=== PATIENT | male | born 1940 | race Caucasian/White ===

== ENCOUNTER 2016-12-08 05:30 | Emergency (ER) | payer MEDICARE, BC ==
--- NOTE | 2016-12-08 05:39 | EDM.PDOC ---
ED HPI GENERAL MEDICAL PROBLEM - General Chief Complaint: Laceration Stated Complaint: [facility] Time Seen by Provider: 12/08/16 05:30 Source of Information: Reports: Patient, EMS Notes Reviewed History Limitations: Reports: No Limitations - History of Present Illness INITIAL COMMENTS - FREE TEXT/NARRATIVE: 76-year-old male attends the ED per ambulance. Apparently his called the ambulance. 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 He obviously passed out and fell to the floor striking his head hard on child concrete. He believes he was knocked out for a short period of time. Paramedics were impressed by the large amount of blood and clotted blood around his head on the floor. Patient complains of headache and has a deep laceration to his occipital scalp. He is alert and oriented and answers all questions quite appropriately. He has lost a good deal of weight since I seen him last. He reports he has stated a few times in the past once his would was in relationship to new onset atrial fibrillation. He doesn't feel any palpitations at this time. Denies nausea vomiting. Paramedics indicate that the home he is living in is in a very foul state in terms of animal feces in the home is very well unkept. Patient does take insulin for his type 2 diabetes control. He has not taken insulin yet this morning. He does not believe that his blood sugar was low. He believes his tetanus toxoid is up-to-date in about 3 years. Patient usually gets around with a double walker and/or cane. He falls frequently in fact he fell yesterday. She states she's been quite dizzy and lightheaded recently. Paramedics report his blood glucose was 111 at home. Onset: Today Onset Date: 12/08/16 Onset Time: 04:50 Duration: Minutes: Location: Reports: Head Quality: Reports: Ache Severity: Moderate Improves with: Reports: None Worsens with: Reports: None Context: Reports: Other (Was in the bathroom voiding when he passed out and hit the floor. Unclear for how long he may have been lying on the floor as there was a significant clotted blood around his head according to paramedics.). Denies: Activity, Exercise, Lifting, Sick Contact, Trauma Associated Symptoms: Reports: Loss of Appetite, Weakness (Legs.). 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 (see below) (None.) - Related Data Allergies Allergy/AdvReac Type Severity Reaction Status Date / Time No Known Allergies Allergy Verified 12/08/16 05:36 Home Meds: Home Meds ALPRAZolam [Alprazolam Xr] 1 mg PO TID 01/07/14 [History] Finasteride [Proscar] 5 mg PO DAILY 01/07/14 [History] Hydrocodone/Acetaminophen [Hydrocodone-Acetaminophen 5-325] 1 each PO Q6HR PRN # 20 tablet 01/07/14 [Rx] Insulin Glargine,Hum.Rec.Anlog [Lantus Solostar] 15 unit SQ DAILY 01/07/14 [ History] Isosorbide Mononitrate [Imdur] 60 mg PO BID 01/07/14 [History] Nitroglycerin [Nitrostat] 0.4 mg SL ASDIRECTED PRN 01/07/14 [History] Tamsulosin [Tamsulosin 24 Hr] 0.4 mg PO BID 01/07/14 [History] atorvaSTATin [Lipitor] 80 mg PO BEDTIME 01/07/14 [History] buPROPion [Wellbutrin] 100 mg PO TID 01/07/14 [History] Aspirin [Ecotrin] 81 mg PO DAILY 04/04/16 [History] Omeprazole 20 mg PO DAILY 04/04/16 [History] Digoxin [Lanoxin] 125 mcg PO DAILY 12/08/16 [History] Metoprolol Tartrate [Lopressor] 50 mg PO BID 12/08/16 [History] Past Medical History Cardiovascular History: Reports: Afib (Intermittent atrial fibrillation/atrial flutter.), SOB on Exertion Gastrointestinal History: Reports: Gastritis, GERD Genitourinary History: Reports: BPH, Other (See Below) (Renal insufficiency.) Psychiatric History: Reports: Anxiety, Depression Endocrine/Metabolic History: Reports: Diabetes, Type II Dermatologic History: Reports: Psoriasis - Past Surgical History Cardiovascular Surgical History: Reports: Coronary Artery Bypass Social & Family History - Tobacco Use Smoking Status *Q: Former Smoker Years of Tobacco use: 25 Packs/Tins Daily: 2 Used Tobacco, but Quit: Yes Month Tobacco Last Used: unknown - Alcohol Use Days Per Week of Alcohol Use: 0 - Recreational Drug Use Recreational Drug Use: No ED ROS GENERAL - Review of Systems Review Of Systems: See Below Constitutional: Reports: Weakness, Fatigue, Decreased Appetite, Weight Loss. Denies: Fever, Chills, Malaise HEENT: Reports: No Symptoms Respiratory: Reports: Shortness of Breath, Wheezing (Sometimes), Cough. Denies : Sputum, Hemoptysis, Other Cardiovascular: Reports: Dyspnea on Exertion, Lightheadedness, Palpitations ( Chronically sometimes). Denies: Chest Pain, Blood Pressure Problem, Claudication, Edema, Orthopnea Endocrine: Reports: Fatigue GI/Abdominal: Reports: Decreased Appetite. Denies: Abdominal Pain, Anorexia : Reports: Frequency, Other (Nocturia usually x3.) Musculoskeletal: Reports: Back Pain, Joint Pain (Knees and hips at times) Skin: Reports: Other (Is chronic psoriasis.) Neurological: Reports: Dizziness, Syncope, Difficulty Walking, Weakness. Denies : Confusion, Headache, Numbness, Pre-Existing Deficit, Seizure (Past MORNING.), Tingling, Trouble Speaking, Change in Speech (Weakness in his legs) Psychiatric: Reports: No Symptoms Hematologic/Lymphatic: Reports: No Symptoms ED EXAM, SKIN/RASH Exam: See Below Exam Limited By: No Limitations General Appearance: Alert, Mild Distress, Other (He has lost a lot of weight since I have seen him last. He appears relatively unkept) Eye Exam: Bilateral Eye: Normal Inspection, PERRL Ears: Hearing Grossly Normal, Normal TMs, Other (Both ears contain a large amount of cerumen probably close to 85% occluded. The visualized portion of the tympanic membranes appear normal.) Nose: Normal Inspection Throat/Mouth: Normal Inspection, Normal Oropharynx, Other (Tongue is very dry and coated.) Head: Other (Laceration Lt occipital scalp laterally that measures a good 4.5 cm in length.). No: Facial Swelling, Facial Tenderness Neck: Non-Tender, Full Range of Motion. No: Carotid Bruit, Lymphadenopathy (L) , Lymphadenopathy (R) Respiratory/Chest: Decreased Breath Sounds (To the lower 25% of lung mcguire.), Rhonchi, Wheezing (Scattered rhonchi sparkler wheezes) Cardiovascular: Regular Rate, Rhythm, No Edema, No Gallop. No: Normal Peripheral Pulses Peripheral Pulses: 1+: Posterior Tibial (L), Posterior Tibial (R), Dorsalis Pedis (L), Dorsalis Pedis (R) GI/Abdominal: Normal Bowel Sounds, Soft, Non-Tender, No Organomegaly, No Distention, No Abnormal Bruit (Male) Exam: No Hernia Back Exam: Normal Inspection, Full Range of Motion. No: CVA Tenderness (L), CVA Tenderness (R), Vertebral Tenderness Extremities: Normal Inspection, Non-Tender, Normal Capillary Refill, Other Neurological: Alert (Decreased internal and external rotation of both hips. However no evidence of fracture of the pelvis or hip identified.), Oriented, CN II-XII Intact, Normal Cognition, No Motor/Sensory Deficits Psychiatric: Normal Affect, Normal Mood Skin: Warm, Dry, Intact, Other (Extensive generalized psoriasis.) ED SKIN PROCEDURES - Laceration/Wound Repair Left Lower Posterior Lateral Occipital Head Lac/wound length in cm: 5.0 Appearance: Subcutaneous, Stellate, Mildly Contaminated (With his hair.) Distal NVT: Neuro & Vascular Intact Anesthetic Type: Local Local Anesthesia - Lidocaine (Xylocaine): 1% Plain Local Anesthetic Volume: Other (10 mils) Skin Prep: Saline Exploration/Debridement/Repair: Wound Explored, Minimal Debridement Closed with: Sutures Suture Size: 4-0 # of Sutures: 8 Suture Type: Prolene, Interrupted, Simple EKG INTERPRETATION EKG Date: 12/08/16 Time: 06:25 Rhythm: NSR Rate (beats/min): 67 [place]: normal P-wave: present (First-degree AV block appreciated) QRS: normal ST-T: normal QT: normal Course - Vital Signs Last Recorded V/S: Last Vital Signs Temp 36.1 C 12/08/16 05:33 Pulse 65 12/08/16 05:33 Resp 16 12/08/16 05:33 BP 106/53 L 12/08/16 05:33 Pulse Ox 96 12/08/16 05:33 - Orders/Labs/Meds Orders: Active Orders 24 hr Category Date Time Status Blood Glucose Check, Bedside [RC] ONETIME Care 12/08/16 05:34 Active EKG Documentation Completion [RC] STAT Care 12/08/16 05:34 Active Chest 1V Frontal [CR] Stat Exams 12/08/16 05:33 Ordered Dextrose 5%-0.9% NaCl [Dextrose 5%-Normal Saline] 1,000 Med 12/08/16 05:45 Active ml IV ASDIRECTED Medication Orders Dextrose/Sodium Chloride (Dextrose 5%-Normal Saline) 1,000 mls @ 150 mls/hr IV ASDIRECTED JOHAN Last Admin: 12/08/16 05:59 Dose: 150 mls/hr Labs: Laboratory Tests 12/08/16 12/08/16 12/08/16 Range/Units 05:58 06:00 06:00 WBC 6.73 (4.23-9.07) K/mm3 RBC 4.00 L (4.63-6.08) M/mm3 Hgb 12.2 L (13.7-17.5) gm/L Hct 38.0 L (40.1-51.0) % MCV 95.0 H (79.0-92.2) fl MCH 30.5 (25.7-32.2) pg MCHC 32.1 L (32.2-35.5) g/dl RDW Std Deviation 47.4 H (35.1-43.9) fL Plt Count 193 (163-337) K/mm3 MPV 9.1 L (9.4-12.3) fl Neutrophils % (Manual) 61 H (40-60) % Band Neutrophils % 0 (0-10) % Lymphocytes % (Manual) 27 (20-40) % Atypical Lymphs % 0 % Monocytes % (Manual) 8 (2-10) % Eosinophils % (Manual) 3 (0.8-7.0) % Basophils % (Manual) 1 (0.2-1.2) Platelet Estimate Adequate RBC Morph Comment Normal PT 10.7 (8.0-13.0) SECONDS INR 0.98 Sodium (136-145) mEq/L Potassium (3.5-5.1) mEq/L Chloride (98-107) mEq/L Carbon Dioxide (21-32) mEq/L Anion Gap (5-15) BUN (7-18) mg/dL Creatinine (0.7-1.3) mg/dL Est Cr Clr Drug Dosing Estimated GFR (MDRD) (>60) mL/min BUN/Creatinine Ratio (14-18) Glucose (83-115) mg/dL POC Glucose 111 H (83-110) mg/dL Calcium (8.5-10.1) mg/dL Magnesium (1.8-2.4) mg/dl Total Bilirubin (0.2-1.0) mg/dL AST (15-37) U/L ALT (16-63) U/L Alkaline Phosphatase (46-116) U/L Total Protein (6.4-8.2) g/dl Albumin (3.4-5.0) g/dl Globulin gm/dL Albumin/Globulin Ratio (1-2) Ethyl Alcohol (0.00) gm% /08/25 Range/Units 06:00 WBC (4.23-9.07) K/mm3 RBC (4.63-6.08) M/mm3 Hgb (13.7-17.5) gm/L Hct (40.1-51.0) % MCV (79.0-92.2) fl MCH (25.7-32.2) pg MCHC (32.2-35.5) g/dl RDW Std Deviation (35.1-43.9) fL Plt Count (163-337) K/mm3 MPV (9.4-12.3) fl Neutrophils % (Manual) (40-60) % Band Neutrophils % (0-10) % Lymphocytes % (Manual) (20-40) % Atypical Lymphs % % Monocytes % (Manual) (2-10) % Eosinophils % (Manual) (0.8-7.0) % Basophils % (Manual) (0.2-1.2) Platelet Estimate RBC Morph Comment PT (8.0-13.0) SECONDS INR Sodium 141 (136-145) mEq/L Potassium 4.3 (3.5-5.1) mEq/L Chloride 104 (98-107) mEq/L Carbon Dioxide 28 (21-32) mEq/L Anion Gap 13.3 (5-15) BUN 21 H (7-18) mg/dL Creatinine 1.8 H (0.7-1.3) mg/dL Est Cr Clr Drug Dosing TNP Estimated GFR (MDRD) 37 (>60) mL/min BUN/Creatinine Ratio 11.7 L (14-18) Glucose 107 (83-115) mg/dL POC Glucose (83-110) mg/dL Calcium 8.5 (8.5-10.1) mg/dL Magnesium 1.7 L (1.8-2.4) mg/dl Total Bilirubin 0.5 (0.2-1.0) mg/dL AST 10 L (15-37) U/L ALT 9 L (16-63) U/L Alkaline Phosphatase 97 (46-116) U/L Total Protein 6.8 (6.4-8.2) g/dl Albumin 2.8 L (3.4-5.0) g/dl Globulin 4.0 gm/dL Albumin/Globulin Ratio 0.7 L (1-2) Ethyl Alcohol 0.00 (0.00) gm% Meds: Medications Generic Name Dose Route Start Last Admin Trade Name Freq PRN Reason Stop Dose Admin Dextrose/Sodium Chloride 1,000 mls @ 150 mls/hr 12/08/16 05:45 12/08/16 05:59 Dextrose 5%-Normal Saline IV 150 mls/hr ASDIRECTED JOHAN Administration Discontinued Medications Generic Name Dose Route Start Last Admin Trade Name Freq PRN Reason Stop Dose Admin Lidocaine HCl 50 ml 12/08/16 05:59 12/08/16 06:02 Xylocaine 1% INJECT 12/08/16 06:00 50 ml ONETIME ONE Administration - Radiology Interpretation Free Text/Narrative:: 76-year-old male presents the ED per ambulance after syncopal event occurred in the bathroom this morning. He remembers getting up to void and was standing to void and some word either during or after voiding he passed out falling hard to the floor striking his head hard on the concrete tile surface. He believes he was knocked out for a period of time. His attended him finally and identified that he have fallen. Paramedics identified a large amount of blood surrounding his head but had clotted suggested he been there for a period of time such as a half an hour or so. Patient has no injury to his oropharynx or tongue. Clinically no injuries to his extremities hips back chest wall. He has an obvious deep laceration to his scalp. He believes his tetanus toxoid is up to date within the last [address] head and neck to be done. Routine labs to include a bedside blood sugar. ECG is he has a history of intermittent atrial fibrillation or flutter. He is losing a lot of weight as of lately and appears to be suffering malnutrition. IV will be D5 normal saline at 150 mils per hour. - Re-Assessments/Exams Free Text/Narrative Re-Assessment/Exam: 12/08/16 06:25 laceration left lateral occipital scalp was cleansed and then sutured with 4-0 Prolene under local anesthetic using 1% non-buffered lidocaine. Patient tolerated the procedure well 8 sutures were replaced to provide wound closure. Bleeding was minimal. CT of the brain reveals advanced degenerative changes with small vessel ischemic changes throughout both basal ganglia. No obvious skull fractures identified. There is an old fracture of the nasal bones appreciated. CT of the cervical spine reveals advanced degenerative changes throughout with no fractures identified. I have some concern of a basal skull fracture on the left side that would correlate with his site of laceration injury. We'll await the radiologist's report in this regard. 12/08/16 06:49 chemistry is now back and reveals essentially no abnormalities. His magnesium is low at 1.7. Sodium 141 potassium 4.3. Part 104 bicarbonate 28. Anion gap is 13.3 glucose was 107. Coags are normal. We'll get him up and see how he manages. His ECG revealed sinus rhythm at 67 per minute with a first degree AV block with no specific abnormalities certainly nothing to suggest ischemia. 12/08/16 06:50 he is up and walking and doing fine. He'll therefore be discharged to home. Sutures will need to be removed in 10 days' time. 12/08/16 06:58 on further questioning of his she believes it's been a lengthy period of time since he had a tetanus shot. Therefore we will update his tetanus diphtheria and pertussis vaccine today. Departure - Departure Time of Disposition: 06:58 Disposition: Home, Self-Care 01 Condition: fair Clinical Impression: Closed head injury with brief loss of consciousness Occipital scalp laceration Qualifiers: Encounter type: initial encounter Qualified Code(s): S01.01XA - Laceration without foreign body of scalp, initial encounter - Discharge Information Forms: ED Department Discharge Additional Instructions: Evaluation in the emergency room today in regards to syncopal event that occurred in the bathroom early this morning. You're headed to the bathroom to empty her bladder when he collapsed for unclear reasons. Her fall to the floor resulted in a deep laceration to the left lateral scalp close to the ear. This required laceration repair approximately 2 inches in length. Treatment is daily cleanse this area with soap and water. Showering is okay. Then apply topical antibiotic such as bacitracin or Polysporin once daily to the area to keep it from getting infected. Sutures will need to be removed in 10 days' time. Her tetanus diphtheria and pertussis vaccine was also updated today and is good for the next 10 years. It is okay to take Tylenol or Motrin for your headache. - My Orders Last 24 Hours: My Active Orders 12/08/16 05:33 Chest 1V Frontal [CR] Stat 12/08/16 05:34 Blood Glucose Check, Bedside [RC] ONETIME EKG Documentation Completion [RC] STAT 12/08/16 05:45 Dextrose 5%-0.9% NaCl [Dextrose 5%-Normal Saline] 1,000 ml IV ASDIRECTED - Assessment/Plan Last 24 Hours: My Active Orders 12/08/16 05:33 Chest 1V Frontal [CR] Stat 12/08/16 05:34 Blood Glucose Check, Bedside [RC] ONETIME EKG Documentation Completion [RC] STAT 12/08/16 05:45 Dextrose 5%-0.9% NaCl [Dextrose 5%-Normal Saline] 1,000 ml IV ASDIRECTED
[2016-12-08] MEDS ORDERED: Dextrose 5%-0.9% NaCl 1,000 ML IV SCH (05:45)
[2016-12-08] MEDS ORDERED: Lidocaine 1% 10 ML MDV INJECT ONE (05:59)
--- NOTE | 2016-12-08 06:00 | CT ---
Head CT Technique: Multiple axial sections through the brain were obtained. Intravenous contrast was not utilized. Comparison: Previous head CT exam of 03/12/13. Findings: Ventricles along with basal cisterns and sulci over the convexities are moderately prominent. Minimal diminished density is noted within portions of the periventricular white matter compatible with small vessel ischemic demyelination change. Minimal basal ganglia calcification is seen. No other abnormal parenchymal densities are seen. No evidence of intracranial hemorrhage. No midline shift or mass effect is seen. Atherosclerotic calcification is noted within the vertebral vessels and carotid siphon. Bone window settings were reviewed which shows no acute calvarial abnormality. Visualized sinuses are clear. Nasal bone fracture is identified which may be acute. Impression: 1. Nasal bone fracture possibly acute. Please correlate if patient is symptomatic to the nose. 2. Senescent change as described above. 3. No acute intracranial abnormality is seen on noncontrast head CT exam. No acute skull abnormality is seen. Diagnostic code #2
--- NOTE | 2016-12-08 06:46 | CT ---
CT cervical spine Technique: Multiple axial sections were obtained from above C1 inferiorly to the bottom of T2. Reconstructed sagittal and coronal images were reviewed. Comparison: No previous cervical spine imaging. Findings: Visualized mastoid sinuses are clear. Middle ear cavities are clear. Posterior skull base is intact. Mild degenerative change is scattered within the apophyseal joints. Severe disc space narrowing is noted at C4-5 with posterior osteophytes. Anterior osteophytes noted at C2-3, C3-4, C4-5 and C5-6. Vertebral bodies and posterior arches are intact. Moderate bilateral neural foraminal stenosis noted at C4-5. Other neural foramina are patent. No central canal stenosis is seen. Mild degenerative spurring noted within the uncovertebral joints at C3-4 and C4-5. Impression: 1. Degenerative change as noted above. 2. No acute fracture or abnormal subluxation is seen on CT study of the cervical spine. Diagnostic code #2
[2016-12-08] MEDS ORDERED: Diphtheria,Pertussis(Acell),Tetanus Vaccine 0.5 ML SDV inactive IM ONE (06:57)
[2016-12-08 07:46] VITALS: BP 140/73
--- NOTE | 2016-12-08 08:42 | CR ---
Chest: Frontal view of the chest was obtained. Comparison: Previous chest x-ray of 03/12/13. Increased density within the left base most likely representing fibrosis. Mild scarring is noted within the right upper lung. No acute infiltrates are seen. Heart size is normal. Tortuous thoracic aorta is seen. Multiple surgical clips are seen within the lower neck. Previous sternotomy is noted. Impression: 1. Findings as noted above. Nothing acute is suspected on frontal chest x-ray. Diagnostic code #2
== END 2016-12-08 07:46 | disposition home or self-care (01) ==
LOC: JD.ED 05:30
DX: S06.9X9A Unspecified intracranial injury with loss of consciousness of unspecified duration, initial encounter (principal); S01.01XA Laceration without foreign body of scalp, initial encounter; K21.9 Gastro-esophageal reflux disease without esophagitis; F41.8 Other specified anxiety disorders; E11.9 Type 2 diabetes mellitus without complications; L40.9 Psoriasis, unspecified; Z95.1 Presence of aortocoronary bypass graft; Z87.891 Personal history of nicotine dependence; Z79.4 Long term (current) use of insulin; Z79.899 Other long term (current) drug therapy; Z79.82 Long term (current) use of aspirin; W01.198A Fall on same level from slipping, tripping and stumbling with subsequent striking against other object, initial encounter; Y92.89 Other specified places as the place of occurrence of the external cause; Z23 Encounter for immunization
CPT/HCPCS: 12002; 36415; 70450; 71010; 72125; 80053; 82962; 83735; 85025; 85610; 90471; 93005; 96360; 99285; G0480; J7042; 90715; 99284-25

== ENCOUNTER 2017-05-27 17:15 | Inpatient (IN) | payer MEDICARE, BC ==
[2017-05-27] MEDS: Sodium Chloride 0.9% 10 ML Syringe FLUSH PRN (17:37)
[2017-05-27] MEDS ORDERED: Metoprolol Tartrate 50 MG Tab PO ONE (18:29)
[2017-05-27] MEDS ORDERED: Labetalol 100 MG/20 ML MDV IVPUSH ONE (19:11)
--- NOTE | 2017-05-27 19:13 | EDM.PDOC ---
ED HPI GENERAL MEDICAL PROBLEM - General Chief Complaint: Neuro Symptoms/Deficits Stated Complaint: [facility] Time Seen by Provider: 05/27/17 17:21 Source of Information: Reports: Patient, EMS History Limitations: Reports: Altered Mental Status - History of Present Illness INITIAL COMMENTS - FREE TEXT/NARRATIVE: The patient is a 76-year-old male with a history of dementia, coronary artery disease, previously treated bladder cancer, who comes in after an episode of altered mental status at home. According to his , the patient was fine this morning and during the day. He was sitting in a chair when suddenly she looked over and noticed that he was unresponsive and had some slight shaking of his upper and lower extremities. She called EMS. By the time EMS arrived, the shaking had stopped. The patient was awake but had a left-sided facial droop, left arm and leg weakness, and also aphasia. EMS immediately transported the patient to the emergency department. By the time they arrived, they said that his symptoms were much improved. No recent trauma. No recent fever or illness. The patient is now able to answer my questions and states that he does not have a headache. He states he feels fine. He doesn't really remember what happened. He denies chest pain or shortness of breath or cough. No abdominal pain or vomiting. He states he doesn't think he's ever had an episode like this before. - Related Data Allergies Allergy/AdvReac Type Severity Reaction Status Date / Time No Known Allergies Allergy Verified 05/27/17 17:20 Home Meds: Home Meds ALPRAZolam [Alprazolam Xr] 1 mg PO TID 01/07/14 [History] Finasteride [Proscar] 5 mg PO DAILY 01/07/14 [History] Insulin Glargine,Hum.Rec.Anlog [Lantus Solostar] 15 unit SQ DAILY 01/07/14 [ History] Nitroglycerin [Nitrostat] 0.4 mg SL ASDIRECTED PRN 01/07/14 [History] Tamsulosin [Tamsulosin 24 Hr] 0.4 mg PO BID 01/07/14 [History] atorvaSTATin [Lipitor] 80 mg PO BEDTIME 01/07/14 [History] buPROPion [Wellbutrin] 100 mg PO TID 01/07/14 [History] Aspirin [Ecotrin] 81 mg PO DAILY 04/04/16 [History] Omeprazole 20 mg PO DAILY 04/04/16 [History] Digoxin [Lanoxin] 125 mcg PO DAILY 12/08/16 [History] Metoprolol Tartrate [Lopressor] 50 mg PO BID 12/08/16 [History] Donepezil [Aricept] 5 mg PO BEDTIME 05/27/17 [History] Past Medical History Cardiovascular History: Reports: Afib, SOB on Exertion Gastrointestinal History: Reports: Gastritis, GERD Genitourinary History: Reports: BPH, Other (See Below) Psychiatric History: Reports: Anxiety, Depression Endocrine/Metabolic History: Reports: Diabetes, Type II Dermatologic History: Reports: Psoriasis - Past Surgical History Cardiovascular Surgical History: Reports: Coronary Artery Bypass Social & Family History - Tobacco Use Smoking Status *Q: Former Smoker Years of Tobacco use: 55 Packs/Tins Daily: 1 Used Tobacco, but Quit: No Month Tobacco Last Used: november - Caffeine Use Caffeine Use: Reports: Coffee - Alcohol Use Days Per Week of Alcohol Use: 0 - Recreational Drug Use Recreational Drug Use: No ED ROS GENERAL - Review of Systems Review Of Systems: Unable To Obtain (due to altered mental status) ED EXAM, NEURO - Physical Exam Exam: See Below Exam Limited By: No Limitations General Appearance: Alert, WD/WN, No Apparent Distress Eye Exam: Bilateral Eye: EOMI, PERRL Ears: Normal External Exam Nose: Normal Inspection, Normal Mucosa Throat/Mouth: Normal Inspection, Normal Oropharynx, Normal Voice Head Exam: Atraumatic, Normocephalic Neck: Normal Inspection, Supple, Non-Tender, Full Range of Motion Respiratory/Chest: No Respiratory Distress, Lungs Clear, Normal Breath Sounds, Chest Non-Tender Cardiovascular: Normal Peripheral Pulses, Regular Rate, Rhythm, No Murmur GI/Abdominal: Soft, Non-Tender, No Distention Neurological: Alert, Normal Mood/Affect, Normal Dorsiflexion, CN II-XII Intact, Normal Plantar Flexion, Normal Gait, No Motor/Sensory Deficits, Oriented x 3 Extremities: Normal Inspection Psychiatric: Normal Affect, Normal Mood Skin Exam: Warm, Dry, Intact, Normal Color, No Rash Course - Vital Signs Last Recorded V/S: Last Vital Signs Temp 36.8 C 05/28/17 16:00 Pulse 61 05/28/17 19:00 Resp 17 05/28/17 19:00 BP 138/50 L 05/28/17 19:00 Pulse Ox 93 L 05/28/17 19:00 - Orders/Labs/Meds Orders: Medication Orders Alprazolam (Xanax) 1 mg PO TID [facility] Last Admin: 05/28/17 15:41 Dose: 1 mg Admin: 05/28/17 09:33 Dose: 1 mg Admin: 05/27/17 21:04 Dose: 1 mg Amlodipine Besylate (Norvasc) 5 mg PO DAILY [facility] Last Admin: 05/28/17 12:07 Dose: 5 mg Aspirin (Halfprin) 81 mg PO DAILY [facility] Last Admin: 05/28/17 12:08 Dose: 81 mg Bupropion HCl (Wellbutrin Xl) 150 mg PO DAILY [facility] Last Admin: 05/28/17 12:07 Dose: 150 mg Dextrose/Water (Dextrose 50% In Water) 50 ml IVPUSH ASDIRECTED PRN PRN Reason: Hypoglycemia Digoxin (Lanoxin) 125 mcg PO DAILY [facility] Last Admin: 05/28/17 09:32 Dose: 125 mcg Donepezil HCl (Aricept) 5 mg PO BEDTIME [facility] Last Admin: 05/27/17 21:04 Dose: 5 mg Finasteride (Proscar) 5 mg PO DAILY [facility] Last Admin: 05/28/17 09:33 Dose: 5 mg Hydralazine HCl (Apresoline) 20 mg IVPUSH Q6H PRN PRN Reason: Hypertension Sodium Chloride (Sodium Chloride 0.45%) 1,000 mls @ 75 mls/hr IV ASDIRECTED [facility] Last Admin: 05/28/17 12:26 Dose: 75 mls/hr Infusion: 05/28/17 12:26 Dose: 75 mls/hr Admin: 05/27/17 23:50 Dose: 75 mls/hr Insulin Aspart (Novolog) 0 unit SUBCUT QIDACANDBED [facility] PRN Reason: Protocol Last Admin: 05/28/17 17:28 Dose: 1 units Admin: 05/28/17 12:30 Dose: 2 units Admin: 05/28/17 09:26 Dose: 1 units Admin: 05/27/17 22:59 Dose: 2 units Metoprolol Tartrate (Lopressor) 25 mg PO BID [facility] Nitroglycerin (Nitrostat) 0.4 mg SL ASDIRECTED PRN PRN Reason: Chest Pain Rosuvastatin Calcium (Crestor) 20 mg PO BEDTIME [facility] Last Admin: 05/27/17 21:03 Dose: 20 mg Sodium Chloride (Saline Flush) 10 ml FLUSH ASDIRECTED PRN PRN Reason: Keep Vein Open Last Admin: 05/27/17 17:37 Dose: 10 ml Tamsulosin HCl (Flomax) 0.4 mg PO BID [facility] Last Admin: 05/28/17 09:33 Dose: 0.4 mg Admin: 05/27/17 21:05 Dose: 0.4 mg Labs: Laboratory Tests 05/27/17 05/27/17 05/27/17 Range/Units 17:25 17:25 17:25 WBC 9.01 (4.23-9.07) K/mm3 RBC 4.37 L (4.63-6.08) M/mm3 Hgb 13.1 L (13.7-17.5) gm/L Hct 39.1 L (40.1-51.0) % MCV 89.5 (79.0-92.2) fl MCH 30.0 (25.7-32.2) pg MCHC 33.5 (32.2-35.5) g/dl RDW Std Deviation 45.7 H (35.1-43.9) fL Plt Count 177 (163-337) K/mm3 MPV 9.5 (9.4-12.3) fl Neut % (Auto) 74.9 H (34.0-67.9) % Lymph % (Auto) 17.9 L (21.8-53.1) % Callaway % (Auto) 5.3 (5.3-12.2) % Eos % (Auto) 1.4 (0.8-7.0) Baso % (Auto) 0.3 (0.1-1.2) % Neut # (Auto) 6.74 H (1.78-5.38) K/mm3 Lymph # (Auto) 1.61 (1.32-3.57) K/mm3 [place] # (Auto) 0.48 (0.30-0.82) K/mm3 Eos # (Auto) 0.13 (0.04-0.54) K/mm3 Baso # (Auto) 0.03 (0.01-0.08) K/mm3 PT 10.5 (8.0-13.0) SECONDS INR 0.97 Sodium 141 (136-145) mEq/L Potassium 3.6 (3.5-5.1) mEq/L Chloride 100 (98-107) mEq/L Carbon Dioxide 27 (21-32) mEq/L Anion Gap 17.6 H (5-15) BUN 22 H (7-18) mg/dL Creatinine 2.1 H (0.7-1.3) mg/dL Est Cr Clr Drug Dosing 29.40 mL/min Estimated GFR (MDRD) 31 (>60) mL/min BUN/Creatinine Ratio 10.5 L (14-18) Glucose 184 H (83-115) mg/dL Calcium 8.7 (8.5-10.1) mg/dL Magnesium (1.8-2.4) mg/dl Total Bilirubin 0.5 (0.2-1.0) mg/dL AST 11 L (15-37) U/L ALT 13 L (16-63) U/L Alkaline Phosphatase 124 H (46-116) U/L Troponin I < 0.017 (0.00-0.056) ng/mL Total Protein 7.5 (6.4-8.2) g/dl Albumin 3.1 L (3.4-5.0) g/dl Globulin 4.4 gm/dL Albumin/Globulin Ratio 0.7 L (1-2) 05/27/ Range/Units 17:25 WBC (4.23-9.07) K/mm3 RBC (4.63-6.08) M/mm3 Hgb (13.7-17.5) gm/L Hct (40.1-51.0) % MCV (79.0-92.2) fl MCH (25.7-32.2) pg MCHC (32.2-35.5) g/dl RDW Std Deviation (35.1-43.9) fL Plt Count (163-337) K/mm3 MPV (9.4-12.3) fl Neut % (Auto) (34.0-67.9) % Lymph % (Auto) (21.8-53.1) % Callaway % (Auto) (5.3-12.2) % Eos % (Auto) (0.8-7.0) Baso % (Auto) (0.1-1.2) % Neut # (Auto) (1.78-5.38) K/mm3 Lymph # (Auto) (1.32-3.57) K/mm3 Callaway # (Auto) (0.30-0.82) K/mm3 Eos # (Auto) (0.04-0.54) K/mm3 Baso # (Auto) (0.01-0.08) K/mm3 PT (8.0-13.0) SECONDS INR Sodium (136-145) mEq/L Potassium (3.5-5.1) mEq/L Chloride (98-107) mEq/L Carbon Dioxide (21-32) mEq/L Anion Gap (5-15) BUN (7-18) mg/dL Creatinine (0.7-1.3) mg/dL Est Cr Clr Drug Dosing mL/min Estimated GFR (MDRD) (>60) mL/min BUN/Creatinine Ratio (14-18) Glucose (83-115) mg/dL Calcium (8.5-10.1) mg/dL Magnesium 1.5 L (1.8-2.4) mg/dl Total Bilirubin (0.2-1.0) mg/dL AST (15-37) U/L ALT (16-63) U/L Alkaline Phosphatase (46-116) U/L Troponin I (0.00-0.056) ng/mL Total Protein (6.4-8.2) g/dl Albumin (3.4-5.0) g/dl Globulin gm/dL Albumin/Globulin Ratio (1-2) Meds: Medications Generic Name Dose Route Start Last Admin Trade Name Santanaq PRN Reason Stop Dose Admin Alprazolam 1 mg 05/27/17 21:00 05/28/17 15:41 Xanax PO 1 mg TID JOHAN Administration Amlodipine Besylate 5 mg 05/28/17 12:00 05/28/17 12:07 Norvasc PO 5 mg DAILY JOHNA Administration Aspirin 81 mg 05/28/17 09:00 05/28/17 12:08 Halfprin PO 81 mg DAILY JOHNA Administration Bupropion HCl 150 mg 05/28/17 12:00 05/28/17 12:07 Wellbutrin Xl PO 150 mg DAILY JOHAN Administration Dextrose/Water 50 ml 05/27/17 21:08 Dextrose 50% In Water IVPUSH ASDIRECTED PRN Hypoglycemia Digoxin 125 mcg 05/28/17 09:00 05/28/17 09:32 Lanoxin PO 125 mcg DAILY JOHAN Administration Donepezil HCl 5 mg 05/27/17 21:00 05/27/17 21:04 Aricept PO 5 mg BEDTIME JOHAN Administration Finasteride 5 mg 05/28/17 09:00 05/28/17 09:33 Proscar PO 5 mg DAILY JOHAN Administration Hydralazine HCl 20 mg 05/28/17 11:43 Apresoline IVPUSH Q6H PRN Hypertension Sodium Chloride 1,000 mls @ 75 mls/hr 05/27/17 20:30 05/28/17 12:26 Sodium Chloride 0.45% IV 75 mls/hr ASDIRECTED JOHAN Administration Insulin Aspart 0 unit 05/27/17 22:00 05/28/17 17:28 Novolog SUBCUT 1 units QIDACANDBED JOHAN Administration Protocol Metoprolol Tartrate 25 mg 05/28/17 11:47 Lopressor PO BID JOHAN Nitroglycerin 0.4 mg 05/27/17 20:20 Nitrostat SL ASDIRECTED PRN Chest Pain Rosuvastatin Calcium 20 mg 05/27/17 21:00 05/27/17 21:03 Crestor PO 20 mg BEDTIME JOHAN Administration Sodium Chloride 10 ml 05/27/17 17:28 05/27/17 17:37 Saline Flush FLUSH 10 ml ASDIRECTED PRN Administration Keep Vein Open Tamsulosin HCl 0.4 mg 05/27/17 21:00 05/28/17 09:33 Flomax PO 0.4 mg BID JOHAN Administration Discontinued Medications Generic Name Dose Route Start Last Admin Trade Name Freq PRN Reason Stop Dose Admin Labetalol HCl 100 mg/ Sodium 100 mls @ 30 mls/hr 05/27/17 20:30 05/28/17 10: 47 Chloride IV 0.5 mg/min TITRATE JOHAN 30 mls/hr Protocol Titration 0.5 MG/MIN Magnesium Sulfate 4 gm/ Premix 100 mls @ 50 mls/hr 05/28/17 11:39 05/28/17 14 :30 IV 05/28/17 13:38 50 mls/hr ONETIME ONE Administration Labetalol HCl 20 mg 05/27/17 19:11 05/27/17 19:22 Normodyne IVPUSH 05/27/17 19:12 20 mg ONETIME ONE Administration Protocol Metoprolol Tartrate 50 mg 05/27/17 18:29 05/27/17 18:37 Lopressor PO 05/27/17 18:30 50 mg ONETIME ONE Administration Metoprolol Tartrate 50 mg 05/27/17 21:00 05/27/17 21:04 Lopressor PO 50 mg BID JOHAN Administration Non-Formulary Medication 1 mg 05/27/17 21:00 Alprazolam [Alprazolam Xr] PO TID JOHAN Non-Formulary Medication 100 mg 05/27/17 21:00 Bupropion PO TID JOHAN - Re-Assessments/Exams Free Text/Narrative Re-Assessment/Exam: 05/27/17 19:[address] Huang, who agrees with plan to admit the patient to the ICU for further workup and care. 05/27/17 19:27 EKG shows normal sinus rhythm, no acute evidence of ischemia or arrhythmia. CT scan of the head showed degenerative changes consistent with dementia but no evidence of acute stroke or head bleed. Patient's labs are unremarkable except for a mildly elevated creatinine at 2.1. His blood pressure was mildly elevated at arrival at 180/78. This increased during his stay in the emergency department was persistently in the low 200s systolic. I ordered his evening dose of Lopressor which appears to be his only evening antihypertensive. I also ordered a dose of labetalol. Not clear to me if his neurological symptoms may have been due to hypertensive emergency. Syncope, seizure, and TIA are also on the differential. Discussed with Dr. Huang who agrees to admit the patient for further care. Departure - Departure Time of Disposition: 19:18 Disposition: Admitted As Inpatient 67 Condition: Fair Clinical Impression: Hypertensive urgency TIA (transient ischemic attack) Qualifiers: Transient cerebral ischemia type: unspecified Qualified Code(s): G45.9 - Transient cerebral ischemic attack, unspecified - Discharge Information Critical Care Note - Critical Care Note Total Time (mins): 30
[2017-05-27] MEDS ORDERED: Nitroglycerin 0.4 MG Tab.SL SL PRN (20:20)
--- NOTE | 2017-05-27 20:35 | PCM.HP ---
H&P History of Present Illness - General Date of Service: 05/27/17 Admit Problem/Dx: Admission Diagnosis/Problem Admission Diagnosis/Problem TIA, Transient ischemic attack - History of Present Illness Initial Comments - Free Text/Narative: 76 year old male with increasing confusion reportedly became unresponsive. He developed left sided weakness, UE and LE. Additionally left sided facial droop was present. This resolved after he had been picked up by the EMS, ED arrival documented an unremarkable neuro exam. He has had no change in speech, double vision, lightheadedness. There has been no headache or constitutional complaints. Ct of the head should atrophy without acute etiology. During his ED work up he became profoundly hypertensive and received Labetalol with minimal response. He will be admitted to the ICU for hypertensive urgency and a TIA work will be initiated. Patient and his family are agreeable. Onset of Symptoms: Reports: Sudden Symptom Onset Date: 05/27/17 Duration of Symptoms: Reports: Hour(s):, Getting Worse Location: Reports: Face (left sided droop), Upper Extremity, Left, Lower Extremity, Left Severity: Moderate Improves with: Reports: Medication Worsens with: Reports: None Associated Symptoms: Reports: Confusion - Related Data Allergies/Adverse Reactions: Allergies Allergy/AdvReac Type Severity Reaction Status Date / Time No Known Allergies Allergy Verified 05/27/17 17:20 Home Medications: Home Meds ALPRAZolam [Alprazolam Xr] 1 mg PO TID 01/07/14 [History] Finasteride [Proscar] 5 mg PO DAILY 01/07/14 [History] Insulin Glargine,Hum.Rec.Anlog [Lantus Solostar] 15 unit SQ DAILY 01/07/14 [ History] Nitroglycerin [Nitrostat] 0.4 mg SL ASDIRECTED PRN 01/07/14 [History] Tamsulosin [Tamsulosin 24 Hr] 0.4 mg PO BID 01/07/14 [History] atorvaSTATin [Lipitor] 80 mg PO BEDTIME 01/07/14 [History] buPROPion [Wellbutrin] 100 mg PO TID 01/07/14 [History] Aspirin [Ecotrin] 81 mg PO DAILY 04/04/16 [History] Omeprazole 20 mg PO DAILY 04/04/16 [History] Digoxin [Lanoxin] 125 mcg PO DAILY 12/08/16 [History] Metoprolol Tartrate [Lopressor] 50 mg PO BID 12/08/16 [History] Donepezil [Aricept] 5 mg PO BEDTIME 05/27/17 [History] Past Medical History Cardiovascular History: Reports: Afib, SOB on Exertion Gastrointestinal History: Reports: Gastritis, GERD Genitourinary History: Reports: BPH, Other (See Below) Psychiatric History: Reports: Anxiety, Depression Endocrine/Metabolic History: Reports: Diabetes, Type II Dermatologic History: Reports: Psoriasis - Past Surgical History Cardiovascular Surgical History: Reports: Coronary Artery Bypass Social & Family History - Tobacco Use Smoking Status *Q: Former Smoker Years of Tobacco use: 55 Packs/Tins Daily: 1 Used Tobacco, but Quit: No Month Tobacco Last Used: november - Caffeine Use Caffeine Use: Reports: Coffee - Alcohol Use Days Per Week of Alcohol Use: 0 - Recreational Drug Use Recreational Drug Use: No H&P Review of Systems - Review of Systems: Review Of Systems: See Below General: Reports: Weakness HEENT: Reports: No Symptoms Pulmonary: Reports: No Symptoms Cardiovascular: Reports: No Symptoms Gastrointestinal: Reports: No Symptoms Genitourinary: Reports: No Symptoms Musculoskeletal: Reports: No Symptoms Skin: Reports: No Symptoms Psychiatric: Reports: No Symptoms Neurological: Reports: Confusion, Trouble Speaking, Weakness Hematologic/Lymphatic: Reports: No Symptoms Immunologic: Reports: No Symptoms Exam - Exam Exam: See Below - Vital Signs Vital Signs: Last Vital Signs Temp 36.7 C 05/27/17 19:53 Pulse 79 05/27/17 19:22 Resp 16 05/27/17 19:53 BP 208/81 H 05/27/17 19:53 Pulse Ox 97 05/27/17 19:53 Weight: 84.595 kg - Exam Quality Assessment: Supplemental Oxygen, DVT Prophylaxis General: Alert, Oriented HEENT: Conjunctiva Clear, EOMI, Nares Patent, Normal Nasal Septum, Pupils Equal , Pupils Reactive, PERRLA Neck: Trachea Midline Lungs: Normal Respiratory Effort Cardiovascular: Regular Rate, Irregular Rhythm GI/Abdominal Exam: Normal Bowel Sounds, Soft, Non-Tender, No Organomegaly, No Distention (Male) Exam: Deferred Rectal (Males) Exam: Deferred Back Exam: Normal Inspection Extremities: Normal Inspection Skin: Warm Neurological: Cranial Nerves Intact, Reflexes Equal Bilateral, Strength Equal Bilateral, Normal Speech Neuro Extensive - Mental Status: Alert, Normal Mood/Affect, Normal Cognition Neuro Extensive - Motor, Sensory, Reflexes: CN II-XII Intact Psychiatric: Alert - Patient Data Result Diagrams: 05/28/17 05:41 05/28/17 05:41 *Q Meaningful Use (ADM) - VTE *Q VTE Criteria *Q: - Stroke *Q Stroke Criteria *Q: - AMI *Q AMI Criteria *Q: - Problem List (1) Hypertensive urgency SNOMED Code(s): 251519272 ICD Code: I16.0 - HYPERTENSIVE URGENCY Status: Acute Current Visit: Yes (2) TIA (transient ischemic attack) SNOMED Code(s): 550803404 ICD Code: G45.9 - TRANSIENT CEREBRAL ISCHEMIC ATTACK, UNSPECIFIED Status: Acute Current Visit: Yes Qualifiers: Transient cerebral ischemia type: unspecified Qualified Code(s): G45.9 - Transient cerebral ischemic attack, unspecified (3) Atrial flutter with rapid ventricular response SNOMED Code(s): 7336028 ICD Code: I48.92 - UNSPECIFIED ATRIAL FLUTTER Status: Acute Current Visit : No (4) Renal insufficiency SNOMED Code(s): 823929743 ICD Code: N28.9 - DISORDER OF KIDNEY AND URETER, UNSPECIFIED Status: Acute Current Visit: No (5) Syncope SNOMED Code(s): 940892150 ICD Code: R55 - SYNCOPE AND COLLAPSE Status: Acute Current Visit: No Qualifiers: Syncope type: unspecified Qualified Code(s): R55 - Syncope and collapse Problem List Initiated/Reviewed/Updated: Yes Orders Last 24hrs: Active Orders 24 hr Category Date Time Status Admission Status [Patient Status] [ADT] Routine ADT 05/27/17 19:51 Active Bedrest Bathroom Privileges [RC] ASDIRECTED Care 05/27/17 20:21 Ordered Cardiac Monitoring [RC] . DIRECTED Care 05/27/17 19:51 Active HOB [Head of Bed Elevation] [RC] ASDIRECTED Care 05/27/17 20:24 Ordered Neuro Check [RC] BID Care 05/27/17 20:23 Ordered Nursing Bedside Swallow Screen [RC] ASDIRECTED Care 05/27/17 20:23 Ordered Vital Signs [RC] PER UNIT ROUTINE Care 05/27/17 20:21 Ordered Consult to Occupational Therapy [OT Evaluation and Cons 05/28/17 14:00 Ordered Treatment] [CONS] Routine Consult to Physical Therapy [PT Evaluation and Cons 05/28/17 14:00 Ordered Treatment] [CONS] Routine Consult to [employer] [CONS] Routine Cons 05/27/17 20:32 Ordered Brain wo Cont [MR] Routine Exams 05/28/17 13:00 Ordered Carotid Comp [US] Routine Exams 05/28/17 09:00 Ordered Echo Comp wo Cont [US] Routine Exams 05/28/17 08:00 Ordered BASIC METABOLIC PANEL,BMP [CHEM] DAILY Lab 05/28/17 05:00 Ordered BASIC METABOLIC PANEL,BMP [CHEM] DAILY Lab 05/29/17 05:00 Ordered BASIC METABOLIC PANEL,BMP [CHEM] DAILY Lab 05/30/17 05:00 Ordered BASIC METABOLIC PANEL,BMP [CHEM] DAILY Lab 05/31/17 05:00 Ordered CBC WITH AUTO DIFF [HEME] DAILY Lab 05/28/17 05:00 Ordered CBC WITH AUTO DIFF [HEME] DAILY Lab 05/29/17 05:00 Ordered CBC WITH AUTO DIFF [HEME] DAILY Lab 05/30/17 05:00 Ordered CBC WITH AUTO DIFF [HEME] DAILY Lab 05/31/17 05:00 Ordered CRP [C-REACTIVE PROTEIN] [CHEM] DAILY Lab 05/28/17 05:00 Ordered CRP [C-REACTIVE PROTEIN] [CHEM] DAILY Lab 05/29/17 05:00 Ordered CRP [C-REACTIVE PROTEIN] [CHEM] DAILY Lab 05/30/17 05:00 Ordered CRP [C-REACTIVE PROTEIN] [CHEM] DAILY Lab 05/31/17 05:00 Ordered DIGOXIN [CHEM] Routine Lab 05/28/17 05:00 Ordered LIPID PANEL [CHEM] Routine Lab 05/28/17 05:00 Ordered TROPONIN I [CHEM] Routine Lab 05/28/17 05:00 Ordered ALPRAZolam [ALPRAZolam XR] Med 05/27/17 21:00 Ordered 1 mg PO TID Aspirin [Halfprin] Med 05/28/17 09:00 Ordered 81 mg PO DAILY Digoxin [Lanoxin] Med 05/28/17 09:00 Ordered 125 mcg PO DAILY Donepezil Med 05/27/17 21:00 Ordered 5 mg PO BEDTIME Finasteride [Proscar] Med 05/28/17 09:00 Ordered 5 mg PO DAILY Labetalol 100 MG in Normal Saline @ 0.5 MG/MIN(100ml) Med 05/27/17 20:30 Ordered Labetalol [Normodyne] 100 mg Sodium Chloride 0.9% [Normal Saline] 80 ml IV TITRATE Metoprolol Tartrate [Lopressor] Med 05/27/17 21:00 Active 50 mg PO BID Nitroglycerin [Nitrostat] Med 05/27/17 20:20 Ordered 0.4 mg SL ASDIRECTED PRN Rosuvastatin [Crestor] Med 05/27/17 21:00 Active 20 mg PO BEDTIME Sodium Chloride 0.45% @ 75 MLS/HR(1000ml) Med 05/27/17 20:30 Ordered Sodium Chloride 0.45% 1,000 ml IV ASDIRECTED Tamsulosin [Flomax] Med 05/27/17 21:00 Ordered 0.4 mg PO BID buPROPion Med 05/27/17 21:00 Ordered 100 mg PO TID Seizure Precautions [OM.PC] Routine Oth 05/27/17 20:33 Ordered Code Status [Resuscitation Status] Routine Resus Stat 05/27/17 20:21 Ordered Medication Orders Aspirin (Halfprin) 81 mg PO DAILY JOHAN Digoxin (Lanoxin) 125 mcg PO DAILY JOHAN Donepezil HCl (Aricept) 5 mg PO BEDTIME JOHAN Finasteride (Proscar) 5 mg PO DAILY JOHAN Metoprolol Tartrate (Lopressor) 50 mg PO BID JOHAN Nitroglycerin (Nitrostat) 0.4 mg SL ASDIRECTED PRN PRN Reason: Chest Pain Non-Formulary Medication (Alprazolam [Alprazolam Xr]) 1 mg PO TID JOHAN Non-Formulary Medication (Bupropion) 100 mg PO TID JOHAN Rosuvastatin Calcium (Crestor) 20 mg PO BEDTIME JOHAN Sodium Chloride (Saline Flush) 10 ml FLUSH ASDIRECTED PRN PRN Reason: Keep Vein Open Last Admin: 05/27/17 17:37 Dose: 10 ml Tamsulosin HCl (Flomax) 0.4 mg PO BID [facility] Assessment/Plan Comment:: Impression: AMS, presyncopal TIA with left sided weakness Reportedly SZ activity History of CAD; S/P CABG A Fib on digoxin History of Dementia Chronic DM type 2 GERD BPH Plan: Start Labetalol drip; target SBP 140-150 Neuorcheck per protocol CVA/TIA protocol MRI 05/28/17 SZ precautions Swallow Eval Ischemic work up DVT/GI prophylaxis
[2017-05-27] MEDS ORDERED: Metoprolol Tartrate 50 MG Tab PO SCH (21:00)
[2017-05-27] MEDS ORDERED: ALPRAZOLAM 1 MG PO SCH (21:00)
[2017-05-27] MEDS ORDERED: ATORVASTATIN 80 MG PO SCH (21:00)
[2017-05-27] MEDS ORDERED: BUPROPION 100 MG PO SCH (21:00)
[2017-05-27] MEDS: Rosuvastatin 10 MG Tab PO SCH (21:03)
[2017-05-27] MEDS: Donepezil 10 MG Tab PO SCH (21:04)
[2017-05-27] MEDS: ALPRAZolam 1 MG Tab PO SCH (21:04)
[2017-05-27] MEDS: Tamsulosin 0.4 MG Cap.ER PO SCH (21:05)
[2017-05-27] MEDS ORDERED: 50% Dextrose in Water 50 ML Syringe IVPUSH PRN (21:08)
[2017-05-27] MEDS: Insulin Aspart 100 Units/ML 3 ML Pen SUBCUT SCH (22:59)
[2017-05-27] MEDS: Sodium Chloride 0.45% 1,000 ML IV SCH (23:50)
[2017-05-28] MEDS: Labetalol 100 MG in Sodium Chloride 0.9% 80 ML IV SCH ×3 (03:55→10:46)
[2017-05-28] MEDS: Insulin Aspart 100 Units/ML 3 ML Pen SUBCUT SCH ×4 (09:26→21:15)
[2017-05-28] MEDS: Digoxin 125 MCG Tab PO SCH (09:32)
[2017-05-28] MEDS: ALPRAZolam 1 MG Tab PO SCH ×3 (09:33→21:15)
[2017-05-28] MEDS: Finasteride 5 MG Tab PO SCH (09:33)
[2017-05-28] MEDS: Tamsulosin 0.4 MG Cap.ER PO SCH ×2 (09:33→21:15)
--- NOTE | 2017-05-28 11:31 | CT ---
Head CT Technique: Multiple axial sections through the brain were obtained. Intravenous contrast was not utilized. Comparison: Prior head CT exam of 12/08/16. Findings: Ventricles along with basal cisterns and sulci over the convexities appear moderately prominent. Diminished density is noted within the periventricular and subcortical white matter which is compatible with small vessel ischemic demyelination change. Minimal basal ganglia calcification is seen. No other abnormal parenchymal densities are seen. No evidence of intracranial hemorrhage. No midline shift or mass effect is seen. Bone window settings were reviewed which show atherosclerotic calcification within the vertebral vessels and within the carotid siphon. No acute calvarial abnormality is appreciated. Impression: 1. Generalized atrophy and other senescent change as noted above. 2. No acute intracranial abnormality is seen. No significant change is seen from prior head CT exams. Diagnostic code #2 I agree with preliminary report issued by [facility] ([facility] report finalized on 05/27/17, 6:45 PM Central Time)
[2017-05-28] MEDS ORDERED: Magnesium Sulfate/Water 4 GM in Premix Bag 1 BAG IV ONE (11:39)
[2017-05-28] MEDS: amLODIPine 5 MG Tab PO SCH (12:07)
[2017-05-28] MEDS: buPROPion 150 MG Tab.ER PO SCH (12:07)
[2017-05-28] MEDS: Aspirin 81 MG Tab.EC PO SCH (12:08)
[2017-05-28] MEDS: Sodium Chloride 0.45% 1,000 ML IV SCH (12:26)
--- NOTE | 2017-05-28 14:27 | MR ---
MRI brain (without contrast) Technique: T1 sagittal; T1, T2, T2 FLAIR and diffusion axial; T1 FLAIR coronal images were obtained through the brain. Comparison: Prior head CT exam of 05/27/17. Findings: Ventricles along the basal cisterns and sulci over the convexities are moderately prominent. Mild areas of increased signal is seen within the periventricular and subcortical white matter compatible with small vessel ischemic demyelination change. No acute diffusion abnormalities are identified. Normal signal void is seen within the major cerebral arteries within the skull base. Impression: 1. Generalized atrophy and other senescent change. 2. No acute diffusion abnormalities are seen. Diagnostic code #2
--- NOTE | 2017-05-28 15:20 | US ---
Carotid ultrasound: Duplex and color flow imaging was obtained of the carotid arteries. Comparison: No prior carotid artery ultrasound. Diffuse plaque identified within the distal common carotid arteries, carotid bulb and origin of the internal and external carotid arteries. Plaque on the right side shows irregular surface margins and is heterogeneous. Plaque on the left side appears more homogeneous and smooth in its margins. Velocity measurements Right side: CCA has a peak systolic velocity of 0.91 m/s. ICA has a peak systolic velocity of 0.86 m/s and peak end-diastolic velocity of 0.08 m/s. ECA has a peak systolic velocity of 2.49 m/s. Vertebral artery has a peak systolic velocity of 0.63 m/s. ICA/CCA ratio is 0.93. Left side: CCA has a peak systolic velocity of 0.98 m/s. ICA has a peak systolic velocity of 1.82 m/s and peak end-diastolic velocity of 0.15 m/s. ECA has a peak systolic velocity of 0.42 m/s. Vertebral artery has a peak systolic velocity of 0.76 m/s. ICA/CCA ratio is 1.86. Impression: 1. Diffuse plaque as noted above. 2. Velocity measurements within the left internal carotid artery correspond to stenosis at the upper limits of 1-49%. 3. Greater than 50% stenosis within the right external carotid artery 4. Stenosis within the right internal carotid artery of 1-49%. Diagnostic code #3
--- NOTE | 2017-05-28 16:42 | PCM.PN ---
- General Info Date of Service: 05/28/17 Functional Status: Reports: Tolerating Diet, Ambulating, Urinating - Review of Systems General: Reports: No Symptoms HEENT: Reports: No Symptoms Pulmonary: Reports: No Symptoms Cardiovascular: Reports: No Symptoms Gastrointestinal: Reports: No Symptoms Genitourinary: Reports: Retention Musculoskeletal: Reports: No Symptoms Skin: Reports: No Symptoms Neurological: Reports: No Symptoms Psychiatric: Reports: No Symptoms - Patient Data Vitals - Most Recent: Last Vital Signs Temp 36.8 C 05/28/17 16:00 Pulse 67 05/28/17 16:00 Resp 16 05/28/17 16:00 BP 148/56 H 05/28/17 16:00 Pulse Ox 95 05/28/17 16:00 Weight - Most Recent: 84.595 kg I&O - Last 24 Hours: Intake & Output 05/28/17 05/28/17 05/28/17 06:59 14:59 22:59 Intake Total 831 1142 Output Total 400 600 Balance 431 1142 -600 Lab Results Last 24 Hours: Laboratory Results - last 24 hr 05/27/17 05/28/17 05/28/17 Range/Units 22:33 05:41 05:41 WBC 9.45 H (4.23-9.07) K/mm3 RBC 4.33 L (4.63-6.08) M/mm3 Hgb 12.8 L (13.7-17.5) gm/L Hct 39.1 L (40.1-51.0) % MCV 90.3 (79.0-92.2) fl MCH 29.6 (25.7-32.2) pg MCHC 32.7 (32.2-35.5) g/dl RDW Std Deviation 46.5 H (35.1-43.9) fL Plt Count 182 (163-337) K/mm3 MPV 9.8 (9.4-12.3) fl Neut % (Auto) 73.4 H (34.0-67.9) % Lymph % (Auto) 18.8 L (21.8-53.1) % [place] % (Auto) 5.2 L (5.3-12.2) % Eos % (Auto) 2.0 (0.8-7.0) Baso % (Auto) 0.4 (0.1-1.2) % Neut # (Auto) 6.93 H (1.78-5.38) K/mm3 Lymph # (Auto) 1.78 (1.32-3.57) K/mm3 [place] # (Auto) 0.49 (0.30-0.82) K/mm3 Eos # (Auto) 0.19 (0.04-0.54) K/mm3 Baso # (Auto) 0.04 (0.01-0.08) K/mm3 Sodium 141 (136-145) mEq/L Potassium 3.2 L (3.5-5.1) mEq/L Chloride 101 (98-107) mEq/L Carbon Dioxide 29 (21-32) mEq/L Anion Gap 14.2 (5-15) BUN 19 H (7-18) mg/dL Creatinine 2.1 H (0.7-1.3) mg/dL Est Cr Clr Drug Dosing 34.35 mL/min Estimated GFR (MDRD) 31 (>60) mL/min BUN/Creatinine Ratio 9.0 L (14-18) Glucose 159 H (83-115) mg/dL POC Glucose 202 H (83-110) mg/dL Calcium 8.4 L (8.5-10.1) mg/dL Magnesium (1.8-2.4) mg/dl Troponin I 0.044 (0.00-0.056) ng/mL C-Reactive Protein 2.3 H* (<1.0) mg/dL Triglycerides 83 (<150) mg/dL Cholesterol 130 (<200) mg/dL LDL Cholesterol Direct 76 (<100) mg/dL HDL Cholesterol 43.0 (40-59) mg/dL Digoxin 1.0 (0.9-2.0) ng/mL 05/28/17 05/28/17 05/28/17 Range/Units 05:41 06:14 09:25 WBC (4.23-9.07) K/mm3 RBC (4.63-6.08) M/mm3 Hgb (13.7-17.5) gm/L Hct (40.1-51.0) % MCV (79.0-92.2) fl MCH (25.7-32.2) pg MCHC (32.2-35.5) g/dl RDW Std Deviation (35.1-43.9) fL Plt Count (163-337) K/mm3 MPV (9.4-12.3) fl Neut % (Auto) (34.0-67.9) % Lymph % (Auto) (21.8-53.1) % [place] % (Auto) (5.3-12.2) % Eos % (Auto) (0.8-7.0) Baso % (Auto) (0.1-1.2) % Neut # (Auto) (1.78-5.38) K/mm3 Lymph # (Auto) (1.32-3.57) K/mm3 [place] # (Auto) (0.30-0.82) K/mm3 Eos # (Auto) (0.04-0.54) K/mm3 Baso # (Auto) (0.01-0.08) K/mm3 Sodium (136-145) mEq/L Potassium (3.5-5.1) mEq/L Chloride (98-107) mEq/L Carbon Dioxide (21-32) mEq/L Anion Gap (5-15) BUN (7-18) mg/dL Creatinine (0.7-1.3) mg/dL Est Cr Clr Drug Dosing mL/min Estimated GFR (MDRD) (>60) mL/min BUN/Creatinine Ratio (14-18) Glucose (83-115) mg/dL POC Glucose 164 H 151 H (83-110) mg/dL Calcium (8.5-10.1) mg/dL Magnesium 1.4 L (1.8-2.4) mg/dl Troponin I (0.00-0.056) ng/mL C-Reactive Protein (<1.0) mg/dL Triglycerides (<150) mg/dL Cholesterol (<200) mg/dL LDL Cholesterol Direct (<100) mg/dL HDL Cholesterol (40-59) mg/dL Digoxin (0.9-2.0) ng/mL 05/28/17 Range/Units 12:12 WBC (4.23-9.07) K/mm3 RBC (4.63-6.08) M/mm3 Hgb (13.7-17.5) gm/L Hct (40.1-51.0) % MCV (79.0-92.2) fl MCH (25.7-32.2) pg MCHC (32.2-35.5) g/dl RDW Std Deviation (35.1-43.9) fL Plt Count (163-337) K/mm3 MPV (9.4-12.3) fl Neut % (Auto) (34.0-67.9) % Lymph % (Auto) (21.8-53.1) % [place] % (Auto) (5.3-12.2) % Eos % (Auto) (0.8-7.0) Baso % (Auto) (0.1-1.2) % Neut # (Auto) (1.78-5.38) K/mm3 Lymph # (Auto) (1.32-3.57) K/mm3 [place] # (Auto) (0.30-0.82) K/mm3 Eos # (Auto) (0.04-0.54) K/mm3 Baso # (Auto) (0.01-0.08) K/mm3 Sodium (136-145) mEq/L Potassium (3.5-5.1) mEq/L Chloride (98-107) mEq/L Carbon Dioxide (21-32) mEq/L Anion Gap (5-15) BUN (7-18) mg/dL Creatinine (0.7-1.3) mg/dL Est Cr Clr Drug Dosing mL/min Estimated GFR (MDRD) (>60) mL/min BUN/Creatinine Ratio (14-18) Glucose (83-115) mg/dL POC Glucose 223 H (83-110) mg/dL Calcium (8.5-10.1) mg/dL Magnesium (1.8-2.4) mg/dl Troponin I (0.00-0.056) ng/mL C-Reactive Protein (<1.0) mg/dL Triglycerides (<150) mg/dL Cholesterol (<200) mg/dL LDL Cholesterol Direct (<100) mg/dL HDL Cholesterol (40-59) mg/dL Digoxin (0.9-2.0) ng/mL Med Orders - Current: Current Medications Alprazolam (Xanax) 1 mg PO TID [facility] Last Admin: 05/28/17 15:41 Dose: 1 mg Amlodipine Besylate (Norvasc) 5 mg PO DAILY [facility] Last Admin: 05/28/17 12:07 Dose: 5 mg Aspirin (Halfprin) 81 mg PO DAILY [facility] Last Admin: 05/28/17 12:08 Dose: 81 mg Bupropion HCl (Wellbutrin Xl) 150 mg PO DAILY [facility] Last Admin: 05/28/17 12:07 Dose: 150 mg Dextrose/Water (Dextrose 50% In Water) 50 ml IVPUSH ASDIRECTED PRN PRN Reason: Hypoglycemia Digoxin (Lanoxin) 125 mcg PO DAILY [facility] Last Admin: 05/28/17 09:32 Dose: 125 mcg Donepezil HCl (Aricept) 5 mg PO BEDTIME [facility] Last Admin: 05/27/17 21:04 Dose: 5 mg Finasteride (Proscar) 5 mg PO DAILY [facility] Last Admin: 05/28/17 09:33 Dose: 5 mg Hydralazine HCl (Apresoline) 20 mg IVPUSH Q6H PRN PRN Reason: Hypertension Sodium Chloride (Sodium Chloride 0.45%) 1,000 mls @ 75 mls/hr IV ASDIRECTED [facility] Last Admin: 05/28/17 12:26 Dose: 75 mls/hr Insulin Aspart (Novolog) 0 unit SUBCUT QIDACANDBED [facility] PRN Reason: Protocol Last Admin: 05/28/17 12:30 Dose: 2 units Metoprolol Tartrate (Lopressor) 25 mg PO BID [facility] Nitroglycerin (Nitrostat) 0.4 mg SL ASDIRECTED PRN PRN Reason: Chest Pain Rosuvastatin Calcium (Crestor) 20 mg PO BEDTIME [facility] Last Admin: 05/27/17 21:03 Dose: 20 mg Sodium Chloride (Saline Flush) 10 ml FLUSH ASDIRECTED PRN PRN Reason: Keep Vein Open Last Admin: 05/27/17 17:37 Dose: 10 ml Tamsulosin HCl (Flomax) 0.4 mg PO BID [facility] Last Admin: 05/28/17 09:33 Dose: 0.4 mg Discontinued Medications Labetalol HCl 100 mg/ Sodium (Chloride) 100 mls @ 30 mls/hr IV TITRATE JOHAN; 0.5 MG/MIN PRN Reason: Protocol Last Titration: 05/28/17 10:47 Dose: 0.5 mg/min, 30 mls/hr Magnesium Sulfate 4 gm/ Premix 100 mls @ 50 mls/hr IV ONETIME ONE Stop: 05/28/17 13:38 Last Admin: 05/28/17 14:30 Dose: 50 mls/hr Labetalol HCl (Normodyne) 20 mg IVPUSH ONETIME ONE PRN Reason: Protocol Stop: 05/27/17 19:12 Last Admin: 05/27/17 19:22 Dose: 20 mg Metoprolol Tartrate (Lopressor) 50 mg PO ONETIME ONE Stop: 05/27/17 18:30 Last Admin: 05/27/17 18:37 Dose: 50 mg Metoprolol Tartrate (Lopressor) 50 mg PO BID JOHAN Last Admin: 05/27/17 21:04 Dose: 50 mg Non-Formulary Medication (Alprazolam [Alprazolam Xr]) 1 mg PO TID JOHAN Non-Formulary Medication (Bupropion) 100 mg PO TID [facility] - Exam Quality Assessment: Supplemental Oxygen, DVT Prophylaxis General: Alert, Oriented, Cooperative, No Acute Distress HEENT: Pupils Equal, Pupils Reactive, EOMI Neck: Supple, Trachea Midline Lungs: Normal Respiratory Effort Cardiovascular: Regular Rate GI/Abdominal Exam: Normal Bowel Sounds, Soft, Non-Tender, No Organomegaly, No Distention (Male) Exam: Deferred Back Exam: Normal Inspection Extremities: Normal Inspection Skin: Warm Neurological: No New Focal Deficit Psy/Mental Status: Alert - Problem List & Annotations (1) Hypertensive urgency SNOMED Code(s): 766930012 Code(s): I16.0 - HYPERTENSIVE URGENCY Status: Acute Current Visit: Yes (2) TIA (transient ischemic attack) SNOMED Code(s): 550772190 Code(s): G45.9 - TRANSIENT CEREBRAL ISCHEMIC ATTACK, UNSPECIFIED Status: Acute Current Visit: Yes Qualifiers: Transient cerebral ischemia type: unspecified Qualified Code(s): G45.9 - Transient cerebral ischemic attack, unspecified (3) Atrial flutter with rapid ventricular response SNOMED Code(s): 6276811 Code(s): I48.92 - UNSPECIFIED ATRIAL FLUTTER Status: Acute Current Visit : No (4) Renal insufficiency SNOMED Code(s): 353550381 Code(s): N28.9 - DISORDER OF KIDNEY AND URETER, UNSPECIFIED Status: Acute Current Visit: No (5) Syncope SNOMED Code(s): 888281446 Code(s): R55 - SYNCOPE AND COLLAPSE Status: Acute Current Visit: No Qualifiers: Syncope type: unspecified Qualified Code(s): R55 - Syncope and collapse - Problem List Review Problem List Initiated/Reviewed/Updated: Yes - My Orders Last 24 Hours: My Active Orders 05/27/17 20:20 Nitroglycerin [Nitrostat] 0.4 mg SL ASDIRECTED PRN 05/27/17 20:21 Bedrest Bathroom Privileges [RC] ASDIRECTED Vital Signs [RC] Q1HR Code Status [Resuscitation Status] Routine 05/27/17 20:23 Neuro Check [RC] BID Nursing Bedside Swallow Screen [RC] ASDIRECTED 05/27/17 20:24 HOB [Head of Bed Elevation] [RC] ASDIRECTED 05/27/17 20:30 Sodium Chloride 0.45% 1,000 ml IV ASDIRECTED 05/27/17 20:32 Consult to Assistant Paralegal [CONS] Routine 05/27/17 20:33 Seizure Precautions [OM.PC] Routine 05/27/17 20:46 Antiembolic Devices [RC] [place] Hose [Antiembolic Hose] [OM.PC] Routine 05/27/17 21:00 ALPRAZolam [Xanax] 1 mg PO TID Donepezil [Aricept] 5 mg PO BEDTIME Rosuvastatin [Crestor] 20 mg PO BEDTIME Tamsulosin [Flomax] 0.4 mg PO BID 05/27/17 21:08 Blood Glucose Check, Bedside [RC] QIDACANDBED Dextrose 50% in Water 50 ml IVPUSH ASDIRECTED PRN 05/27/17 22:00 Insulin Aspart [NovoLOG] See Protocol SUBCUT QIDACANDBED 05/28/17 09:00 Aspirin [Halfprin] 81 mg PO DAILY Digoxin [Lanoxin] 125 mcg PO DAILY Finasteride [Proscar] 5 mg PO DAILY 05/28/17 09:19 Consult to Speech Language Pathology [ADMINISTRATION MANAGER Evaluation and Treatment] [CONS] Routine 05/28/17 11:43 hydrALAZINE [Apresoline] 20 mg IVPUSH Q6H PRN 05/28/17 11:47 Metoprolol Tartrate [Lopressor] 25 mg PO BID 05/28/17 12:00 amLODIPine [Norvasc] 5 mg PO DAILY buPROPion [Wellbutrin XL] 150 mg PO DAILY 05/28/17 14:00 Consult to Occupational Therapy [OT Evaluation and Treatment] [CONS] Routine Consult to Physical Therapy [PT Evaluation and Treatment] [CONS] Routine 05/28/17 Lunch National Dysphagia Diet [DIET] 05/29/17 05:00 BASIC METABOLIC PANEL,BMP [CHEM] DAILY CBC WITH AUTO DIFF [HEME] DAILY CRP [C-REACTIVE PROTEIN] [CHEM] DAILY 05/30/17 05:00 BASIC METABOLIC PANEL,BMP [CHEM] DAILY CBC WITH AUTO DIFF [HEME] DAILY CRP [C-REACTIVE PROTEIN] [CHEM] DAILY 05/31/17 05:00 BASIC METABOLIC PANEL,BMP [CHEM] DAILY CBC WITH AUTO DIFF [HEME] DAILY CRP [C-REACTIVE PROTEIN] [CHEM] DAILY - Plan Plan:: Impression: AMS, presyncopal TIA with left sided weakness, resolved Carotid ~WNL; MRI ~unremakable; carotid duplex ~pending Reportedly SZ activity History of CAD; S/P CABG A Fib on digoxin History of Dementia Chronic DM type 2 GERD BPH Plan: BP meds: BB, nondihydropyridine; hydralazine; alpha jeannine as needed Labetalol drip ~Jessica Herndon per protocol CVA/TIA protocol SZ precautions Ischemic work up DVT/GI prophylaxis
[2017-05-28] MEDS: Rosuvastatin 10 MG Tab PO SCH (21:13)
[2017-05-28] MEDS: Donepezil 10 MG Tab PO SCH (21:14)
[2017-05-29] MEDS: hydrALAZINE 20 MG/ML SDV IVPUSH PRN (00:26)
[2017-05-29] MEDS: Sodium Chloride 0.45% 1,000 ML IV SCH ×2 (02:30→17:11)
[2017-05-29] MEDS: Insulin Aspart 100 Units/ML 3 ML Pen SUBCUT SCH ×5 (08:06→22:00)
[2017-05-29] MEDS: buPROPion 150 MG Tab.ER PO SCH (08:14)
[2017-05-29] MEDS: amLODIPine 5 MG Tab PO SCH (08:14)
[2017-05-29] MEDS: Aspirin 81 MG Tab.EC PO SCH (08:14)
[2017-05-29] MEDS: Finasteride 5 MG Tab PO SCH (08:15)
[2017-05-29] MEDS: Tamsulosin 0.4 MG Cap.ER PO SCH ×2 (08:15→20:19)
[2017-05-29] MEDS: Digoxin 125 MCG Tab PO SCH (08:15)
[2017-05-29] MEDS: ALPRAZolam 1 MG Tab PO SCH ×3 (08:16→20:19)
[2017-05-29] MEDS ORDERED: buPROPion 150 MG Tab.ER PO SCH ×3 (10:55→11:15)
[2017-05-29] MEDS ORDERED: buPROPion 150 MG Tab.ER PO ONE (11:30)
--- NOTE | 2017-05-29 13:08 | PCM.PN ---
- General Info Date of Service: 05/29/17 Functional Status: Reports: Tolerating Diet, Urinating - Review of Systems General: Reports: Weakness HEENT: Reports: No Symptoms Pulmonary: Reports: No Symptoms Cardiovascular: Reports: No Symptoms Gastrointestinal: Reports: No Symptoms Genitourinary: Reports: No Symptoms Musculoskeletal: Reports: No Symptoms Skin: Reports: No Symptoms Neurological: Reports: No Symptoms Psychiatric: Reports: No Symptoms - Patient Data Vitals - Most Recent: Last Vital Signs Temp 36.9 C 05/29/17 12:02 Pulse 72 05/29/17 12:02 Resp 20 05/29/17 12:02 BP 133/65 05/29/17 12:02 Pulse Ox 96 05/29/17 12:02 Weight - Most Recent: 84.55 kg I&O - Last 24 Hours: Intake & Output 05/28/17 05/29/17 05/29/17 22:59 06:59 14:59 Intake Total 600 1103 360 Output Total 900 200 Balance -300 903 360 Lab Results Last 24 Hours: Laboratory Results - last 24 hr 05/28/17 05/28/17 05/29/17 Range/Units 17:24 21:12 00:31 WBC (4.23-9.07) K/mm3 RBC (4.63-6.08) M/mm3 Hgb (13.7-17.5) gm/L Hct (40.1-51.0) % MCV (79.0-92.2) fl MCH (25.7-32.2) pg MCHC (32.2-35.5) g/dl RDW Std Deviation (35.1-43.9) fL Plt Count (163-337) K/mm3 MPV (9.4-12.3) fl Neut % (Auto) (34.0-67.9) % Lymph % (Auto) (21.8-53.1) % [place] % (Auto) (5.3-12.2) % Eos % (Auto) (0.8-7.0) Baso % (Auto) (0.1-1.2) % Neut # (Auto) (1.78-5.38) K/mm3 Lymph # (Auto) (1.32-3.57) K/mm3 [place] # (Auto) (0.30-0.82) K/mm3 Eos # (Auto) (0.04-0.54) K/mm3 Baso # (Auto) (0.01-0.08) K/mm3 Sodium (136-145) mEq/L Potassium (3.5-5.1) mEq/L Chloride (98-107) mEq/L Carbon Dioxide (21-32) mEq/L Anion Gap (5-15) BUN (7-18) mg/dL Creatinine (0.7-1.3) mg/dL Est Cr Clr Drug Dosing mL/min Estimated GFR (MDRD) (>60) mL/min BUN/Creatinine Ratio (14-18) Glucose (83-115) mg/dL POC Glucose 168 H 155 H (83-110) mg/dL Calcium (8.5-10.1) mg/dL Magnesium (1.8-2.4) mg/dl Troponin I (0.00-0.056) ng/mL C-Reactive Protein (<1.0) mg/dL Urine Color Yellow (Yellow) Urine Appearance Cloudy H (Clear) Urine pH 7.0 (5.0-8.0) Ur Specific [place] 1.015 (1.005-1.030) Urine Protein 1+ H (Negative) Urine Glucose (UA) Negative (Negative) Urine Ketones Negative (Negative) Urine Occult Blood Trace-lysed H (Negative) Urine Nitrite Positive H (Negative) Urine Bilirubin Negative (Negative) Urine Urobilinogen 1.0 (0.2-1.0) Ur Leukocyte Esterase 2+ H (Negative) Urine RBC 0-5 (0-5) /hpf Urine WBC 30-40 H (0-5) /hpf Ur Epithelial Cells 0-5 (0-5) /hpf Urine Bacteria Moderate H (FEW) /hpf Urine Mucus Not seen (FEW) /hpf Mycoplasma pneumon IgM (NEGATIVE) 05/29/17 05/29/17 05/29/17 Range/Units 05:25 05:25 05:25 WBC 9.40 H (4.23-9.07) K/mm3 RBC 4.06 L (4.63-6.08) M/mm3 Hgb 12.4 L (13.7-17.5) gm/L Hct 36.7 L (40.1-51.0) % MCV 90.4 (79.0-92.2) fl MCH 30.5 (25.7-32.2) pg MCHC 33.8 (32.2-35.5) g/dl RDW Std Deviation 48.8 H (35.1-43.9) fL Plt Count 172 (163-337) K/mm3 MPV 9.3 L (9.4-12.3) fl Neut % (Auto) 75.4 H (34.0-67.9) % Lymph % (Auto) 16.6 L (21.8-53.1) % [place] % (Auto) 5.3 (5.3-12.2) % Eos % (Auto) 2.0 (0.8-7.0) Baso % (Auto) 0.4 (0.1-1.2) % Neut # (Auto) 7.08 H (1.78-5.38) K/mm3 Lymph # (Auto) 1.56 (1.32-3.57) K/mm3 [place] # (Auto) 0.50 (0.30-0.82) K/mm3 Eos # (Auto) 0.19 (0.04-0.54) K/mm3 Baso # (Auto) 0.04 (0.01-0.08) K/mm3 Sodium 139 (136-145) mEq/L Potassium 3.6 (3.5-5.1) mEq/L Chloride 103 (98-107) mEq/L Carbon Dioxide 27 (21-32) mEq/L Anion Gap 12.6 (5-15) BUN 22 H (7-18) mg/dL Creatinine 2.3 H (0.7-1.3) mg/dL Est Cr Clr Drug Dosing 31.36 mL/min Estimated GFR (MDRD) 28 (>60) mL/min BUN/Creatinine Ratio 9.6 L (14-18) Glucose 182 H (83-115) mg/dL POC Glucose (83-110) mg/dL Calcium 8.4 L (8.5-10.1) mg/dL Magnesium 2.1 (1.8-2.4) mg/dl Troponin I (0.00-0.056) ng/mL C-Reactive Protein 2.8 H* (<1.0) mg/dL Urine Color (Yellow) Urine Appearance (Clear) Urine pH (5.0-8.0) Ur Specific [place] (1.005-1.030) Urine Protein (Negative) Urine Glucose (UA) (Negative) Urine Ketones (Negative) Urine Occult Blood (Negative) Urine Nitrite (Negative) Urine Bilirubin (Negative) Urine Urobilinogen (0.2-1.0) Ur Leukocyte Esterase (Negative) Urine RBC (0-5) /hpf Urine WBC (0-5) /hpf Ur Epithelial Cells (0-5) /hpf Urine Bacteria (FEW) /hpf Urine Mucus (FEW) /hpf Mycoplasma pneumon IgM (NEGATIVE) 05/29/17 05/29/17 05/29/17 Range/Units 10:25 11:18 12:35 WBC (4.23-9.07) K/mm3 RBC (4.63-6.08) M/mm3 Hgb (13.7-17.5) gm/L Hct (40.1-51.0) % MCV (79.0-92.2) fl MCH (25.7-32.2) pg MCHC (32.2-35.5) g/dl RDW Std Deviation (35.1-43.9) fL Plt Count (163-337) K/mm3 MPV (9.4-12.3) fl Neut % (Auto) (34.0-67.9) % Lymph % (Auto) (21.8-53.1) % [place] % (Auto) (5.3-12.2) % Eos % (Auto) (0.8-7.0) Baso % (Auto) (0.1-1.2) % Neut # (Auto) (1.78-5.38) K/mm3 Lymph # (Auto) (1.32-3.57) K/mm3 [place] # (Auto) (0.30-0.82) K/mm3 Eos # (Auto) (0.04-0.54) K/mm3 Baso # (Auto) (0.01-0.08) K/mm3 Sodium (136-145) mEq/L Potassium (3.5-5.1) mEq/L Chloride (98-107) mEq/L Carbon Dioxide (21-32) mEq/L Anion Gap (5-15) BUN (7-18) mg/dL Creatinine (0.7-1.3) mg/dL Est Cr Clr Drug Dosing mL/min Estimated GFR (MDRD) (>60) mL/min BUN/Creatinine Ratio (14-18) Glucose (83-115) mg/dL POC Glucose 204 H (83-110) mg/dL Calcium (8.5-10.1) mg/dL Magnesium (1.8-2.4) mg/dl Troponin I < 0.017 (0.00-0.056) ng/mL C-Reactive Protein (<1.0) mg/dL Urine Color Yellow (Yellow) Urine Appearance Slt cloudy H (Clear) Urine pH 6.5 (5.0-8.0) Ur Specific [place] 1.015 (1.005-1.030) Urine Protein 1+ H (Negative) Urine Glucose (UA) Trace H (Negative) Urine Ketones Negative (Negative) Urine Occult Blood 1+ H (Negative) Urine Nitrite Positive H (Negative) Urine Bilirubin Negative (Negative) Urine Urobilinogen 0.2 (0.2-1.0) Ur Leukocyte Esterase 3+ H (Negative) Urine RBC 5-10 H (0-5) /hpf Urine WBC Too numerous to cnt H (0-5) /hpf Ur Epithelial Cells 0-5 (0-5) /hpf Urine Bacteria Many H (FEW) /hpf Urine Mucus Not seen (FEW) /hpf Mycoplasma pneumon IgM Negative (NEGATIVE) [place]ston Results Last 24 Hours: Microbiology 05/29/17 11:38 Influenza Type A Antigen Screen - Final Nasal, Left NEGATIVE INFLUENZA A VIRUS AG Influenza Type B Antigen Screen - Final NEGATIVE INFLUENZA B VIRUS AG Med Orders - Current: Current Medications Alprazolam (Xanax) 1 mg PO TID [facility] Last Admin: 05/29/17 08:16 Dose: 1 mg Amlodipine Besylate (Norvasc) 5 mg PO DAILY [facility] Last Admin: 05/29/17 08:14 Dose: 5 mg Aspirin (Halfprin) 81 mg PO DAILY [facility] Last Admin: 05/29/17 08:14 Dose: 81 mg Bupropion HCl (Wellbutrin Xl) 300 mg PO DAILY [facility] Dextrose/Water (Dextrose 50% In Water) 50 ml IVPUSH ASDIRECTED PRN PRN Reason: Hypoglycemia Digoxin (Lanoxin) 125 mcg PO DAILY [facility] Last Admin: 05/29/17 08:15 Dose: 125 mcg Donepezil HCl (Aricept) 5 mg PO BEDTIME [facility] Last Admin: 05/28/17 21:14 Dose: 5 mg Finasteride (Proscar) 5 mg PO DAILY [facility] Last Admin: 05/29/17 08:15 Dose: 5 mg Hydralazine HCl (Apresoline) 20 mg IVPUSH Q6H PRN PRN Reason: Hypertension Last Admin: 05/29/17 00:26 Dose: 20 mg Sodium Chloride (Sodium Chloride 0.45%) 1,000 mls @ 75 mls/hr IV ASDIRECTED [facility] Last Admin: 05/29/17 02:30 Dose: 75 mls/hr Insulin Aspart (Novolog) 0 unit SUBCUT QIDACANDBED JOHAN PRN Reason: Protocol Last Admin: 05/29/17 12:54 Dose: 2 units Metoprolol Tartrate (Lopressor) 25 mg PO BID [facility] Nitroglycerin (Nitrostat) 0.4 mg SL ASDIRECTED PRN PRN Reason: Chest Pain Rosuvastatin Calcium (Crestor) 20 mg PO BEDTIME [facility] Last Admin: 05/28/17 21:13 Dose: 20 mg Sodium Chloride (Saline Flush) 10 ml FLUSH ASDIRECTED PRN PRN Reason: Keep Vein Open Last Admin: 05/27/17 17:37 Dose: 10 ml Tamsulosin HCl (Flomax) 0.4 mg PO BID [facility] Last Admin: 05/29/17 08:15 Dose: 0.4 mg Discontinued Medications Bupropion HCl (Wellbutrin Xl) 150 mg PO DAILY [facility] Last Admin: 05/29/17 08:14 Dose: 150 mg Bupropion HCl (Wellbutrin Xl) 150 mg PO ONETIME [facility] Stop: 05/29/17 13:00 Bupropion HCl (Wellbutrin Xl) 150 mg PO ONETIME ONE Stop: 05/29/17 11:31 Last Admin: 05/29/17 12:54 Dose: 150 mg Labetalol HCl 100 mg/ Sodium (Chloride) 100 mls @ 30 mls/hr IV TITRATE JOHAN; 0.5 MG/MIN PRN Reason: Protocol Last Titration: 05/28/17 10:47 Dose: 0.5 mg/min, 30 mls/hr Magnesium Sulfate 4 gm/ Premix 100 mls @ 50 mls/hr IV ONETIME ONE Stop: 05/28/17 13:38 Last Admin: 05/28/17 14:30 Dose: 50 mls/hr Labetalol HCl (Normodyne) 20 mg IVPUSH ONETIME ONE PRN Reason: Protocol Stop: 05/27/17 19:12 Last Admin: 05/27/17 19:22 Dose: 20 mg Metoprolol Tartrate (Lopressor) 50 mg PO ONETIME ONE Stop: 05/27/17 18:30 Last Admin: 05/27/17 18:37 Dose: 50 mg Metoprolol Tartrate (Lopressor) 50 mg PO BID [facility] Last Admin: 05/27/17 21:04 Dose: 50 mg Non-Formulary Medication (Alprazolam [Alprazolam Xr]) 1 mg PO TID [facility] Non-Formulary Medication (Bupropion) 100 mg PO TID [facility] - Exam Quality Assessment: DVT Prophylaxis General: Alert, Oriented, Cooperative, No Acute Distress HEENT: Pupils Equal, Pupils Reactive, EOMI Neck: Supple, Trachea Midline Lungs: Normal Respiratory Effort Cardiovascular: Regular Rate GI/Abdominal Exam: Normal Bowel Sounds, Soft, Non-Tender, No Organomegaly, No Distention (Male) Exam: Deferred Back Exam: Normal Inspection Extremities: Normal Inspection Skin: Warm Neurological: No New Focal Deficit, Normal Speech Psy/Mental Status: Alert, Normal Affect, Normal Mood - Problem List & Annotations (1) Hypertensive urgency SNOMED Code(s): 490090092 Code(s): I16.0 - HYPERTENSIVE URGENCY Status: Acute Current Visit: Yes (2) TIA (transient ischemic attack) SNOMED Code(s): 589150887 Code(s): G45.9 - TRANSIENT CEREBRAL ISCHEMIC ATTACK, UNSPECIFIED Status: Acute Current Visit: Yes Qualifiers: Transient cerebral ischemia type: unspecified Qualified Code(s): G45.9 - Transient cerebral ischemic attack, unspecified (3) Atrial flutter with rapid ventricular response SNOMED Code(s): 8873616 Code(s): I48.92 - UNSPECIFIED ATRIAL FLUTTER Status: Acute Current Visit : No (4) Renal insufficiency SNOMED Code(s): 548785605 Code(s): N28.9 - DISORDER OF KIDNEY AND URETER, UNSPECIFIED Status: Acute Current Visit: No (5) Syncope SNOMED Code(s): 367957329 Code(s): R55 - SYNCOPE AND COLLAPSE Status: Acute Current Visit: No Qualifiers: Syncope type: unspecified Qualified Code(s): R55 - Syncope and collapse - Problem List Review Problem List Initiated/Reviewed/Updated: Yes - My Orders Last 24 Hours: My Active Orders 05/28/17 14:00 Consult to Occupational Therapy [OT Evaluation and Treatment] [CONS] Routine Consult to Physical Therapy [PT Evaluation and Treatment] [CONS] Routine 05/29/17 09:35 Blood Culture x2 Reflex Set [OM.PC] Stat 05/29/17 10:10 CULTURE BLOOD [BC] Stat 05/29/17 10:25 CULTURE BLOOD [BC] Stat 05/29/17 12:35 CULTURE URINE [RM] Routine STREP PNEUMONIAE ANTIGEN [MREF] Routine 05/30/17 05:00 BASIC METABOLIC PANEL,BMP [CHEM] DAILY CBC WITH AUTO DIFF [HEME] DAILY CRP [C-REACTIVE PROTEIN] [CHEM] DAILY 05/30/17 09:00 buPROPion [Wellbutrin XL] 300 mg PO DAILY 05/31/17 05:00 BASIC METABOLIC PANEL,BMP [CHEM] DAILY CBC WITH AUTO DIFF [HEME] DAILY CRP [C-REACTIVE PROTEIN] [CHEM] DAILY - Plan Plan:: Impression: AMS, presyncopal; resolved TIA with left sided weakness, resolved Carotid ~WNL; MRI ~unremakable; 2D echo ~WNL Reportedly SZ activity History of CAD; S/P CABG A Fib on digoxin History of Dementia AUTI Chronic DM type 2 GERD BPH Plan: Start Rocephin 2 gm IV daily BP meds: BB, nondihydropyridine; hydralazine; alpha jeannien as needed Labetalol drip ~Jessica Herndon per protocol CVA/TIA protocol SZ precautions Ischemic work up DVT/GI prophylaxis LOS>96 hours with treatment is anticipated.
[2017-05-29] MEDS: cefTRIAXone 2 GM in Sodium Chloride 0.9% 100 ML IV SCH (15:08)
[2017-05-29] MEDS: Rosuvastatin 10 MG Tab PO SCH (20:19)
[2017-05-29] MEDS: Donepezil 10 MG Tab PO SCH (20:19)
[2017-05-29] MEDS ORDERED: Temazepam 15 MG Cap PO PRN (22:46)
[2017-05-30] MEDS: hydrALAZINE 20 MG/ML SDV IVPUSH PRN (00:14)
[2017-05-30] MEDS: Insulin Aspart 100 Units/ML 3 ML Pen SUBCUT SCH ×4 (06:45→21:19)
[2017-05-30] MEDS: Digoxin 125 MCG Tab PO SCH (08:48)
[2017-05-30] MEDS: buPROPion 150 MG Tab.ER PO SCH (08:48)
[2017-05-30] MEDS: Finasteride 5 MG Tab PO SCH (08:48)
[2017-05-30] MEDS: amLODIPine 5 MG Tab PO SCH (08:49)
[2017-05-30] MEDS: Tamsulosin 0.4 MG Cap.ER PO SCH ×2 (08:49→20:41)
[2017-05-30] MEDS: ALPRAZolam 1 MG Tab PO SCH ×3 (08:49→20:42)
[2017-05-30] MEDS: Aspirin 81 MG Tab.EC PO SCH (08:49)
[2017-05-30] MEDS: Metoprolol Tartrate 50 MG Tab PO SCH ×2 (08:49→20:44)
--- NOTE | 2017-05-30 12:53 | PCM.PN ---
- General Info Date of Service: 05/30/17 Functional Status: Reports: Ambulating, Urinating - Review of Systems General: Reports: Weakness HEENT: Reports: No Symptoms Pulmonary: Reports: No Symptoms Cardiovascular: Reports: No Symptoms Gastrointestinal: Reports: No Symptoms Genitourinary: Reports: No Symptoms Musculoskeletal: Reports: No Symptoms Skin: Reports: No Symptoms Neurological: Reports: No Symptoms Psychiatric: Reports: No Symptoms - Patient Data Vitals - Most Recent: Last Vital Signs Temp 36.8 C 05/30/17 11:24 Pulse 85 05/30/17 11:24 Resp 23 H 05/30/17 11:24 BP 138/51 L 05/30/17 11:24 Pulse Ox 96 05/30/17 11:24 Weight - Most Recent: 83.552 kg I&O - Last 24 Hours: Intake & Output 05/29/17 05/30/17 05/30/17 22:59 06:59 14:59 Intake Total 1871 1065 700 Output Total 1526 1251 500 Balance 345 -186 200 Lab Results Last 24 Hours: Laboratory Results - last 24 hr 05/29/17 05/29/17 05/29/17 Range/Units 12:35 17:24 20:24 WBC (4.23-9.07) K/mm3 RBC (4.63-6.08) M/mm3 Hgb (13.7-17.5) gm/L Hct (40.1-51.0) % MCV (79.0-92.2) fl MCH (25.7-32.2) pg MCHC (32.2-35.5) g/dl RDW Std Deviation (35.1-43.9) fL Plt Count (163-337) K/mm3 MPV (9.4-12.3) fl Neut % (Auto) (34.0-67.9) % Lymph % (Auto) (21.8-53.1) % [place] % (Auto) (5.3-12.2) % Eos % (Auto) (0.8-7.0) Baso % (Auto) (0.1-1.2) % Neut # (Auto) (1.78-5.38) K/mm3 Lymph # (Auto) (1.32-3.57) K/mm3 [place] # (Auto) (0.30-0.82) K/mm3 Eos # (Auto) (0.04-0.54) K/mm3 Baso # (Auto) (0.01-0.08) K/mm3 Sodium (136-145) mEq/L Potassium (3.5-5.1) mEq/L Chloride (98-107) mEq/L Carbon Dioxide (21-32) mEq/L Anion Gap (5-15) BUN (7-18) mg/dL Creatinine (0.7-1.3) mg/dL Est Cr Clr Drug Dosing mL/min Estimated GFR (MDRD) (>60) mL/min BUN/Creatinine Ratio (14-18) Glucose (83-115) mg/dL POC Glucose 158 H 201 H (83-110) mg/dL Calcium (8.5-10.1) mg/dL C-Reactive Protein (<1.0) mg/dL Urine Color Yellow (Yellow) Urine Appearance Slt cloudy H (Clear) Urine pH 6.5 (5.0-8.0) Ur Specific [place] 1.015 (1.005-1.030) Urine Protein 1+ H (Negative) Urine Glucose (UA) Trace H (Negative) Urine Ketones Negative (Negative) Urine Occult Blood 1+ H (Negative) Urine Nitrite Positive H (Negative) Urine Bilirubin Negative (Negative) Urine Urobilinogen 0.2 (0.2-1.0) Ur Leukocyte Esterase 3+ H (Negative) Urine RBC 5-10 H (0-5) /hpf Urine WBC Too numerous to cnt H (0-5) /hpf Ur Epithelial Cells 0-5 (0-5) /hpf Urine Bacteria Many H (FEW) /hpf Urine Mucus Not seen (FEW) /hpf 05/30/17 05/30/17 05/30/17 Range/Units 05:15 05:15 06:44 WBC 9.32 H (4.23-9.07) K/mm3 RBC 4.07 L (4.63-6.08) M/mm3 Hgb 12.2 L (13.7-17.5) gm/L Hct 37.3 L (40.1-51.0) % MCV 91.6 (79.0-92.2) fl MCH 30.0 (25.7-32.2) pg MCHC 32.7 (32.2-35.5) g/dl RDW Std Deviation 48.2 H (35.1-43.9) fL Plt Count 169 (163-337) K/mm3 MPV 9.7 (9.4-12.3) fl Neut % (Auto) 77.3 H (34.0-67.9) % Lymph % (Auto) 14.9 L (21.8-53.1) % [place] % (Auto) 5.2 L (5.3-12.2) % Eos % (Auto) 2.1 (0.8-7.0) Baso % (Auto) 0.3 (0.1-1.2) % Neut # (Auto) 7.20 H (1.78-5.38) K/mm3 Lymph # (Auto) 1.39 (1.32-3.57) K/mm3 [place] # (Auto) 0.48 (0.30-0.82) K/mm3 Eos # (Auto) 0.20 (0.04-0.54) K/mm3 Baso # (Auto) 0.03 (0.01-0.08) K/mm3 Sodium 139 (136-145) mEq/L Potassium 4.1 (3.5-5.1) mEq/L Chloride 104 (98-107) mEq/L Carbon Dioxide 27 (21-32) mEq/L Anion Gap 12.1 (5-15) BUN 18 (7-18) mg/dL Creatinine 2.1 H (0.7-1.3) mg/dL Est Cr Clr Drug Dosing 34.35 mL/min Estimated GFR (MDRD) 31 (>60) mL/min BUN/Creatinine Ratio 8.6 L (14-18) Glucose 176 H (83-115) mg/dL POC Glucose 178 H (83-110) mg/dL Calcium 8.7 (8.5-10.1) mg/dL C-Reactive Protein 3.9 H* (<1.0) mg/dL Urine Color (Yellow) Urine Appearance (Clear) Urine pH (5.0-8.0) Ur Specific [place] (1.005-1.030) Urine Protein (Negative) Urine Glucose (UA) (Negative) Urine Ketones (Negative) Urine Occult Blood (Negative) Urine Nitrite (Negative) Urine Bilirubin (Negative) Urine Urobilinogen (0.2-1.0) Ur Leukocyte Esterase (Negative) Urine RBC (0-5) /hpf Urine WBC (0-5) /hpf Ur Epithelial Cells (0-5) /hpf Urine Bacteria (FEW) /hpf Urine Mucus (FEW) /hpf 05/30/17 Range/Units 11:20 WBC (4.23-9.07) K/mm3 RBC (4.63-6.08) M/mm3 Hgb (13.7-17.5) gm/L Hct (40.1-51.0) % MCV (79.0-92.2) fl MCH (25.7-32.2) pg MCHC (32.2-35.5) g/dl RDW Std Deviation (35.1-43.9) fL Plt Count (163-337) K/mm3 MPV (9.4-12.3) fl Neut % (Auto) (34.0-67.9) % Lymph % (Auto) (21.8-53.1) % [place] % (Auto) (5.3-12.2) % Eos % (Auto) (0.8-7.0) Baso % (Auto) (0.1-1.2) % Neut # (Auto) (1.78-5.38) K/mm3 Lymph # (Auto) (1.32-3.57) K/mm3 [place] # (Auto) (0.30-0.82) K/mm3 Eos # (Auto) (0.04-0.54) K/mm3 Baso # (Auto) (0.01-0.08) K/mm3 Sodium (136-145) mEq/L Potassium (3.5-5.1) mEq/L Chloride (98-107) mEq/L Carbon Dioxide (21-32) mEq/L Anion Gap (5-15) BUN (7-18) mg/dL Creatinine (0.7-1.3) mg/dL Est Cr Clr Drug Dosing mL/min Estimated GFR (MDRD) (>60) mL/min BUN/Creatinine Ratio (14-18) Glucose (83-115) mg/dL POC Glucose 263 H (83-110) mg/dL Calcium (8.5-10.1) mg/dL C-Reactive Protein (<1.0) mg/dL Urine Color (Yellow) Urine Appearance (Clear) Urine pH (5.0-8.0) Ur Specific [place] (1.005-1.030) Urine Protein (Negative) Urine Glucose (UA) (Negative) Urine Ketones (Negative) Urine Occult Blood (Negative) Urine Nitrite (Negative) Urine Bilirubin (Negative) Urine Urobilinogen (0.2-1.0) Ur Leukocyte Esterase (Negative) Urine RBC (0-5) /hpf Urine WBC (0-5) /hpf Ur Epithelial Cells (0-5) /hpf Urine Bacteria (FEW) /hpf Urine Mucus (FEW) /hpf [place] Results Last 24 Hours: Microbiology 05/29/17 10:25 Aerobic Blood Culture - Preliminary Blood - Venous - Lab Draw NO GROWTH AFTER 1 DAY Anaerobic Blood Culture - Preliminary NO GROWTH AFTER 1 DAY 05/29/17 10:10 Aerobic Blood Culture - Preliminary Blood - Venous NO GROWTH AFTER 1 DAY Anaerobic Blood Culture - Preliminary NO GROWTH AFTER 1 DAY 05/29/17 12:35 Streptococcus pneumoniae Antigen (M - Final Urine 05/29/17 12:35 Urine Culture - Preliminary Urine, Clean Catch Gram Negative Rods 05/29/17 11:38 Influenza Type A Antigen Screen - Final Nasal, Left NEGATIVE INFLUENZA A VIRUS AG Influenza Type B Antigen Screen - Final NEGATIVE INFLUENZA B VIRUS AG Med Orders - Current: Current Medications Alprazolam (Xanax) 1 mg PO TID [facility] Last Admin: 05/30/17 08:49 Dose: 1 mg Amlodipine Besylate (Norvasc) 5 mg PO DAILY [facility] [place] Last Admin: 05/30/17 08:49 Dose: 5 mg Aspirin (Halfprin) 81 mg PO DAILY [facility] [place] Last Admin: 05/30/17 08:49 Dose: 81 mg Bupropion HCl (Wellbutrin Xl) 300 mg PO DAILY [facility] [place] Last Admin: 05/30/17 08:48 Dose: 300 mg Dextrose/Water (Dextrose 50% In Water) 50 ml IVPUSH ASDIRECTED PRN PRN Reason: Hypoglycemia Digoxin (Lanoxin) 125 mcg PO DAILY [facility] [place] Last Admin: 05/30/17 08:48 Dose: 125 mcg Donepezil HCl (Aricept) 5 mg PO BEDTIME [facility] [place] Last Admin: 05/29/17 20:19 Dose: 5 mg Finasteride (Proscar) 5 mg PO DAILY [facility] [place] Last Admin: 05/30/17 08:48 Dose: 5 mg Hydralazine HCl (Apresoline) 20 mg IVPUSH Q6H PRN PRN Reason: Hypertension Last Admin: 05/30/17 00:14 Dose: 20 mg Ceftriaxone Sodium 2 gm/ (Sodium Chloride) 100 mls @ 200 mls/hr IV Q24H [facility] Last Admin: 05/29/17 15:08 Dose: 200 mls/hr Insulin Aspart (Novolog) 0 unit SUBCUT QIDACANDBED JOHAN PRN Reason: Protocol Last Admin: 05/30/17 11:20 Dose: 3 units Metoprolol Tartrate (Lopressor) 25 mg PO BID [facility] [place] Last Admin: 05/30/17 08:49 Dose: 25 mg Nitroglycerin (Nitrostat) 0.4 mg SL ASDIRECTED PRN PRN Reason: Chest Pain Rosuvastatin Calcium (Crestor) 20 mg PO BEDTIME [facility] [place] Last Admin: 05/29/17 20:19 Dose: 20 mg Sodium Chloride (Saline Flush) 10 ml FLUSH ASDIRECTED PRN PRN Reason: Keep Vein Open Last Admin: 05/27/17 17:37 Dose: 10 ml Tamsulosin HCl (Flomax) 0.4 mg PO BID [facility] Last Admin: 05/30/17 08:49 Dose: 0.4 mg Temazepam (Restoril) 15 mg PO BEDTIME PRN PRN Reason: Sleep Last Admin: 05/29/17 22:56 Dose: 15 mg Discontinued Medications Bupropion HCl (Wellbutrin Xl) 150 mg PO DAILY [facility] [place] Last Admin: 05/29/17 08:14 Dose: 150 mg Bupropion HCl (Wellbutrin Xl) 150 mg PO ONETIME [facility] Stop: 05/29/17 13:00 Bupropion HCl (Wellbutrin Xl) 150 mg PO ONETIME ONE Stop: 05/29/17 11:31 Last Admin: 05/29/17 12:54 Dose: 150 mg Labetalol HCl 100 mg/ Sodium (Chloride) 100 mls @ 30 mls/hr IV TITRATE JOHAN; 0.5 MG/MIN PRN Reason: Protocol Last Titration: 05/28/17 10:47 Dose: 0.5 mg/min, 30 mls/hr Sodium Chloride (Sodium Chloride 0.45%) 1,000 mls @ 75 mls/hr IV ASDIRECTED JOHAN Last Admin: 05/29/17 17:11 Dose: 75 mls/hr Magnesium Sulfate 4 gm/ Premix 100 mls @ 50 mls/hr IV ONETIME ONE Stop: 05/28/17 13:38 Last Admin: 05/28/17 14:30 Dose: 50 mls/hr Labetalol HCl (Normodyne) 20 mg IVPUSH ONETIME ONE PRN Reason: Protocol Stop: 05/27/17 19:12 Last Admin: 05/27/17 19:22 Dose: 20 mg Metoprolol Tartrate (Lopressor) 50 mg PO ONETIME ONE Stop: 05/27/17 18:30 Last Admin: 05/27/17 18:37 Dose: 50 mg Metoprolol Tartrate (Lopressor) 50 mg PO BID JOHAN Last Admin: 05/27/17 21:04 Dose: 50 mg Non-Formulary Medication (Alprazolam [Alprazolam Xr]) 1 mg PO TID JOHAN Non-Formulary Medication (Bupropion) 100 mg PO TID JOHAN - Exam Quality Assessment: DVT Prophylaxis General: Alert, Oriented, Cooperative HEENT: Pupils Equal, Pupils Reactive, EOMI Neck: Supple, Trachea Midline, No JVD Lungs: Normal Respiratory Effort Cardiovascular: Regular Rate GI/Abdominal Exam: Normal Bowel Sounds, Soft, Non-Tender, No Organomegaly, No Distention (Male) Exam: Deferred Back Exam: Normal Inspection Extremities: Normal Inspection Skin: Warm Neurological: No New Focal Deficit Psy/Mental Status: Alert, Normal Affect, Normal Mood - Problem List & Annotations (1) Hypertensive urgency SNOMED Code(s): 926217360 Code(s): I16.0 - HYPERTENSIVE URGENCY Status: Acute Current Visit: Yes (2) TIA (transient ischemic attack) SNOMED Code(s): 553104927 Code(s): G45.9 - TRANSIENT CEREBRAL ISCHEMIC ATTACK, UNSPECIFIED Status: Acute Current Visit: Yes Qualifiers: Transient cerebral ischemia type: unspecified Qualified Code(s): G45.9 - Transient cerebral ischemic attack, unspecified (3) Atrial flutter with rapid ventricular response SNOMED Code(s): 6988973 Code(s): I48.92 - UNSPECIFIED ATRIAL FLUTTER Status: Acute Current Visit : No (4) Renal insufficiency SNOMED Code(s): 015037921 Code(s): N28.9 - DISORDER OF KIDNEY AND URETER, UNSPECIFIED Status: Acute Current Visit: No (5) Syncope SNOMED Code(s): 469178247 Code(s): R55 - SYNCOPE AND COLLAPSE Status: Acute Current Visit: No Qualifiers: Syncope type: unspecified Qualified Code(s): R55 - Syncope and collapse - Problem List Review Problem List Initiated/Reviewed/Updated: Yes - My Orders Last 24 Hours: My Active Orders 05/29/17 12:35 CULTURE URINE [RM] Routine 05/29/17 14:30 cefTRIAXone [Rocephin] 2 gm Sodium Chloride 0.9% [Normal Saline] 100 ml IV Q24H 05/29/17 22:46 Temazepam [Restoril] 15 mg PO BEDTIME PRN 05/30/17 09:00 buPROPion [Wellbutrin XL] 300 mg PO DAILY 05/31/17 05:00 BASIC METABOLIC PANEL,BMP [CHEM] DAILY CBC WITH AUTO DIFF [HEME] DAILY CRP [C-REACTIVE PROTEIN] [CHEM] DAILY - Plan Plan:: Impression: AMS, presyncopal; resolved TIA with left sided weakness, resolved Carotid ~WNL; MRI ~unremakable; 2D echo ~WNL Reportedly SZ activity History of CAD; S/P CABG A Fib on digoxin History of Dementia AUTI Chronic DM type 2 GERD BPH Plan: Start Rocephin 2 gm IV daily; continue adjust as needed. BP meds: BB, nondihydropyridine; hydralazine; Neuorcheck ~stop CVA/TIA protocol SZ precautions Ischemic work up DVT/GI prophylaxis LOS>96 hours with treatment and response.
[2017-05-30] MEDS: cefTRIAXone 2 GM in Sodium Chloride 0.9% 100 ML IV SCH (14:44)
[2017-05-30] MEDS: Rosuvastatin 10 MG Tab PO SCH (20:41)
[2017-05-30] MEDS: Donepezil 10 MG Tab PO SCH (20:42)
[2017-05-31] MEDS: Insulin Aspart 100 Units/ML 3 ML Pen SUBCUT SCH ×4 (07:58→21:07)
[2017-05-31] MEDS: Sodium Chloride 0.9% 10 ML Syringe FLUSH PRN (08:00)
[2017-05-31] MEDS: hydrALAZINE 20 MG/ML SDV IVPUSH PRN (08:02)
[2017-05-31] MEDS: ALPRAZolam 1 MG Tab PO SCH ×3 (08:03→21:04)
[2017-05-31] MEDS: buPROPion 150 MG Tab.ER PO SCH (08:03)
[2017-05-31] MEDS: Finasteride 5 MG Tab PO SCH (08:03)
[2017-05-31] MEDS: Metoprolol Tartrate 50 MG Tab PO SCH ×2 (08:03→21:06)
[2017-05-31] MEDS: Tamsulosin 0.4 MG Cap.ER PO SCH ×2 (08:03→21:04)
[2017-05-31] MEDS: Aspirin 81 MG Tab.EC PO SCH (08:04)
[2017-05-31] MEDS: Digoxin 125 MCG Tab PO SCH (08:04)
[2017-05-31] MEDS: amLODIPine 5 MG Tab PO SCH (08:04)
--- NOTE | 2017-05-31 12:44 | PCM.PN ---
- General Info Date of Service: 05/31/17 Functional Status: Reports: Tolerating Diet, Ambulating, Urinating - Review of Systems General: Reports: No Symptoms HEENT: Reports: No Symptoms Pulmonary: Reports: No Symptoms Cardiovascular: Reports: No Symptoms Gastrointestinal: Reports: No Symptoms Genitourinary: Reports: No Symptoms Musculoskeletal: Reports: No Symptoms Skin: Reports: No Symptoms Neurological: Reports: No Symptoms Psychiatric: Reports: No Symptoms - Patient Data Vitals - Most Recent: Last Vital Signs Temp 36.6 C 05/31/17 11:23 Pulse 79 05/31/17 08:04 Resp 16 05/31/17 11:23 BP 126/59 L 05/31/17 11:23 Pulse Ox 99 05/31/17 11:23 Weight - Most Recent: 84.323 kg I&O - Last 24 Hours: Intake & Output 05/30/17 05/31/17 05/31/17 22:59 06:59 14:59 Intake Total 760 240 360 Output Total 300 300 100 Balance 460 -60 260 Lab Results Last 24 Hours: Laboratory Results - last 24 hr 05/30/17 05/30/17 05/31/17 Range/Units 17:22 20:47 05:20 WBC 7.01 (4.23-9.07) K/mm3 RBC 3.76 L (4.63-6.08) M/mm3 Hgb 11.1 L (13.7-17.5) gm/L Hct 34.4 L (40.1-51.0) % MCV 91.5 (79.0-92.2) fl MCH 29.5 (25.7-32.2) pg MCHC 32.3 (32.2-35.5) g/dl RDW Std Deviation 49.2 H (35.1-43.9) fL Plt Count 178 (163-337) K/mm3 MPV 10.0 (9.4-12.3) fl Neut % (Auto) 69.5 H (34.0-67.9) % Lymph % (Auto) 20.7 L (21.8-53.1) % [place] % (Auto) 5.7 (5.3-12.2) % Eos % (Auto) 3.4 (0.8-7.0) Baso % (Auto) 0.4 (0.1-1.2) % Neut # (Auto) 4.87 (1.78-5.38) K/mm3 Lymph # (Auto) 1.45 (1.32-3.57) K/mm3 [place] # (Auto) 0.40 (0.30-0.82) K/mm3 Eos # (Auto) 0.24 (0.04-0.54) K/mm3 Baso # (Auto) 0.03 (0.01-0.08) K/mm3 Sodium (136-145) mEq/L Potassium (3.5-5.1) mEq/L Chloride (98-107) mEq/L Carbon Dioxide (21-32) mEq/L Anion Gap (5-15) BUN (7-18) mg/dL Creatinine (0.7-1.3) mg/dL Est Cr Clr Drug Dosing mL/min Estimated GFR (MDRD) (>60) mL/min BUN/Creatinine Ratio (14-18) Glucose (83-115) mg/dL POC Glucose 215 H 179 H (83-110) mg/dL Calcium (8.5-10.1) mg/dL C-Reactive Protein (<1.0) mg/dL 05/31/17 05/31/17 Range/Units 05:32 11:20 WBC (4.23-9.07) K/mm3 RBC (4.63-6.08) M/mm3 Hgb (13.7-17.5) gm/L Hct (40.1-51.0) % MCV (79.0-92.2) fl MCH (25.7-32.2) pg MCHC (32.2-35.5) g/dl RDW Std Deviation (35.1-43.9) fL Plt Count (163-337) K/mm3 MPV (9.4-12.3) fl Neut % (Auto) (34.0-67.9) % Lymph % (Auto) (21.8-53.1) % [place] % (Auto) (5.3-12.2) % Eos % (Auto) (0.8-7.0) Baso % (Auto) (0.1-1.2) % Neut # (Auto) (1.78-5.38) K/mm3 Lymph # (Auto) (1.32-3.57) K/mm3 [place] # (Auto) (0.30-0.82) K/mm3 Eos # (Auto) (0.04-0.54) K/mm3 Baso # (Auto) (0.01-0.08) K/mm3 Sodium 137 (136-145) mEq/L Potassium 3.9 (3.5-5.1) mEq/L Chloride 104 (98-107) mEq/L Carbon Dioxide 27 (21-32) mEq/L Anion Gap 9.9 (5-15) BUN 24 H (7-18) mg/dL Creatinine 2.0 H (0.7-1.3) mg/dL Est Cr Clr Drug Dosing 36.07 mL/min Estimated GFR (MDRD) 33 (>60) mL/min BUN/Creatinine Ratio 12.0 L (14-18) Glucose 177 H (83-115) mg/dL POC Glucose 179 H (83-110) mg/dL Calcium 8.1 L (8.5-10.1) mg/dL C-Reactive Protein 6.9 H* (<1.0) mg/dL [place] Results Last 24 Hours: Microbiology 05/29/17 10:25 Aerobic Blood Culture - Preliminary Blood - Venous - Lab Draw NO GROWTH AFTER 2 DAYS Anaerobic Blood Culture - Preliminary NO GROWTH AFTER 2 DAYS 05/29/17 10:10 Aerobic Blood Culture - Preliminary Blood - Venous NO GROWTH AFTER 2 DAYS Anaerobic Blood Culture - Preliminary NO GROWTH AFTER 2 DAYS 05/29/17 12:35 Urine Culture - Final Urine, Clean Catch Klebsiella Pneumoniae 05/29/17 12:35 Streptococcus pneumoniae Antigen (M - Final Urine Med Orders - Current: Current Medications Alprazolam (Xanax) 1 mg PO TID [facility] Last Admin: 05/31/17 08:03 Dose: 1 mg Amlodipine Besylate (Norvasc) 5 mg PO DAILY [facility] Last Admin: 05/31/17 08:04 Dose: 5 mg Aspirin (Halfprin) 81 mg PO DAILY [facility] Last Admin: 05/31/17 08:04 Dose: 81 mg Bupropion HCl (Wellbutrin Xl) 300 mg PO DAILY [facility] Last Admin: 05/31/17 08:03 Dose: 300 mg Dextrose/Water (Dextrose 50% In Water) 50 ml IVPUSH ASDIRECTED PRN PRN Reason: Hypoglycemia Digoxin (Lanoxin) 125 mcg PO DAILY [facility] Last Admin: 05/31/17 08:04 Dose: 125 mcg Donepezil HCl (Aricept) 5 mg PO BEDTIME [facility] Last Admin: 05/30/17 20:42 Dose: 5 mg Finasteride (Proscar) 5 mg PO DAILY [facility] Last Admin: 05/31/17 08:03 Dose: 5 mg Hydralazine HCl (Apresoline) 20 mg IVPUSH Q6H PRN PRN Reason: Hypertension Last Admin: 05/31/17 08:02 Dose: 20 mg Ceftriaxone Sodium 2 gm/ (Sodium Chloride) 100 mls @ 200 mls/hr IV Q24H [facility] Last Admin: 05/30/17 14:44 Dose: 200 mls/hr Insulin Aspart (Novolog) 0 unit SUBCUT QIDACANDBED [facility] PRN Reason: Protocol Last Admin: 05/31/17 11:21 Dose: 1 units Metoprolol Tartrate (Lopressor) 25 mg PO BID [facility] Last Admin: 05/31/17 08:03 Dose: 25 mg Nitroglycerin (Nitrostat) 0.4 mg SL ASDIRECTED PRN PRN Reason: Chest Pain Rosuvastatin Calcium (Crestor) 20 mg PO BEDTIME [facility] Last Admin: 05/30/17 20:41 Dose: 20 mg Sodium Chloride (Saline Flush) 10 ml FLUSH ASDIRECTED PRN PRN Reason: Keep Vein Open Last Admin: 05/31/17 08:00 Dose: 10 ml Tamsulosin HCl (Flomax) 0.4 mg PO BID [facility] Last Admin: 05/31/17 08:03 Dose: 0.4 mg Temazepam (Restoril) 15 mg PO BEDTIME PRN PRN Reason: Sleep Last Admin: 05/29/17 22:56 Dose: 15 mg Discontinued Medications Bupropion HCl (Wellbutrin Xl) 150 mg PO DAILY [facility] Last Admin: 05/29/17 08:14 Dose: 150 mg Bupropion HCl (Wellbutrin Xl) 150 mg PO ONETIME JOHAN Stop: 05/29/17 13:00 Bupropion HCl (Wellbutrin Xl) 150 mg PO ONETIME ONE Stop: 05/29/17 11:31 Last Admin: 05/29/17 12:54 Dose: 150 mg Labetalol HCl 100 mg/ Sodium (Chloride) 100 mls @ 30 mls/hr IV TITRATE JOHAN; 0.5 MG/MIN PRN Reason: Protocol Last Titration: 05/28/17 10:47 Dose: 0.5 mg/min, 30 mls/hr Sodium Chloride (Sodium Chloride 0.45%) 1,000 mls @ 75 mls/hr IV ASDIRECTED [facility]OHAN Last Admin: 05/29/17 17:11 Dose: 75 mls/hr Magnesium Sulfate 4 gm/ Premix 100 mls @ 50 mls/hr IV ONETIME ONE Stop: 05/28/17 13:38 Last Admin: 05/28/17 14:30 Dose: 50 mls/hr Labetalol HCl (Normodyne) 20 mg IVPUSH ONETIME ONE PRN Reason: Protocol Stop: 05/27/17 19:12 Last Admin: 05/27/17 19:22 Dose: 20 mg Metoprolol Tartrate (Lopressor) 50 mg PO ONETIME ONE Stop: 05/27/17 18:30 Last Admin: 05/27/17 18:37 Dose: 50 mg Metoprolol Tartrate (Lopressor) 50 mg PO BID [facility] Last Admin: 05/27/17 21:04 Dose: 50 mg Non-Formulary Medication (Alprazolam [Alprazolam Xr]) 1 mg PO TID [facility]OHAN Non-Formulary Medication (Bupropion) 100 mg PO TID [facility] - Exam Quality Assessment: DVT Prophylaxis General: Alert, Oriented, Cooperative HEENT: Pupils Equal, Pupils Reactive, EOMI Neck: Supple, Trachea Midline, No JVD Lungs: Normal Respiratory Effort Cardiovascular: Regular Rate, Regular Rhythm GI/Abdominal Exam: Normal Bowel Sounds, Soft, Non-Tender, No Organomegaly, No Distention (Male) Exam: Deferred Back Exam: Normal Inspection Extremities: Normal Inspection Skin: Warm Neurological: No New Focal Deficit Psy/Mental Status: Alert, Normal Affect, Normal Mood - Problem List & Annotations (1) Hypertensive urgency SNOMED Code(s): 593087805 Code(s): I16.0 - HYPERTENSIVE URGENCY Status: Resolved Priority: High (2) TIA (transient ischemic attack) SNOMED Code(s): 837888846 Code(s): G45.9 - TRANSIENT CEREBRAL ISCHEMIC ATTACK, UNSPECIFIED Status: Acute Priority: High Qualifiers: Transient cerebral ischemia type: unspecified Qualified Code(s): G45.9 - Transient cerebral ischemic attack, unspecified (3) Atrial flutter with rapid ventricular response SNOMED Code(s): 6538303 Code(s): I48.92 - UNSPECIFIED ATRIAL FLUTTER Status: Acute (4) Renal insufficiency SNOMED Code(s): 984529827 Code(s): N28.9 - DISORDER OF KIDNEY AND URETER, UNSPECIFIED Status: Acute (5) Syncope SNOMED Code(s): 034393458 Code(s): R55 - SYNCOPE AND COLLAPSE Status: Acute Qualifiers: Syncope type: unspecified Qualified Code(s): R55 - Syncope and collapse - Problem List Review Problem List Initiated/Reviewed/Updated: Yes - My Orders Last 24 Hours: My Active Orders 05/30/17 20:30 Admission Status [Patient Status] [ADT] Routine 06/01/17 05:00 MAGNESIUM [CHEM] Routine - Plan Plan:: Impression: AMS, presyncopal; resolved TIA with left sided weakness, resolved Carotid ~WNL; MRI ~unremakable; 2D echo ~WNL Reportedly SZ activity History of CAD; S/P CABG A Fib on digoxin History of Dementia AUTI Chronic DM type 2 GERD BPH Plan: Start Rocephin 2 gm IV daily; continue adjust as needed. BP meds: BB, nondihydropyridine; hydralazine; CVA/TIA protocol SZ precautions Ischemic work up DVT/GI prophylaxis LOS>96 hours with treatment and response.
[2017-05-31] MEDS: cefTRIAXone 2 GM in Sodium Chloride 0.9% 100 ML IV SCH (14:36)
[2017-05-31] MEDS: Rosuvastatin 10 MG Tab PO SCH (21:04)
[2017-05-31] MEDS: Donepezil 10 MG Tab PO SCH (21:05)
--- NOTE | 2017-06-01 07:16 | PCM.DCSUM1 ---
Discharge Summary - Hospital Course Free Text/Narrative:: 76 year old male with increasing confusion reportedly became unresponsive. He developed left sided weakness, UE and LE. Additionally left sided facial droop was present. This resolved after he had been picked up by the EMS, ED arrival documented an unremarkable neuro exam. He has had no change in speech, double vision, lightheadedness. There has been no headache or constitutional complaints. Ct of the head should atrophy without acute etiology. During his ED work up he became profoundly hypertensive and received Labetalol with minimal response. He will be admitted to the ICU for hypertensive urgency and a TIA work will be initiated. Patient and his family are agreeable. In the ICU, patient responded well to treatment. A WELDER OXYHYDROGEN evaluation was performed and recommended nectar thick liquids and national dysphagia diet level II. Brain MRI performed on showed 1. Generalized atrophy and other specific change. 2. No acute diffusion abnormalities. Carotid ultrasound was performed on as well. This showed 1. Diffuse plaque as noted. 2. Loss he measurements was the left internal carotid artery responded to stenosis of the upper limits of 1-49%. 3. Greater than 50% stenosis within the right external carotid artery. 4. Stenosis within the right internal carotid artery of 1-49%. Both tests were interpreted by Dr. Gutiérrez, radiologist. The patient was started on labetalol drip which was discontinued. Amlodipine was started. He was also found to have a UTI. His urine grew out klebsiella pneumoniae which was sensitive to Rocephin. He will be switched to PO cefdinir. His Wellbutrin was switched form TID to Wellbutrin XR once daily. He has done very well with this. He will be started on 81mg of ASA as it is felt he truly had a TIA. His PCP can consider increasing this to 324mg. He will be discharged home today with home health. He is to follow-up with his PCP, Dr. Grant, in the next 7-10 days. I personally met with Flash face to face to discuss his treatment here and plan of care when discharged today (06/01/17). I feel home healthcare, PT/OT, and a home safety evaluation are needed due to the listed diagnosis and his current medical state. Furthermore, our clinical findings support the patient being homebound due to difficulty with walking, weakness, and troubles with transportation. He will benefit from medication assistance, therapy, and overall assistance with ADLs. He will follow-up with his PCP, Dr. Grant, in 7- [address] Grant can then monitor the need for continued services. - Discharge Data Discharge Date: 06/01/17 (Admit date: 05/27/17) Discharge Disposition: Home, W Home Health Agency 06 Condition: Good - Discharge Diagnosis/Problem(s) (1) Hypertensive urgency SNOMED Code(s): 736549103 ICD Code: I16.0 - HYPERTENSIVE URGENCY Status: Resolved Priority: High Current Visit: Yes (2) TIA (transient ischemic attack) SNOMED Code(s): 701974045 ICD Code: G45.9 - TRANSIENT CEREBRAL ISCHEMIC ATTACK, UNSPECIFIED Status: Acute Priority: High Current Visit: Yes Qualifiers: Transient cerebral ischemia type: unspecified Qualified Code(s): G45.9 - Transient cerebral ischemic attack, unspecified (3) UTI (urinary tract infection) SNOMED Code(s): 87253749 ICD Code: N39.0 - URINARY TRACT INFECTION, SITE NOT SPECIFIED Status: Acute Priority: High Current Visit: Yes Qualifiers: Urinary tract infection type: acute cystitis Hematuria presence: with hematuria Qualified Code(s): N30.01 - Acute cystitis with hematuria - Patient Summary/Data Consults: Consultations 05/27/17 20:32 Consult to Oncology Nurse Navigator [CONS] Routine 05/28/17 09:19 Consult to Speech Language Pathology [WELDER OXYHYDROGEN Evaluation and Treatment] [CONS] Routine 05/28/17 14:00 Consult to Occupational Therapy [OT Evaluation and Treatment] [CONS] Routine Consult to Physical Therapy [PT Evaluation and Treatment] [CONS] Routine - Patient Instructions Diet: Heart Healthy Diet Activity: As Tolerated Driving: Do Not Drive Showering/Bathing: May Shower Notify Provider of: Fever, Increased Pain, Nausea and/or Vomiting - Discharge Plan Prescriptions/Med Rec: amLODIPine [Norvasc] 5 mg PO DAILY #20 tablet Aspirin 81 mg PO DAILY #30 tab.chew buPROPion [Wellbutrin XL] 300 mg PO DAILY #40 tab.er Cefdinir 300 mg PO BID 5 Days #10 capsule Home Medications: Home Meds Finasteride [Proscar] 5 mg PO DAILY 01/07/14 [History] Insulin Glargine,Hum.Rec.Anlog [Lantus Solostar] 15 unit SQ DAILY 01/07/14 [ History] Nitroglycerin [Nitrostat] 0.4 mg SL ASDIRECTED PRN 01/07/14 [History] Tamsulosin [Flomax] 0.4 mg PO BID 01/07/14 [History] atorvaSTATin [Lipitor] 80 mg PO BEDTIME 01/07/14 [History] Aspirin [Ecotrin] 81 mg PO DAILY 04/04/16 [History] Omeprazole 20 mg PO DAILY 04/04/16 [History] Digoxin [Lanoxin] 125 mcg PO DAILY 12/08/16 [History] Metoprolol Tartrate [Lopressor] 50 mg PO BID 12/08/16 [History] Donepezil [Aricept] 5 mg PO BEDTIME 05/27/17 [History] ALPRAZolam [Alprazolam] 1 mg PO TID 05/31/17 [History] Aspirin 81 mg PO DAILY #30 tab.chew 06/01/17 [Rx] Cefdinir 300 mg PO BID 5 Days #10 capsule 06/01/17 [Rx] amLODIPine [Norvasc] 5 mg PO DAILY #20 tablet 06/01/17 [Rx] buPROPion [Wellbutrin XL] 300 mg PO DAILY #40 tab.er 06/01/17 [Rx] Patient Handouts: Thickening Liquids for Dysphagia Diet, Transient Ischemic Attack, [id number], Dysphagia, Hypertension, [id number], Dysphagia Diet Level 2, Mechanically Altered Forms: ED Department Discharge Referrals: Fernando Grant MD [Primary Care Provider] - - Discharge Summary/Plan Comment DC Time >30 min.: Yes (45 mins) - General Info Date of Service: 06/01/17 Admission Dx/Problem (Free Text: Admission Diagnosis/Problem Admission Diagnosis/Problem TIA, Transient ischemic attack Functional Status: Reports: Pain Controlled, Tolerating Diet, Ambulating, Urinating. Denies: New Symptoms - Review of Systems General: Reports: No Symptoms, Weakness. Denies: Fever, Fatigue, Malaise, Chills HEENT: Reports: No Symptoms. Denies: Ear Pain, Eye Pain, Headaches, Visual Changes Pulmonary: Reports: No Symptoms. Denies: Shortness of Breath, Pleuritic Chest Pain, Cough, Sputum Cardiovascular: Reports: No Symptoms. Denies: Chest Pain, Palpitations, Dyspnea on Exertion, Edema Gastrointestinal: Reports: No Symptoms. Denies: Abdominal Pain, Constipation, Diarrhea, Nausea, Vomiting Genitourinary: Reports: Dysuria (improved ). Denies: Frequency, Urgency Musculoskeletal: Reports: No Symptoms Skin: Reports: No Symptoms Neurological: Reports: Confusion, Trouble Speaking, Weakness. Denies: Dizziness , Headache, Numbness, Syncope, Tingling Psychiatric: Reports: No Symptoms - Patient Data Vitals - Most Recent: Last Vital Signs Temp 97.1 F 06/01/17 03:00 Pulse 66 05/31/17 21:06 Resp 14 06/01/17 03:00 BP 140/64 06/01/17 03:00 Pulse Ox 97 06/01/17 03:00 Weight - Most Recent: 186 lb 12.8 oz I&O - Last 24 hours: Intake & Output 05/31/17 06/01/17 06/01/17 22:59 06:59 14:59 Intake Total 1820 700 Output Total 300 620 Balance 1520 80 Lab Results - Last 24 hrs: Laboratory Results - last 24 hr 05/31/17 05/31/17 05/31/17 Range/Units 11:20 17:12 20:52 POC Glucose 179 H 191 H 236 H (83-110) mg/dL 06/01/17 Range/Units 06:05 POC Glucose 168 H (83-110) mg/dL SHAINA Results - Last 24 hrs: Microbiology 05/29/17 10:25 Aerobic Blood Culture - Preliminary Blood - Venous - Lab Draw NO GROWTH AFTER 2 DAYS Anaerobic Blood Culture - Preliminary NO GROWTH AFTER 2 DAYS 05/29/17 10:10 Aerobic Blood Culture - Preliminary Blood - Venous NO GROWTH AFTER 2 DAYS Anaerobic Blood Culture - Preliminary NO GROWTH AFTER 2 DAYS 05/29/17 12:35 Urine Culture - Final Urine, Clean Catch Klebsiella Pneumoniae Med Orders - Current: Current Medications Alprazolam (Xanax) 1 mg PO TID [facility] Last Admin: 05/31/17 21:04 Dose: 1 mg Amlodipine Besylate (Norvasc) 5 mg PO DAILY [facility] Last Admin: 05/31/17 08:04 Dose: 5 mg Aspirin (Halfprin) 81 mg PO DAILY [facility] Last Admin: 05/31/17 08:04 Dose: 81 mg Bupropion HCl (Wellbutrin Xl) 300 mg PO DAILY [facility] Last Admin: 05/31/17 08:03 Dose: 300 mg Dextrose/Water (Dextrose 50% In Water) 50 ml IVPUSH ASDIRECTED PRN PRN Reason: Hypoglycemia Digoxin (Lanoxin) 125 mcg PO DAILY [facility] Last Admin: 05/31/17 08:04 Dose: 125 mcg Donepezil HCl (Aricept) 5 mg PO BEDTIME [facility] Last Admin: 05/31/17 21:05 Dose: 5 mg Finasteride (Proscar) 5 mg PO DAILY [facility] Last Admin: 05/31/17 08:03 Dose: 5 mg Hydralazine HCl (Apresoline) 20 mg IVPUSH Q6H PRN PRN Reason: Hypertension Last Admin: 05/31/17 08:02 Dose: 20 mg Ceftriaxone Sodium 2 gm/ (Sodium Chloride) 100 mls @ 200 mls/hr IV Q24H [facility] Last Admin: 05/31/17 14:36 Dose: 200 mls/hr Insulin Aspart (Novolog) 0 unit SUBCUT QIDACANDBED [facility] PRN Reason: Protocol Last Admin: 05/31/17 21:07 Dose: 2 units Metoprolol Tartrate (Lopressor) 25 mg PO BID [facility] Last Admin: 05/31/17 21:06 Dose: 25 mg Nitroglycerin (Nitrostat) 0.4 mg SL ASDIRECTED PRN PRN Reason: Chest Pain Rosuvastatin Calcium (Crestor) 20 mg PO BEDTIME [facility] Last Admin: 05/31/17 21:04 Dose: 20 mg Sodium Chloride (Saline Flush) 10 ml FLUSH ASDIRECTED PRN PRN Reason: Keep Vein Open Last Admin: 05/31/17 08:00 Dose: 10 ml Tamsulosin HCl (Flomax) 0.4 mg PO BID [facility] Last Admin: 05/31/17 21:04 Dose: 0.4 mg Temazepam (Restoril) 15 mg PO BEDTIME PRN PRN Reason: Sleep Last Admin: 05/29/17 22:56 Dose: 15 mg Discontinued Medications Bupropion HCl (Wellbutrin Xl) 150 mg PO DAILY [facility] Last Admin: 05/29/17 08:14 Dose: 150 mg Bupropion HCl (Wellbutrin Xl) 150 mg PO ONETIME JOHAN Stop: 05/29/17 13:00 Bupropion HCl (Wellbutrin Xl) 150 mg PO ONETIME ONE Stop: 05/29/17 11:31 Last Admin: 05/29/17 12:54 Dose: 150 mg Labetalol HCl 100 mg/ Sodium (Chloride) 100 mls @ 30 mls/hr IV TITRATE JOHAN; 0.5 MG/MIN PRN Reason: Protocol Last Titration: 05/28/17 10:47 Dose: 0.5 mg/min, 30 mls/hr Sodium Chloride (Sodium Chloride 0.45%) 1,000 mls @ 75 mls/hr IV ASDIRECTED [facility]OHAN Last Admin: 05/29/17 17:11 Dose: 75 mls/hr Magnesium Sulfate 4 gm/ Premix 100 mls @ 50 mls/hr IV ONETIME ONE Stop: 05/28/17 13:38 Last Admin: 05/28/17 14:30 Dose: 50 mls/hr Labetalol HCl (Normodyne) 20 mg IVPUSH ONETIME ONE PRN Reason: Protocol Stop: 05/27/17 19:12 Last Admin: 05/27/17 19:22 Dose: 20 mg Metoprolol Tartrate (Lopressor) 50 mg PO ONETIME ONE Stop: 05/27/17 18:30 Last Admin: 05/27/17 18:37 Dose: 50 mg Metoprolol Tartrate (Lopressor) 50 mg PO BID [facility] Last Admin: 05/27/17 21:04 Dose: 50 mg Non-Formulary Medication (Alprazolam [Alprazolam Xr]) 1 mg PO TID [facility]OHAN Non-Formulary Medication (Bupropion) 100 mg PO TID [facility] - Exam Quality Assessment: Reports: DVT Prophylaxis General: Reports: Alert, Oriented, Cooperative, No Acute Distress HEENT: Reports: Pupils Equal, Pupils Reactive, EOMI, Mucous Membr. Moist/[place] Neck: Reports: Supple, Trachea Midline, No JVD, No Thyromegaly Lungs: Reports: Clear to Auscultation, Normal Respiratory Effort Cardiovascular: Reports: Regular Rate, Irregular Rhythm GI/Abdominal Exam: Normal Bowel Sounds, Soft, No Organomegaly, No Distention, No Abnormal Bruit, Tender (suprapubic region, mild ) (Male) Exam: Deferred Rectal (Males) Exam: Deferred Back Exam: Reports: Normal Inspection Extremities: Normal Inspection, Normal Range of Motion, Non-Tender, No Pedal Edema, Normal Capillary Refill Skin: Reports: Warm, Dry, Intact Neurological: Reports: No New Focal Deficit Psy/Mental Status: Reports: Alert, Normal Affect, Normal Mood *Q Meaningful Use (DIS) - VTE *Q VTE Criteria *Q: - Stroke *Q Stroke Criteria *Q: - AMI *Q AMI Criteria *Q:
[2017-06-01] MEDS: Insulin Aspart 100 Units/ML 3 ML Pen SUBCUT SCH ×2 (08:07→11:23)
[2017-06-01] MEDS: Metoprolol Tartrate 50 MG Tab PO SCH (08:09)
[2017-06-01] MEDS: Aspirin 81 MG Tab.EC PO SCH (08:09)
[2017-06-01] MEDS: Digoxin 125 MCG Tab PO SCH (08:09)
[2017-06-01] MEDS: Tamsulosin 0.4 MG Cap.ER PO SCH (08:09)
[2017-06-01] MEDS: buPROPion 150 MG Tab.ER PO SCH (08:09)
[2017-06-01] MEDS: Finasteride 5 MG Tab PO SCH (08:09)
[2017-06-01 08:10] VITALS: BP 140/54
[2017-06-01] MEDS: ALPRAZolam 1 MG Tab PO SCH (08:10)
[2017-06-01] MEDS: amLODIPine 5 MG Tab PO SCH (08:10)
== END 2017-06-01 12:30 | disposition home health service (06) | DRG 69 ==
LOC: JD.ED 17:15 → JD.ICU 19:36
PROVIDERS: ADMIT Internal Medicine Cardiovascular Disease; ATTEND Internal Medicine Cardiovascular Disease
DX: G45.9 Transient cerebral ischemic attack, unspecified (principal); I48.92 Unspecified atrial flutter; I25.810 Atherosclerosis of coronary artery bypass graft(s) without angina pectoris; N39.0 Urinary tract infection, site not specified; I16.0 Hypertensive urgency; I48.91 Unspecified atrial fibrillation; N28.9 Disorder of kidney and ureter, unspecified; R55 Syncope and collapse; I10 Essential (primary) hypertension; Z87.891 Personal history of nicotine dependence; E11.9 Type 2 diabetes mellitus without complications; K21.9 Gastro-esophageal reflux disease without esophagitis; F03.90 Unspecified dementia, unspecified severity, without behavioral disturbance, psychotic disturbance, mood disturbance, and anxiety; N40.0 Benign prostatic hyperplasia without lower urinary tract symptoms; F32.9 Major depressive disorder, single episode, unspecified; F41.9 Anxiety disorder, unspecified; L40.9 Psoriasis, unspecified; Z79.82 Long term (current) use of aspirin; Z79.4 Long term (current) use of insulin; Z79.899 Other long term (current) drug therapy; Z85.51 Personal history of malignant neoplasm of bladder; B96.1 Klebsiella pneumoniae [K. pneumoniae] as the cause of diseases classified elsewhere; R53.1 Weakness
CPT/HCPCS: 36415; 70450; 80053; 83735; 84484; 85025; 85610; 93005; 96374; 99285; A9270; J7050; 70551; 70551-26; 80048; 80061; 80162; 81001; 82962; 86140; 86738; 87040; 87086; 87088; 87186; 87804; 87899; 92526-GN; 92610-GN; 93010; 93306; 93880; 93880-26; 97110-GO; 97116-GP; 97162-GP; 97167-GO; 97530-GP; 97535-GO; J0360; J0696; J1815-GY; J3475; J7030

== ENCOUNTER 2017-07-26 19:23 | Emergency (ER) | payer MEDICARE, BC, MEDICAID ==
[2017-07-26] MEDS ORDERED: Sodium Chloride 0.9% 10 ML Syringe FLUSH PRN (19:34)
[2017-07-26] MEDS ORDERED: Albuterol/Ipratropium 3.0-0.5 MG/3 ML Neb Soln NEB ONE (19:35)
[2017-07-26 19:59] VITALS: BP 107/57
--- NOTE | 2017-07-26 20:06 | CT ---
Head CT Technique: Multiple axial sections through the brain were obtained. Intravenous contrast was not utilized. Comparison: Prior head CT exam of 05/27/17 and prior MRI brain of 05/28/17. Findings: Ventricles along with basal cisterns and sulci over the convexities are moderately prominent. Diminished density is noted within the periventricular and subcortical white matter compatible with small vessel ischemic demyelination change. Minimal basal ganglia calcification is noted. No other abnormal parenchymal densities are seen. No evidence of intracranial hemorrhage. No midline shift or mass effect is seen. Atherosclerotic calcification is seen within the vertebral vessels and within the carotid siphon. Bone window settings were reviewed which shows the visualized sinuses to appear clear. No acute calvarial abnormality is seen. Impression: 1. Senescent change as noted above. No acute intracranial abnormality is identified. No appreciable change is seen from prior MRI or head CT exam. Diagnostic code #2
--- NOTE | 2017-07-26 21:32 | EDM.PDOC ---
ED HPI GENERAL MEDICAL PROBLEM - General Chief Complaint: Neurological Problem Stated Complaint: RUBI AMB Time Seen by Provider: 07/26/17 19:32 Source of Information: Reports: Patient, EMS, Family History Limitations: Reports: Altered Mental Status - History of Present Illness INITIAL COMMENTS - FREE TEXT/NARRATIVE: The patient presents by ambulance for respiratory arrest and hypoxia. The patient was last known well at 1845 this evening. He had a donut and then some cream of wheat. She did not hear form him for a few minutes so she went to the living room to find him in the recliner not breathing well. When EMS arrived they found the same and his oxygen saturations were in the 50s. They ventilated him with a nonrebreather. He started coming around and trying to talk when he arrived. He did have left arm and left leg weakness when he arrived. He had a TIA in May. The MRI at that time was negative. He had trouble swallowing at that time and a swallow study was done and he needed thickened liquids. His says he has not been following that. He drinks mostly orange juice and diet pepsi. Onset: Sudden Duration: Minutes: Severity: Moderate Improves with: Reports: None Worsens with: Reports: None Associated Symptoms: Reports: Cough, Shortness of Breath. Denies: Chest Pain, Fever/Chills, Headaches, Nausea/Vomiting Treatments ASSET PROTECTION REPRESENTATIVE: Reports: Other (see below) Other Treatments ASSET PROTECTION REPRESENTATIVE: suction and bagging with O2 - Related Data Allergies Allergy/AdvReac Type Severity Reaction Status Date / Time No Known Allergies Allergy Verified 05/27/17 17:20 Home Meds: Home Meds Finasteride [Proscar] 5 mg PO DAILY 01/07/14 [History] Insulin Glargine,Hum.Rec.Anlog [Lantus Solostar] 15 unit SQ BEDTIME 01/07/14 [ History] Nitroglycerin [Nitrostat] 0.4 mg SL ASDIRECTED PRN 01/07/14 [History] Tamsulosin [Flomax] 0.8 mg PO DAILY 01/07/14 [History] atorvaSTATin [Lipitor] 80 mg PO BEDTIME 01/07/14 [History] Aspirin [Ecotrin] 81 mg PO DAILY 04/04/16 [History] Omeprazole 20 mg PO DAILY 04/04/16 [History] Digoxin [Lanoxin] 125 mcg PO DAILY 12/08/16 [History] Metoprolol Tartrate [Lopressor] 50 mg PO BID 12/08/16 [History] Donepezil [Aricept] 5 mg PO BEDTIME 05/27/17 [History] ALPRAZolam [Xanax] 1 mg PO TID 07/26/17 [History] amLODIPine [Norvasc] 10 mg PO DAILY 07/26/17 [History] buPROPion [Wellbutrin XL] 100 mg PO TID 07/26/17 [History] Past Medical History Cardiovascular History: Reports: Afib, SOB on Exertion Gastrointestinal History: Reports: Gastritis, GERD Genitourinary History: Reports: BPH, Other (See Below) Psychiatric History: Reports: Anxiety, Depression Endocrine/Metabolic History: Reports: Diabetes, Type II Dermatologic History: Reports: Psoriasis - Past Surgical History Cardiovascular Surgical History: Reports: Coronary Artery Bypass Social & Family History - Tobacco Use Smoking Status *Q: Current Every Day Smoker Years of Tobacco use: 30 Packs/Tins Daily: 0.2 Used Tobacco, but Quit: No Month Tobacco Last Used: november Second Hand Smoke Exposure: No - Caffeine Use Caffeine Use: Reports: Coffee, Soda - Alcohol Use Days Per Week of Alcohol Use: 0 - Recreational Drug Use Recreational Drug Use: No ED ROS GENERAL - Review of Systems Review Of Systems: See Below Constitutional: Reports: No Symptoms HEENT: Reports: No Symptoms Respiratory: Reports: Shortness of Breath, Cough Cardiovascular: Reports: No Symptoms Endocrine: Reports: No Symptoms GI/Abdominal: Reports: No Symptoms : Reports: No Symptoms Musculoskeletal: Reports: No Symptoms Neurological: Reports: Other (Lethargy) ED EXAM, NEURO - Physical Exam Exam: See Below Exam Limited By: No Limitations General Appearance: Lethargic Ears: Normal External Exam Nose: Normal Inspection Throat/Mouth: Other (White copious secretions) Head Exam: Atraumatic, Normocephalic Neck: Normal Inspection Respiratory/Chest: Respiratory Distress (Moderate), Rhonchi Cardiovascular: No Edema, No Murmur, Irregularly Irregular GI/Abdominal: Soft, Non-Tender, No Organomegaly, No Mass Neurological: Other (Lethargic but the patient will follow commands and he is trying to talk. Mild to moderate weakness to the left arm and leg.) Extremities: Normal Inspection EKG INTERPRETATION EKG Date: 07/26/17 Time: 19:53 Rhythm: A-Fib Rate (Beats/Min): 70 [place]: Normal QRS: LBBB ST-T: Normal QT: Normal Course - Vital Signs Last Recorded V/S: Last Vital Signs Temp 97.7 F 07/26/17 19:30 Pulse 81 07/26/17 19:30 Resp 25 H 07/26/17 19:30 BP 107/57 L 07/26/17 19:30 Pulse Ox 96 07/26/17 19:30 - Orders/Labs/Meds Orders: Active Orders 24 hr Category Date Time Status Cardiac Monitoring [RC] . DIRECTED Care 07/26/17 19:34 Active EKG Documentation Completion [RC] STAT Care 07/26/17 19:34 Active Insert Garcia Catheter [Insert Urinary Catheter] [OM.PC] Care 07/26/17 19:40 Ordered Q24H Oxygen Therapy [RC] PRN Care 07/26/17 19:34 Active Peripheral IV Care [RC] . DIRECTED Care 07/26/17 19:34 Active RT Aerosol Therapy [RC] ASDIRECTED Care 07/26/17 19:35 Active Urinary Catheter Assessment [RC] ASDIRECTED Care 07/26/17 20:21 Active Chest 1V Frontal [CR] Stat Exams 07/26/17 19:35 Taken Sodium Chloride 0.9% [Normal Saline] 1,000 ml Med 07/26/17 21:45 Active IV ASDIRECTED Sodium Chloride 0.9% [Saline Flush] Med 07/26/17 19:34 Active 10 ml FLUSH ASDIRECTED PRN Peripheral IV Insertion Adult [OM.PC] Stat Oth 07/26/17 19:34 Ordered RT Suction Nasopharyngeal [RESPCARE] Stat Oth 07/26/17 20:41 Active Medication Orders Sodium Chloride (Normal Saline) 1,000 mls @ 150 mls/hr IV ASDIRECTED JOHAN Sodium Chloride (Saline Flush) 10 ml FLUSH ASDIRECTED PRN PRN Reason: Keep Vein Open Last Admin: 07/26/17 20:14 Dose: 10 ml Labs: Laboratory Tests 07/26/17 07/26/17 07/26/17 Range/Units 19:25 19:25 19:25 WBC 5.11 (4.23-9.07) K/mm3 RBC 4.26 L (4.63-6.08) M/mm3 Hgb 12.9 L (13.7-17.5) gm/L Hct 41.0 (40.1-51.0) % MCV 96.2 H (79.0-92.2) fl MCH 30.3 (25.7-32.2) pg MCHC 31.5 L (32.2-35.5) g/dl RDW Std Deviation 49.9 H (35.1-43.9) fL Plt Count 195 (163-337) K/mm3 MPV 10.7 (9.4-12.3) fl Neut % (Auto) 76.9 H (34.0-67.9) % Lymph % (Auto) 19.4 L (21.8-53.1) % Ford % (Auto) 2.7 L (5.3-12.2) % Eos % (Auto) 0.8 (0.8-7.0) Baso % (Auto) 0.0 L (0.1-1.2) % Neut # (Auto) 3.93 (1.78-5.38) K/mm3 Lymph # (Auto) 0.99 L (1.32-3.57) K/mm3 Ford # (Auto) 0.14 L (0.30-0.82) K/mm3 Eos # (Auto) 0.04 (0.04-0.54) K/mm3 Baso # (Auto) 0.00 L (0.01-0.08) K/mm3 PT 10.5 (8.0-13.0) SECONDS INR 0.97 APTT 27 (22-36) SECONDS Puncture Site ABG pH (7.35-7.45) ABG pCO2 (35.0-45.0) mmHg ABG pO2 (80.0-100.0) mmHg ABG HCO3 (22.0-26.0) meq/L ABG O2 Saturation (96.0-97.0) % ABG Base Excess (-2-2.0) Parrish Test O2 Delivery Device Oxygen Flow Rate FiO2 (21.00-100.00) % Sodium 150 H (136-145) mEq/L Potassium 3.5 (3.5-5.1) mEq/L Chloride 111 H (98-107) mEq/L Carbon Dioxide 24 (21-32) mEq/L Anion Gap 18.5 H (5-15) BUN 75 H (7-18) mg/dL Creatinine 4.1 H (0.7-1.3) mg/dL Est Cr Clr Drug Dosing 16.07 mL/min Estimated GFR (MDRD) 14 (>60) mL/min BUN/Creatinine Ratio 18.3 H (14-18) Glucose 321 H (83-115) mg/dL Serum Osmolality (280-300) mosm/kg Calcium 8.8 (8.5-10.1) mg/dL Total Bilirubin 0.6 (0.2-1.0) mg/dL AST 17 (15-37) U/L ALT 16 (16-63) U/L Alkaline Phosphatase 113 (46-116) U/L Troponin I 0.019 (0.00-0.056) ng/mL Total Protein 8.0 (6.4-8.2) g/dl Albumin 2.7 L (3.4-5.0) g/dl Globulin 5.3 gm/dL Albumin/Globulin Ratio 0.5 L (1-2) Urine Color (Yellow) Urine Appearance (Clear) Urine pH (5.0-8.0) Ur Specific Spiro (1.005-1.030) Urine Protein (Negative) Urine Glucose (UA) (Negative) Urine Ketones (Negative) Urine Occult Blood (Negative) Urine Nitrite (Negative) Urine Bilirubin (Negative) Urine Urobilinogen (0.2-1.0) Ur Leukocyte Esterase (Negative) Urine RBC (0-5) /hpf Urine WBC (0-5) /hpf Urine WBC Clumps (NOT SEEN) /hpf Ur Epithelial Cells (0-5) /hpf Urine Bacteria (FEW) /hpf Urine Mucus (FEW) /hpf Urine Yeast (Budding) (NOT SEEN) Digoxin 1.8 (0.9-2.0) ng/mL Urine Opiates Screen (NEGATIVE) Ur Buprenorphine Scrn (NEGATIVE) Ur Oxycodone Screen (NEGATIVE) Urine Methadone Screen (NEGATIVE) Ur Propoxyphene Screen (NEGATIVE) Ur Barbiturates Screen (NEGATIVE) Ur Tricyclics Screen (NEGATIVE) Ur Phencyclidine Scrn (NEGATIVE) Ur Amphetamine Screen (NEGATIVE) U Methamphetamines Scrn (NEGATIVE) U Benzodiazepines Scrn (NEGATIVE) U Cocaine Metab Screen (NEGATIVE) U Marijuana (THC) Screen (NEGATIVE) Ethyl Alcohol 0.00 (0.00) gm% Ketones (0.0-0.3) mM 07/26/17 07/26/17 07/26/17 Range/Units 19:25 19:25 19:46 WBC (4.23-9.07) K/mm3 RBC (4.63-6.08) M/mm3 Hgb (13.7-17.5) gm/L Hct (40.1-51.0) % MCV (79.0-92.2) fl MCH (25.7-32.2) pg MCHC (32.2-35.5) g/dl RDW Std Deviation (35.1-43.9) fL Plt Count (163-337) K/mm3 MPV (9.4-12.3) fl Neut % (Auto) (34.0-67.9) % Lymph % (Auto) (21.8-53.1) % Ford % (Auto) (5.3-12.2) % Eos % (Auto) (0.8-7.0) Baso % (Auto) (0.1-1.2) % Neut # (Auto) (1.78-5.38) K/mm3 Lymph # (Auto) (1.32-3.57) K/mm3 [place] # (Auto) (0.30-0.82) K/mm3 Eos # (Auto) (0.04-0.54) K/mm3 Baso # (Auto) (0.01-0.08) K/mm3 PT (8.0-13.0) SECONDS INR APTT (22-36) SECONDS Puncture Site ABG pH (7.35-7.45) ABG pCO2 (35.0-45.0) mmHg ABG pO2 (80.0-100.0) mmHg ABG HCO3 (22.0-26.0) meq/L ABG O2 Saturation (96.0-97.0) % ABG Base Excess (-2-2.0) Parrish Test O2 Delivery Device Oxygen Flow Rate FiO2 (21.00-100.00) % Sodium (136-145) mEq/L Potassium (3.5-5.1) mEq/L Chloride (98-107) mEq/L Carbon Dioxide (21-32) mEq/L Anion Gap (5-15) BUN (7-18) mg/dL Creatinine (0.7-1.3) mg/dL Est Cr Clr Drug Dosing mL/min Estimated GFR (MDRD) (>60) mL/min BUN/Creatinine Ratio (14-18) Glucose (83-115) mg/dL Serum Osmolality 341 H (280-300) mosm/kg Calcium (8.5-10.1) mg/dL Total Bilirubin (0.2-1.0) mg/dL AST (15-37) U/L ALT (16-63) U/L Alkaline Phosphatase (46-116) U/L Troponin I (0.00-0.056) ng/mL Total Protein (6.4-8.2) g/dl Albumin (3.4-5.0) g/dl Globulin gm/dL Albumin/Globulin Ratio (1-2) Urine Color Yellow (Yellow) Urine Appearance Slt cloudy H (Clear) Urine pH 5.5 (5.0-8.0) Ur Specific Spiro 1.020 (1.005-1.030) Urine Protein 1+ H (Negative) Urine Glucose (UA) Negative (Negative) Urine Ketones Negative (Negative) Urine Occult Blood Trace-intact H (Negative) Urine Nitrite Negative (Negative) Urine Bilirubin Negative (Negative) Urine Urobilinogen 0.2 (0.2-1.0) Ur Leukocyte Esterase 2+ H (Negative) Urine RBC 0-5 (0-5) /hpf Urine WBC 5-10 H (0-5) /hpf Urine WBC Clumps Few (NOT SEEN) /hpf Ur Epithelial Cells 0-5 (0-5) /hpf Urine Bacteria Few (FEW) /hpf Urine Mucus Not seen (FEW) /hpf Urine Yeast (Budding) Moderate H (NOT SEEN) Digoxin (0.9-2.0) ng/mL Urine Opiates Screen (NEGATIVE) Ur Buprenorphine Scrn (NEGATIVE) Ur Oxycodone Screen (NEGATIVE) Urine Methadone Screen (NEGATIVE) Ur Propoxyphene Screen (NEGATIVE) Ur Barbiturates Screen (NEGATIVE) Ur Tricyclics Screen (NEGATIVE) Ur Phencyclidine Scrn (NEGATIVE) Ur Amphetamine Screen (NEGATIVE) U Methamphetamines Scrn (NEGATIVE) U Benzodiazepines Scrn (NEGATIVE) U Cocaine Metab Screen (NEGATIVE) U Marijuana (THC) Screen (NEGATIVE) Ethyl Alcohol (0.00) gm% Ketones 0.23 (0.0-0.3) mM 07/26/17 07/26/17 Range/Units 19:46 20:03 WBC (4.23-9.07) K/mm3 RBC (4.63-6.08) M/mm3 Hgb (13.7-17.5) gm/L Hct (40.1-51.0) % MCV (79.0-92.2) fl MCH (25.7-32.2) pg MCHC (32.2-35.5) g/dl RDW Std Deviation (35.1-43.9) fL Plt Count (163-337) K/mm3 MPV (9.4-12.3) fl Neut % (Auto) (34.0-67.9) % Lymph % (Auto) (21.8-53.1) % [place] % (Auto) (5.3-12.2) % Eos % (Auto) (0.8-7.0) Baso % (Auto) (0.1-1.2) % Neut # (Auto) (1.78-5.38) K/mm3 Lymph # (Auto) (1.32-3.57) K/mm3 [place] # (Auto) (0.30-0.82) K/mm3 Eos # (Auto) (0.04-0.54) K/mm3 Baso # (Auto) (0.01-0.08) K/mm3 PT (8.0-13.0) SECONDS INR APTT (22-36) SECONDS Puncture Site Lt radial ABG pH 7.30 L (7.35-7.45) ABG pCO2 48.7 H (35.0-45.0) mmHg ABG pO2 61.0 L (80.0-100.0) mmHg ABG HCO3 23.3 (22.0-26.0) meq/L ABG O2 Saturation 90.2 L (96.0-97.0) % ABG Base Excess -2.9 L (-2-2.0) Parrish Test Positive O2 Delivery Device Nonrebreather Oxygen Flow Rate 15.0 FiO2 100.00 (21.00-100.00) % Sodium (136-145) mEq/L Potassium (3.5-5.1) mEq/L Chloride (98-107) mEq/L Carbon Dioxide (21-32) mEq/L Anion Gap (5-15) BUN (7-18) mg/dL Creatinine (0.7-1.3) mg/dL Est Cr Clr Drug Dosing mL/min Estimated GFR (MDRD) (>60) mL/min BUN/Creatinine Ratio (14-18) Glucose (83-115) mg/dL Serum Osmolality (280-300) mosm/kg Calcium (8.5-10.1) mg/dL Total Bilirubin (0.2-1.0) mg/dL AST (15-37) U/L ALT (16-63) U/L Alkaline Phosphatase (46-116) U/L Troponin I (0.00-0.056) ng/mL Total Protein (6.4-8.2) g/dl Albumin (3.4-5.0) g/dl Globulin gm/dL Albumin/Globulin Ratio (1-2) Urine Color (Yellow) Urine Appearance (Clear) Urine pH (5.0-8.0) Ur Specific [place]pi[place] (1.005-1.030) Urine Protein (Negative) Urine Glucose (UA) (Negative) Urine Ketones (Negative) Urine Occult Blood (Negative) Urine Nitrite (Negative) Urine Bilirubin (Negative) Urine Urobilinogen (0.2-1.0) Ur Leukocyte Esterase (Negative) Urine RBC (0-5) /hpf Urine WBC (0-5) /hpf Urine WBC Clumps (NOT SEEN) /hpf Ur Epithelial Cells (0-5) /hpf Urine Bacteria (FEW) /hpf Urine Mucus (FEW) /hpf Urine Yeast (Budding) (NOT SEEN) Digoxin (0.9-2.0) ng/mL Urine Opiates Screen Presumptive positive H (NEGATIVE) Ur Buprenorphine Scrn Negative (NEGATIVE) Ur Oxycodone Screen Negative (NEGATIVE) Urine Methadone Screen Negative (NEGATIVE) Ur Propoxyphene Screen Negative (NEGATIVE) Ur Barbiturates Screen Negative (NEGATIVE) Ur Tricyclics Screen Negative (NEGATIVE) Ur Phencyclidine Scrn Negative (NEGATIVE) Ur Amphetamine Screen Negative (NEGATIVE) U Methamphetamines Scrn Negative (NEGATIVE) U Benzodiazepines Scrn Presumptive positive H (NEGATIVE) U Cocaine Metab Screen Negative (NEGATIVE) U Marijuana (THC) Screen Negative (NEGATIVE) Ethyl Alcohol (0.00) gm% Ketones (0.0-0.3) mM Meds: Medications Generic Name Dose Route Start Last Admin Trade Name Freq PRN Reason Stop Dose Admin Sodium Chloride 1,000 mls @ 150 mls/hr 07/26/17 21:45 Normal Saline IV ASDIRECTED JOHAN Sodium Chloride 10 ml 07/26/17 19:34 07/26/17 20:14 Saline Flush FLUSH 10 ml ASDIRECTED PRN Administration Keep Vein Open Discontinued Medications Generic Name Dose Route Start Last Admin Trade Name Freq PRN Reason Stop Dose Admin Albuterol/Ipratropium 3 ml 07/26/17 19:35 07/26/17 20:14 Duoneb 3.0-0.5 Mg/3 Ml NEB 07/26/17 19:36 3 ml ONETIME ONE Administration - Re-Assessments/Exams Free Text/Narrative Re-Assessment/Exam: 07/26/17 21:42 A medical alert and then a stroke alert was called. The patient was last known well at 1845. He had left sided weakness when he arrived. He was breathing on his own now and trying to talk. We switched him to a nonrebreather. My respiratory therapist did some suctioning of his airway and she got out some cream of wheat. He is breathing much better. He is still on a nonrebreather but his oxygen saturations are 99%. His EKG shows A-fib with no acute changes. His CXR shows a right middle lobe pneumonitis. The CT of his head shows senescent changes. No acute intracranial abnormality is identified. No appreciable change is seen from prior MRI or head CT exam. His CBC looks good. His INR and PT are negative. His Na was elevated at 150. His anion gap was elevated at 18.5. His BUN was 75. His creatinine was 4.1. The last time he was here it was 2. His said for a few days he was not eating well. His glucose was elevated at 321. His serum osmolality was 341. His troponin was negative. His UA shows no UTI. His dig was normal at 1.8. His opiates and benzos were presumptive positive. His ETOH was negative. His ketones were 0.23. His pH was 7.3. His pCO2 was 48.7. His pO2 was 90.2. I feel he needs to be admitted to [facility]. I talked to Dr Angel and he accepted the patient. Departure - Departure Time of Disposition: 22:05 Disposition: DC/Tfer to Acute Hospital 02 Condition: Serious Clinical Impression: Hypoxia, Aspiration pneumonitis TIA (transient ischemic attack) Qualifiers: Transient cerebral ischemia type: unspecified Qualified Code(s): G45.9 - Transient cerebral ischemic attack, unspecified Renal failure Qualifiers: Renal failure chronicity: acute Acute renal failure type: unspecified Qualified Code(s): N17.9 - Acute kidney failure, unspecified Dysphagia Qualifiers: Dysphagia type: unspecified Qualified Code(s): R13.10 - Dysphagia, unspecified - Discharge Information Referrals: PCP,None [Primary Care Provider] - Forms: ED Department Discharge - My Orders Last 24 Hours: My Active Orders 07/26/17 19:34 Cardiac Monitoring [RC] . DIRECTED EKG Documentation Completion [RC] STAT Oxygen Therapy [RC] PRN Peripheral IV Care [RC] . DIRECTED Sodium Chloride 0.9% [Saline Flush] 10 ml FLUSH ASDIRECTED PRN Peripheral IV Insertion Adult [OM.PC] Stat 07/26/17 19:35 RT Aerosol Therapy [RC] ASDIRECTED Chest 1V Frontal [CR] Stat 07/26/17 19:40 Insert Garcia Catheter [Insert Urinary Catheter] [OM.PC] Q24H 07/26/17 20:21 Urinary Catheter Assessment [RC] ASDIRECTED 07/26/17 20:41 RT Suction Nasopharyngeal [RESPCARE] Stat 07/26/17 21:45 Sodium Chloride 0.9% [Normal Saline] 1,000 ml IV ASDIRECTED - Assessment/Plan Last 24 Hours: My Active Orders 07/26/17 19:34 Cardiac Monitoring [RC] . DIRECTED EKG Documentation Completion [RC] STAT Oxygen Therapy [RC] PRN Peripheral IV Care [RC] . DIRECTED Sodium Chloride 0.9% [Saline Flush] 10 ml FLUSH ASDIRECTED PRN Peripheral IV Insertion Adult [OM.PC] Stat 07/26/17 19:35 RT Aerosol Therapy [RC] ASDIRECTED Chest 1V Frontal [CR] Stat 07/26/17 19:40 Insert Garcia Catheter [Insert Urinary Catheter] [OM.PC] Q24H 07/26/17 20:21 Urinary Catheter Assessment [RC] ASDIRECTED 07/26/17 20:41 RT Suction Nasopharyngeal [RESPCARE] Stat 01/18/18 21:45 Sodium Chloride 0.9% [Normal Saline] 1,000 ml IV ASDIRECTED
[2017-07-26] MEDS ORDERED: Sodium Chloride 0.9% 1,000 ML IV SCH (21:45)
--- NOTE | 2017-07-27 07:58 | CR ---
Chest: Portable view of the chest was obtained. Comparison: Prior chest x-ray of 12/08/16. Mild increased density is seen within both lung bases. Central lung markings are also increased. Heart size and mediastinum are normal. Previous sternotomy for CABG is seen. Surgical clips are seen at the base of the neck. Bony structures are grossly intact. Impression: 1. Increased perihilar markings as well as more focal density within both lung bases. Please correlate if findings may represent bronchitis and mild areas of bibasilar pneumonia. Noncardiogenic pulmonary edema and atelectasis is also within the differential. 2. Other incidental findings. Diagnostic code #3
== END 2017-07-26 22:08 ==
LOC: JD.ED 19:23
DX: J69.0 Pneumonitis due to inhalation of food and vomit (principal); R09.02 Hypoxemia; G45.9 Transient cerebral ischemic attack, unspecified; N17.9 Acute kidney failure, unspecified; R13.10 Dysphagia, unspecified; F17.210 Nicotine dependence, cigarettes, uncomplicated; K21.9 Gastro-esophageal reflux disease without esophagitis; F32.9 Major depressive disorder, single episode, unspecified; E11.9 Type 2 diabetes mellitus without complications; Z79.4 Long term (current) use of insulin; Z79.82 Long term (current) use of aspirin; Z79.899 Other long term (current) drug therapy; Z95.1 Presence of aortocoronary bypass graft
CPT/HCPCS: 36415; 36600; 51702; 70450; 71045; 80053; 80162; 80306; 81001; 82009; 82803; 83930; 84484; 85025; 85610; 85730; 93005; 94640; 99285; G0480; J7050; P9612; 93010; 99284-25

== ENCOUNTER 2017-08-07 14:43 | Inpatient (IN) | payer MEDICARE, BC, MEDICAID ==
[2017-08-07] MEDS ORDERED: Sodium Chloride 0.9% 10 ML Syringe FLUSH PRN (14:52)
--- NOTE | 2017-08-07 16:09 | EDM.PDOC ---
ED HPI GENERAL MEDICAL PROBLEM - General Chief Complaint: Respiratory Problem Stated Complaint: [facility] Time Seen by Provider: 08/07/17 14:50 Source of Information: Reports: Patient, EMS History Limitations: Reports: No Limitations - History of Present Illness INITIAL COMMENTS - FREE TEXT/NARRATIVE: 76-year-old male is brought in by [facility] for chest pain, cough and fever. Patient is a poor historian. He is alert and orientated to person and place but not to time. Unsure if this is his baseline. Per EMS the patient's was complaining of chest pain. Reportedly started yesterday. Patient also has had diarrhea per report and he did have an episode en route to the ER. Patient was found to be hypoxic with oxygen sats in the low 90s. He was placed on 2 L of oxygen. Normally does not wear oxygen. Reportedly has had a nonproductive cough. Upon arrival to the ER he denies any chest pain, shortness of breath, nausea, vomiting or abdominal pain. As stated he is a poor historian; unsure if he is able to provide any reliable history. When the patient's arrived she reports that he had a fever today but did not check his temperature. She also reports that he was complaining of chest pain. She feels that his cognition is more clear than normal. reports he has trouble with swallowing and aspiration. He was sent to [facility] earlier this month for a stroke. She reports that he did have a swallow evaluation. He is supposed to be on thickened liquids. Primary care provider is Dr. Grant. 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 - Related Data Allergies Allergy/AdvReac Type Severity Reaction Status Date / Time No Known Allergies Allergy Verified 08/07/17 14:52 Home Meds: Home Meds Finasteride [Proscar] 5 mg PO DAILY 01/07/14 [History] Insulin Glargine,Hum.Rec.Anlog [Lantus Solostar] 15 unit SQ BEDTIME 01/07/14 [ History] Nitroglycerin [Nitrostat] 0.4 mg SL ASDIRECTED PRN 01/07/14 [History] Tamsulosin [Flomax] 0.8 mg PO DAILY 01/07/14 [History] atorvaSTATin [Lipitor] 80 mg PO BEDTIME 01/07/14 [History] Aspirin [Ecotrin] 81 mg PO DAILY 04/04/16 [History] Omeprazole 20 mg PO DAILY 04/04/16 [History] Digoxin [Lanoxin] 125 mcg PO DAILY 12/08/16 [History] Metoprolol Tartrate [Lopressor] 50 mg PO BID 12/08/16 [History] Donepezil [Aricept] 5 mg PO BEDTIME 05/27/17 [History] ALPRAZolam [Xanax] 1 mg PO TID 07/26/17 [History] amLODIPine [Norvasc] 10 mg PO DAILY 07/26/17 [History] buPROPion [Wellbutrin XL] 100 mg PO TID 07/26/17 [History] Past Medical History Cardiovascular History: Reports: Afib, SOB on Exertion Gastrointestinal History: Reports: Gastritis, GERD Genitourinary History: Reports: BPH Neurological History: Reports: CVA Psychiatric History: Reports: Anxiety, Depression Endocrine/Metabolic History: Reports: Diabetes, Type II Dermatologic History: Reports: Psoriasis - Past Surgical History Cardiovascular Surgical History: Reports: Coronary Artery Bypass Social & Family History - Tobacco Use Smoking Status *Q: Never Smoker Years of Tobacco use: 30 Packs/Tins Daily: 0.2 Used Tobacco, but Quit: No Month Tobacco Last Used: november Second Hand Smoke Exposure: No - Caffeine Use Caffeine Use: Reports: Coffee - Alcohol Use Days Per Week of Alcohol Use: 0 - Recreational Drug Use Recreational Drug Use: No ED ROS GENERAL - Review of Systems Review Of Systems: See Below Constitutional: Reports: Fever Respiratory: Reports: Shortness of Breath, Cough Cardiovascular: Reports: Chest Pain GI/Abdominal: Reports: Diarrhea. Denies: Abdominal Pain, Nausea, Vomiting ED EXAM, GENERAL - Physical Exam Exam: See Below Exam Limited By: Altered Mental Status General Appearance: Alert (orientated to person and place but not time), WD/WN, No Apparent Distress, Other (unkept) Eye Exam: Bilateral Eye: Normal Inspection Ears: Normal External Exam Nose: Normal Inspection Throat/Mouth: Normal Inspection, Normal Lips, Normal Oropharynx, Normal Voice, No Airway Compromise Neck: Normal Inspection Respiratory/Chest: No Respiratory Distress, Crackles (bilateral lung bases) Cardiovascular: Normal Peripheral Pulses, Regular Rate, Rhythm, No Murmur GI/Abdominal: Normal Bowel Sounds, Soft, Non-Tender (Male) Exam: Other (urinary cathater in place, cloudy urine) Neurological: Alert, Confused Psychiatric: Normal Affect, Normal Mood Skin Exam: Warm, Dry, Normal Color EKG INTERPRETATION EKG Date: 08/07/17 Time: 15:05 Rhythm: NSR Rate (Beats/Min): 84 [place]: Normal P-Wave: Present QRS: Normal ST-T: Normal QT: Normal EKG Interpretation Comments: NSR at 84 bpm. first degree AV block. Reviewed by myself and Dr. Orellana. Course - Vital Signs Last Recorded V/S: Last Vital Signs Temp 37.2 C 08/07/17 14:48 Pulse 86 08/07/17 14:48 Resp 20 08/07/17 14:48 BP 122/48 L 08/07/17 14:48 Pulse Ox 91 L 08/07/17 14:48 - Orders/Labs/Meds Orders: Active Orders 24 hr Category Date Time Status EKG 12 Lead [EKG Documentation Completion] [RC] STAT Care 08/07/17 14:52 Active Insert Garcia Catheter [Insert Urinary Catheter] [OM.PC] Care 08/07/17 16:15 Ordered Q24H Peripheral IV Care [RC] . DIRECTED Care 08/07/17 14:53 Active Urinary Catheter Assessment [RC] ASDIRECTED Care 08/07/17 16:14 Active Chest 2V [CR] Stat Exams 08/07/17 14:52 Taken C DIFFICILE BY PCR W/NAP1 [MOLEC] Stat Lab 08/07/17 16:54 Ordered CULTURE BLOOD [BC] Stat Lab 08/07/17 15:19 Received CULTURE BLOOD [BC] Stat Lab 08/07/17 15:36 Received CULTURE URINE [RM] Stat Lab 08/07/17 15:41 Received Sodium Chloride 0.9% [Normal Saline] 1,000 ml Med 08/07/17 16:23 Active IV ONETIME Sodium Chloride 0.9% [Saline Flush] Med 08/07/17 14:52 Active 10 ml FLUSH ASDIRECTED PRN Blood Culture x2 Reflex Set [OM.PC] Stat Oth 08/07/17 14:52 Ordered Peripheral IV Insertion Adult [OM.PC] Routine Oth 08/07/17 14:52 Ordered Medication Orders Sodium Chloride (Normal Saline) 1,000 mls @ 100 mls/hr IV ONETIME ONE Stop: 08/08/17 02:22 Last Admin: 08/07/17 17:41 Dose: 100 mls/hr Sodium Chloride (Saline Flush) 10 ml FLUSH ASDIRECTED PRN PRN Reason: Keep Vein Open Last Admin: 08/07/17 14:55 Dose: 10 ml Labs: Laboratory Tests 08/07/17 08/07/17 08/07/17 Range/Units 15:14 15:19 15:19 WBC 6.21 (4.23-9.07) K/mm3 RBC 3.62 L (4.63-6.08) M/mm3 Hgb 11.1 L (13.7-17.5) gm/L Hct 33.2 L (40.1-51.0) % MCV 91.7 (79.0-92.2) fl MCH 30.7 (25.7-32.2) pg MCHC 33.4 (32.2-35.5) g/dl RDW Std Deviation 45.0 H (35.1-43.9) fL Plt Count 159 L (163-337) K/mm3 MPV 10.1 (9.4-12.3) fl Neutrophils % (Manual) 90 H (40-60) % Band Neutrophils % 0 (0-10) % Lymphocytes % (Manual) 9 L (20-40) % Atypical Lymphs % 0 % Monocytes % (Manual) 1 L (2-10) % Eosinophils % (Manual) 0 L (0.8-7.0) % Basophils % (Manual) 0 L (0.2-1.2) Platelet Estimate Adequate Plt Morphology Comment Normal RBC Morph Comment Normal PT 10.8 (8.0-13.0) SECONDS INR 0.99 APTT 36 (22-36) SECONDS D-Dimer, Quantitative (0.19-0.59) mg/L Sodium (136-145) mEq/L Potassium (3.5-5.1) mEq/L Chloride (98-107) mEq/L Carbon Dioxide (21-32) mEq/L Anion Gap (5-15) BUN (7-18) mg/dL Creatinine (0.7-1.3) mg/dL Est Cr Clr Drug Dosing mL/min Estimated GFR (MDRD) (>60) mL/min BUN/Creatinine Ratio (14-18) Glucose (83-115) mg/dL Lactic Acid (0.4-2.0) mmol/L Calcium (8.5-10.1) mg/dL Magnesium (1.8-2.4) mg/dl Total Bilirubin (0.2-1.0) mg/dL AST (15-37) U/L ALT (16-63) U/L Alkaline Phosphatase (46-116) U/L CK-MB (CK-2) (0-3.6) ng/ml Troponin I (0.00-0.056) ng/mL C-Reactive Protein (<1.0) mg/dL Total Protein (6.4-8.2) g/dl Albumin (3.4-5.0) g/dl Globulin gm/dL Albumin/Globulin Ratio (1-2) Urine Color Yellow (Yellow) Urine Appearance Slt cloudy H (Clear) Urine pH 8.5 H (5.0-8.0) Ur Specific [place] 1.020 (1.005-1.030) Urine Protein 2+ H (Negative) Urine Glucose (UA) Negative (Negative) Urine Ketones Negative (Negative) Urine Occult Blood 2+ H (Negative) Urine Nitrite Negative (Negative) Urine Bilirubin Negative (Negative) Urine Urobilinogen 0.2 (0.2-1.0) Ur Leukocyte Esterase 3+ H (Negative) Urine RBC 5-10 H (0-5) /hpf Urine WBC 40-50 H (0-5) /hpf Urine WBC Clumps Moderate (NOT SEEN) /hpf Ur Epithelial Cells 0-5 (0-5) /hpf Urine Bacteria Few (FEW) /hpf Urine Mucus Not seen (FEW) /hpf Urine Yeast (Budding) Few H (NOT SEEN) 08/07/17 08/07/17 08/07/17 Range/Units 15:19 15:19 15:19 WBC (4.23-9.07) K/mm3 RBC (4.63-6.08) M/mm3 Hgb (13.7-17.5) gm/L Hct (40.1-51.0) % MCV (79.0-92.2) fl MCH (25.7-32.2) pg MCHC (32.2-35.5) g/dl RDW Std Deviation (35.1-43.9) fL Plt Count (163-337) K/mm3 MPV (9.4-12.3) fl Neutrophils % (Manual) (40-60) % Band Neutrophils % (0-10) % Lymphocytes % (Manual) (20-40) % Atypical Lymphs % % Monocytes % (Manual) (2-10) % Eosinophils % (Manual) (0.8-7.0) % Basophils % (Manual) (0.2-1.2) Platelet Estimate Plt Morphology Comment RBC Morph Comment PT (8.0-13.0) SECONDS INR APTT (22-36) SECONDS D-Dimer, Quantitative (0.19-0.59) mg/L Sodium 138 (136-145) mEq/L Potassium 4.4 (3.5-5.1) mEq/L Chloride 105 (98-107) mEq/L Carbon Dioxide 25 (21-32) mEq/L Anion Gap 12.4 (5-15) BUN 23 H (7-18) mg/dL Creatinine 2.5 H (0.7-1.3) mg/dL Est Cr Clr Drug Dosing 28.85 mL/min Estimated GFR (MDRD) 25 (>60) mL/min BUN/Creatinine Ratio 9.2 L (14-18) Glucose 78 L (83-115) mg/dL Lactic Acid 1.2 (0.4-2.0) mmol/L Calcium 8.3 L (8.5-10.1) mg/dL Magnesium 1.6 L (1.8-2.4) mg/dl Total Bilirubin 0.4 (0.2-1.0) mg/dL AST 18 (15-37) U/L ALT 16 (16-63) U/L Alkaline Phosphatase 90 (46-116) U/L CK-MB (CK-2) 0.8 (0-3.6) ng/ml Troponin I < 0.017 (0.00-0.056) ng/mL C-Reactive Protein 16.0 H* (<1.0) mg/dL Total Protein 6.7 (6.4-8.2) g/dl Albumin 2.0 L (3.4-5.0) g/dl Globulin 4.7 gm/dL Albumin/Globulin Ratio 0.4 L (1-2) Urine Color (Yellow) Urine Appearance (Clear) Urine pH (5.0-8.0) Ur Specific [place] (1.005-1.030) Urine Protein (Negative) Urine Glucose (UA) (Negative) Urine Ketones (Negative) Urine Occult Blood (Negative) Urine Nitrite (Negative) Urine Bilirubin (Negative) Urine Urobilinogen (0.2-1.0) Ur Leukocyte Esterase (Negative) Urine RBC (0-5) /hpf Urine WBC (0-5) /hpf Urine WBC Clumps (NOT SEEN) /hpf Ur Epithelial Cells (0-5) /hpf Urine Bacteria (FEW) /hpf Urine Mucus (FEW) /hpf Urine Yeast (Budding) (NOT SEEN) 08/07/17 Range/Units 15:19 WBC (4.23-9.07) K/mm3 RBC (4.63-6.08) M/mm3 Hgb (13.7-17.5) gm/L Hct (40.1-51.0) % MCV (79.0-92.2) fl MCH (25.7-32.2) pg MCHC (32.2-35.5) g/dl RDW Std Deviation (35.1-43.9) fL Plt Count (163-337) K/mm3 MPV (9.4-12.3) fl Neutrophils % (Manual) (40-60) % Band Neutrophils % (0-10) % Lymphocytes % (Manual) (20-40) % Atypical Lymphs % % Monocytes % (Manual) (2-10) % Eosinophils % (Manual) (0.8-7.0) % Basophils % (Manual) (0.2-1.2) Platelet Estimate Plt Morphology Comment RBC Morph Comment PT (8.0-13.0) SECONDS INR APTT (22-36) SECONDS D-Dimer, Quantitative 2.35 H (0.19-0.59) mg/L Sodium (136-145) mEq/L Potassium (3.5-5.1) mEq/L Chloride (98-107) mEq/L Carbon Dioxide (21-32) mEq/L Anion Gap (5-15) BUN (7-18) mg/dL Creatinine (0.7-1.3) mg/dL Est Cr Clr Drug Dosing mL/min Estimated GFR (MDRD) (>60) mL/min BUN/Creatinine Ratio (14-18) Glucose (83-115) mg/dL Lactic Acid (0.4-2.0) mmol/L Calcium (8.5-10.1) mg/dL Magnesium (1.8-2.4) mg/dl Total Bilirubin (0.2-1.0) mg/dL AST (15-37) U/L ALT (16-63) U/L Alkaline Phosphatase (46-116) U/L CK-MB (CK-2) (0-3.6) ng/ml Troponin I (0.00-0.056) ng/mL C-Reactive Protein (<1.0) mg/dL Total Protein (6.4-8.2) g/dl Albumin (3.4-5.0) g/dl Globulin gm/dL Albumin/Globulin Ratio (1-2) Urine Color (Yellow) Urine Appearance (Clear) Urine pH (5.0-8.0) Ur Specific [place] (1.005-1.030) Urine Protein (Negative) Urine Glucose (UA) (Negative) Urine Ketones (Negative) Urine Occult Blood (Negative) Urine Nitrite (Negative) Urine Bilirubin (Negative) Urine Urobilinogen (0.2-1.0) Ur Leukocyte Esterase (Negative) Urine RBC (0-5) /hpf Urine WBC (0-5) /hpf Urine WBC Clumps (NOT SEEN) /hpf Ur Epithelial Cells (0-5) /hpf Urine Bacteria (FEW) /hpf Urine Mucus (FEW) /hpf Urine Yeast (Budding) (NOT SEEN) Meds: Medications Generic Name Dose Route Start Last Admin Trade Name Freq PRN Reason Stop Dose Admin Sodium Chloride 1,000 mls @ 100 mls/hr 08/07/17 16:23 08/07/17 17:41 Normal Saline IV 08/08/17 02:22 100 mls/hr ONETIME ONE Administration Sodium Chloride 10 ml 08/07/17 14:52 08/07/17 14:55 Saline Flush FLUSH 10 ml ASDIRECTED PRN Administration Keep Vein Open Discontinued Medications Generic Name Dose Route Start Last Admin Trade Name Freq PRN Reason Stop Dose Admin Aspirin 324 mg 08/07/17 16:25 08/07/17 17:43 Aspirin PO 08/07/17 16:26 324 mg ONETIME ONE Administration Fluconazole 200 mg 08/07/17 16:22 08/07/17 17:50 Diflucan PO 08/07/17 16:23 200 mg ONETIME ONE Administration Ceftriaxone Sodium 2 gm/ 100 mls @ 200 mls/hr 08/07/17 16:21 Sodium Chloride IV 08/07/17 16:50 ONETIME ONE Ceftriaxone Sodium 1 gm/ 100 mls @ 200 mls/hr 08/07/17 17:35 08/07/17 17:42 Sodium Chloride IV 08/07/17 18:04 200 mls/hr ONETIME ONE Administration Ceftriaxone Sodium 1 gm/ 100 mls @ 200 mls/hr 08/07/17 17:35 Sodium Chloride IV 08/07/17 18:04 ONETIME ONE Lidocaine HCl 10 ml 08/07/17 16:15 08/07/17 16:25 Xylocaine 2% Jelly MUCMEM 08/07/17 16:16 10 ml ONETIME ONE Administration Oseltamivir Phosphate 30 mg 08/07/17 17:34 08/07/17 17:50 Tamiflu PO 08/07/17 17:35 30 mg NOW STA Administration - Radiology Interpretation Free Text/Narrative:: chest xray shows increased densities within the bilateral lung bases. This does look improved from previous chest x-ray on file from July 26. Reviewed by myself and Dr. Orellana. - Re-Assessments/Exams Free Text/Narrative Re-Assessment/Exam: 08/07/17 17:40 Influenza returned positive for type a. He has received 2 g IV Rocephin, IV fluids, Tamiflu which has been renally dosed 30 mg and 200 mg by mouth Diflucan for the yeast in his urine. Nursing staff has been able to change his urinary catheter. Given his urinary tract infection, yeast seen in urine and influenza I feel he would be a good candidate for admission. D-dimer did come back elevated, however, with his creatinine unable to do a CT pulmonary angiogram. Will consider doing a VQ scan, likely tomorrow. However, his hypoxia and chest pain are likely related to the influenza. I discussed the case with Dr. Blair, hospitalist on-call. He agrees to the admission. Departure - Departure Time of Disposition: 17:45 Disposition: Admitted As Inpatient 67 Condition: Fair Clinical Impression: Influenza A UTI (urinary tract infection) Qualifiers: Urinary tract infection type: acute cystitis Hematuria presence: with hematuria Qualified Code(s): N30.01 - Acute cystitis with hematuria - Discharge Information - My Orders Last 24 Hours: My Active Orders 08/07/17 14:52 EKG 12 Lead [EKG Documentation Completion] [RC] STAT Chest 2V [CR] Stat Sodium Chloride 0.9% [Saline Flush] 10 ml FLUSH ASDIRECTED PRN Blood Culture x2 Reflex Set [OM.PC] Stat Peripheral IV Insertion Adult [OM.PC] Routine 08/07/17 14:53 Peripheral IV Care [RC] . DIRECTED 08/07/17 15:19 CULTURE BLOOD [BC] Stat 08/07/17 15:36 CULTURE BLOOD [BC] Stat 08/07/17 15:41 CULTURE URINE [RM] Stat 08/07/17 16:14 Urinary Catheter Assessment [RC] ASDIRECTED 08/07/17 16:15 Insert Garcia Catheter [Insert Urinary Catheter] [OM.PC] Q24H 08/07/17 16:23 Sodium Chloride 0.9% [Normal Saline] 1,000 ml IV ONETIME 08/07/17 16:54 C DIFFICILE BY PCR W/NAP1 [MOLEC] Stat - Assessment/Plan Last 24 Hours: My Active Orders 08/07/17 14:52 EKG 12 Lead [EKG Documentation Completion] [RC] STAT Chest 2V [CR] Stat Sodium Chloride 0.9% [Saline Flush] 10 ml FLUSH ASDIRECTED PRN Blood Culture x2 Reflex Set [OM.PC] Stat Peripheral IV Insertion Adult [OM.PC] Routine 08/07/17 14:53 Peripheral IV Care [RC] . DIRECTED 08/07/17 15:19 CULTURE BLOOD [BC] Stat 08/07/17 15:36 CULTURE BLOOD [BC] Stat 08/07/17 15:41 CULTURE URINE [RM] Stat 08/07/17 16:14 Urinary Catheter Assessment [RC] ASDIRECTED 08/07/17 16:15 Insert Garcia Catheter [Insert Urinary Catheter] [OM.PC] Q24H 08/07/17 16:23 Sodium Chloride 0.9% [Normal Saline] 1,000 ml IV ONETIME 08/07/17 16:54 C DIFFICILE BY PCR W/NAP1 [MOLEC] Stat
[2017-08-07] MEDS ORDERED: Lidocaine 2% Jelly 10 ML Urojet MUCMEM ONE (16:15)
[2017-08-07] MEDS ORDERED: cefTRIAXone 2 GM in Sodium Chloride 0.9% 100 ML IV ONE (16:21)
[2017-08-07] MEDS ORDERED: Fluconazole 100 MG Tab PO ONE (16:22)
[2017-08-07] MEDS ORDERED: Sodium Chloride 0.9% 1,000 ML IV ONE (16:23)
[2017-08-07] MEDS ORDERED: Aspirin 81 MG Tab.Chew PO ONE (16:25)
[2017-08-07] MEDS ORDERED: Oseltamivir 30 MG Cap PO STA (17:34)
[2017-08-07] MEDS ORDERED: cefTRIAXone 1 GM in Sodium Chloride 0.9% 100 ML IV ONE ×4 (17:35)
--- NOTE | 2017-08-07 20:17 | PCM.HP ---
H&P History of Present Illness - General Date of Service: 08/07/17 Admit Problem/Dx: Admission Diagnosis/Problem Admission Diagnosis/Problem Influenza Source of Information: Patient, Old Records, Provider, RN, RN Notes Reviewed, Significant Other History Limitations: Reports: No Limitations, Other (much of the history was presented by the patients ) - History of Present Illness Initial Comments - Free Text/Narative: Flash Kessler is a 76 yo male who presents to our ED today via EMS with chest pain, cough, and fever. Patient is a poor historian. He is alert and oriented to person and place but not time. EMS reported the patient was complaining of chest pain that started yesterday he is also had some diarrhea. He reportedly had an episode of diarrhea in route to the ER. His found to be hypoxic with oxygen sats in the low 90s. He was placed on 1 L of oxygen. He normally does not wear oxygen at home. He does have a nonproductive cough. In the ER he denies any chest pain, shortness breath, nausea, vomiting, abdominal pain. reports the patient had a fever today but did not check his temperature. She reports he was complaining of chest pain. He is somewhat confused however she reports this is his baseline. She does report that he has trouble with swallowing and aspiration. He was sent to [facility] earlier this month for a stroke and aspiration pneumonia. He did have a swallow evaluation performed there although she is unsure of exactly what diet he is supposed to be on. She does have a list of foods he can and cannot have. He supposed be on honey thickened liquids. In the ED Was 37.2 Celsius. Pulse 86. Respirations 20. Blood pressure 122/ 48. Oxygen saturation were 91%. 12-lead was obtained and shows a night normal sinus rhythm at 84 bpm. A first-degree AV block noted. This is interpreted by the ED provider. Labs are obtained: W CBC is normal at 6.21. Hemoglobin low 11.1. Hematocrit low at 33.2. He is normocytic. Platelets are low at 159, 000. Neutrophils are elevated at 90%. PT is 10.8. INR 0.99. APTT 36 seconds. Sodium was good at 138. Potassium 4.8. Chloride 105. Carbon dioxide 25. Anion gap 12.4. BUN is quite high at 23. Creatinine is very high at 2.5. EGFR is 25. Glucose is 78. Lactic acid 1.2. Calcium is slightly low at 8.3. Magnesium is low at 1.6. Total bilirubin 0.4. Liver enzymes looked good with AST at 18, ALT at 16, alkaline phosphatase and 90. CK-MB is negative at 0.8. Troponin is negative at less than 0.017. CRP is elevated at 16.0. Protein is good at 6.7. Albumin is low at 2.0. D-dimer was found to be high at 2.35. UA is positive with a pH of 8.5, 2+ protein, 2+ occult blood, 3+ leukocyte esterase, 5-10 and urine RBCs, 40-50 urine WBCs, moderate MV BC clumps , and few East. He was given 324 mg of aspirin. 200 mg of Diflucan, 2 g IV Rocephin, and Tamiflu 30 mg, which is renally dosed. He was positive for influenza A. Chest x-ray was reviewed by the ED provider's and O showed densities within the bilateral lung bases however they do look improved from prior x-ray on July 26. Because a d-dimer was elevated a CTA was considered , however the patient has very poor renal function. A V/Q scan may be considered tomorrow, however as the ED provider noted his hypoxia and chest pain are likely due to his influenza and pneumonia. He carries a history of: A. fib, shortness breath on exertion, gastritis, GERD, BPH, CVA with deficit, anxiety, depression, type II DM, psoriasis, CABG. He is a former smoker. The full code. His PCP is Dr. Grant at [facility] in [place]. - Related Data Allergies/Adverse Reactions: Allergies Allergy/AdvReac Type Severity Reaction Status Date / Time No Known Allergies Allergy Verified 08/07/17 14:52 Home Medications: Home Meds Finasteride [Proscar] 5 mg PO DAILY 01/07/14 [History] Insulin Glargine,Hum.Rec.Anlog [Lantus Solostar] 15 unit SQ BEDTIME 01/07/14 [ History] Nitroglycerin [Nitrostat] 0.4 mg SL ASDIRECTED PRN 01/07/14 [History] Tamsulosin [Flomax] 0.8 mg PO DAILY 01/07/14 [History] atorvaSTATin [Lipitor] 80 mg PO BEDTIME 01/07/14 [History] Aspirin [Ecotrin] 81 mg PO DAILY 04/04/16 [History] Omeprazole 20 mg PO DAILY 04/04/16 [History] Digoxin [Lanoxin] 125 mcg PO DAILY 12/08/16 [History] Metoprolol Tartrate [Lopressor] 50 mg PO BID 12/08/16 [History] Donepezil [Aricept] 5 mg PO BEDTIME 05/27/17 [History] ALPRAZolam [Xanax] 1 mg PO TID 07/26/17 [History] amLODIPine [Norvasc] 10 mg PO DAILY 07/26/17 [History] buPROPion [Wellbutrin XL] 150 mg PO DAILY 07/26/17 [History] Past Medical History Cardiovascular History: Reports: Afib, SOB on Exertion Gastrointestinal History: Reports: Gastritis, GERD Genitourinary History: Reports: BPH Neurological History: Reports: CVA Psychiatric History: Reports: Anxiety, Depression Endocrine/Metabolic History: Reports: Diabetes, Type II Dermatologic History: Reports: Psoriasis - Past Surgical History Cardiovascular Surgical History: Reports: Coronary Artery Bypass Social & Family History - Tobacco Use Smoking Status *Q: Never Smoker Years of Tobacco use: 30 Packs/Tins Daily: 0.2 Used Tobacco, but Quit: No Month Tobacco Last Used: november Second Hand Smoke Exposure: No - Caffeine Use Caffeine Use: Reports: Coffee - Alcohol Use Days Per Week of Alcohol Use: 0 - Recreational Drug Use Recreational Drug Use: No H&P Review of Systems - Review of Systems: Review Of Systems: See Below General: Reports: Fever, Weakness. Denies: Chills, Malaise, Fatigue, Decreased Appetite HEENT: Reports: No Symptoms. Denies: Ear Pain, Eye Pain, Rhinitis, Sinus Congestion, Sore Throat Pulmonary: Reports: Shortness of Breath, Cough. Denies: Wheezing, Sputum Cardiovascular: Reports: Chest Pain, Dyspnea on Exertion. Denies: Palpitations , Edema, Lightheadedness Gastrointestinal: Reports: Diarrhea (occasional ). Denies: Abdominal Pain, Constipation, Nausea, Vomiting Genitourinary: Denies: Dysuria, Frequency, Burning, Pain, Urgency, Incontinence Musculoskeletal: Reports: No Symptoms Skin: Reports: No Symptoms Psychiatric: Reports: Confusion (baseline ) Neurological: Reports: Confusion, Pre-Existing Deficit (left sided weakness from prior CVA ), Weakness Immunologic: Reports: No Symptoms Exam - Exam Exam: See Below - Vital Signs Vital Signs: Last Vital Signs Temp 98.9 F 08/07/17 14:48 Pulse 86 08/07/17 14:48 Resp 20 08/07/17 14:48 BP 122/48 L 08/07/17 14:48 Pulse Ox 91 L 08/07/17 14:48 Weight: 180 lb - Exam Quality Assessment: Supplemental Oxygen, Urinary Catheter (chronic ), DVT Prophylaxis General: Alert, Cooperative. No: Mild Distress HEENT: PERRLA, Hearing Intact, Mucosa Moist & [place], Nares Patent, Normal Nasal Septum, Posterior Pharynx Clear, Conjunctiva Clear, EOMI, EACs Clear, TMs Clear Neck: Supple, Trachea Midline. No: JVD Lungs: Normal Respiratory Effort, Crackles (bases ). No: Rhonchi, Wheezing Cardiovascular: Regular Rate, Regular Rhythm GI/Abdominal Exam: Normal Bowel Sounds, Soft, Non-Tender, No Organomegaly, No Distention, No Abnormal Bruit, No Mass, Pelvis Stable (Male) Exam: Deferred, Other (urinary catheter in place ) Rectal (Males) Exam: Deferred Back Exam: Normal Inspection, Full Range of Motion Extremities: Normal Inspection, Normal Range of Motion, Non-Tender, No Pedal Edema, Normal Capillary Refill Peripheral Pulses: 2+: Radial (L), Radial (R), Posterior Tibial (L), Posterior Tibial (R), Dorsalis Pedis (L), Dorsalis Pedis (R) Skin: Warm, Dry, Intact Neurological: Cranial Nerves Intact (Grossly) Neuro Extensive - Mental Status: Alert, Other (Confused) Psychiatric: Alert, Normal Affect, Normal Mood - Patient Data Result Diagrams: 08/07/17 15:19 08/07/17 15:19 *Q Meaningful Use (ADM) - VTE *Q VTE Criteria *Q: - Stroke *Q Stroke Criteria *Q: - AMI *Q AMI Criteria *Q: - Problem List (1) UTI (urinary tract infection) SNOMED Code(s): 43691570 ICD Code: N39.0 - URINARY TRACT INFECTION, SITE NOT SPECIFIED Status: Acute Priority: High Current Visit: Yes Qualifiers: Urinary tract infection type: acute cystitis Hematuria presence: with hematuria Qualified Code(s): N30.01 - Acute cystitis with hematuria (2) Shae UTI SNOMED Code(s): 250088913 ICD Code: B37.49 - OTHER UROGENITAL CANDIDIASIS Status: Acute Priority: High Current Visit: Yes (3) Influenza A SNOMED Code(s): 235260098 ICD Code: J10.1 - FLU DUE TO OTH IDENT INFLUENZA VIRUS W OTH RESP MANIFEST Status: Acute Priority: High Current Visit: Yes (4) Elevated d-dimer SNOMED Code(s): 930599157 ICD Code: R79.89 - OTHER SPECIFIED ABNORMAL FINDINGS OF BLOOD CHEMISTRY Status: Acute Priority: High Current Visit: Yes (5) Renal insufficiency SNOMED Code(s): 624556543 ICD Code: N28.9 - DISORDER OF KIDNEY AND URETER, UNSPECIFIED Status: Chronic Priority: High Current Visit: Yes (6) Hypomagnesemia SNOMED Code(s): 755518294 ICD Code: E83.42 - HYPOMAGNESEMIA Status: Acute Priority: High Current Visit: Yes (7) A-fib SNOMED Code(s): 50563760 ICD Code: I48.91 - UNSPECIFIED ATRIAL FIBRILLATION Status: Chronic Priority: Low Current Visit: No Qualifiers: Atrial fibrillation type: unspecified Qualified Code(s): I48.91 - Unspecified atrial fibrillation (8) BPH (benign prostatic hyperplasia) SNOMED Code(s): 008608786 ICD Code: N40.0 - BENIGN PROSTATIC HYPERPLASIA WITHOUT LOWER URINRY TRACT SYMP Status: Chronic Priority: Low Current Visit: No Qualifiers: Lower urinary tract symptom presence: unspecified whether lower urinary tract symptoms present Qualified Code(s): N40.0 - Benign prostatic hyperplasia without lower urinary tract symptoms (9) GERD (gastroesophageal reflux disease) SNOMED Code(s): 857971498 ICD Code: K21.9 - GASTRO-ESOPHAGEAL REFLUX DISEASE WITHOUT ESOPHAGITIS Status: Chronic Priority: Low Current Visit: No Qualifiers: Esophagitis presence: esophagitis presence not specified Qualified Code(s) : K21.9 - Gastro-esophageal reflux disease without esophagitis (10) History of CVA (cerebrovascular accident) SNOMED Code(s): 943344713 ICD Code: Z86.73 - PRSNL HX OF TIA (TIA), AND CEREB INFRC W/O RESID DEFICITS Status: Chronic Priority: Low Current Visit: No (11) Type II diabetes mellitus SNOMED Code(s): 78201193 ICD Code: E11.9 - TYPE 2 DIABETES MELLITUS WITHOUT COMPLICATIONS Status: Chronic Priority: Medium Current Visit: Yes Qualifiers: Diabetes mellitus complication status: with unspecified complications Diabetes mellitus terminal system operator insulin use: with residential use Qualified Code(s) : E11.8 - Type 2 diabetes mellitus with unspecified complications; Z79.4 - local intermodal truck driver (current) use of insulin; Z79.4 - local intermodal truck driver (current) use of insulin; Z79.4 - local intermodal truck driver (current) use of insulin; Z79.4 - local intermodal truck driver (current) use of insulin (12) Anxiety SNOMED Code(s): 69549313 ICD Code: F41.9 - ANXIETY DISORDER, UNSPECIFIED Status: Chronic Priority : Low Current Visit: No (13) Depression SNOMED Code(s): 46711021 ICD Code: F32.9 - MAJOR DEPRESSIVE DISORDER, SINGLE EPISODE, UNSPECIFIED Status: Chronic Priority: Low Current Visit: No Qualifiers: Depression Type: other depression Qualified Code(s): F32.89 - Other specified depressive episodes (14) Aspiration pneumonitis SNOMED Code(s): 375298915 ICD Code: J69.0 - PNEUMONITIS DUE TO INHALATION OF FOOD AND VOMIT Status: Chronic Priority: Low Current Visit: Yes (15) Hx of CABG SNOMED Code(s): 888459597 ICD Code: Z95.1 - PRESENCE OF AORTOCORONARY BYPASS GRAFT Status: Chronic Priority: Low Current Visit: No (16) Diarrhea SNOMED Code(s): 01991731 ICD Code: R19.7 - DIARRHEA, UNSPECIFIED Status: Acute Priority: High Current Visit: Yes Qualifiers: Diarrhea type: unspecified type Qualified Code(s): R19.7 - Diarrhea, unspecified (17) Anemia SNOMED Code(s): 018807886 ICD Code: D64.9 - ANEMIA, UNSPECIFIED Status: Chronic Priority: Medium Current Visit: Yes Qualifiers: Anemia type: unspecified type Qualified Code(s): D64.9 - Anemia, unspecified Problem List Initiated/Reviewed/Updated: Yes Orders Last 24hrs: Active Orders 24 hr Category Date Time Status Patient Status [ADT] Routine ADT 08/07/17 19:39 Active Oxygen Therapy Adult [Oxygen Therapy] [RC] ASDIRECTED Care 08/07/17 19:51 Active Medication Orders Sodium Chloride (Normal Saline) 1,000 mls @ 100 mls/hr IV ONETIME ONE Stop: 08/08/17 02:22 Last Admin: 08/07/17 17:41 Dose: 100 mls/hr Sodium Chloride (Saline Flush) 10 ml FLUSH ASDIRECTED PRN PRN Reason: Keep Vein Open Last Admin: 08/07/17 14:55 Dose: 10 ml Assessment/Plan Comment:: I/P: Acute: Influenza A -Tamiflu 30mg given in ED (renal dosing) -Discussed risk vs benifits of tamiflu with and patient - they would like to continue -Fluids as ordered -Supportive care -Droplet precautions UTI -Chronic indwelling catheter -WBC 6.21 -CRP 16.0 -Lactic acid 1.2 -Cloudy urine noted in ED -Garcia changed in ED -UA positive -Cultures pending -Rocephin given in ED - continue -Fluids as ordered Shae UTI -UA positive for yeast -Diflucan started in ED - continue -Fluids as ordered -Garcia changed in ED Elevated D-Dimmer -Chest pain/SOB on ED arrival -Symptoms likely due to influenza -Very poor renal function -Unable to preform CTA -V/Q scan in AM -Likely due to inflammation Hypomagnesemia -Magnesium 1.6 in ED -Supplemented -Pharmacy to monitor and supplement as needed Renal insufficiency -Acute on chronic -BUN 23 -Creatinine 2.5 -eGFR 25 -Baseline creatinine appears to be around 2.0 and eGFR around 30 -Fluids as ordered -Caution due to hx/o heart failure Recent aspiration pneumonia -Hospitalized in [place] -Hx/o CVA -Discharged on antibiotic, which he finished a few days ago ( unsure of which antibiotic) -Probiotic -Honey thickened liquids per -No straws per - is unsure of which diet he is on, lists foods he can and cannot have - mostly soft -DIGITAL SERVICE ENGINEER to evaluate and set diet -Aspiration precautions -CXR in ED shows improving bilateral lower lobe densities when compared to CXR from 07/26/17 Anemia -Appears chronic from prior visits -Slightly worse than apparent baseline when reviewing old charts -Hgb 11.1 -Hct 33.2 -Iron panel, B12, Folic acid ordered -Normocytic -Likely due to renal failure Chronic: A-fib - home meds GERD BPH - home meds CVA Anxiety - home meds Depression - home meds Type II DM - Home insulin and sliding scale. Glucose checks QIDAC and bed. Plan: Admit to medical floor on telemetry CM for discharge planning PT/OT Home meds as ordered Other orders as indicated above Routine AM labs Code status: Full code; PCP: Dr. Grant at [facility] here in [place].
[2017-08-07] MEDS ORDERED: Docusate Sodium 100 MG Cap PO PRN (20:42)
[2017-08-07] MEDS ORDERED: Ondansetron 4 MG Tab.DIS PO PRN (20:42)
[2017-08-07] MEDS ORDERED: Albuterol/Ipratropium 3.0-0.5 MG/3 ML Neb Soln NEB PRN (20:42)
[2017-08-07] MEDS ORDERED: Bisacodyl 5 MG Tab PO PRN (20:42)
[2017-08-07] MEDS ORDERED: Morphine 2 MG/ML Syringe IVPUSH PRN (20:42)
[2017-08-07] MEDS ORDERED: Acetaminophen/HYDROcodone 325-5 MG Tab PO PRN (20:42)
[2017-08-07] MEDS ORDERED: Polyethylene Glycol 3350 Powder 17 GM Packet PO PRN (20:42)
[2017-08-07] MEDS ORDERED: Ondansetron 4 MG/2 ML SDV IV PRN (20:42)
[2017-08-07] MEDS ORDERED: hydrALAZINE 20 MG/ML SDV IVPUSH PRN (21:00)
[2017-08-07] MEDS ORDERED: Metoprolol Tartrate 5 MG/5 ML SDV IVPUSH PRN (21:00)
[2017-08-07] MEDS ORDERED: Magnesium Sulfate/Water 2 GM in Premix Bag 1 BAG IV ONE (21:05)
[2017-08-07] MEDS ORDERED: FLU Vacc TS 2017-18 (65yr UP)/PF 180 MCG/0.5 ML Syringe IM ONE (21:45)
[2017-08-07] MEDS: Sodium Chloride 0.9% 1,000 ML IV SCH (22:39)
[2017-08-07] MEDS ORDERED: Nitroglycerin 0.4 MG Tab.SL SL PRN (22:55)
[2017-08-07] MEDS ORDERED: 50% Dextrose in Water 50 ML Syringe IVPUSH PRN (23:01)
[2017-08-08] MEDS: Acetaminophen 325 MG Tab PO PRN ×2 (01:58→20:38)
[2017-08-08] MEDS: Sodium Chloride 0.9% 1,000 ML IV SCH (05:58)
[2017-08-08] MEDS: Pantoprazole 40 MG Tab.CR PO SCH (06:00)
--- NOTE | 2017-08-08 06:36 | CR ---
Chest: Two views of the chest were obtained. Comparison: Prior chest x-ray of 07/26/17. Increased density is identified within both mid and lower lungs. Findings are more prominent than on prior study raising the possibility of superimposed pneumonia with fibrosis. Heart size is normal. Tortuous thoracic aorta is noted. Atherosclerotic calcification is seen within the aortic knob. Previous sternotomy is noted. Impression: 1. Increasing density within both mid and lower lungs from prior exam raising the possibility of fibrosis with superimposed acute pneumonia. 2. Other incidental findings. Diagnostic code #3
[2017-08-08] MEDS: Insulin Aspart 100 Units/ML 3 ML Pen SUBCUT SCH ×4 (06:53→21:01)
[2017-08-08] MEDS ORDERED: Non-Formulary Medication 1 Each (Omeprazole 20 MG) PO SCH (09:00)
[2017-08-08] MEDS ORDERED: Enoxaparin 40 MG/0.4 ML Syringe SUBCUT SCH (09:00)
[2017-08-08] MEDS: Finasteride 5 MG Tab PO SCH (09:19)
[2017-08-08] MEDS: buPROPion 150 MG Tab.ER PO SCH (09:19)
[2017-08-08] MEDS: Saccharomyces Boulardii (Probiotic) 250 MG Cap PO SCH ×2 (09:19→20:37)
[2017-08-08] MEDS: ALPRAZolam 1 MG Tab PO SCH ×3 (09:19→20:38)
[2017-08-08] MEDS: Digoxin 125 MCG Tab PO SCH (09:19)
[2017-08-08] MEDS: Metoprolol Tartrate 50 MG Tab PO SCH ×2 (09:19→20:40)
[2017-08-08] MEDS: Aspirin 81 MG Tab.EC PO SCH (09:20)
[2017-08-08] MEDS: Insulin Detemir 100 Units/ML 3 ML Pen SUBCUT SCH ×2 (09:20→20:36)
[2017-08-08] MEDS: Enoxaparin 30 MG/0.3 ML Syringe SUBCUT SCH (09:21)
[2017-08-08] MEDS: amLODIPine 5 MG Tab PO SCH (09:21)
[2017-08-08] MEDS: Tamsulosin 0.4 MG Cap.ER PO SCH (09:21)
--- NOTE | 2017-08-08 12:49 | PCM.PN ---
- General Info Date of Service: 08/08/17 Admission Dx/Problem (Free Text): Admission Diagnosis/Problem Admission Diagnosis/Problem Influenza Subjective Update: Follow Up Functional Status: Reports: Pain Controlled, Tolerating Diet, Urinating. Denies : New Symptoms - Review of Systems General: Denies: Fever, Weakness, Fatigue, Malaise, Chills HEENT: Reports: No Symptoms Pulmonary: Denies: Shortness of Breath Cardiovascular: Denies: Chest Pain Gastrointestinal: Denies: Abdominal Pain, Nausea, Vomiting Genitourinary: Reports: No Symptoms Musculoskeletal: Reports: No Symptoms Skin: Denies: Cyanosis, Jaundice, Mottled, Pallor, Diaphoresis Neurological: Denies: Confusion, Difficulty Walking, Weakness, Gait Disturbance Psychiatric: Denies: Depression, Anxiety, Agitation, Hallucinations Systems Review Comment:: No significant overnight or acute issues. He rests last night. He feels much better this morning. He reports no new complaints. He is afebrile w/o leukocytosis. - Patient Data Vitals - Most Recent: Last Vital Signs Temp 36.4 C 08/08/17 11:07 Pulse 68 08/08/17 11:07 Resp 19 08/08/17 11:07 BP 131/68 08/08/17 11:07 Pulse Ox 96 08/08/17 11:07 Weight - Most Recent: 84.686 kg I&O - Last 24 Hours: Intake & Output 08/07/17 08/08/17 08/08/17 22:59 06:59 14:59 Intake Total 665 360 Output Total 950 Balance -285 360 Lab Results Last 24 Hours: Laboratory Results - last 24 hr 08/08/17 08/08/17 08/08/17 Range/Units 00:02 05:20 05:20 WBC 5.31 (4.23-9.07) K/mm3 RBC 3.25 L (4.63-6.08) M/mm3 Hgb 9.8 L (13.7-17.5) gm/L Hct 30.1 L (40.1-51.0) % MCV 92.6 H (79.0-92.2) fl MCH 30.2 (25.7-32.2) pg MCHC 32.6 (32.2-35.5) g/dl RDW Std Deviation 45.7 H (35.1-43.9) fL Plt Count 153 L (163-337) K/mm3 MPV 10.2 (9.4-12.3) fl Neut % (Auto) 77.5 H (34.0-67.9) % Lymph % (Auto) 18.3 L (21.8-53.1) % [place] % (Auto) 3.4 L (5.3-12.2) % Eos % (Auto) 0.4 L (0.8-7.0) Baso % (Auto) 0.2 (0.1-1.2) % Neut # (Auto) 4.12 (1.78-5.38) K/mm3 Lymph # (Auto) 0.97 L (1.32-3.57) K/mm3 [place] # (Auto) 0.18 L (0.30-0.82) K/mm3 Eos # (Auto) 0.02 L (0.04-0.54) K/mm3 Baso # (Auto) 0.01 (0.01-0.08) K/mm3 Sodium 139 (136-145) mEq/L Potassium 4.1 (3.5-5.1) mEq/L Chloride 105 (98-107) mEq/L Carbon Dioxide 26 (21-32) mEq/L Anion Gap 12.1 (5-15) BUN 22 H (7-18) mg/dL Creatinine 2.4 H (0.7-1.3) mg/dL Est Cr Clr Drug Dosing 30.05 mL/min Estimated GFR (MDRD) 27 (>60) mL/min BUN/Creatinine Ratio 9.2 L (14-18) Glucose 124 H (83-115) mg/dL POC Glucose 148 H (83-110) mg/dL Calcium 8.0 L (8.5-10.1) mg/dL Magnesium 1.9 (1.8-2.4) mg/dl Iron (65-175) ug/dL TIBC (100-400) ug/dL % Saturation (20-55) % Transferrin (202-364) mg/dL C-Reactive Protein 16.7 H* (<1.0) mg/dL NT-Pro-B Natriuret Pep (0-450) pg/mL Vitamin B12 (193-986) pg/ml Folate (8.6-58.9) ng/mL 01/31/18 01/31/18 01/31/18 Range/Units 05:20 05:20 06:29 WBC (4.23-9.07) K/mm3 RBC (4.63-6.08) M/mm3 Hgb (13.7-17.5) gm/L Hct (40.1-51.0) % MCV (79.0-92.2) fl MCH (25.7-32.2) pg MCHC (32.2-35.5) g/dl RDW Std Deviation (35.1-43.9) fL Plt Count (163-337) K/mm3 MPV (9.4-12.3) fl Neut % (Auto) (34.0-67.9) % Lymph % (Auto) (21.8-53.1) % [place] % (Auto) (5.3-12.2) % Eos % (Auto) (0.8-7.0) Baso % (Auto) (0.1-1.2) % Neut # (Auto) (1.78-5.38) K/mm3 Lymph # (Auto) (1.32-3.57) K/mm3 [place] # (Auto) (0.30-0.82) K/mm3 Eos # (Auto) (0.04-0.54) K/mm3 Baso # (Auto) (0.01-0.08) K/mm3 Sodium (136-145) mEq/L Potassium (3.5-5.1) mEq/L Chloride (98-107) mEq/L Carbon Dioxide (21-32) mEq/L Anion Gap (5-15) BUN (7-18) mg/dL Creatinine (0.7-1.3) mg/dL Est Cr Clr Drug Dosing mL/min Estimated GFR (MDRD) (>60) mL/min BUN/Creatinine Ratio (14-18) Glucose (83-115) mg/dL POC Glucose 120 H (83-110) mg/dL Calcium (8.5-10.1) mg/dL Magnesium (1.8-2.4) mg/dl Iron 17 L (65-175) ug/dL TIBC 153 (100-400) ug/dL % Saturation 11 L (20-55) % Transferrin 122 L (202-364) mg/dL C-Reactive Protein (<1.0) mg/dL NT-Pro-B Natriuret Pep 1384 H (0-450) pg/mL Vitamin B12 364 (193-986) pg/ml Folate 4.2 L (8.6-58.9) ng/mL 08/08/17 Range/Units 11:28 WBC (4.23-9.07) K/mm3 RBC (4.63-6.08) M/mm3 Hgb (13.7-17.5) gm/L Hct (40.1-51.0) % MCV (79.0-92.2) fl MCH (25.7-32.2) pg MCHC (32.2-35.5) g/dl RDW Std Deviation (35.1-43.9) fL Plt Count (163-337) K/mm3 MPV (9.4-12.3) fl Neut % (Auto) (34.0-67.9) % Lymph % (Auto) (21.8-53.1) % [place] % (Auto) (5.3-12.2) % Eos % (Auto) (0.8-7.0) Baso % (Auto) (0.1-1.2) % Neut # (Auto) (1.78-5.38) K/mm3 Lymph # (Auto) (1.32-3.57) K/mm3 [place] # (Auto) (0.30-0.82) K/mm3 Eos # (Auto) (0.04-0.54) K/mm3 Baso # (Auto) (0.01-0.08) K/mm3 Sodium (136-145) mEq/L Potassium (3.5-5.1) mEq/L Chloride (98-107) mEq/L Carbon Dioxide (21-32) mEq/L Anion Gap (5-15) BUN (7-18) mg/dL Creatinine (0.7-1.3) mg/dL Est Cr Clr Drug Dosing mL/min Estimated GFR (MDRD) (>60) mL/min BUN/Creatinine Ratio (14-18) Glucose (83-115) mg/dL POC Glucose 257 H (83-110) mg/dL Calcium (8.5-10.1) mg/dL Magnesium (1.8-2.4) mg/dl Iron (65-175) ug/dL TIBC (100-400) ug/dL % Saturation (20-55) % Transferrin (202-364) mg/dL C-Reactive Protein (<1.0) mg/dL NT-Pro-B Natriuret Pep (0-450) pg/mL Vitamin B12 (193-986) pg/ml Folate (8.6-58.9) ng/mL Med Orders - Current: Current Medications Acetaminophen (Tylenol) 650 mg PO Q4H PRN PRN Reason: Pain (Mild 1-3)/fever Last Admin: 08/08/17 01:58 Dose: 650 mg Hydrocodone Bitart/Acetaminophen ([place] 325-5 Mg) 1 tab PO Q4H PRN PRN Reason: Pain (moderate 4-6) Albuterol/Ipratropium (Duoneb 3.0-0.5 Mg/3 Ml) 3 ml NEB Q4H PRN PRN Reason: Shortness Of Breath/wheezing Alprazolam (Xanax) 1 mg PO TID [facility] Last Admin: 08/08/17 09:19 Dose: 1 mg Amlodipine Besylate (Norvasc) 10 mg PO DAILY [facility] Last Admin: 08/08/17 09:21 Dose: 10 mg Aspirin (Halfprin) 81 mg PO DAILY [facility] Last Admin: 08/08/17 09:20 Dose: 81 mg Bisacodyl (Dulcolax) 5 mg PO DAILY PRN PRN Reason: Constipation Bupropion HCl (Wellbutrin Xl) 150 mg PO DAILY [facility] Last Admin: 08/08/17 09:19 Dose: 150 mg Dextrose/Water (Dextrose 50% In Water) 50 ml IVPUSH ASDIRECTED PRN PRN Reason: Hypoglycemia Digoxin (Lanoxin) 125 mcg PO DAILY [facility] Last Admin: 08/08/17 09:19 Dose: 125 mcg Docusate Sodium (Colace) 100 mg PO BID PRN PRN Reason: Constipation Donepezil HCl (Aricept) 5 mg PO BEDTIME [facility] Enoxaparin Sodium (Lovenox) 30 mg SUBCUT DAILY [facility] Last Admin: 08/08/17 09:21 Dose: 30 mg Finasteride (Proscar) 5 mg PO DAILY [facility] Last Admin: 08/08/17 09:19 Dose: 5 mg Fluconazole (Diflucan) 100 mg PO DAILY@1600 [facility] Stop: 08/20/17 16:01 Hydralazine HCl (Apresoline) 10 mg IVPUSH Q6H PRN PRN Reason: Hypertension Ceftriaxone Sodium 2 gm/ (Dextrose/Water) 100 mls @ 200 mls/hr IV Q24H [facility] Insulin Aspart (Novolog) 0 unit SUBCUT QIDACANDBED [facility] PRN Reason: Protocol Last Admin: 08/08/17 12:01 Dose: 3 units Insulin Detemir (Levemir) 8 unit SUBCUT DAILY [facility] Last Admin: 08/08/17 09:20 Dose: 8 units Insulin Detemir (Levemir) 7 unit SUBCUT BEDTIME [facility] Magnesium Sulfate (Pharmacy To Dose - Magnesium Replacement) 0 dose .XX ASDIRECTED PRN PRN Reason: RX TO WATCH MAG LEVELS Metoprolol Tartrate (Lopressor) 5 mg IVPUSH Q4H PRN PRN Reason: Tachycardia Metoprolol Tartrate (Lopressor) 50 mg PO BID [facility] Last Admin: 08/08/17 09:19 Dose: 50 mg Morphine Sulfate (Morphine) 0.2 mg IVPUSH Q2H PRN PRN Reason: Pain (severe 7-10) Stop: 08/08/17 20:47 Nitroglycerin (Nitrostat) 0.4 mg SL ASDIRECTED PRN PRN Reason: Chest Pain Ondansetron HCl (Zofran Odt) 4 mg PO Q6H PRN PRN Reason: nausea, able to take PO Ondansetron HCl (Zofran) 4 mg IV Q6H PRN PRN Reason: Nausea/Vomiting Oseltamivir Phosphate (Tamiflu) 30 mg PO DAILY@1730 [facility] Pantoprazole Sodium (Protonix) 40 mg PO DAILY@0700 [facility] Last Admin: 08/08/17 06:00 Dose: 40 mg Polyethylene Glycol (Miralax) 17 gm PO DAILY PRN PRN Reason: Constipation Potassium Chloride (Pharmacy To Dose - Potassium Replacement) 0 dose .XX ASDIRECTED PRN PRN Reason: RX TO WATCH K LEVELS Rosuvastatin Calcium (Crestor) 20 mg PO BEDTIME [facility] Saccharomyces Boulardii (Florastor) 250 mg PO BID [facility] Last Admin: 08/08/17 09:19 Dose: 250 mg Senna/Docusate Sodium (Senna Plus) 1 tab PO BID PRN PRN Reason: Constipation Sodium Chloride (Saline Flush) 10 ml FLUSH ASDIRECTED PRN PRN Reason: Keep Vein Open Last Admin: 08/07/17 14:55 Dose: 10 ml Tamsulosin HCl (Flomax) 0.8 mg PO DAILY [facility] Last Admin: 08/08/17 09:21 Dose: 0.8 mg Discontinued Medications Aspirin (Aspirin) 324 mg PO ONETIME ONE Stop: 08/07/17 16:26 Last Admin: 08/07/17 17:43 Dose: 324 mg Fluconazole (Diflucan) 200 mg PO ONETIME ONE Stop: 08/07/17 16:23 Last Admin: 08/07/17 17:50 Dose: 200 mg Ceftriaxone Sodium 2 gm/ (Sodium Chloride) 100 mls @ 200 mls/hr IV ONETIME ONE Stop: 08/07/17 16:50 Sodium Chloride (Normal Saline) 1,000 mls @ 100 mls/hr IV ONETIME ONE Stop: 08/08/17 02:22 Last Admin: 08/07/17 17:41 Dose: 100 mls/hr Ceftriaxone Sodium 1 gm/ (Sodium Chloride) 100 mls @ 200 mls/hr IV ONETIME ONE Stop: 08/07/17 18:04 Last Admin: 08/07/17 17:42 Dose: 200 mls/hr Ceftriaxone Sodium 1 gm/ (Sodium Chloride) 100 mls @ 200 mls/hr IV ONETIME ONE Stop: 08/07/17 18:04 Last Admin: 08/07/17 18:23 Dose: 200 mls/hr Magnesium Sulfate 2 gm/ Premix 50 mls @ 25 mls/hr IV ONETIME ONE Stop: 08/07/17 23:04 Last Admin: 08/07/17 22:34 Dose: 25 mls/hr Sodium Chloride (Normal Saline) 1,000 mls @ 75 mls/hr IV ASDIRECTED [facility] Stop: 08/08/17 11:49 Last Admin: 08/08/17 05:58 Dose: 75 mls/hr Influenza Virus Vaccine (Pharmacy To Dose - Influenza Vaccine) 1 each IM ONETIME ONE Stop: 08/07/17 20:39 Influenza Virus Vaccine (Fluzone High-Dose ) 180 mcg IM .ONCE ONE Stop: 08/07/17 21:46 Lidocaine HCl (Xylocaine 2% Jelly) 10 ml MUCMEM ONETIME ONE Stop: 08/07/17 16:16 Last Admin: 08/07/17 16:25 Dose: 10 ml Oseltamivir Phosphate (Tamiflu) 30 mg PO NOW STA Stop: 08/07/17 17:35 Last Admin: 08/07/17 17:50 Dose: 30 mg - Exam Quality Assessment: No: Supplemental Oxygen General: Alert, Cooperative, No Acute Distress HEENT: Pupils Equal, Pupils Reactive, EOMI, Mucous Membr. Moist/[place] Neck: Supple, Trachea Midline, No JVD, No Thyromegaly Lungs: Normal Respiratory Effort, Decreased Breath Sounds, Crackles (bibasilar) Cardiovascular: Regular Rate, Regular Rhythm GI/Abdominal Exam: Normal Bowel Sounds, Soft, Non-Tender, No Organomegaly, No Distention, No Abnormal Bruit (Male) Exam: Other (indwelling green catheter) Back Exam: Normal Inspection, Decreased Range of Motion Extremities: Normal Inspection, Normal Range of Motion, Non-Tender, No Pedal Edema, Normal Capillary Refill Peripheral Pulses: 2+: Dorsalis Pedis (L), Dorsalis Pedis (R) Skin: Warm, Dry, Intact Neurological: No New Focal Deficit Psy/Mental Status: Alert, Normal Affect, Normal Mood - Problem List Review Problem List Initiated/Reviewed/Updated: Yes - My Orders Last 24 Hours: My Active Orders 08/07/17 19:51 Oxygen Therapy Adult [Oxygen Therapy] [RC] ASDIRECTED 08/07/17 21:14 Blood Glucose Check, Bedside [RC] QIDACANDBED 08/07/17 22:34 EKG 12 Lead [EK] Routine 08/07/17 22:35 EKG Documentation Completion [RC] ASDIRECTED 08/08/17 12:28 Aspiration Precautions [RC] ASDIRECTED 08/08/17 Lunch National Dysphagia Diet [DIET] - Plan Plan:: I/P: Acute: Influenza A -Tamiflu 30mg given in ED (renal dosing) -Discussed risk vs benefits of Tamiflu with and patient - they would like to continue -Continue Supportive care and Droplet precautions UTI with Candidiasis -Risk Factor: Neurogenic Bladder -Chronic indwelling catheter -WBC 6.21/CRP 16.0 -Lactic acid 1.2 -Cloudy urine and green changed in ED -UA positive suggest of UTI and pos for yeast -Cultures pending -Diflucan started in ED - continue -Rocephin given in ED - continue antibiotic 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 -Likely 2/2 Anemia of Chronic Disease (CKD) -Slightly worse than apparent baseline when reviewing old charts -Hgb 11.1/Hct 33.2; MCV 92.6 slightly elevated (meets criteria for Megaloblastic) -Iron panel: most parameters all low suggestive for chronic in nature -B12 is normal but Folic acid is 4.2--> low (8.6-58.9) -Folic acid 1 mg po daily starting in AM Recent Aspiration Pneumonia -Hospitalized in [place] -Hx/o CVA -Discharged on antibiotic, which he finished a few days ago ( unsure of which antibiotic) -Probiotic -Honey thickened liquids per -No straws per - is unsure of which diet he is on, lists foods he can and cannot have - mostly soft -[employer] to evaluate and set diet -Aspiration precautions -CXR in ED shows improving bilateral lower lobe densities when compared to CXR from 07/26/17 Resolved: S/p Elevated D-Dimmer -Likely 2/2 CKD/Inflammation -Chest pain/SOB on ED arrival -Symptoms likely due to influenza -Very poor renal function -Unable to preform CTA -V/Q scan: Low probability for PE S/p Hypomagnesemia -Magnesium 1.6 in ED--> now 1.9 -Supplemented -Pharmacy to monitor and supplement as needed Renal insufficiency/CKD Stage 3 -Chronic no changes form his baseline GFR -BUN 23; Creatinine 2.5; eGFR 25 -Baseline creatinine appears to be around 2.0 and eGFR around 30 -Fluids as ordered -Caution due to hx/o heart failure Chronic: A-fib - home meds GERD BPH - home meds CVA Anxiety - home meds Depression - home meds Type II DM - Home insulin and sliding scale. Glucose checks QIDAC and bed. Plan: He is clinically stable Continue current treatment Continue PT/OT Routine AM labs Aspiration/Fall Precautions Continue NDD3 CM/SW for discharge planning Other orders as indicated above Code status: Full code; PCP: Dr. Grant at [facility] here in [place].
--- NOTE | 2017-08-08 14:23 | NM ---
Ventilation/perfusion lung scan Technique: 2.0 mCi of technetium 99m MAA was given intravenously. Scintigraphic imaging then obtained over the chest. 40 mCi of technetium 99m was aerosolized and patient inhaled a mixture. Scintigraphic imaging then performed over the chest. Findings: Matched defects are identified within both lungs. Findings have a low to indeterminate probability for pulmonary embolism. Impression: 1. Findings as noted above. Diagnostic code #3
[2017-08-08] MEDS ORDERED: Fluconazole 150 MG Tab PO SCH (16:00)
[2017-08-08] MEDS: Oseltamivir 30 MG Cap PO SCH (16:54)
[2017-08-08] MEDS: Fluconazole 100 MG Tab PO SCH (16:54)
[2017-08-08] MEDS: Rosuvastatin 10 MG Tab PO SCH (20:38)
[2017-08-08] MEDS: Donepezil 10 MG Tab PO SCH (20:39)
[2017-08-08] MEDS ORDERED: INSULIN GLARG HUMAN REC ANALOG 15 UNIT SQ SCH (21:00)
[2017-08-08] MEDS ORDERED: ATORVASTATIN 80 MG PO SCH (21:00)
[2017-08-09] MEDS: Pantoprazole 40 MG Tab.CR PO SCH (06:26)
[2017-08-09] MEDS: Insulin Aspart 100 Units/ML 3 ML Pen SUBCUT SCH ×4 (06:26→21:48)
--- NOTE | 2017-08-09 08:24 | PCM.PN ---
- General Info Date of Service: 08/09/17 Admission Dx/Problem (Free Text): Admission Diagnosis/Problem Admission Diagnosis/Problem Influenza Subjective Update: Follow Up Functional Status: Reports: Pain Controlled, Tolerating Diet, Ambulating, Urinating. Denies: New Symptoms - Review of Systems General: Denies: Fever, Weakness, Fatigue, Malaise, Chills HEENT: Reports: No Symptoms Pulmonary: Denies: Shortness of Breath Cardiovascular: Denies: Chest Pain Gastrointestinal: Denies: Abdominal Pain, Nausea, Vomiting Genitourinary: Reports: Retention Musculoskeletal: Reports: No Symptoms Skin: Denies: Cyanosis, Jaundice, Mottled, Pallor, Diaphoresis, Rash Neurological: Denies: Confusion, Difficulty Walking, Weakness, Gait Disturbance Psychiatric: Denies: Depression, Anxiety, Agitation, Hallucinations Systems Review Comment:: No significant overnight or acute issues. He slept good and feels pretty good. He has no new complaints. His UA Cx shows yeast so far. He has mild leukocytopenia but afebrile. - Patient Data Vitals - Most Recent: Last Vital Signs Temp 36.8 C 08/09/17 07:42 Pulse 68 08/09/17 07:42 Resp 20 08/09/17 07:42 BP 132/113 H 08/09/17 07:42 Pulse Ox 90 L 08/09/17 07:42 Weight - Most Recent: 85.139 kg I&O - Last 24 Hours: Intake & Output 08/08/17 08/09/17 08/09/17 22:59 06:59 14:59 Intake Total 1370 448 Output Total 2200 2300 Balance -830 -1852 Lab Results Last 24 Hours: Laboratory Results - last 24 hr 08/08/17 08/08/17 08/08/17 Range/Units 11:28 16:33 20:35 WBC (4.23-9.07) K/mm3 RBC (4.63-6.08) M/mm3 Hgb (13.7-17.5) gm/L Hct (40.1-51.0) % MCV (79.0-92.2) fl MCH (25.7-32.2) pg MCHC (32.2-35.5) g/dl RDW Std Deviation (35.1-43.9) fL Plt Count (163-337) K/mm3 MPV (9.4-12.3) fl Neut % (Auto) (34.0-67.9) % Lymph % (Auto) (21.8-53.1) % [place] % (Auto) (5.3-12.2) % Eos % (Auto) (0.8-7.0) Baso % (Auto) (0.1-1.2) % Neut # (Auto) (1.78-5.38) K/mm3 Lymph # (Auto) (1.32-3.57) K/mm3 [place] # (Auto) (0.30-0.82) K/mm3 Eos # (Auto) (0.04-0.54) K/mm3 Baso # (Auto) (0.01-0.08) K/mm3 Sodium (136-145) mEq/L Potassium (3.5-5.1) mEq/L Chloride (98-107) mEq/L Carbon Dioxide (21-32) mEq/L Anion Gap (5-15) BUN (7-18) mg/dL Creatinine (0.7-1.3) mg/dL Est Cr Clr Drug Dosing mL/min Estimated GFR (MDRD) (>60) mL/min BUN/Creatinine Ratio (14-18) Glucose (83-115) mg/dL POC Glucose 257 H 234 H 196 H (83-110) mg/dL Calcium (8.5-10.1) mg/dL Magnesium (1.8-2.4) mg/dl C-Reactive Protein (<1.0) mg/dL 08/09/17 08/09/17 08/09/17 Range/Units 06:21 06:21 06:23 WBC 4.19 L (4.23-9.07) K/mm3 RBC 3.37 L (4.63-6.08) M/mm3 Hgb 10.2 L (13.7-17.5) gm/L Hct 31.3 L (40.1-51.0) % MCV 92.9 H (79.0-92.2) fl MCH 30.3 (25.7-32.2) pg MCHC 32.6 (32.2-35.5) g/dl RDW Std Deviation 45.9 H (35.1-43.9) fL Plt Count 173 (163-337) K/mm3 MPV 9.5 (9.4-12.3) fl Neut % (Auto) 67.8 (34.0-67.9) % Lymph % (Auto) 25.3 (21.8-53.1) % [place] % (Auto) 4.1 L (5.3-12.2) % Eos % (Auto) 2.1 (0.8-7.0) Baso % (Auto) 0.2 (0.1-1.2) % Neut # (Auto) 2.84 (1.78-5.38) K/mm3 Lymph # (Auto) 1.06 L (1.32-3.57) K/mm3 [place] # (Auto) 0.17 L (0.30-0.82) K/mm3 Eos # (Auto) 0.09 (0.04-0.54) K/mm3 Baso # (Auto) 0.01 (0.01-0.08) K/mm3 Sodium 140 (136-145) mEq/L Potassium 4.6 (3.5-5.1) mEq/L Chloride 106 (98-107) mEq/L Carbon Dioxide 26 (21-32) mEq/L Anion Gap 12.6 (5-15) BUN 23 H (7-18) mg/dL Creatinine 2.3 H (0.7-1.3) mg/dL Est Cr Clr Drug Dosing 31.36 mL/min Estimated GFR (MDRD) 28 (>60) mL/min BUN/Creatinine Ratio 10.0 L (14-18) Glucose 117 H (83-115) mg/dL POC Glucose 142 H (83-110) mg/dL Calcium 8.4 L (8.5-10.1) mg/dL Magnesium 1.9 (1.8-2.4) mg/dl C-Reactive Protein 15.5 H* (<1.0) mg/dL Med Orders - Current: Current Medications Acetaminophen (Tylenol) 650 mg PO Q4H PRN PRN Reason: Pain (Mild 1-3)/fever Last Admin: 08/08/17 20:38 Dose: 650 mg Hydrocodone Bitart/Acetaminophen ([place] 325-5 Mg) 1 tab PO Q4H PRN PRN Reason: Pain (moderate 4-6) Albuterol/Ipratropium (Duoneb 3.0-0.5 Mg/3 Ml) 3 ml NEB Q4H PRN PRN Reason: Shortness Of Breath/wheezing Alprazolam (Xanax) 1 mg PO TID [facility] Last Admin: 08/08/17 20:38 Dose: 1 mg Amlodipine Besylate (Norvasc) 10 mg PO DAILY [facility] Last Admin: 08/08/17 09:21 Dose: 10 mg Aspirin (Halfprin) 81 mg PO DAILY [facility] Last Admin: 08/08/17 09:20 Dose: 81 mg Bisacodyl (Dulcolax) 5 mg PO DAILY PRN PRN Reason: Constipation Bupropion HCl (Wellbutrin Xl) 150 mg PO DAILY [facility] Last Admin: 08/08/17 09:19 Dose: 150 mg Dextrose/Water (Dextrose 50% In Water) 50 ml IVPUSH ASDIRECTED PRN PRN Reason: Hypoglycemia Digoxin (Lanoxin) 125 mcg PO DAILY [facility] Last Admin: 08/08/17 09:19 Dose: 125 mcg Docusate Sodium (Colace) 100 mg PO BID PRN PRN Reason: Constipation Donepezil HCl (Aricept) 5 mg PO BEDTIME [facility] Last Admin: 08/08/17 20:39 Dose: 5 mg Enoxaparin Sodium (Lovenox) 30 mg SUBCUT DAILY [facility] Last Admin: 08/08/17 09:21 Dose: 30 mg Finasteride (Proscar) 5 mg PO DAILY [facility] Last Admin: 08/08/17 09:19 Dose: 5 mg Fluconazole (Diflucan) 100 mg PO DAILY@1600 [facility] Stop: 08/20/17 16:01 Last Admin: 08/08/17 16:54 Dose: 100 mg Folic Acid (Folic Acid) 1 mg PO DAILY [facility] Hydralazine HCl (Apresoline) 10 mg IVPUSH Q6H PRN PRN Reason: Hypertension Ceftriaxone Sodium 2 gm/ (Dextrose/Water) 100 mls @ 200 mls/hr IV Q24H [facility] Last Admin: 08/08/17 16:50 Dose: 200 mls/hr Insulin Aspart (Novolog) 0 unit SUBCUT QIDACANDBED [facility] PRN Reason: Protocol Last Admin: 08/09/17 06:26 Dose: Not Given Insulin Detemir (Levemir) 8 unit SUBCUT DAILY [facility] Last Admin: 08/08/17 09:20 Dose: 8 units Insulin Detemir (Levemir) 7 unit SUBCUT BEDTIME [facility] Last Admin: 08/08/17 20:36 Dose: 7 units Magnesium Sulfate (Pharmacy To Dose - Magnesium Replacement) 0 dose .XX ASDIRECTED PRN PRN Reason: RX TO WATCH MAG LEVELS Metoprolol Tartrate (Lopressor) 5 mg IVPUSH Q4H PRN PRN Reason: Tachycardia Metoprolol Tartrate (Lopressor) 50 mg PO BID [facility] Last Admin: 08/08/17 20:40 Dose: 50 mg Nitroglycerin (Nitrostat) 0.4 mg SL ASDIRECTED PRN PRN Reason: Chest Pain Ondansetron HCl (Zofran Odt) 4 mg PO Q6H PRN PRN Reason: nausea, able to take PO Ondansetron HCl (Zofran) 4 mg IV Q6H PRN PRN Reason: Nausea/Vomiting Oseltamivir Phosphate (Tamiflu) 30 mg PO DAILY@1730 [facility] Last Admin: 08/08/17 16:54 Dose: 30 mg Pantoprazole Sodium (Protonix) 40 mg PO DAILY@0700 [facility] Last Admin: 08/09/17 06:26 Dose: 40 mg Polyethylene Glycol (Miralax) 17 gm PO DAILY PRN PRN Reason: Constipation Potassium Chloride (Pharmacy To Dose - Potassium Replacement) 0 dose .XX ASDIRECTED PRN PRN Reason: RX TO WATCH K LEVELS Rosuvastatin Calcium (Crestor) 20 mg PO BEDTIME [facility] Last Admin: 08/08/17 20:38 Dose: 20 mg Saccharomyces Boulardii (Florastor) 250 mg PO BID [facility] Last Admin: 08/08/17 20:37 Dose: 250 mg Senna/Docusate Sodium (Senna Plus) 1 tab PO BID PRN PRN Reason: Constipation Sodium Chloride (Saline Flush) 10 ml FLUSH ASDIRECTED PRN PRN Reason: Keep Vein Open Last Admin: 08/07/17 14:55 Dose: 10 ml Tamsulosin HCl (Flomax) 0.8 mg PO DAILY [facility] Last Admin: 08/08/17 09:21 Dose: 0.8 mg Discontinued Medications Aspirin (Aspirin) 324 mg PO ONETIME ONE Stop: 08/07/17 16:26 Last Admin: 08/07/17 17:43 Dose: 324 mg Fluconazole (Diflucan) 200 mg PO ONETIME ONE Stop: 08/07/17 16:23 Last Admin: 08/07/17 17:50 Dose: 200 mg Ceftriaxone Sodium 2 gm/ (Sodium Chloride) 100 mls @ 200 mls/hr IV ONETIME ONE Stop: 08/07/17 16:50 Sodium Chloride (Normal Saline) 1,000 mls @ 100 mls/hr IV ONETIME ONE Stop: 08/08/17 02:22 Last Admin: 08/07/17 17:41 Dose: 100 mls/hr Ceftriaxone Sodium 1 gm/ (Sodium Chloride) 100 mls @ 200 mls/hr IV ONETIME ONE Stop: 08/07/17 18:04 Last Admin: 08/07/17 17:42 Dose: 200 mls/hr Ceftriaxone Sodium 1 gm/ (Sodium Chloride) 100 mls @ 200 mls/hr IV ONETIME ONE Stop: 08/07/17 18:04 Last Admin: 08/07/17 18:23 Dose: 200 mls/hr Magnesium Sulfate 2 gm/ Premix 50 mls @ 25 mls/hr IV ONETIME ONE Stop: 08/07/17 23:04 Last Admin: 08/07/17 22:34 Dose: 25 mls/hr Sodium Chloride (Normal Saline) 1,000 mls @ 75 mls/hr IV ASDIRECTED JOHAN Stop: 08/08/17 11:49 Last Admin: 08/08/17 05:58 Dose: 75 mls/hr Influenza Virus Vaccine (Pharmacy To Dose - Influenza Vaccine) 1 each IM ONETIME ONE Stop: 08/07/17 20:39 Influenza Virus Vaccine (Fluzone High-Dose ) 180 mcg IM .ONCE ONE Stop: 08/07/17 21:46 Lidocaine HCl (Xylocaine 2% Jelly) 10 ml MUCMEM ONETIME ONE Stop: 08/07/17 16:16 Last Admin: 08/07/17 16:25 Dose: 10 ml Morphine Sulfate (Morphine) 0.2 mg IVPUSH Q2H PRN PRN Reason: Pain (severe 7-10) Stop: 08/08/17 20:47 Oseltamivir Phosphate (Tamiflu) 30 mg PO NOW STA Stop: 08/07/17 17:35 Last Admin: 08/07/17 17:50 Dose: 30 mg - Exam General: Alert, Cooperative, No Acute Distress HEENT: Pupils Equal, Pupils Reactive, EOMI, Mucous Membr. Moist/[place] Neck: Supple, Trachea Midline, No JVD Lungs: Normal Respiratory Effort, Decreased Breath Sounds Cardiovascular: Regular Rate, Regular Rhythm GI/Abdominal Exam: Normal Bowel Sounds, Soft, Non-Tender, No Organomegaly, No Distention, No Abnormal Bruit, No Mass (Male) Exam: Other (indwelling green catheter) Back Exam: Normal Inspection, Decreased Range of Motion Extremities: Normal Inspection, Normal Range of Motion, Non-Tender, No Pedal Edema, Normal Capillary Refill Peripheral Pulses: 2+: Dorsalis Pedis (L), Dorsalis Pedis (R) Skin: Warm, Dry, Intact Neurological: No New Focal Deficit, Other (Some form of mild cognitive impairment) Psy/Mental Status: Alert, Normal Affect, Normal Mood. No: Withdrawal Symptoms - Problem List Review Problem List Initiated/Reviewed/Updated: Yes - My Orders Last 24 Hours: My Active Orders 08/08/17 12:28 Aspiration Precautions [RC] ASDIRECTED 08/08/17 Lunch National Dysphagia Diet [DIET] 08/09/17 09:00 Folic Acid 1 mg PO DAILY - Plan Plan:: I/P: Acute: Influenza A -Tamiflu 30mg given in ED (renal dosing) -Discussed risk vs benefits of Tamiflu with and patient - they would like to continue -Continue Supportive care and Droplet precautions UTI with Candidiasis -Risk Factor: Neurogenic Bladder -Chronic indwelling catheter -WBC 6.21--> 4.19/CRP 16.0--> 15.9 -Lactic acid 1.2 -Cloudy urine and green changed in ED -UA positive suggest of UTI and pos for yeast -Cultures awaiting final report -Diflucan started in ED - continue -Rocephin given in ED - discontinue antibiotic 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 -Likely 2/2 Anemia of Chronic Disease (CKD) -Slightly worse than apparent baseline when reviewing old charts -Hgb 11.1/Hct 33.2; MCV 92.6 slightly elevated (meets criteria for Megaloblastic) -Iron panel: most parameters all low suggestive for chronic in nature -B12 is normal but Folic acid is 4.2--> low (8.6-58.9) -Folic acid 1 mg po daily Recent Aspiration Pneumonia -Hospitalized in [place] -Hx/o CVA -Discharged on antibiotic, which he finished a few days ago ( unsure of which antibiotic) -Probiotic -Honey thickened liquids per -No straws per - is unsure of which diet he is on, lists foods he can and cannot have - mostly soft -OFFSET PRINTING OPERATOR to evaluate and set diet -Aspiration precautions -CXR in ED shows improving bilateral lower lobe densities when compared to CXR from 07/26/17 Resolved: S/p Elevated D-Dimmer -Likely 2/2 CKD/Inflammation -Chest pain/SOB on ED arrival -Symptoms likely due to influenza -Very poor renal function -Unable to preform CTA -V/Q scan: Low probability for PE S/p Hypomagnesemia -Magnesium 1.6 in ED--> now 1.9 -Supplemented -Pharmacy to monitor and supplement as needed Renal insufficiency/CKD Stage 3 -Chronic no changes form his baseline GFR -BUN 23; Creatinine 2.5; eGFR 25 -Baseline creatinine appears to be around 2.0 and eGFR around 30 -Fluids as ordered -Caution due to hx/o heart failure Chronic: A-fib - home meds GERD BPH - home meds CVA Anxiety - home meds Depression - home meds Type II DM - Home insulin and sliding scale. Glucose checks QIDAC and bed. Plan: He continues to improve clinically Continue current treatment Continue PT/OT Routine AM labs Blood cultures negative Consider OFFSET PRINTING OPERATOR for cognitive eval Aspiration/Fall Precautions Continue NDD3 CM/SW for discharge planning Other orders as indicated above Possible d/c in 1-2 days Code status: Full code; PCP: Dr. Grant at [facility] here in [place].
[2017-08-09] MEDS: Insulin Detemir 100 Units/ML 3 ML Pen SUBCUT SCH ×2 (09:29→21:44)
[2017-08-09] MEDS: Digoxin 125 MCG Tab PO SCH (09:31)
[2017-08-09] MEDS: buPROPion 150 MG Tab.ER PO SCH (09:31)
[2017-08-09] MEDS: Aspirin 81 MG Tab.EC PO SCH (09:32)
[2017-08-09] MEDS: ALPRAZolam 1 MG Tab PO SCH ×3 (09:32→21:41)
[2017-08-09] MEDS: amLODIPine 5 MG Tab PO SCH (09:33)
[2017-08-09] MEDS: Folic Acid 1 MG Tab PO SCH (09:33)
[2017-08-09] MEDS: Enoxaparin 30 MG/0.3 ML Syringe SUBCUT SCH (09:33)
[2017-08-09] MEDS: Metoprolol Tartrate 50 MG Tab PO SCH ×2 (09:33→21:43)
[2017-08-09] MEDS: Tamsulosin 0.4 MG Cap.ER PO SCH (09:33)
[2017-08-09] MEDS: Finasteride 5 MG Tab PO SCH (09:33)
[2017-08-09] MEDS: Saccharomyces Boulardii (Probiotic) 250 MG Cap PO SCH ×2 (09:33→21:41)
[2017-08-09] MEDS ORDERED: Magnesium Oxide 400 MG Tab PO ONE (10:00)
[2017-08-09] MEDS: Fluconazole 100 MG Tab PO SCH (15:47)
[2017-08-09] MEDS: Oseltamivir 30 MG Cap PO SCH (17:53)
[2017-08-09] MEDS: Rosuvastatin 10 MG Tab PO SCH (21:41)
[2017-08-09] MEDS: Donepezil 10 MG Tab PO SCH (21:42)
[2017-08-10] MEDS: Pantoprazole 40 MG Tab.CR PO SCH (06:12)
[2017-08-10] MEDS: Insulin Aspart 100 Units/ML 3 ML Pen SUBCUT SCH ×4 (06:15→21:00)
[2017-08-10] MEDS: ALPRAZolam 1 MG Tab PO SCH ×3 (09:29→20:54)
[2017-08-10] MEDS: Finasteride 5 MG Tab PO SCH (09:29)
[2017-08-10] MEDS: Saccharomyces Boulardii (Probiotic) 250 MG Cap PO SCH ×2 (09:29→20:54)
[2017-08-10] MEDS: buPROPion 150 MG Tab.ER PO SCH (09:29)
[2017-08-10] MEDS: Tamsulosin 0.4 MG Cap.ER PO SCH (09:29)
[2017-08-10] MEDS: Folic Acid 1 MG Tab PO SCH (09:29)
[2017-08-10] MEDS: Aspirin 81 MG Tab.EC PO SCH (09:29)
[2017-08-10] MEDS: Enoxaparin 30 MG/0.3 ML Syringe SUBCUT SCH (09:30)
[2017-08-10] MEDS: Insulin Detemir 100 Units/ML 3 ML Pen SUBCUT SCH ×2 (09:30→20:58)
[2017-08-10] MEDS: Digoxin 125 MCG Tab PO SCH (09:33)
--- NOTE | 2017-08-10 09:53 | PCM.PN ---
- General Info Date of Service: 08/10/17 Admission Dx/Problem (Free Text): Admission Diagnosis/Problem Admission Diagnosis/Problem Influenza Subjective Update: Follow Up Functional Status: Reports: Pain Controlled, Tolerating Diet, Ambulating, Urinating. Denies: New Symptoms - Review of Systems General: Denies: Fever, Weakness, Fatigue, Malaise, Chills HEENT: Reports: No Symptoms Pulmonary: Denies: Shortness of Breath Cardiovascular: Denies: Chest Pain, Palpitations, Dyspnea on Exertion, Edema Gastrointestinal: Denies: Abdominal Pain, Nausea, Vomiting Genitourinary: Reports: Retention Musculoskeletal: Reports: No Symptoms Skin: Denies: Cyanosis, Jaundice, Mottled, Pallor, Diaphoresis, Bruising Neurological: Denies: Confusion, Difficulty Walking, Weakness, Gait Disturbance Psychiatric: Denies: Depression, Anxiety, Agitation, Hallucinations, Suicidal Ideation Systems Review Comment:: No overnight or acute issues. He slept well. He has no complaints. Still waiting for his to come in so we can discuss over his care and clinical progress. - Patient Data Vitals - Most Recent: Last Vital Signs Temp 36.2 C 08/10/17 08:10 Pulse 50 L 08/10/17 08:10 Resp 18 08/10/17 08:10 BP 132/69 08/10/17 08:10 Pulse Ox 90 L 08/10/17 09:40 Weight - Most Recent: 84.55 kg I&O - Last 24 Hours: Intake & Output 08/09/17 08/10/17 08/10/17 22:59 06:59 14:59 Intake Total 820 50 Output Total 1600 1350 Balance -780 -1300 Lab Results Last 24 Hours: Laboratory Results - last 24 hr 08/09/17 08/09/17 08/09/17 Range/Units 12:52 17:51 20:33 WBC (4.23-9.07) K/mm3 RBC (4.63-6.08) M/mm3 Hgb (13.7-17.5) gm/L Hct (40.1-51.0) % MCV (79.0-92.2) fl MCH (25.7-32.2) pg MCHC (32.2-35.5) g/dl RDW Std Deviation (35.1-43.9) fL Plt Count (163-337) K/mm3 MPV (9.4-12.3) fl Neut % (Auto) (34.0-67.9) % Lymph % (Auto) (21.8-53.1) % Randall % (Auto) (5.3-12.2) % Eos % (Auto) (0.8-7.0) Baso % (Auto) (0.1-1.2) % Neut # (Auto) (1.78-5.38) K/mm3 Lymph # (Auto) (1.32-3.57) K/mm3 Randall # (Auto) (0.30-0.82) K/mm3 Eos # (Auto) (0.04-0.54) K/mm3 Baso # (Auto) (0.01-0.08) K/mm3 Sodium (136-145) mEq/L Potassium (3.5-5.1) mEq/L Chloride (98-107) mEq/L Carbon Dioxide (21-32) mEq/L Anion Gap (5-15) BUN (7-18) mg/dL Creatinine (0.7-1.3) mg/dL Est Cr Clr Drug Dosing mL/min Estimated GFR (MDRD) (>60) mL/min BUN/Creatinine Ratio (14-18) Glucose (83-115) mg/dL POC Glucose 352 H 145 H 192 H (83-110) mg/dL Calcium (8.5-10.1) mg/dL Magnesium (1.8-2.4) mg/dl C-Reactive Protein (<1.0) mg/dL 08/09/17 08/10/17 08/10/17 Range/Units 22:16 06:14 06:33 WBC 3.79 L (4.23-9.07) K/mm3 RBC 3.33 L (4.63-6.08) M/mm3 Hgb 9.9 L (13.7-17.5) gm/L Hct 31.1 L (40.1-51.0) % MCV 93.4 H (79.0-92.2) fl MCH 29.7 (25.7-32.2) pg MCHC 31.8 L (32.2-35.5) g/dl RDW Std Deviation 46.9 H (35.1-43.9) fL Plt Count 177 (163-337) K/mm3 MPV 9.5 (9.4-12.3) fl Neut % (Auto) 62.2 (34.0-67.9) % Lymph % (Auto) 27.2 (21.8-53.1) % Randall % (Auto) 6.6 (5.3-12.2) % Eos % (Auto) 3.4 (0.8-7.0) Baso % (Auto) 0.3 (0.1-1.2) % Neut # (Auto) 2.36 (1.78-5.38) K/mm3 Lymph # (Auto) 1.03 L (1.32-3.57) K/mm3 Randall # (Auto) 0.25 L (0.30-0.82) K/mm3 Eos # (Auto) 0.13 (0.04-0.54) K/mm3 Baso # (Auto) 0.01 (0.01-0.08) K/mm3 Sodium (136-145) mEq/L Potassium (3.5-5.1) mEq/L Chloride (98-107) mEq/L Carbon Dioxide (21-32) mEq/L Anion Gap (5-15) BUN (7-18) mg/dL Creatinine (0.7-1.3) mg/dL Est Cr Clr Drug Dosing mL/min Estimated GFR (MDRD) (>60) mL/min BUN/Creatinine Ratio (14-18) Glucose (83-115) mg/dL POC Glucose 195 H 200 H (83-110) mg/dL Calcium (8.5-10.1) mg/dL Magnesium (1.8-2.4) mg/dl C-Reactive Protein (<1.0) mg/dL 08/10/17 Range/Units 06:33 WBC (4.23-9.07) K/mm3 RBC (4.63-6.08) M/mm3 Hgb (13.7-17.5) gm/L Hct (40.1-51.0) % MCV (79.0-92.2) fl MCH (25.7-32.2) pg MCHC (32.2-35.5) g/dl RDW Std Deviation (35.1-43.9) fL Plt Count (163-337) K/mm3 MPV (9.4-12.3) fl Neut % (Auto) (34.0-67.9) % Lymph % (Auto) (21.8-53.1) % Randall % (Auto) (5.3-12.2) % Eos % (Auto) (0.8-7.0) Baso % (Auto) (0.1-1.2) % Neut # (Auto) (1.78-5.38) K/mm3 Lymph # (Auto) (1.32-3.57) K/mm3 Randall # (Auto) (0.30-0.82) K/mm3 Eos # (Auto) (0.04-0.54) K/mm3 Baso # (Auto) (0.01-0.08) K/mm3 Sodium 139 (136-145) mEq/L Potassium 4.5 (3.5-5.1) mEq/L Chloride 105 (98-107) mEq/L Carbon Dioxide 27 (21-32) mEq/L Anion Gap 11.5 (5-15) BUN 23 H (7-18) mg/dL Creatinine 2.2 H (0.7-1.3) mg/dL Est Cr Clr Drug Dosing 32.79 mL/min Estimated GFR (MDRD) 29 (>60) mL/min BUN/Creatinine Ratio 10.5 L (14-18) Glucose 196 H (83-115) mg/dL POC Glucose (83-110) mg/dL Calcium 8.5 (8.5-10.1) mg/dL Magnesium 1.9 (1.8-2.4) mg/dl C-Reactive Protein 10.2 H* (<1.0) mg/dL Med Orders - Current: Current Medications Acetaminophen (Tylenol) 650 mg PO Q4H PRN PRN Reason: Pain (Mild 1-3)/fever Last Admin: 08/08/17 20:38 Dose: 650 mg Hydrocodone Bitart/Acetaminophen (Piercy 325-5 Mg) 1 tab PO Q4H PRN PRN Reason: Pain (moderate 4-6) Albuterol/Ipratropium (Duoneb 3.0-0.5 Mg/3 Ml) 3 ml NEB Q4H PRN PRN Reason: Shortness Of Breath/wheezing Last Admin: 08/09/17 10:26 Dose: 3 ml Alprazolam (Xanax) 1 mg PO TID [facility] Last Admin: 08/10/17 09:29 Dose: 1 mg Amlodipine Besylate (Norvasc) 10 mg PO DAILY [facility] Last Admin: 08/09/17 09:33 Dose: 10 mg Aspirin (Halfprin) 81 mg PO DAILY [facility] Last Admin: 08/10/17 09:29 Dose: 81 mg Bisacodyl (Dulcolax) 5 mg PO DAILY PRN PRN Reason: Constipation Bupropion HCl (Wellbutrin Xl) 150 mg PO DAILY [facility] Last Admin: 08/10/17 09:29 Dose: 150 mg Dextrose/Water (Dextrose 50% In Water) 50 ml IVPUSH ASDIRECTED PRN PRN Reason: Hypoglycemia Digoxin (Lanoxin) 125 mcg PO DAILY [facility] Last Admin: 08/10/17 09:33 Dose: 125 mcg Docusate Sodium (Colace) 100 mg PO BID PRN PRN Reason: Constipation Last Admin: 08/09/17 17:53 Dose: 100 mg Donepezil HCl (Aricept) 5 mg PO BEDTIME [facility] Last Admin: 08/09/17 21:42 Dose: 5 mg Enoxaparin Sodium (Lovenox) 30 mg SUBCUT DAILY [facility] Last Admin: 08/10/17 09:30 Dose: 30 mg Finasteride (Proscar) 5 mg PO DAILY [facility] Last Admin: 08/10/17 09:29 Dose: 5 mg Fluconazole (Diflucan) 100 mg PO DAILY@1600 [facility] Stop: 08/20/17 16:01 Last Admin: 08/09/17 15:47 Dose: 100 mg Folic Acid (Folic Acid) 1 mg PO DAILY [facility] Last Admin: 08/10/17 09:29 Dose: 1 mg Hydralazine HCl (Apresoline) 10 mg IVPUSH Q6H PRN PRN Reason: Hypertension Insulin Aspart (Novolog) 0 unit SUBCUT QIDACANDBED [facility] PRN Reason: Protocol Last Admin: 08/10/17 06:15 Dose: 2 units Insulin Detemir (Levemir) 8 unit SUBCUT DAILY [facility] Last Admin: 08/10/17 09:30 Dose: 8 units Insulin Detemir (Levemir) 7 unit SUBCUT BEDTIME [facility] Last Admin: 08/09/17 21:44 Dose: 7 units Magnesium Sulfate (Pharmacy To Dose - Magnesium Replacement) 0 dose .XX ASDIRECTED PRN PRN Reason: RX TO WATCH MAG LEVELS Metoprolol Tartrate (Lopressor) 5 mg IVPUSH Q4H PRN PRN Reason: Tachycardia Metoprolol Tartrate (Lopressor) 50 mg PO BID [facility] Last Admin: 08/09/17 21:43 Dose: 50 mg Nitroglycerin (Nitrostat) 0.4 mg SL ASDIRECTED PRN PRN Reason: Chest Pain Ondansetron HCl (Zofran Odt) 4 mg PO Q6H PRN PRN Reason: nausea, able to take PO Ondansetron HCl (Zofran) 4 mg IV Q6H PRN PRN Reason: Nausea/Vomiting Oseltamivir Phosphate (Tamiflu) 30 mg PO DAILY@1730 [facility] Stop: 08/11/17 17:31 Last Admin: 08/09/17 17:53 Dose: 30 mg Pantoprazole Sodium (Protonix) 40 mg PO DAILY@0700 [facility] Last Admin: 08/10/17 06:12 Dose: 40 mg Polyethylene Glycol (Miralax) 17 gm PO DAILY PRN PRN Reason: Constipation Potassium Chloride (Pharmacy To Dose - Potassium Replacement) 0 dose .XX ASDIRECTED PRN PRN Reason: RX TO WATCH K LEVELS Rosuvastatin Calcium (Crestor) 20 mg PO BEDTIME [facility] Last Admin: 08/09/17 21:41 Dose: 20 mg Saccharomyces Boulardii (Florastor) 250 mg PO BID [facility] Last Admin: 08/10/17 09:29 Dose: 250 mg Senna/Docusate Sodium (Senna Plus) 1 tab PO BID PRN PRN Reason: Constipation Sodium Chloride (Saline Flush) 10 ml FLUSH ASDIRECTED PRN PRN Reason: Keep Vein Open Last Admin: 08/07/17 14:55 Dose: 10 ml Tamsulosin HCl (Flomax) 0.8 mg PO DAILY [facility] Last Admin: 08/10/17 09:29 Dose: 0.8 mg Discontinued Medications Aspirin (Aspirin) 324 mg PO ONETIME ONE Stop: 08/07/17 16:26 Last Admin: 08/07/17 17:43 Dose: 324 mg Fluconazole (Diflucan) 200 mg PO ONETIME ONE Stop: 08/07/17 16:23 Last Admin: 08/07/17 17:50 Dose: 200 mg Ceftriaxone Sodium 2 gm/ (Sodium Chloride) 100 mls @ 200 mls/hr IV ONETIME ONE Stop: 08/07/17 16:50 Sodium Chloride (Normal Saline) 1,000 mls @ 100 mls/hr IV ONETIME ONE Stop: 08/08/17 02:22 Last Admin: 08/07/17 17:41 Dose: 100 mls/hr Ceftriaxone Sodium 1 gm/ (Sodium Chloride) 100 mls @ 200 mls/hr IV ONETIME ONE Stop: 08/07/17 18:04 Last Admin: 08/07/17 17:42 Dose: 200 mls/hr Ceftriaxone Sodium 1 gm/ (Sodium Chloride) 100 mls @ 200 mls/hr IV ONETIME ONE Stop: 08/07/17 18:04 Last Admin: 08/07/17 18:23 Dose: 200 mls/hr Ceftriaxone Sodium 2 gm/ (Dextrose/Water) 100 mls @ 200 mls/hr IV Q24H [facility] Last Admin: 08/08/17 16:50 Dose: 200 mls/hr Magnesium Sulfate 2 gm/ Premix 50 mls @ 25 mls/hr IV ONETIME ONE Stop: 08/07/17 23:04 Last Admin: 08/07/17 22:34 Dose: 25 mls/hr Sodium Chloride (Normal Saline) 1,000 mls @ 75 mls/hr IV ASDIRECTED [facility] Stop: 08/08/17 11:49 Last Admin: 08/08/17 05:58 Dose: 75 mls/hr Influenza Virus Vaccine (Pharmacy To Dose - Influenza Vaccine) 1 each IM ONETIME ONE Stop: 08/07/17 20:39 Influenza Virus Vaccine (Fluzone High-Dose ) 180 mcg IM .ONCE ONE Stop: 08/07/17 21:46 Lidocaine HCl (Xylocaine 2% Jelly) 10 ml MUCMEM ONETIME ONE Stop: 08/07/17 16:16 Last Admin: 08/07/17 16:25 Dose: 10 ml Magnesium Oxide (Magnesium Oxide) 400 mg PO ONETIME ONE Stop: 08/09/17 10:01 Last Admin: 08/09/17 10:46 Dose: 400 mg Morphine Sulfate (Morphine) 0.2 mg IVPUSH Q2H PRN PRN Reason: Pain (severe 7-10) Stop: 08/08/17 20:47 Oseltamivir Phosphate (Tamiflu) 30 mg PO NOW STA Stop: 08/07/17 17:35 Last Admin: 08/07/17 17:50 Dose: 30 mg - Exam General: Alert, Oriented, Cooperative, No Acute Distress HEENT: Pupils Equal, Pupils Reactive, EOMI, Mucous Membr. Moist/[place] Neck: Supple, Trachea Midline, No JVD Lungs: Normal Respiratory Effort, Decreased Breath Sounds Cardiovascular: Regular Rate, Regular Rhythm GI/Abdominal Exam: Normal Bowel Sounds, Soft, Non-Tender, No Organomegaly, No Distention, No Abnormal Bruit (Male) Exam: Other (indwelling green catheter) Back Exam: Normal Inspection, Decreased Range of Motion Extremities: Normal Inspection, Normal Range of Motion, Non-Tender, No Pedal Edema, Normal Capillary Refill Peripheral Pulses: 2+: Dorsalis Pedis (L), Dorsalis Pedis (R) Skin: Warm, Dry, Intact Neurological: No New Focal Deficit Psy/Mental Status: Alert, Normal Affect, Normal Mood - Problem List Review Problem List Initiated/Reviewed/Updated: Yes - My Orders Last 24 Hours: My Active Orders 08/09/17 09:00 Folic Acid 1 mg PO DAILY 08/09/17 19:55 Consult to Speech Language Pathology [JAPANESE INTERPRETER Evaluation and Treatment] [CONS] Routine - Plan Plan:: I/P: Acute: Influenza A -Tamiflu 30mg given in ED (renal dosing) -Discussed risk vs benefits of Tamiflu with and patient - they would like to continue- day # 4 of treatment -Continue Supportive care and Droplet precautions UTI with Candidiasis, Continues to improve -Risk Factor: Neurogenic Bladder -Chronic indwelling catheter -WBC 6.21--> 4.19/CRP 16.0--> 15.9--> 10.2 -S/p Lactic acid 1.2 -Cloudy urine and green changed in ED -UA positive suggest of UTI and pos for yeast -Cultures awaiting final report -Diflucan started in ED - continue -Rocephin given in ED - discontinue antibiotic 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 -Likely 2/2 Anemia of Chronic Disease (CKD) -Slightly worse than apparent baseline when reviewing old charts -Hgb 11.1--> 9.3/Hct 33.2--> 31.1; MCV 92.6--> 93.4 remains slightly elevated (meets criteria for Megaloblastic) -Iron panel: most parameters all low suggestive for chronic in nature -B12 is normal but Folic acid is 4.2--> low (8.6-58.9) -Continue Folic acid 1 mg po daily Recent Aspiration Pneumonia -Hospitalized in [place] -Hx/o CVA -Discharged on antibiotic, which he finished a few days ago ( unsure of which antibiotic) -Probiotic -Honey thickened liquids per -No straws per - is unsure of which diet he is on, lists foods he can and cannot have - mostly soft -JAPANESE INTERPRETER to evaluate and set diet -Aspiration precautions -CXR in ED shows improving bilateral lower lobe densities when compared to CXR from 07/26/17 Severe Cognitive Impairment -S/p SLUMS Exam -JAPANESE INTERPRETER recommends / supervision for medications, finances, ADLs and pt should not drive at this time -SNF/NH has been activated Generalized Weakness -2/2 Above -Continue PT/OT -SNF/Rehab placement Resolved: S/p Elevated D-Dimmer -Likely 2/2 CKD/Inflammation -Chest pain/SOB on ED arrival -Symptoms likely due to influenza -Very poor renal function -Unable to preform CTA -V/Q scan: Low probability for PE S/p Hypomagnesemia -Magnesium 1.6 in ED--> now 1.9 -Supplemented -Pharmacy to monitor and supplement as needed Renal insufficiency/CKD Stage 3 -Chronic no changes form his baseline GFR -BUN 23; Creatinine 2.5; eGFR 25 -Baseline creatinine appears to be around 2.0 and eGFR around 30 -Fluids as ordered -Caution due to hx/o heart failure Chronic: A-fib - home meds GERD BPH - home meds CVA Anxiety - home meds Depression - home meds Type II DM - Home insulin and sliding scale. Glucose checks QIDAC and bed. Plan: He continues to improve clinically Continue current treatment Continue PT/OT Routine AM labs Blood cultures negative Consider JAPANESE INTERPRETER for cognitive eval Aspiration/Fall Precautions Continue NDD3 CM/SW for discharge planning Other orders as indicated above SW spoke to about d/c care plan; agreed for SNF/NH placement--> likely next week since its Sunday Code status: Full code; PCP: Dr. Grant at [facility] here in [place]. LOS anticipate > 96 hrs due to pending SNF/NH placement
[2017-08-10] MEDS: amLODIPine 5 MG Tab PO SCH (10:08)
[2017-08-10] MEDS: Metoprolol Tartrate 50 MG Tab PO SCH ×2 (12:44→20:55)
[2017-08-10] MEDS: Fluconazole 100 MG Tab PO SCH (16:26)
[2017-08-10] MEDS: Oseltamivir 30 MG Cap PO SCH (16:35)
[2017-08-10] MEDS: Rosuvastatin 10 MG Tab PO SCH (20:53)
[2017-08-10] MEDS: Donepezil 10 MG Tab PO SCH (20:56)
[2017-08-11] MEDS: Pantoprazole 40 MG Tab.CR PO SCH (06:56)
[2017-08-11] MEDS: Insulin Aspart 100 Units/ML 3 ML Pen SUBCUT SCH ×4 (06:57→21:29)
--- NOTE | 2017-08-11 08:16 | PCM.PN ---
- General Info Date of Service: 08/11/17 Admission Dx/Problem (Free Text): Admission Diagnosis/Problem Admission Diagnosis/Problem Influenza Subjective Update: Follow Up Functional Status: Reports: Pain Controlled, Tolerating Diet, Ambulating, Urinating. Denies: New Symptoms - Review of Systems General: Denies: Fever, Weakness, Fatigue, Malaise, Chills HEENT: Reports: No Symptoms Pulmonary: Denies: Shortness of Breath Cardiovascular: Denies: Chest Pain Gastrointestinal: Denies: Abdominal Pain, Nausea, Vomiting Genitourinary: Reports: No Symptoms Musculoskeletal: Reports: No Symptoms Skin: Denies: Cyanosis, Mottled, Pallor, Diaphoresis Neurological: Reports: Gait Disturbance. Denies: Confusion, Difficulty Walking , Weakness Psychiatric: Denies: Depression, Anxiety, Agitation, Hallucinations Systems Review Comment:: No overnight or acute issues. He is doing pretty good. He has no complaints. - Patient Data Vitals - Most Recent: Last Vital Signs Temp 36.1 C 08/11/17 07:39 Pulse 57 L 08/11/17 07:39 Resp 20 08/11/17 07:39 BP 123/64 08/11/17 07:39 Pulse Ox 94 L 08/11/17 07:39 Weight - Most Recent: 83.552 kg I&O - Last 24 Hours: Intake & Output 08/10/17 08/11/17 08/11/17 22:59 06:59 14:59 Intake Total 1250 Output Total 1550 1000 Balance -300 -1000 Lab Results Last 24 Hours: Laboratory Results - last 24 hr 08/10/17 08/10/17 08/10/17 Range/Units 12:27 16:25 20:51 WBC (4.23-9.07) K/mm3 RBC (4.63-6.08) M/mm3 Hgb (13.7-17.5) gm/L Hct (40.1-51.0) % MCV (79.0-92.2) fl MCH (25.7-32.2) pg MCHC (32.2-35.5) g/dl RDW Std Deviation (35.1-43.9) fL Plt Count (163-337) K/mm3 MPV (9.4-12.3) fl Neut % (Auto) (34.0-67.9) % Lymph % (Auto) (21.8-53.1) % [place] % (Auto) (5.3-12.2) % Eos % (Auto) (0.8-7.0) Baso % (Auto) (0.1-1.2) % Neut # (Auto) (1.78-5.38) K/mm3 Lymph # (Auto) (1.32-3.57) K/mm3 [place] # (Auto) (0.30-0.82) K/mm3 Eos # (Auto) (0.04-0.54) K/mm3 Baso # (Auto) (0.01-0.08) K/mm3 Sodium (136-145) mEq/L Potassium (3.5-5.1) mEq/L Chloride (98-107) mEq/L Carbon Dioxide (21-32) mEq/L Anion Gap (5-15) BUN (7-18) mg/dL Creatinine (0.7-1.3) mg/dL Est Cr Clr Drug Dosing mL/min Estimated GFR (MDRD) (>60) mL/min BUN/Creatinine Ratio (14-18) Glucose (83-115) mg/dL POC Glucose 328 H 187 H 172 H (83-110) mg/dL Calcium (8.5-10.1) mg/dL Magnesium (1.8-2.4) mg/dl C-Reactive Protein (<1.0) mg/dL 08/11/17 08/11/17 08/11/17 Range/Units 06:01 06:04 06:07 WBC 3.49 L (4.23-9.07) K/mm3 RBC 3.47 L (4.63-6.08) M/mm3 Hgb 10.4 L (13.7-17.5) gm/L Hct 32.4 L (40.1-51.0) % MCV 93.4 H (79.0-92.2) fl MCH 30.0 (25.7-32.2) pg MCHC 32.1 L (32.2-35.5) g/dl RDW Std Deviation 46.1 H (35.1-43.9) fL Plt Count 177 (163-337) K/mm3 MPV 9.3 L (9.4-12.3) fl Neut % (Auto) 54.1 (34.0-67.9) % Lymph % (Auto) 31.8 (21.8-53.1) % [place] % (Auto) 8.9 (5.3-12.2) % Eos % (Auto) 4.3 (0.8-7.0) Baso % (Auto) 0.3 (0.1-1.2) % Neut # (Auto) 1.89 (1.78-5.38) K/mm3 Lymph # (Auto) 1.11 L (1.32-3.57) K/mm3 [place] # (Auto) 0.31 (0.30-0.82) K/mm3 Eos # (Auto) 0.15 (0.04-0.54) K/mm3 Baso # (Auto) 0.01 (0.01-0.08) K/mm3 Sodium 140 (136-145) mEq/L Potassium 4.6 (3.5-5.1) mEq/L Chloride 107 (98-107) mEq/L Carbon Dioxide 26 (21-32) mEq/L Anion Gap 11.6 (5-15) BUN 24 H (7-18) mg/dL Creatinine 2.1 H (0.7-1.3) mg/dL Est Cr Clr Drug Dosing 34.35 mL/min Estimated GFR (MDRD) 31 (>60) mL/min BUN/Creatinine Ratio 11.4 L (14-18) Glucose 128 H (83-115) mg/dL POC Glucose 108 (83-110) mg/dL Calcium 8.7 (8.5-10.1) mg/dL Magnesium 1.9 (1.8-2.4) mg/dl C-Reactive Protein 6.8 H* (<1.0) mg/dL Med Orders - Current: Current Medications Acetaminophen (Tylenol) 650 mg PO Q4H PRN PRN Reason: Pain (Mild 1-3)/fever Last Admin: 08/08/17 20:38 Dose: 650 mg Hydrocodone Bitart/Acetaminophen ([place] 325-5 Mg) 1 tab PO Q4H PRN PRN Reason: Pain (moderate 4-6) Albuterol/Ipratropium (Duoneb 3.0-0.5 Mg/3 Ml) 3 ml NEB Q4H PRN PRN Reason: Shortness Of Breath/wheezing Last Admin: 08/09/17 10:26 Dose: 3 ml Alprazolam (Xanax) 1 mg PO TID [facility] Last Admin: 08/10/17 20:54 Dose: 1 mg Amlodipine Besylate (Norvasc) 10 mg PO DAILY [facility] Last Admin: 08/10/17 10:08 Dose: 10 mg Aspirin (Halfprin) 81 mg PO DAILY [facility] Last Admin: 08/10/17 09:29 Dose: 81 mg Bisacodyl (Dulcolax) 5 mg PO DAILY PRN PRN Reason: Constipation Bupropion HCl (Wellbutrin Xl) 150 mg PO DAILY [facility] Last Admin: 08/10/17 09:29 Dose: 150 mg Dextrose/Water (Dextrose 50% In Water) 50 ml IVPUSH ASDIRECTED PRN PRN Reason: Hypoglycemia Digoxin (Lanoxin) 125 mcg PO DAILY [facility] Last Admin: 08/10/17 09:33 Dose: 125 mcg Docusate Sodium (Colace) 100 mg PO BID PRN PRN Reason: Constipation Last Admin: 08/09/17 17:53 Dose: 100 mg Donepezil HCl (Aricept) 5 mg PO BEDTIME [facility] Last Admin: 08/10/17 20:56 Dose: 5 mg Enoxaparin Sodium (Lovenox) 30 mg SUBCUT DAILY [facility] Last Admin: 08/10/17 09:30 Dose: 30 mg Finasteride (Proscar) 5 mg PO DAILY [facility] Last Admin: 08/10/17 09:29 Dose: 5 mg Fluconazole (Diflucan) 100 mg PO DAILY@1600 [facility] Stop: 08/20/17 16:01 Last Admin: 08/10/17 16:26 Dose: 100 mg Folic Acid (Folic Acid) 1 mg PO DAILY [facility] Last Admin: 08/10/17 09:29 Dose: 1 mg Hydralazine HCl (Apresoline) 10 mg IVPUSH Q6H PRN PRN Reason: Hypertension Insulin Aspart (Novolog) 0 unit SUBCUT QIDACANDBED [facility] PRN Reason: Protocol Last Admin: 08/11/17 06:57 Dose: Not Given Insulin Detemir (Levemir) 8 unit SUBCUT DAILY [facility] Last Admin: 08/10/17 09:30 Dose: 8 units Insulin Detemir (Levemir) 7 unit SUBCUT BEDTIME [facility] Last Admin: 08/10/17 20:58 Dose: 7 units Magnesium Sulfate (Pharmacy To Dose - Magnesium Replacement) 0 dose .XX ASDIRECTED PRN PRN Reason: RX TO WATCH MAG LEVELS Metoprolol Tartrate (Lopressor) 5 mg IVPUSH Q4H PRN PRN Reason: Tachycardia Metoprolol Tartrate (Lopressor) 50 mg PO BID [facility] Last Admin: 08/10/17 20:55 Dose: 50 mg Nitroglycerin (Nitrostat) 0.4 mg SL ASDIRECTED PRN PRN Reason: Chest Pain Ondansetron HCl (Zofran Odt) 4 mg PO Q6H PRN PRN Reason: nausea, able to take PO Ondansetron HCl (Zofran) 4 mg IV Q6H PRN PRN Reason: Nausea/Vomiting Oseltamivir Phosphate (Tamiflu) 30 mg PO DAILY@1730 [facility] Stop: 08/11/17 17:31 Last Admin: 08/10/17 16:35 Dose: 30 mg Pantoprazole Sodium (Protonix) 40 mg PO DAILY@0700 [facility] Last Admin: 08/11/17 06:56 Dose: 40 mg Polyethylene Glycol (Miralax) 17 gm PO DAILY PRN PRN Reason: Constipation Potassium Chloride (Pharmacy To Dose - Potassium Replacement) 0 dose .XX ASDIRECTED PRN PRN Reason: RX TO WATCH K LEVELS Rosuvastatin Calcium (Crestor) 20 mg PO BEDTIME [facility] Last Admin: 08/10/17 20:53 Dose: 20 mg Saccharomyces Boulardii (Florastor) 250 mg PO BID [facility] Last Admin: 08/10/17 20:54 Dose: 250 mg Senna/Docusate Sodium (Senna Plus) 1 tab PO BID PRN PRN Reason: Constipation Sodium Chloride (Saline Flush) 10 ml FLUSH ASDIRECTED PRN PRN Reason: Keep Vein Open Last Admin: 08/07/17 14:55 Dose: 10 ml Tamsulosin HCl (Flomax) 0.8 mg PO DAILY [facility] Last Admin: 08/10/17 09:29 Dose: 0.8 mg Discontinued Medications Aspirin (Aspirin) 324 mg PO ONETIME ONE Stop: 08/07/17 16:26 Last Admin: 08/07/17 17:43 Dose: 324 mg Fluconazole (Diflucan) 200 mg PO ONETIME ONE Stop: 08/07/17 16:23 Last Admin: 08/07/17 17:50 Dose: 200 mg Ceftriaxone Sodium 2 gm/ (Sodium Chloride) 100 mls @ 200 mls/hr IV ONETIME ONE Stop: 08/07/17 16:50 Sodium Chloride (Normal Saline) 1,000 mls @ 100 mls/hr IV ONETIME ONE Stop: 08/08/17 02:22 Last Admin: 08/07/17 17:41 Dose: 100 mls/hr Ceftriaxone Sodium 1 gm/ (Sodium Chloride) 100 mls @ 200 mls/hr IV ONETIME ONE Stop: 08/07/17 18:04 Last Admin: 08/07/17 17:42 Dose: 200 mls/hr Ceftriaxone Sodium 1 gm/ (Sodium Chloride) 100 mls @ 200 mls/hr IV ONETIME ONE Stop: 08/07/17 18:04 Last Admin: 08/07/17 18:23 Dose: 200 mls/hr Ceftriaxone Sodium 2 gm/ (Dextrose/Water) 100 mls @ 200 mls/hr IV Q24H [facility] Last Admin: 08/08/17 16:50 Dose: 200 mls/hr Magnesium Sulfate 2 gm/ Premix 50 mls @ 25 mls/hr IV ONETIME ONE Stop: 08/07/17 23:04 Last Admin: 08/07/17 22:34 Dose: 25 mls/hr Sodium Chloride (Normal Saline) 1,000 mls @ 75 mls/hr IV ASDIRECTED [facility] Stop: 08/08/17 11:49 Last Admin: 08/08/17 05:58 Dose: 75 mls/hr Influenza Virus Vaccine (Pharmacy To Dose - Influenza Vaccine) 1 each IM ONETIME ONE Stop: 08/07/17 20:39 Influenza Virus Vaccine (Fluzone High-Dose ) 180 mcg IM .ONCE ONE Stop: 08/07/17 21:46 Lidocaine HCl (Xylocaine 2% Jelly) 10 ml MUCMEM ONETIME ONE Stop: 08/07/17 16:16 Last Admin: 08/07/17 16:25 Dose: 10 ml Magnesium Oxide (Magnesium Oxide) 400 mg PO ONETIME ONE Stop: 08/09/17 10:01 Last Admin: 08/09/17 10:46 Dose: 400 mg Morphine Sulfate (Morphine) 0.2 mg IVPUSH Q2H PRN PRN Reason: Pain (severe 7-10) Stop: 08/08/17 20:47 Oseltamivir Phosphate (Tamiflu) 30 mg PO NOW STA Stop: 08/07/17 17:35 Last Admin: 08/07/17 17:50 Dose: 30 mg - Exam General: Alert, Cooperative, No Acute Distress HEENT: Pupils Equal, Pupils Reactive, EOMI, Mucous Membr. Moist/[place] Neck: Supple, Trachea Midline, No JVD Lungs: Clear to Auscultation, Normal Respiratory Effort, Decreased Breath Sounds Cardiovascular: Regular Rate, Regular Rhythm GI/Abdominal Exam: Normal Bowel Sounds, Soft, Non-Tender, No Organomegaly, No Distention, No Abnormal Bruit (Male) Exam: Other (Indwelling green catheter) Back Exam: Normal Inspection, Decreased Range of Motion Extremities: Normal Inspection, Normal Range of Motion, Non-Tender, No Pedal Edema, Normal Capillary Refill Peripheral Pulses: 2+: Dorsalis Pedis (L), Dorsalis Pedis (R) Skin: Warm, Dry, Intact Neurological: No New Focal Deficit Psy/Mental Status: Alert, Normal Affect, Normal Mood - Problem List Review Problem List Initiated/Reviewed/Updated: Yes - Plan Plan:: I/P: Acute: Influenza A -Tamiflu 30mg given in ED (renal dosing)-should complete his treatment today -Discussed risk vs benefits of Tamiflu with and patient - they would like to continue- day # 5 of treatment -Continue Supportive care and Droplet precautions UTI with Candidiasis, Continues to improve -Risk Factor: Neurogenic Bladder -Chronic indwelling catheter -WBC 6.21--> 4.19--> 3.49/CRP 16.0--> 15.9--> 10.2--> 6.8 -S/p Lactic acid 1.2 -Cloudy urine and green changed in ED -UA Cx shows yeast -Continue antifungal agent Megaloblastic Anemia with Folate Deficiency, 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 -Likely 2/2 Anemia of Chronic Disease (CKD) -Slightly worse than apparent baseline when reviewing old charts -Hgb 11.1--> 9.3--> 10.4/Hct 33.2--> 31.1; MCV 92.6--> 93.4 remains slightly elevated (meets criteria for Megaloblastic) -Iron panel: most parameters all low suggestive for chronic in nature -B12 is normal but Folic acid is 4.2--> low (8.6-58.9) -Continue Folic acid 1 mg po daily Recent Aspiration Pneumonia -Hospitalized in [place] -Hx/o CVA -Discharged on antibiotic, which he finished a few days ago ( unsure of which antibiotic) -Probiotic -Honey thickened liquids per -No straws per - is unsure of which diet he is on, lists foods he can and cannot have - mostly soft -CLINICAL REHABILITATION SPECIALIST to evaluate and set diet -Aspiration precautions -CXR in ED shows improving bilateral lower lobe densities when compared to CXR from 07/26/17 Severe Cognitive Impairment -S/p SLUMS Exam -CLINICAL REHABILITATION SPECIALIST recommends 29/01 supervision for medications, finances, ADLs and pt should not drive at this time -SNF/NH has been activated Generalized Weakness -2/2 Above -Continue PT/OT -SNF/Rehab placement Resolved: S/p Elevated D-Dimmer -Likely 2/2 CKD/Inflammation -Chest pain/SOB on ED arrival -Symptoms likely due to influenza -Very poor renal function -Unable to preform CTA -V/Q scan: Low probability for PE S/p Hypomagnesemia -Magnesium 1.6 in ED--> now 1.9 -Supplemented -Pharmacy to monitor and supplement as needed Renal insufficiency/CKD Stage 3 -Chronic no changes form his baseline GFR -BUN 23; Creatinine 2.5; eGFR 25 -Baseline creatinine appears to be around 2.0 and eGFR around 30 -Fluids as ordered -Caution due to hx/o heart failure Chronic: A-fib - home meds GERD BPH - home meds CVA Anxiety - home meds Depression - home meds Type II DM - Home insulin and sliding scale. Glucose checks QIDAC and bed. Plan: He is clinically stable Continue current treatment Continue PT/OT Routine AM labs Aspiration/Fall Precautions CM/SW for discharge planning Other orders as indicated above Code status: Full code; PCP: Dr. Grant at [facility] here in [place]. LOS > 96 hrs due to pending SNF/NH placement
[2017-08-11] MEDS: Aspirin 81 MG Tab.EC PO SCH (08:51)
[2017-08-11] MEDS: amLODIPine 5 MG Tab PO SCH (08:52)
[2017-08-11] MEDS: ALPRAZolam 1 MG Tab PO SCH ×3 (08:55→21:20)
[2017-08-11] MEDS: Digoxin 125 MCG Tab PO SCH (08:55)
[2017-08-11] MEDS: Finasteride 5 MG Tab PO SCH (08:55)
[2017-08-11] MEDS: Folic Acid 1 MG Tab PO SCH (08:55)
[2017-08-11] MEDS: buPROPion 150 MG Tab.ER PO SCH (08:55)
[2017-08-11] MEDS: Tamsulosin 0.4 MG Cap.ER PO SCH (08:55)
[2017-08-11] MEDS: Saccharomyces Boulardii (Probiotic) 250 MG Cap PO SCH ×2 (08:56→21:19)
[2017-08-11] MEDS: Enoxaparin 30 MG/0.3 ML Syringe SUBCUT SCH (08:56)
[2017-08-11] MEDS: Insulin Detemir 100 Units/ML 3 ML Pen SUBCUT SCH ×2 (08:57→21:28)
[2017-08-11] MEDS: Metoprolol Tartrate 50 MG Tab PO SCH ×2 (08:58→21:20)
[2017-08-11] MEDS ORDERED: Magnesium Oxide 400 MG Tab PO ONE (09:00)
[2017-08-11] MEDS: Fluconazole 100 MG Tab PO SCH (16:19)
[2017-08-11] MEDS: Oseltamivir 30 MG Cap PO SCH (17:39)
[2017-08-11] MEDS: Donepezil 10 MG Tab PO SCH (21:20)
[2017-08-11] MEDS: Rosuvastatin 10 MG Tab PO SCH (21:20)
--- NOTE | 2017-08-12 00:08 | PCM.PN ---
- General Info Date of Service: 08/12/17 Admission Dx/Problem (Free Text): Admission Diagnosis/Problem Admission Diagnosis/Problem Influenza Subjective Update: Follow Up Functional Status: Reports: Pain Controlled, Tolerating Diet, Urinating. Denies : New Symptoms - Review of Systems General: Denies: Fever, Weakness, Fatigue, Malaise, Chills HEENT: Reports: No Symptoms Pulmonary: Denies: Shortness of Breath, Cough, Wheezing Cardiovascular: Denies: Chest Pain Gastrointestinal: Reports: Flatus. Denies: Abdominal Pain, Decreased Appetite, Diarrhea, Nausea, Vomiting Genitourinary: Reports: No Symptoms Musculoskeletal: Reports: No Symptoms Skin: Denies: Cyanosis, Mottled, Pallor, Diaphoresis, Pruritis Neurological: Reports: Gait Disturbance. Denies: Difficulty Walking, Weakness Psychiatric: Denies: Confusion, Depression, Anxiety, Agitation, Hallucinations, Suicidal Ideation, Homicidal Ideation Systems Review Comment:: No significant overnight or acute issues. He is dong just fine. He has no complaints. - Patient Data Vitals - Most Recent: Last Vital Signs Temp 35.9 C 08/11/17 19:29 Pulse 66 08/11/17 21:20 Resp 20 08/11/17 19:29 BP 126/76 08/11/17 21:20 Pulse Ox 96 08/11/17 19:29 Weight - Most Recent: 83.552 kg I&O - Last 24 Hours: Intake & Output 08/11/17 08/11/17 08/12/17 14:59 22:59 06:59 Intake Total 240 720 Balance 240 720 Lab Results Last 24 Hours: Laboratory Results - last 24 hr 08/11/17 08/11/17 08/11/17 Range/Units 06:01 06:04 06:07 WBC 3.49 L (4.23-9.07) K/mm3 RBC 3.47 L (4.63-6.08) M/mm3 Hgb 10.4 L (13.7-17.5) gm/L Hct 32.4 L (40.1-51.0) % MCV 93.4 H (79.0-92.2) fl MCH 30.0 (25.7-32.2) pg MCHC 32.1 L (32.2-35.5) g/dl RDW Std Deviation 46.1 H (35.1-43.9) fL Plt Count 177 (163-337) K/mm3 MPV 9.3 L (9.4-12.3) fl Neut % (Auto) 54.1 (34.0-67.9) % Lymph % (Auto) 31.8 (21.8-53.1) % [place] % (Auto) 8.9 (5.3-12.2) % Eos % (Auto) 4.3 (0.8-7.0) Baso % (Auto) 0.3 (0.1-1.2) % Neut # (Auto) 1.89 (1.78-5.38) K/mm3 Lymph # (Auto) 1.11 L (1.32-3.57) K/mm3 [place] # (Auto) 0.31 (0.30-0.82) K/mm3 Eos # (Auto) 0.15 (0.04-0.54) K/mm3 Baso # (Auto) 0.01 (0.01-0.08) K/mm3 Sodium 140 (136-145) mEq/L Potassium 4.6 (3.5-5.1) mEq/L Chloride 107 (98-107) mEq/L Carbon Dioxide 26 (21-32) mEq/L Anion Gap 11.6 (5-15) BUN 24 H (7-18) mg/dL Creatinine 2.1 H (0.7-1.3) mg/dL Est Cr Clr Drug Dosing 34.35 mL/min Estimated GFR (MDRD) 31 (>60) mL/min BUN/Creatinine Ratio 11.4 L (14-18) Glucose 128 H (83-115) mg/dL POC Glucose 108 (83-110) mg/dL Calcium 8.7 (8.5-10.1) mg/dL Magnesium 1.9 (1.8-2.4) mg/dl C-Reactive Protein 6.8 H* (<1.0) mg/dL 08/11/17 08/11/17 08/11/17 Range/Units 10:45 16:18 20:33 WBC (4.23-9.07) K/mm3 RBC (4.63-6.08) M/mm3 Hgb (13.7-17.5) gm/L Hct (40.1-51.0) % MCV (79.0-92.2) fl MCH (25.7-32.2) pg MCHC (32.2-35.5) g/dl RDW Std Deviation (35.1-43.9) fL Plt Count (163-337) K/mm3 MPV (9.4-12.3) fl Neut % (Auto) (34.0-67.9) % Lymph % (Auto) (21.8-53.1) % [place] % (Auto) (5.3-12.2) % Eos % (Auto) (0.8-7.0) Baso % (Auto) (0.1-1.2) % Neut # (Auto) (1.78-5.38) K/mm3 Lymph # (Auto) (1.32-3.57) K/mm3 [place] # (Auto) (0.30-0.82) K/mm3 Eos # (Auto) (0.04-0.54) K/mm3 Baso # (Auto) (0.01-0.08) K/mm3 Sodium (136-145) mEq/L Potassium (3.5-5.1) mEq/L Chloride (98-107) mEq/L Carbon Dioxide (21-32) mEq/L Anion Gap (5-15) BUN (7-18) mg/dL Creatinine (0.7-1.3) mg/dL Est Cr Clr Drug Dosing mL/min Estimated GFR (MDRD) (>60) mL/min BUN/Creatinine Ratio (14-18) Glucose (83-115) mg/dL POC Glucose 239 H 160 H 226 H (83-110) mg/dL Calcium (8.5-10.1) mg/dL Magnesium (1.8-2.4) mg/dl C-Reactive Protein (<1.0) mg/dL Med Orders - Current: Current Medications Acetaminophen (Tylenol) 650 mg PO Q4H PRN PRN Reason: Pain (Mild 1-3)/fever Last Admin: 08/08/17 20:38 Dose: 650 mg Hydrocodone Bitart/Acetaminophen (Colt 325-5 Mg) 1 tab PO Q4H PRN PRN Reason: Pain (moderate 4-6) Albuterol/Ipratropium (Duoneb 3.0-0.5 Mg/3 Ml) 3 ml NEB Q4H PRN PRN Reason: Shortness Of Breath/wheezing Last Admin: 08/09/17 10:26 Dose: 3 ml Alprazolam (Xanax) 1 mg PO TID [facility] Last Admin: 08/11/17 21:20 Dose: 1 mg Amlodipine Besylate (Norvasc) 10 mg PO DAILY [facility] Last Admin: 08/11/17 08:52 Dose: 10 mg Aspirin (Halfprin) 81 mg PO DAILY [facility] Last Admin: 08/11/17 08:51 Dose: 81 mg Bisacodyl (Dulcolax) 5 mg PO DAILY PRN PRN Reason: Constipation Bupropion HCl (Wellbutrin Xl) 150 mg PO DAILY [facility] Last Admin: 08/11/17 08:55 Dose: 150 mg Dextrose/Water (Dextrose 50% In Water) 50 ml IVPUSH ASDIRECTED PRN PRN Reason: Hypoglycemia Digoxin (Lanoxin) 125 mcg PO DAILY [facility] Last Admin: 08/11/17 08:55 Dose: 125 mcg Docusate Sodium (Colace) 100 mg PO BID PRN PRN Reason: Constipation Last Admin: 08/09/17 17:53 Dose: 100 mg Donepezil HCl (Aricept) 5 mg PO BEDTIME [facility] Last Admin: 08/11/17 21:20 Dose: 5 mg Enoxaparin Sodium (Lovenox) 30 mg SUBCUT DAILY [facility] Last Admin: 08/11/17 08:56 Dose: 30 mg Finasteride (Proscar) 5 mg PO DAILY [facility] Last Admin: 08/11/17 08:55 Dose: 5 mg Fluconazole (Diflucan) 100 mg PO DAILY@1600 [facility] Stop: 08/20/17 16:01 Last Admin: 08/11/17 16:19 Dose: 100 mg Folic Acid (Folic Acid) 1 mg PO DAILY [facility] Last Admin: 08/11/17 08:55 Dose: 1 mg Hydralazine HCl (Apresoline) 10 mg IVPUSH Q6H PRN PRN Reason: Hypertension Insulin Aspart (Novolog) 0 unit SUBCUT QIDACANDBED [facility] PRN Reason: Protocol Last Admin: 08/11/17 21:29 Dose: 2 units Insulin Detemir (Levemir) 8 unit SUBCUT DAILY [facility] Last Admin: 08/11/17 08:57 Dose: 8 units Insulin Detemir (Levemir) 7 unit SUBCUT BEDTIME [facility] Last Admin: 08/11/17 21:28 Dose: 7 units Magnesium Sulfate (Pharmacy To Dose - Magnesium Replacement) 0 dose .XX ASDIRECTED PRN PRN Reason: RX TO WATCH MAG LEVELS Metoprolol Tartrate (Lopressor) 5 mg IVPUSH Q4H PRN PRN Reason: Tachycardia Metoprolol Tartrate (Lopressor) 50 mg PO BID [facility] Last Admin: 08/11/17 21:20 Dose: 50 mg Nitroglycerin (Nitrostat) 0.4 mg SL ASDIRECTED PRN PRN Reason: Chest Pain Ondansetron HCl (Zofran Odt) 4 mg PO Q6H PRN PRN Reason: nausea, able to take PO Ondansetron HCl (Zofran) 4 mg IV Q6H PRN PRN Reason: Nausea/Vomiting Pantoprazole Sodium (Protonix) 40 mg PO DAILY@0700 [facility] Last Admin: 08/11/17 06:56 Dose: 40 mg Polyethylene Glycol (Miralax) 17 gm PO DAILY PRN PRN Reason: Constipation Potassium Chloride (Pharmacy To Dose - Potassium Replacement) 0 dose .XX ASDIRECTED PRN PRN Reason: RX TO WATCH K LEVELS Rosuvastatin Calcium (Crestor) 20 mg PO BEDTIME [facility] Last Admin: 08/11/17 21:20 Dose: 20 mg Saccharomyces Boulardii (Florastor) 250 mg PO BID [facility] Last Admin: 08/11/17 21:19 Dose: 250 mg Senna/Docusate Sodium (Senna Plus) 1 tab PO BID PRN PRN Reason: Constipation Sodium Chloride (Saline Flush) 10 ml FLUSH ASDIRECTED PRN PRN Reason: Keep Vein Open Last Admin: 08/07/17 14:55 Dose: 10 ml Tamsulosin HCl (Flomax) 0.8 mg PO DAILY [facility] Last Admin: 08/11/17 08:55 Dose: 0.8 mg Discontinued Medications Aspirin (Aspirin) 324 mg PO ONETIME ONE Stop: 08/07/17 16:26 Last Admin: 08/07/17 17:43 Dose: 324 mg Fluconazole (Diflucan) 200 mg PO ONETIME ONE Stop: 08/07/17 16:23 Last Admin: 08/07/17 17:50 Dose: 200 mg Ceftriaxone Sodium 2 gm/ (Sodium Chloride) 100 mls @ 200 mls/hr IV ONETIME ONE Stop: 08/07/17 16:50 Sodium Chloride (Normal Saline) 1,000 mls @ 100 mls/hr IV ONETIME ONE Stop: 08/08/17 02:22 Last Admin: 08/07/17 17:41 Dose: 100 mls/hr Ceftriaxone Sodium 1 gm/ (Sodium Chloride) 100 mls @ 200 mls/hr IV ONETIME ONE Stop: 08/07/17 18:04 Last Admin: 08/07/17 17:42 Dose: 200 mls/hr Ceftriaxone Sodium 1 gm/ (Sodium Chloride) 100 mls @ 200 mls/hr IV ONETIME ONE Stop: 08/07/17 18:04 Last Admin: 08/07/17 18:23 Dose: 200 mls/hr Ceftriaxone Sodium 2 gm/ (Dextrose/Water) 100 mls @ 200 mls/hr IV Q24H [facility] Last Admin: 08/08/17 16:50 Dose: 200 mls/hr Magnesium Sulfate 2 gm/ Premix 50 mls @ 25 mls/hr IV ONETIME ONE Stop: 08/07/17 23:04 Last Admin: 08/07/17 22:34 Dose: 25 mls/hr Sodium Chloride (Normal Saline) 1,000 mls @ 75 mls/hr IV ASDIRECTED [facility] Stop: 08/08/17 11:49 Last Admin: 08/08/17 05:58 Dose: 75 mls/hr Influenza Virus Vaccine (Pharmacy To Dose - Influenza Vaccine) 1 each IM ONETIME ONE Stop: 08/07/17 20:39 Influenza Virus Vaccine (Fluzone High-Dose ) 180 mcg IM .ONCE ONE Stop: 08/07/17 21:46 Lidocaine HCl (Xylocaine 2% Jelly) 10 ml MUCMEM ONETIME ONE Stop: 08/07/17 16:16 Last Admin: 08/07/17 16:25 Dose: 10 ml Magnesium Oxide (Magnesium Oxide) 400 mg PO ONETIME ONE Stop: 08/09/17 10:01 Last Admin: 08/09/17 10:46 Dose: 400 mg Magnesium Oxide (Magnesium Oxide) 400 mg PO ONETIME ONE Stop: 08/11/17 09:01 Last Admin: 08/11/17 09:01 Dose: 400 mg Morphine Sulfate (Morphine) 0.2 mg IVPUSH Q2H PRN PRN Reason: Pain (severe 7-10) Stop: 08/08/17 20:47 Oseltamivir Phosphate (Tamiflu) 30 mg PO NOW STA Stop: 08/07/17 17:35 Last Admin: 08/07/17 17:50 Dose: 30 mg Oseltamivir Phosphate (Tamiflu) 30 mg PO DAILY@1730 [facility] Stop: 08/11/17 17:31 Last Admin: 08/11/17 17:39 Dose: 30 mg - Exam General: Alert, Cooperative, No Acute Distress HEENT: Pupils Equal, Pupils Reactive, EOMI, Mucous Membr. Moist/[place] Neck: Supple, Trachea Midline, No JVD, No Thyromegaly Lungs: Normal Respiratory Effort, Decreased Breath Sounds Cardiovascular: Regular Rate, Regular Rhythm GI/Abdominal Exam: Normal Bowel Sounds, Soft, Non-Tender, No Organomegaly, No Distention, No Abnormal Bruit, No Mass (Male) Exam: Deferred Back Exam: Normal Inspection, Decreased Range of Motion Extremities: Normal Inspection, Normal Range of Motion, Non-Tender, No Pedal Edema, Normal Capillary Refill Peripheral Pulses: 2+: Dorsalis Pedis (L), Dorsalis Pedis (R) Skin: Warm, Dry, Intact Neurological: No New Focal Deficit Psy/Mental Status: Alert, Normal Affect, Normal Mood - Problem List Review Problem List Initiated/Reviewed/Updated: Yes - Plan Plan:: I/P: Acute: UTI with Candidiasis, Continues to improve -Risk Factor: Neurogenic Bladder -Chronic indwelling catheter -WBC 6.21--> 4.19--> 3.49/CRP 16.0--> 15.9--> 10.2--> 6.8 -S/p Lactic acid 1.2 -Cloudy urine and green changed in ED -UA Cx shows Shae Glabata -Pharmacy to review current anti-fungal agent and may restart him on new agent; fluconazole maybe resistant to Shae Glabrata per microbiology report Megaloblastic Anemia with Folate Deficiency, 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 -Likely 2/2 Anemia of Chronic Disease (CKD) -Slightly worse than apparent baseline when reviewing old charts -Hgb 11.1--> 9.3--> 10.4/Hct 33.2--> 31.1; MCV 92.6--> 93.4 remains slightly elevated (meets criteria for Megaloblastic) -Iron panel: most parameters all low suggestive for chronic in nature -B12 is normal but Folic acid is 4.2--> low (8.6-58.9) -Continue Folic acid 1 mg po daily Recent Aspiration Pneumonia -Hospitalized in [place] -Hx/o CVA -Discharged on antibiotic, which he finished a few days ago ( unsure of which antibiotic) -Probiotic -Honey thickened liquids per -No straws per - is unsure of which diet he is on, lists foods he can and cannot have - mostly soft -ANIMAL NURSE to evaluate and set diet -Aspiration precautions -CXR in ED shows improving bilateral lower lobe densities when compared to CXR from 07/26/17 Severe Cognitive Impairment -S/p SLUMS Exam -ANIMAL NURSE recommends 29/01 supervision for medications, finances, ADLs and pt should not drive at this time -SNF/NH has been activated Generalized Weakness -2/2 Above -Continue PT/OT -SNF/Rehab placement Resolved: S/p Elevated D-Dimmer -Likely 2/2 CKD/Inflammation -Chest pain/SOB on ED arrival -Symptoms likely due to influenza -Very poor renal function -Unable to preform CTA -V/Q scan: Low probability for PE S/p Hypomagnesemia -Magnesium 1.6 in ED--> now 1.9 -Supplemented -Pharmacy to monitor and supplement as needed Renal insufficiency/CKD Stage 3 -Chronic no changes form his baseline GFR -BUN 23; Creatinine 2.5; eGFR 25 -Baseline creatinine appears to be around 2.0 and eGFR around 30 -Fluids as ordered -Caution due to hx/o heart failure S/p Influenza A -Tamiflu 30mg given in ED (renal dosing)-should complete his treatment today -Discussed risk vs benefits of Tamiflu with and patient - they would like to continue- day # 5 of treatment -Continue Supportive care and Droplet precautions Chronic: A-fib - home meds GERD BPH - home meds CVA Anxiety - home meds Depression - home meds Type II DM - Home insulin and sliding scale. Glucose checks QIDAC and bed. Plan: He is essentially the same as yesterday Continue current treatment Continue PT/OT Routine AM labs Aspiration/Fall Precautions CM/SW for discharge planning Other orders as indicated above Code status: Full code; PCP: Dr. Grant at [facility] here in [place]. LOS > 96 hrs due to pending SNF/NH placement
[2017-08-12] MEDS: Pantoprazole 40 MG Tab.CR PO SCH (06:20)
[2017-08-12] MEDS: Insulin Detemir 100 Units/ML 3 ML Pen SUBCUT SCH ×2 (08:57→21:57)
[2017-08-12] MEDS: Insulin Aspart 100 Units/ML 3 ML Pen SUBCUT SCH ×4 (09:00→21:59)
[2017-08-12] MEDS: Enoxaparin 30 MG/0.3 ML Syringe SUBCUT SCH (09:00)
[2017-08-12] MEDS: Folic Acid 1 MG Tab PO SCH (09:02)
[2017-08-12] MEDS: ALPRAZolam 1 MG Tab PO SCH ×3 (09:02→21:56)
[2017-08-12] MEDS: Tamsulosin 0.4 MG Cap.ER PO SCH (09:02)
[2017-08-12] MEDS: Finasteride 5 MG Tab PO SCH (09:02)
[2017-08-12] MEDS: Metoprolol Tartrate 50 MG Tab PO SCH ×2 (09:02→21:55)
[2017-08-12] MEDS: Digoxin 125 MCG Tab PO SCH (09:02)
[2017-08-12] MEDS: Saccharomyces Boulardii (Probiotic) 250 MG Cap PO SCH ×2 (09:02→21:57)
[2017-08-12] MEDS: Aspirin 81 MG Tab.EC PO SCH (09:02)
[2017-08-12] MEDS: buPROPion 150 MG Tab.ER PO SCH (09:02)
[2017-08-12] MEDS: amLODIPine 5 MG Tab PO SCH (09:03)
[2017-08-12] MEDS ORDERED: Insulin Detemir 100 Units/ML 3 ML Pen SUBCUT ONE (09:42)
[2017-08-12] MEDS: Rosuvastatin 10 MG Tab PO SCH (21:55)
[2017-08-12] MEDS: Donepezil 10 MG Tab PO SCH (21:56)
[2017-08-13] MEDS: Pantoprazole 40 MG Tab.CR PO SCH (06:11)
[2017-08-13] MEDS: Insulin Aspart 100 Units/ML 3 ML Pen SUBCUT SCH ×4 (06:13→21:42)
[2017-08-13] MEDS: amLODIPine 5 MG Tab PO SCH (08:54)
[2017-08-13] MEDS: Saccharomyces Boulardii (Probiotic) 250 MG Cap PO SCH ×2 (08:55→21:18)
[2017-08-13] MEDS: buPROPion 150 MG Tab.ER PO SCH (08:55)
[2017-08-13] MEDS: Digoxin 125 MCG Tab PO SCH (08:55)
[2017-08-13] MEDS: Finasteride 5 MG Tab PO SCH (08:56)
[2017-08-13] MEDS: Enoxaparin 30 MG/0.3 ML Syringe SUBCUT SCH (08:56)
[2017-08-13] MEDS: Metoprolol Tartrate 50 MG Tab PO SCH ×2 (08:56→21:17)
[2017-08-13] MEDS: Tamsulosin 0.4 MG Cap.ER PO SCH (08:56)
[2017-08-13] MEDS: Folic Acid 1 MG Tab PO SCH (08:57)
[2017-08-13] MEDS: ALPRAZolam 1 MG Tab PO SCH ×3 (08:57→21:17)
[2017-08-13] MEDS: Aspirin 81 MG Tab.EC PO SCH (08:57)
[2017-08-13] MEDS: Insulin Detemir 100 Units/ML 3 ML Pen SUBCUT SCH ×2 (08:57→21:45)
--- NOTE | 2017-08-13 09:41 | PCM.PN ---
- General Info Date of Service: 08/13/17 Admission Dx/Problem (Free Text): Admission Diagnosis/Problem Admission Diagnosis/Problem Influenza Flash is seen this morning sitting up in chair, resting comfortably. Denies c/o pain, discomfort or anything new this morning. Functional Status: Reports: Pain Controlled, Tolerating Diet, Urinating (green, clear yellow urine) - Review of Systems General: Reports: No Symptoms. Denies: Fever Pulmonary: Reports: No Symptoms. Denies: Shortness of Breath, Cough (denies further coughing) Cardiovascular: Reports: No Symptoms Gastrointestinal: Reports: No Symptoms Neurological: Reports: Confusion Psychiatric: Reports: Confusion - Patient Data Vitals - Most Recent: Last Vital Signs Temp 97.9 F 08/13/17 07:49 Pulse 70 08/13/17 08:59 Resp 19 08/13/17 07:49 BP 125/53 L 08/13/17 08:56 Pulse Ox 91 L 08/13/17 07:49 Weight - Most Recent: 183 lb 14.4 oz I&O - Last 24 Hours: Intake & Output 08/12/17 08/13/17 08/13/17 22:59 06:59 14:59 Intake Total 1840 125 Output Total 1550 2300 Balance 290 -2175 Lab Results Last 24 Hours: Laboratory Results - last 24 hr 08/12/17 08/12/17 08/12/17 Range/Units 06:08 12:30 17:21 WBC (4.23-9.07) K/mm3 RBC (4.63-6.08) M/mm3 Hgb (13.7-17.5) gm/L Hct (40.1-51.0) % MCV (79.0-92.2) fl MCH (25.7-32.2) pg MCHC (32.2-35.5) g/dl RDW Std Deviation (35.1-43.9) fL Plt Count (163-337) K/mm3 MPV (9.4-12.3) fl Neut % (Auto) (34.0-67.9) % Lymph % (Auto) (21.8-53.1) % Bacon % (Auto) (5.3-12.2) % Eos % (Auto) (0.8-7.0) Baso % (Auto) (0.1-1.2) % Neut # (Auto) (1.78-5.38) K/mm3 Lymph # (Auto) (1.32-3.57) K/mm3 Bacon # (Auto) (0.30-0.82) K/mm3 Eos # (Auto) (0.04-0.54) K/mm3 Baso # (Auto) (0.01-0.08) K/mm3 Sodium (136-145) mEq/L Potassium (3.5-5.1) mEq/L Chloride (98-107) mEq/L Carbon Dioxide (21-32) mEq/L Anion Gap (5-15) BUN (7-18) mg/dL Creatinine (0.7-1.3) mg/dL Est Cr Clr Drug Dosing mL/min Estimated GFR (MDRD) (>60) mL/min BUN/Creatinine Ratio (14-18) Glucose (83-115) mg/dL POC Glucose 168 H 151 H 125 H (83-110) mg/dL Calcium (8.5-10.1) mg/dL C-Reactive Protein (<1.0) mg/dL 08/12/17 08/13/17 08/13/17 Range/Units 20:47 05:55 06:05 WBC 4.70 (4.23-9.07) K/mm3 RBC 3.72 L (4.63-6.08) M/mm3 Hgb 11.2 L (13.7-17.5) gm/L Hct 34.1 L (40.1-51.0) % MCV 91.7 (79.0-92.2) fl MCH 30.1 (25.7-32.2) pg MCHC 32.8 (32.2-35.5) g/dl RDW Std Deviation 44.8 H (35.1-43.9) fL Plt Count 190 (163-337) K/mm3 MPV 9.0 L (9.4-12.3) fl Neut % (Auto) 63.6 (34.0-67.9) % Lymph % (Auto) 26.8 (21.8-53.1) % Bacon % (Auto) 6.0 (5.3-12.2) % Eos % (Auto) 2.6 (0.8-7.0) Baso % (Auto) 0.4 (0.1-1.2) % Neut # (Auto) 2.99 (1.78-5.38) K/mm3 Lymph # (Auto) 1.26 L (1.32-3.57) K/mm3 Bacon # (Auto) 0.28 L (0.30-0.82) K/mm3 Eos # (Auto) 0.12 (0.04-0.54) K/mm3 Baso # (Auto) 0.02 (0.01-0.08) K/mm3 Sodium (136-145) mEq/L Potassium (3.5-5.1) mEq/L Chloride (98-107) mEq/L Carbon Dioxide (21-32) mEq/L Anion Gap (5-15) BUN (7-18) mg/dL Creatinine (0.7-1.3) mg/dL Est Cr Clr Drug Dosing mL/min Estimated GFR (MDRD) (>60) mL/min BUN/Creatinine Ratio (14-18) Glucose (83-115) mg/dL POC Glucose 156 H 89 (83-110) mg/dL Calcium (8.5-10.1) mg/dL C-Reactive Protein (<1.0) mg/dL 08/13/17 Range/Units 06:05 WBC (4.23-9.07) K/mm3 RBC (4.63-6.08) M/mm3 Hgb (13.7-17.5) gm/L Hct (40.1-51.0) % MCV (79.0-92.2) fl MCH (25.7-32.2) pg MCHC (32.2-35.5) g/dl RDW Std Deviation (35.1-43.9) fL Plt Count (163-337) K/mm3 MPV (9.4-12.3) fl Neut % (Auto) (34.0-67.9) % Lymph % (Auto) (21.8-53.1) % Bacon % (Auto) (5.3-12.2) % Eos % (Auto) (0.8-7.0) Baso % (Auto) (0.1-1.2) % Neut # (Auto) (1.78-5.38) K/mm3 Lymph # (Auto) (1.32-3.57) K/mm3 Bacon # (Auto) (0.30-0.82) K/mm3 Eos # (Auto) (0.04-0.54) K/mm3 Baso # (Auto) (0.01-0.08) K/mm3 Sodium 141 (136-145) mEq/L Potassium 4.6 (3.5-5.1) mEq/L Chloride 106 (98-107) mEq/L Carbon Dioxide 29 (21-32) mEq/L Anion Gap 10.6 (5-15) BUN 22 H (7-18) mg/dL Creatinine 2.1 H (0.7-1.3) mg/dL Est Cr Clr Drug Dosing 34.35 mL/min Estimated GFR (MDRD) 31 (>60) mL/min BUN/Creatinine Ratio 10.5 L (14-18) Glucose 90 (83-115) mg/dL POC Glucose (83-110) mg/dL Calcium 8.6 (8.5-10.1) mg/dL C-Reactive Protein 7.7 H* (<1.0) mg/dL Med Orders - Current: Current Medications Acetaminophen (Tylenol) 650 mg PO Q4H PRN PRN Reason: Pain (Mild 1-3)/fever Last Admin: 08/08/17 20:38 Dose: 650 mg Hydrocodone Bitart/Acetaminophen ([place] 325-5 Mg) 1 tab PO Q4H PRN PRN Reason: Pain (moderate 4-6) Albuterol/Ipratropium (Duoneb 3.0-0.5 Mg/3 Ml) 3 ml NEB Q4H PRN PRN Reason: Shortness Of Breath/wheezing Last Admin: 08/09/17 10:26 Dose: 3 ml Alprazolam (Xanax) 1 mg PO TID [facility] Last Admin: 08/13/17 08:57 Dose: 1 mg Amlodipine Besylate (Norvasc) 10 mg PO DAILY [facility] Last Admin: 08/13/17 08:54 Dose: 10 mg Aspirin (Halfprin) 81 mg PO DAILY [facility] Last Admin: 08/13/17 08:57 Dose: 81 mg Bisacodyl (Dulcolax) 5 mg PO DAILY PRN PRN Reason: Constipation Bupropion HCl (Wellbutrin Xl) 150 mg PO DAILY [facility] Last Admin: 08/13/17 08:55 Dose: 150 mg Dextrose/Water (Dextrose 50% In Water) 50 ml IVPUSH ASDIRECTED PRN PRN Reason: Hypoglycemia Digoxin (Lanoxin) 125 mcg PO DAILY [facility] Last Admin: 08/13/17 08:55 Dose: 125 mcg Docusate Sodium (Colace) 100 mg PO BID PRN PRN Reason: Constipation Last Admin: 08/09/17 17:53 Dose: 100 mg Donepezil HCl (Aricept) 5 mg PO BEDTIME [facility] Last Admin: 08/12/17 21:56 Dose: 5 mg Enoxaparin Sodium (Lovenox) 30 mg SUBCUT DAILY [facility] Last Admin: 08/13/17 08:56 Dose: 30 mg Finasteride (Proscar) 5 mg PO DAILY [facility] Last Admin: 08/13/17 08:56 Dose: 5 mg Folic Acid (Folic Acid) 1 mg PO DAILY [facility] Last Admin: 08/13/17 08:57 Dose: 1 mg Hydralazine HCl (Apresoline) 10 mg IVPUSH Q6H PRN PRN Reason: Hypertension Micafungin Sodium 100 mg/ (Sodium Chloride) 100 mls @ 100 mls/hr IV DAILY [facility] Insulin Aspart (Novolog) 0 unit SUBCUT QIDACANDBED [facility] PRN Reason: Protocol Last Admin: 08/13/17 06:13 Dose: Not Given Insulin Detemir (Levemir) 7 unit SUBCUT BEDTIME [facility] Last Admin: 08/12/17 21:57 Dose: 7 units Insulin Detemir (Levemir) 10 unit SUBCUT DAILY [facility] Last Admin: 08/13/17 08:57 Dose: 10 units Magnesium Sulfate (Pharmacy To Dose - Magnesium Replacement) 0 dose .XX ASDIRECTED PRN PRN Reason: RX TO WATCH MAG LEVELS Metoprolol Tartrate (Lopressor) 5 mg IVPUSH Q4H PRN PRN Reason: Tachycardia Metoprolol Tartrate (Lopressor) 50 mg PO BID [facility] Last Admin: 08/13/17 08:56 Dose: 50 mg Nitroglycerin (Nitrostat) 0.4 mg SL ASDIRECTED PRN PRN Reason: Chest Pain Ondansetron HCl (Zofran Odt) 4 mg PO Q6H PRN PRN Reason: nausea, able to take PO Ondansetron HCl (Zofran) 4 mg IV Q6H PRN PRN Reason: Nausea/Vomiting Pantoprazole Sodium (Protonix) 40 mg PO DAILY@0700 [facility] Last Admin: 08/13/17 06:11 Dose: 40 mg Polyethylene Glycol (Miralax) 17 gm PO DAILY PRN PRN Reason: Constipation Potassium Chloride (Pharmacy To Dose - Potassium Replacement) 0 dose .XX ASDIRECTED PRN PRN Reason: RX TO WATCH K LEVELS Rosuvastatin Calcium (Crestor) 20 mg PO BEDTIME [facility] Last Admin: 08/12/17 21:55 Dose: 20 mg Saccharomyces Boulardii (Florastor) 250 mg PO BID [facility] Last Admin: 08/13/17 08:55 Dose: 250 mg Senna/Docusate Sodium (Senna Plus) 1 tab PO BID PRN PRN Reason: Constipation Sodium Chloride (Saline Flush) 10 ml FLUSH ASDIRECTED PRN PRN Reason: Keep Vein Open Last Admin: 08/07/17 14:55 Dose: 10 ml Tamsulosin HCl (Flomax) 0.8 mg PO DAILY [facility] Last Admin: 08/13/17 08:56 Dose: 0.8 mg Discontinued Medications Aspirin (Aspirin) 324 mg PO ONETIME ONE Stop: 08/07/17 16:26 Last Admin: 08/07/17 17:43 Dose: 324 mg Fluconazole (Diflucan) 200 mg PO ONETIME ONE Stop: 08/07/17 16:23 Last Admin: 08/07/17 17:50 Dose: 200 mg Fluconazole (Diflucan) 100 mg PO DAILY@1600 [facility] Stop: 08/20/17 16:01 Last Admin: 08/11/17 16:19 Dose: 100 mg Ceftriaxone Sodium 2 gm/ (Sodium Chloride) 100 mls @ 200 mls/hr IV ONETIME ONE Stop: 08/07/17 16:50 Sodium Chloride (Normal Saline) 1,000 mls @ 100 mls/hr IV ONETIME ONE Stop: 08/08/17 02:22 Last Admin: 08/07/17 17:41 Dose: 100 mls/hr Ceftriaxone Sodium 1 gm/ (Sodium Chloride) 100 mls @ 200 mls/hr IV ONETIME ONE Stop: 08/07/17 18:04 Last Admin: 08/07/17 17:42 Dose: 200 mls/hr Ceftriaxone Sodium 1 gm/ (Sodium Chloride) 100 mls @ 200 mls/hr IV ONETIME ONE Stop: 08/07/17 18:04 Last Admin: 08/07/17 18:23 Dose: 200 mls/hr Ceftriaxone Sodium 2 gm/ (Dextrose/Water) 100 mls @ 200 mls/hr IV Q24H [facility] Last Admin: 08/08/17 16:50 Dose: 200 mls/hr Magnesium Sulfate 2 gm/ Premix 50 mls @ 25 mls/hr IV ONETIME ONE Stop: 08/07/17 23:04 Last Admin: 08/07/17 22:34 Dose: 25 mls/hr Sodium Chloride (Normal Saline) 1,000 mls @ 75 mls/hr IV ASDIRECTED [facility] Stop: 08/08/17 11:49 Last Admin: 08/08/17 05:58 Dose: 75 mls/hr Influenza Virus Vaccine (Pharmacy To Dose - Influenza Vaccine) 1 each IM ONETIME ONE Stop: 08/07/17 20:39 Influenza Virus Vaccine (Fluzone High-Dose ) 180 mcg IM .ONCE ONE Stop: 08/07/17 21:46 Insulin Detemir (Levemir) 8 unit SUBCUT DAILY [facility] Last Admin: 08/12/17 08:57 Dose: 8 units Insulin Detemir (Levemir) 2 unit SUBCUT ONETIME ONE Stop: 08/12/17 09:43 Last Admin: 08/12/17 11:26 Dose: 2 units Lidocaine HCl (Xylocaine 2% Jelly) 10 ml MUCMEM ONETIME ONE Stop: 08/07/17 16:16 Last Admin: 08/07/17 16:25 Dose: 10 ml Magnesium Oxide (Magnesium Oxide) 400 mg PO ONETIME ONE Stop: 08/09/17 10:01 Last Admin: 08/09/17 10:46 Dose: 400 mg Magnesium Oxide (Magnesium Oxide) 400 mg PO ONETIME ONE Stop: 08/11/17 09:01 Last Admin: 08/11/17 09:01 Dose: 400 mg Morphine Sulfate (Morphine) 0.2 mg IVPUSH Q2H PRN PRN Reason: Pain (severe 7-10) Stop: 08/08/17 20:47 Oseltamivir Phosphate (Tamiflu) 30 mg PO NOW STA Stop: 08/07/17 17:35 Last Admin: 08/07/17 17:50 Dose: 30 mg Oseltamivir Phosphate (Tamiflu) 30 mg PO DAILY@1730 [facility] Stop: 08/11/17 17:31 Last Admin: 08/11/17 17:39 Dose: 30 mg - Exam Quality Assessment: DVT Prophylaxis General: Alert, Cooperative, No Acute Distress HEENT: Pupils Equal, EOMI, Mucous Membr. Moist/Arp Neck: Supple Lungs: Clear to Auscultation, Normal Respiratory Effort, Decreased Breath Sounds (bases) Cardiovascular: Regular Rate, Regular Rhythm GI/Abdominal Exam: Normal Bowel Sounds, Soft, Non-Tender (Male) Exam: Deferred Extremities: No Pedal Edema, Normal Capillary Refill, Other (teds bilat) Peripheral Pulses: 2+: Dorsalis Pedis (L), Dorsalis Pedis (R) Neurological: No New Focal Deficit, Other (answers yes/no questions appropriately but does not engage in further conversation) Psy/Mental Status: Alert, Normal Affect, Normal Mood - Problem List & Annotations (1) Shae UTI SNOMED Code(s): 747517117 Code(s): B37.49 - OTHER UROGENITAL CANDIDIASIS Status: Acute Priority: High Current Visit: Yes (2) Elevated d-dimer SNOMED Code(s): 751085917 Code(s): R79.89 - OTHER SPECIFIED ABNORMAL FINDINGS OF BLOOD CHEMISTRY Status: Acute Priority: High Current Visit: Yes (3) Hypomagnesemia SNOMED Code(s): 440965610 Code(s): E83.42 - HYPOMAGNESEMIA Status: Resolved Priority: High Current Visit: Yes (4) Influenza A SNOMED Code(s): 503645978 Code(s): J10.1 - FLU DUE TO OTH IDENT INFLUENZA VIRUS W OTH RESP MANIFEST Status: Resolved Priority: High Current Visit: Yes (5) UTI (urinary tract infection) SNOMED Code(s): 78198327 Code(s): N39.0 - URINARY TRACT INFECTION, SITE NOT SPECIFIED Status: Resolved Priority: High Current Visit: Yes Qualifiers: Urinary tract infection type: acute cystitis Hematuria presence: with hematuria Qualified Code(s): N30.01 - Acute cystitis with hematuria (6) Anemia SNOMED Code(s): 465307523 Code(s): D64.9 - ANEMIA, UNSPECIFIED Status: Chronic Priority: Medium Current Visit: Yes Qualifiers: Anemia type: unspecified type Qualified Code(s): D64.9 - Anemia, unspecified (7) Renal insufficiency SNOMED Code(s): 328107767 Code(s): N28.9 - DISORDER OF KIDNEY AND URETER, UNSPECIFIED Status: Chronic Priority: High Current Visit: Yes (8) Type II diabetes mellitus SNOMED Code(s): 29871437 Code(s): E11.9 - TYPE 2 DIABETES MELLITUS WITHOUT COMPLICATIONS Status: Chronic Priority: Medium Current Visit: Yes Qualifiers: Diabetes mellitus complication status: with unspecified complications Diabetes mellitus long-term insulin use: with long-term use Qualified Code(s) : E11.8 - Type 2 diabetes mellitus with unspecified complications; Z79.4 - retirement (current) use of insulin; Z79.4 - terminologist (current) use of insulin; Z79.4 - terminologist (current) use of insulin; Z79.4 - retirement (current) use of insulin - Problem List Review Problem List Initiated/Reviewed/Updated: Yes - My Orders Last 24 Hours: My Active Orders 08/13/17 09:00 Micafungin [Mycamine] 100 mg Sodium Chloride 0.9% [Normal Saline] 100 ml IV DAILY - Plan Plan:: I/P: Acute: UTI with Candidiasis, Continues to improve -Risk Factor: Neurogenic Bladder -Chronic indwelling catheter -WBC 6.21--> 4.19--> 3.49/CRP 16.0--> 15.9--> 10.2--> 6.8 -S/p Lactic acid 1.2 -Cloudy urine and green changed in ED -UA Cx shows Shae Glabata -Pharmacy to review current anti-fungal agent and may restart him on new agent; fluconazole maybe resistant to Shae Glabrata per microbiology report; will try micamine 100mg IV x 3 days per Pharmacy recommendations, monitor renal status with daily labs Megaloblastic Anemia with Folate Deficiency, 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 -Likely 2/2 Anemia of Chronic Disease (CKD) -Slightly worse than apparent baseline when reviewing old charts -Hgb 11.1--> 9.3--> 10.4/Hct 33.2--> 31.1; MCV 92.6--> 93.4 remains slightly elevated (meets criteria for Megaloblastic) -Iron panel: most parameters all low suggestive for chronic in nature -B12 is normal but Folic acid is 4.2--> low (8.6-58.9) -Continue Folic acid 1 mg po daily Recent Aspiration Pneumonia -Hospitalized in [place] -Hx/o CVA -Discharged on antibiotic, which he finished a few days ago ( unsure of which antibiotic) -Probiotic -Honey thickened liquids per -No straws per - is unsure of which diet he is on, lists foods he can and cannot have - mostly soft -IT HELP DESK ASSOCIATE to evaluate and set diet; Aspiration precautions -CXR in ED shows improving bilateral lower lobe densities when compared to CXR from 07/26/17 Severe Cognitive Impairment -S/p SLUMS Exam -IT HELP DESK ASSOCIATE recommends 29/01 supervision for medications, finances, ADLs and pt should not drive at this time -SNF/NH placement has been activated per SW Generalized Weakness -2/2 Above -Continue PT/OT -SNF/Rehab placement Resolved: S/p Elevated D-Dimmer -Likely 2/2 CKD/Inflammation -Chest pain/SOB on ED arrival -Symptoms likely due to influenza -Very poor renal function -Unable to preform CTA -V/Q scan: Low probability for PE S/p Hypomagnesemia -Magnesium 1.6 in ED--> now 1.9 -Supplemented -Pharmacy to monitor and supplement as needed Renal insufficiency/CKD Stage 3 -Chronic no changes form his baseline GFR -BUN 23; Creatinine 2.5; eGFR 25 -Baseline creatinine appears to be around 2.0 and eGFR around 30 -Fluids as ordered -Caution due to hx/o heart failure S/p Influenza A -Tamiflu 30mg given in ED (renal dosing)-should complete his treatment today -Discussed risk vs benefits of Tamiflu with and patient - they would like to continue- day # 5 of treatment -Continue Supportive care and Droplet precautions Chronic: A-fib - home meds GERD BPH - home meds CVA Anxiety; chronic and stable - home meds Depression; chronic and stable - home meds Type II DM - Home insulin and sliding scale. Glucose checks QIDAC and bed. Sugars stable Plan: He is essentially the same as yesterday Continue current treatment Continue PT/OT Routine AM labs Aspiration/Fall Precautions CM/SW for discharge planning Other orders as indicated above Code status: Full code PCP: Dr. Grant at here in [place]. LOS > 96 hrs due to pending SNF/NH placement
[2017-08-13] MEDS: Micafungin 100 MG in Sodium Chloride 0.9% 100 ML IV SCH (10:31)
[2017-08-13] MEDS: Rosuvastatin 10 MG Tab PO SCH (21:18)
[2017-08-13] MEDS: Donepezil 10 MG Tab PO SCH (21:18)
[2017-08-14] MEDS: Pantoprazole 40 MG Tab.CR PO SCH (06:44)
[2017-08-14] MEDS: Insulin Aspart 100 Units/ML 3 ML Pen SUBCUT SCH ×5 (06:44→22:18)
--- NOTE | 2017-08-14 08:16 | PCM.PN ---
- General Info Date of Service: 08/14/17 Admission Dx/Problem (Free Text): Admission Diagnosis/Problem Admission Diagnosis/Problem Influenza Flash is seen this morning sitting up in chair, resting comfortably. Denies c/o pain, discomfort or anything new this morning. UC with shae not susceptable to fluconazole. Recommendations for 3 days of IV antifungal- today is day #2. Functional Status: Reports: Pain Controlled, Tolerating Diet, Ambulating, Urinating. Denies: New Symptoms - Review of Systems General: Reports: Weakness, Fatigue. Denies: Fever HEENT: Reports: No Symptoms Pulmonary: Reports: No Symptoms. Denies: Shortness of Breath, Cough Cardiovascular: Reports: No Symptoms. Denies: Chest Pain Gastrointestinal: Reports: No Symptoms. Denies: Abdominal Pain Genitourinary: Reports: No Symptoms. Denies: Dysuria Neurological: Reports: Confusion Psychiatric: Reports: Confusion - Patient Data Vitals - Most Recent: Last Vital Signs Temp 97.9 F 08/14/17 04:07 Pulse 68 08/14/17 04:07 Resp 18 08/14/17 04:07 BP 134/46 L 08/14/17 04:07 Pulse Ox 92 L 08/14/17 04:07 Weight - Most Recent: 180 lb 11.2 oz I&O - Last 24 Hours: Intake & Output 08/13/17 08/14/17 08/14/17 22:59 06:59 14:59 Intake Total 3140 300 Output Total 2400 1900 Balance 740 -1600 Lab Results Last 24 Hours: Laboratory Results - last 24 hr 08/13/17 08/13/17 08/13/17 Range/Units 11:58 17:09 21:41 WBC (4.23-9.07) K/mm3 RBC (4.63-6.08) M/mm3 Hgb (13.7-17.5) gm/L Hct (40.1-51.0) % MCV (79.0-92.2) fl MCH (25.7-32.2) pg MCHC (32.2-35.5) g/dl RDW Std Deviation (35.1-43.9) fL Plt Count (163-337) K/mm3 MPV (9.4-12.3) fl Neut % (Auto) (34.0-67.9) % Lymph % (Auto) (21.8-53.1) % Titus % (Auto) (5.3-12.2) % Eos % (Auto) (0.8-7.0) Baso % (Auto) (0.1-1.2) % Neut # (Auto) (1.78-5.38) K/mm3 Lymph # (Auto) (1.32-3.57) K/mm3 Titus # (Auto) (0.30-0.82) K/mm3 Eos # (Auto) (0.04-0.54) K/mm3 Baso # (Auto) (0.01-0.08) K/mm3 Carbon Dioxide (21-32) mEq/L BUN (7-18) mg/dL Creatinine (0.7-1.3) mg/dL Est Cr Clr Drug Dosing mL/min Estimated GFR (MDRD) (>60) mL/min BUN/Creatinine Ratio (14-18) Glucose (83-115) mg/dL POC Glucose 380 H 168 H 231 H (83-110) mg/dL Calcium (8.5-10.1) mg/dL C-Reactive Protein (<1.0) mg/dL 08/14/17 08/14/17 08/14/17 Range/Units 05:29 05:29 06:27 WBC 5.51 (4.23-9.07) K/mm3 RBC 3.55 L (4.63-6.08) M/mm3 Hgb 10.5 L (13.7-17.5) gm/L Hct 32.4 L (40.1-51.0) % MCV 91.3 (79.0-92.2) fl MCH 29.6 (25.7-32.2) pg MCHC 32.4 (32.2-35.5) g/dl RDW Std Deviation 44.0 H (35.1-43.9) fL Plt Count 203 (163-337) K/mm3 MPV 9.4 (9.4-12.3) fl Neut % (Auto) 65.1 (34.0-67.9) % Lymph % (Auto) 25.8 (21.8-53.1) % Titus % (Auto) 5.8 (5.3-12.2) % Eos % (Auto) 2.0 (0.8-7.0) Baso % (Auto) 0.4 (0.1-1.2) % Neut # (Auto) 3.59 (1.78-5.38) K/mm3 Lymph # (Auto) 1.42 (1.32-3.57) K/mm3 Titus # (Auto) 0.32 (0.30-0.82) K/mm3 Eos # (Auto) 0.11 (0.04-0.54) K/mm3 Baso # (Auto) 0.02 (0.01-0.08) K/mm3 Carbon Dioxide 27 (21-32) mEq/L BUN 22 H (7-18) mg/dL Creatinine 2.0 H (0.7-1.3) mg/dL Est Cr Clr Drug Dosing 36.07 mL/min Estimated GFR (MDRD) 33 (>60) mL/min BUN/Creatinine Ratio 11.0 L (14-18) Glucose 123 H (83-115) mg/dL POC Glucose 132 H (83-110) mg/dL Calcium 8.5 (8.5-10.1) mg/dL C-Reactive Protein 7.4 H* (<1.0) mg/dL Med Orders - Current: Current Medications Acetaminophen (Tylenol) 650 mg PO Q4H PRN PRN Reason: Pain (Mild 1-3)/fever Last Admin: 08/08/17 20:38 Dose: 650 mg Hydrocodone Bitart/Acetaminophen ([place] 325-5 Mg) 1 tab PO Q4H PRN PRN Reason: Pain (moderate 4-6) Albuterol/Ipratropium (Duoneb 3.0-0.5 Mg/3 Ml) 3 ml NEB Q4H PRN PRN Reason: Shortness Of Breath/wheezing Last Admin: 08/09/17 10:26 Dose: 3 ml Alprazolam (Xanax) 1 mg PO TID [facility] Last Admin: 08/13/17 21:17 Dose: 1 mg Amlodipine Besylate (Norvasc) 10 mg PO DAILY [facility] Last Admin: 08/13/17 08:54 Dose: 10 mg Aspirin (Halfprin) 81 mg PO DAILY [facility] Last Admin: 08/13/17 08:57 Dose: 81 mg Bisacodyl (Dulcolax) 5 mg PO DAILY PRN PRN Reason: Constipation Last Admin: 08/13/17 18:24 Dose: 5 mg Bupropion HCl (Wellbutrin Xl) 150 mg PO DAILY [facility] Last Admin: 08/13/17 08:55 Dose: 150 mg Dextrose/Water (Dextrose 50% In Water) 50 ml IVPUSH ASDIRECTED PRN PRN Reason: Hypoglycemia Digoxin (Lanoxin) 125 mcg PO DAILY [facility] Last Admin: 08/13/17 08:55 Dose: 125 mcg Docusate Sodium (Colace) 100 mg PO BID PRN PRN Reason: Constipation Last Admin: 08/09/17 17:53 Dose: 100 mg Donepezil HCl (Aricept) 5 mg PO BEDTIME [facility] Last Admin: 08/13/17 21:18 Dose: 5 mg Enoxaparin Sodium (Lovenox) 30 mg SUBCUT DAILY [facility] Last Admin: 08/13/17 08:56 Dose: 30 mg Finasteride (Proscar) 5 mg PO DAILY [facility] Last Admin: 08/13/17 08:56 Dose: 5 mg Folic Acid (Folic Acid) 1 mg PO DAILY [facility] Last Admin: 08/13/17 08:57 Dose: 1 mg Hydralazine HCl (Apresoline) 10 mg IVPUSH Q6H PRN PRN Reason: Hypertension Micafungin Sodium 100 mg/ (Sodium Chloride) 100 mls @ 100 mls/hr IV DAILY [facility] Last Admin: 08/13/17 10:31 Dose: 100 mls/hr Insulin Aspart (Novolog) 0 unit SUBCUT QIDACANDBED [facility] PRN Reason: Protocol Last Admin: 08/14/17 06:44 Dose: Not Given Insulin Detemir (Levemir) 7 unit SUBCUT BEDTIME [facility] Last Admin: 08/13/17 21:45 Dose: 7 units Insulin Detemir (Levemir) 10 unit SUBCUT DAILY [facility] Last Admin: 08/13/17 08:57 Dose: 10 units Magnesium Sulfate (Pharmacy To Dose - Magnesium Replacement) 0 dose .XX ASDIRECTED PRN PRN Reason: RX TO WATCH MAG LEVELS Metoprolol Tartrate (Lopressor) 5 mg IVPUSH Q4H PRN PRN Reason: Tachycardia Metoprolol Tartrate (Lopressor) 50 mg PO BID [facility] Last Admin: 08/13/17 21:17 Dose: 50 mg Nitroglycerin (Nitrostat) 0.4 mg SL ASDIRECTED PRN PRN Reason: Chest Pain Ondansetron HCl (Zofran Odt) 4 mg PO Q6H PRN PRN Reason: nausea, able to take PO Ondansetron HCl (Zofran) 4 mg IV Q6H PRN PRN Reason: Nausea/Vomiting Pantoprazole Sodium (Protonix) 40 mg PO DAILY@0700 [facility] Last Admin: 08/14/17 06:44 Dose: 40 mg Polyethylene Glycol (Miralax) 17 gm PO DAILY PRN PRN Reason: Constipation Potassium Chloride (Pharmacy To Dose - Potassium Replacement) 0 dose .XX ASDIRECTED PRN PRN Reason: RX TO WATCH K LEVELS Rosuvastatin Calcium (Crestor) 20 mg PO BEDTIME [facility] Last Admin: 08/13/17 21:18 Dose: 20 mg Saccharomyces Boulardii (Florastor) 250 mg PO BID [facility] Last Admin: 08/13/17 21:18 Dose: 250 mg Senna/Docusate Sodium (Senna Plus) 1 tab PO BID PRN PRN Reason: Constipation Sodium Chloride (Saline Flush) 10 ml FLUSH ASDIRECTED PRN PRN Reason: Keep Vein Open Last Admin: 08/07/17 14:55 Dose: 10 ml Tamsulosin HCl (Flomax) 0.8 mg PO DAILY [facility] Last Admin: 08/13/17 08:56 Dose: 0.8 mg Discontinued Medications Aspirin (Aspirin) 324 mg PO ONETIME ONE Stop: 08/07/17 16:26 Last Admin: 08/07/17 17:43 Dose: 324 mg Fluconazole (Diflucan) 200 mg PO ONETIME ONE Stop: 08/07/17 16:23 Last Admin: 08/07/17 17:50 Dose: 200 mg Fluconazole (Diflucan) 100 mg PO DAILY@1600 [facility] Stop: 08/20/17 16:01 Last Admin: 08/11/17 16:19 Dose: 100 mg Ceftriaxone Sodium 2 gm/ (Sodium Chloride) 100 mls @ 200 mls/hr IV ONETIME ONE Stop: 08/07/17 16:50 Sodium Chloride (Normal Saline) 1,000 mls @ 100 mls/hr IV ONETIME ONE Stop: 08/08/17 02:22 Last Admin: 08/07/17 17:41 Dose: 100 mls/hr Ceftriaxone Sodium 1 gm/ (Sodium Chloride) 100 mls @ 200 mls/hr IV ONETIME ONE Stop: 08/07/17 18:04 Last Admin: 08/07/17 17:42 Dose: 200 mls/hr Ceftriaxone Sodium 1 gm/ (Sodium Chloride) 100 mls @ 200 mls/hr IV ONETIME ONE Stop: 08/07/17 18:04 Last Admin: 08/07/17 18:23 Dose: 200 mls/hr Ceftriaxone Sodium 2 gm/ (Dextrose/Water) 100 mls @ 200 mls/hr IV Q24H [facility] Last Admin: 08/08/17 16:50 Dose: 200 mls/hr Magnesium Sulfate 2 gm/ Premix 50 mls @ 25 mls/hr IV ONETIME ONE Stop: 08/07/17 23:04 Last Admin: 08/07/17 22:34 Dose: 25 mls/hr Sodium Chloride (Normal Saline) 1,000 mls @ 75 mls/hr IV ASDIRECTED [facility] Stop: 08/08/17 11:49 Last Admin: 08/08/17 05:58 Dose: 75 mls/hr Influenza Virus Vaccine (Pharmacy To Dose - Influenza Vaccine) 1 each IM ONETIME ONE Stop: 08/07/17 20:39 Influenza Virus Vaccine (Fluzone High-Dose ) 180 mcg IM .ONCE ONE Stop: 08/07/17 21:46 Insulin Detemir (Levemir) 8 unit SUBCUT DAILY [facility] Last Admin: 08/12/17 08:57 Dose: 8 units Insulin Detemir (Levemir) 2 unit SUBCUT ONETIME ONE Stop: 08/12/17 09:43 Last Admin: 08/12/17 11:26 Dose: 2 units Lidocaine HCl (Xylocaine 2% Jelly) 10 ml MUCMEM ONETIME ONE Stop: 08/07/17 16:16 Last Admin: 08/07/17 16:25 Dose: 10 ml Magnesium Oxide (Magnesium Oxide) 400 mg PO ONETIME ONE Stop: 08/09/17 10:01 Last Admin: 08/09/17 10:46 Dose: 400 mg Magnesium Oxide (Magnesium Oxide) 400 mg PO ONETIME ONE Stop: 08/11/17 09:01 Last Admin: 08/11/17 09:01 Dose: 400 mg Morphine Sulfate (Morphine) 0.2 mg IVPUSH Q2H PRN PRN Reason: Pain (severe 7-10) Stop: 08/08/17 20:47 Oseltamivir Phosphate (Tamiflu) 30 mg PO NOW STA Stop: 08/07/17 17:35 Last Admin: 08/07/17 17:50 Dose: 30 mg Oseltamivir Phosphate (Tamiflu) 30 mg PO DAILY@1730 JOHAN Stop: 08/11/17 17:31 Last Admin: 08/11/17 17:39 Dose: 30 mg - Exam Quality Assessment: DVT Prophylaxis General: Alert, Cooperative, No Acute Distress HEENT: Pupils Equal, EOMI, Mucous Membr. Moist/[place] Neck: Supple Lungs: Clear to Auscultation, Normal Respiratory Effort, Decreased Breath Sounds (bases) Cardiovascular: Regular Rate, Regular Rhythm GI/Abdominal Exam: Normal Bowel Sounds (Male) Exam: Deferred Back Exam: Normal Inspection Extremities: Normal Inspection, No Pedal Edema, Normal Capillary Refill Neurological: No New Focal Deficit, Other (pleasantly confused; answers yes/no questions appropriately but does not engage in other conversation ) Psy/Mental Status: Alert, Normal Affect, Normal Mood - Problem List & Annotations (1) Shae UTI SNOMED Code(s): 448372583 Code(s): B37.49 - OTHER UROGENITAL CANDIDIASIS Status: Acute Priority: High Current Visit: Yes (2) Elevated d-dimer SNOMED Code(s): 657922830 Code(s): R79.89 - OTHER SPECIFIED ABNORMAL FINDINGS OF BLOOD CHEMISTRY Status: Acute Priority: High Current Visit: Yes (3) Hypomagnesemia SNOMED Code(s): 904713936 Code(s): E83.42 - HYPOMAGNESEMIA Status: Resolved Priority: High Current Visit: Yes (4) Influenza A SNOMED Code(s): 600043888 Code(s): J10.1 - FLU DUE TO OTH IDENT INFLUENZA VIRUS W OTH RESP MANIFEST Status: Resolved Priority: High Current Visit: Yes (5) UTI (urinary tract infection) SNOMED Code(s): 78075705 Code(s): N39.0 - URINARY TRACT INFECTION, SITE NOT SPECIFIED Status: Resolved Priority: High Current Visit: Yes Qualifiers: Urinary tract infection type: acute cystitis Hematuria presence: with hematuria Qualified Code(s): N30.01 - Acute cystitis with hematuria (6) Anemia SNOMED Code(s): 078492561 Code(s): D64.9 - ANEMIA, UNSPECIFIED Status: Chronic Priority: Medium Current Visit: Yes Qualifiers: Anemia type: unspecified type Qualified Code(s): D64.9 - Anemia, unspecified (7) Renal insufficiency SNOMED Code(s): 087127703 Code(s): N28.9 - DISORDER OF KIDNEY AND URETER, UNSPECIFIED Status: Chronic Priority: High Current Visit: Yes (8) Type II diabetes mellitus SNOMED Code(s): 39326708 Code(s): E11.9 - TYPE 2 DIABETES MELLITUS WITHOUT COMPLICATIONS Status: Chronic Priority: Medium Current Visit: Yes Qualifiers: Diabetes mellitus complication status: with unspecified complications Diabetes mellitus senior living insulin use: with senior living use Qualified Code(s) : E11.8 - Type 2 diabetes mellitus with unspecified complications; Z79.4 - intermediate school teacher (current) use of insulin; Z79.4 - intermediate school teacher (current) use of insulin; Z79.4 - intermediate school teacher (current) use of insulin; Z79.4 - long-term (current) use of insulin - Problem List Review Problem List Initiated/Reviewed/Updated: Yes - My Orders Last 24 Hours: My Active Orders 08/13/17 09:00 Micafungin [Mycamine] 100 mg Sodium Chloride 0.9% [Normal Saline] 100 ml IV DAILY - Plan Plan:: I/P: Acute: UTI with Candidiasis, Continues to improve -Risk Factor: Neurogenic Bladder -Chronic indwelling catheter -WBC 6.21--> 4.19--> 3.49/CRP 16.0--> 15.9--> 10.2--> 6.8 -S/p Lactic acid 1.2 -Cloudy urine and green changed in ED -UA Cx shows Shae Glabata -Resistant to fluconazole. Recommend IV antifungal x 3 days, currently on day #2. Megaloblastic Anemia with Folate Deficiency, 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 -Likely 2/2 Anemia of Chronic Disease (CKD) -Slightly worse than apparent baseline when reviewing old charts -Hgb 11.1--> 9.3--> 10.4/Hct 33.2--> 31.1; MCV 92.6--> 93.4 remains slightly elevated (meets criteria for Megaloblastic) -Iron panel: most parameters all low suggestive for chronic in nature -B12 is normal but Folic acid is 4.2--> low (8.6-58.9) -Continue Folic acid 1 mg po daily Recent Aspiration Pneumonia---doing well; VSS on RA, no cough or symptoms suggestive at this time. -Hospitalized in [place] -Hx/o CVA -Discharged on antibiotic, which he finished a few days ago ( unsure of which antibiotic) -Probiotic -Honey thickened liquids per -No straws per - is unsure of which diet he is on, lists foods he can and cannot have - mostly soft -ADMISSIONS GATE ATTENDANT to evaluate and set diet; Aspiration precautions -CXR in ED shows improving bilateral lower lobe densities when compared to CXR from 07/26/17 Severe Cognitive Impairment--stable -S/p SLUMS Exam -ADMISSIONS GATE ATTENDANT recommends / supervision for medications, finances, ADLs and pt should not drive at this time -SNF/NH placement has been activated per SW Generalized Weakness -2/2 Above -Continue PT/OT -SNF/Rehab placement Resolved: S/p Elevated D-Dimmer -Likely 2/2 CKD/Inflammation -Chest pain/SOB on ED arrival -Symptoms likely due to influenza -Very poor renal function -Unable to preform CTA -V/Q scan: Low probability for PE S/p Hypomagnesemia -Magnesium 1.6 in ED--> now 1.9 -Supplemented -Pharmacy to monitor and supplement as needed Renal insufficiency/CKD Stage 3 -Chronic no changes form his baseline GFR -BUN 23; Creatinine 2.5; eGFR 25 -Baseline creatinine appears to be around 2.0 and eGFR around 30 -Fluids as ordered -Caution due to hx/o heart failure S/p Influenza A -Tamiflu 30mg given in ED (renal dosing)-should complete his treatment today -Discussed risk vs benefits of Tamiflu with and patient - they would like to continue- day # 5 of treatment -Continue Supportive care and Droplet precautions Chronic: A-fib - home meds GERD BPH - home meds CVA Anxiety; chronic and stable - home meds Depression; chronic and stable - home meds Type II DM - Home insulin and sliding scale. Glucose checks QIDAC and bed. Sugars stable Plan: He is essentially the same as yesterday Continue current treatment Continue PT/OT Routine AM labs Aspiration/Fall Precautions CM/SW for discharge planning---- SW to check into SNF doing IV antifungal medication once daily, will have 3 days left after todays treatment. Other orders as indicated above Code status: Full code PCP: Dr. Grant at [facility] here in [place]. LOS > 96 hrs due to pending SNF/NH placement, IV treatment of UTI/Shae infection.
[2017-08-14] MEDS: Micafungin 100 MG in Sodium Chloride 0.9% 100 ML IV SCH (09:03)
[2017-08-14] MEDS: Saccharomyces Boulardii (Probiotic) 250 MG Cap PO SCH ×2 (09:09→22:13)
[2017-08-14] MEDS: Enoxaparin 30 MG/0.3 ML Syringe SUBCUT SCH (09:09)
[2017-08-14] MEDS: Tamsulosin 0.4 MG Cap.ER PO SCH (09:10)
[2017-08-14] MEDS: Insulin Detemir 100 Units/ML 3 ML Pen SUBCUT SCH ×2 (09:10→22:17)
[2017-08-14] MEDS: Digoxin 125 MCG Tab PO SCH (09:11)
[2017-08-14] MEDS: Folic Acid 1 MG Tab PO SCH (09:12)
[2017-08-14] MEDS: Aspirin 81 MG Tab.EC PO SCH (09:12)
[2017-08-14] MEDS: buPROPion 150 MG Tab.ER PO SCH (09:12)
[2017-08-14] MEDS: Metoprolol Tartrate 50 MG Tab PO SCH ×2 (09:12→22:08)
[2017-08-14] MEDS: amLODIPine 5 MG Tab PO SCH (09:13)
[2017-08-14] MEDS: ALPRAZolam 1 MG Tab PO SCH ×3 (09:13→22:11)
[2017-08-14] MEDS: Finasteride 5 MG Tab PO SCH (09:13)
[2017-08-14] MEDS: Rosuvastatin 10 MG Tab PO SCH (22:08)
[2017-08-14] MEDS: Donepezil 10 MG Tab PO SCH (22:11)
[2017-08-15] MEDS: Insulin Aspart 100 Units/ML 3 ML Pen SUBCUT SCH ×4 (06:20→22:03)
--- NOTE | 2017-08-15 08:33 | PCM.PN ---
- General Info Date of Service: 08/15/17 Admission Dx/Problem (Free Text): Admission Diagnosis/Problem Admission Diagnosis/Problem Influenza Flash is seen this morning; he is ambulating with therapies. States he is tired but denies CP, SOB, dizziness. Denies c/o pain, discomfort or anything new this morning. UC with shae not susceptable to fluconazole. Recommendations for 3 days of IV antifungal- today is day #3. Disposition is pending SNF placement. Functional Status: Reports: Pain Controlled, Tolerating Diet, Ambulating, Urinating (green cath). Denies: New Symptoms - Review of Systems General: Reports: Weakness, Fatigue HEENT: Reports: No Symptoms Pulmonary: Reports: No Symptoms. Denies: Shortness of Breath, Cough Cardiovascular: Reports: No Symptoms. Denies: Chest Pain, Palpitations, Lightheadedness Gastrointestinal: Reports: No Symptoms. Denies: Abdominal Pain Neurological: Reports: Confusion Psychiatric: Reports: Confusion (pleasant) - Patient Data Vitals - Most Recent: Last Vital Signs Temp 97.5 F 08/15/17 06:04 Pulse 51 L 08/15/17 06:04 Resp 16 08/15/17 06:04 BP 108/48 L 08/15/17 06:04 Pulse Ox 93 L 08/15/17 06:04 Weight - Most Recent: 184 lb 4.8 oz I&O - Last 24 Hours: Intake & Output 08/14/17 08/15/17 08/15/17 22:59 06:59 14:59 Intake Total 940 Output Total 1400 1550 Balance -460 -1550 Lab Results Last 24 Hours: Laboratory Results - last 24 hr 08/14/17 08/14/17 08/15/17 Range/Units 11:24 22:16 05:48 WBC 4.27 (4.23-9.07) K/mm3 RBC 3.62 L (4.63-6.08) M/mm3 Hgb 10.7 L (13.7-17.5) gm/L Hct 33.2 L (40.1-51.0) % MCV 91.7 (79.0-92.2) fl MCH 29.6 (25.7-32.2) pg MCHC 32.2 (32.2-35.5) g/dl RDW Std Deviation 43.6 (35.1-43.9) fL Plt Count 191 (163-337) K/mm3 MPV 9.1 L (9.4-12.3) fl Neut % (Auto) 58.1 (34.0-67.9) % Lymph % (Auto) 31.9 (21.8-53.1) % [place] % (Auto) 4.9 L (5.3-12.2) % Eos % (Auto) 3.7 (0.8-7.0) Baso % (Auto) 0.5 (0.1-1.2) % Neut # (Auto) 2.48 (1.78-5.38) K/mm3 Lymph # (Auto) 1.36 (1.32-3.57) K/mm3 [place] # (Auto) 0.21 L (0.30-0.82) K/mm3 Eos # (Auto) 0.16 (0.04-0.54) K/mm3 Baso # (Auto) 0.02 (0.01-0.08) K/mm3 Sodium (136-145) mEq/L Potassium (3.5-5.1) mEq/L Chloride (98-107) mEq/L Carbon Dioxide (21-32) mEq/L Anion Gap (5-15) BUN (7-18) mg/dL Creatinine (0.7-1.3) mg/dL Est Cr Clr Drug Dosing mL/min Estimated GFR (MDRD) (>60) mL/min BUN/Creatinine Ratio (14-18) Glucose (83-115) mg/dL POC Glucose 297 H 250 H (83-110) mg/dL Calcium (8.5-10.1) mg/dL C-Reactive Protein (<1.0) mg/dL 08/15/17 08/15/17 Range/Units 05:48 06:11 WBC (4.23-9.07) K/mm3 RBC (4.63-6.08) M/mm3 Hgb (13.7-17.5) gm/L Hct (40.1-51.0) % MCV (79.0-92.2) fl MCH (25.7-32.2) pg MCHC (32.2-35.5) g/dl RDW Std Deviation (35.1-43.9) fL Plt Count (163-337) K/mm3 MPV (9.4-12.3) fl Neut % (Auto) (34.0-67.9) % Lymph % (Auto) (21.8-53.1) % [place] % (Auto) (5.3-12.2) % Eos % (Auto) (0.8-7.0) Baso % (Auto) (0.1-1.2) % Neut # (Auto) (1.78-5.38) K/mm3 Lymph # (Auto) (1.32-3.57) K/mm3 [place] # (Auto) (0.30-0.82) K/mm3 Eos # (Auto) (0.04-0.54) K/mm3 Baso # (Auto) (0.01-0.08) K/mm3 Sodium 142 (136-145) mEq/L Potassium 4.8 (3.5-5.1) mEq/L Chloride 105 (98-107) mEq/L Carbon Dioxide 30 (21-32) mEq/L Anion Gap 11.8 (5-15) BUN 23 H (7-18) mg/dL Creatinine 2.1 H (0.7-1.3) mg/dL Est Cr Clr Drug Dosing 34.35 mL/min Estimated GFR (MDRD) 31 (>60) mL/min BUN/Creatinine Ratio 11.0 L (14-18) Glucose 104 (83-115) mg/dL POC Glucose 113 H (83-110) mg/dL Calcium 8.8 (8.5-10.1) mg/dL C-Reactive Protein 6.0 H* (<1.0) mg/dL Med Orders - Current: Current Medications Acetaminophen (Tylenol) 650 mg PO Q4H PRN PRN Reason: Pain (Mild 1-3)/fever Last Admin: 08/08/17 20:38 Dose: 650 mg Hydrocodone Bitart/Acetaminophen ([place] 325-5 Mg) 1 tab PO Q4H PRN PRN Reason: Pain (moderate 4-6) Albuterol/Ipratropium (Duoneb 3.0-0.5 Mg/3 Ml) 3 ml NEB Q4H PRN PRN Reason: Shortness Of Breath/wheezing Last Admin: 08/09/17 10:26 Dose: 3 ml Alprazolam (Xanax) 1 mg PO TID [facility] Last Admin: 08/14/17 22:11 Dose: 1 mg Amlodipine Besylate (Norvasc) 10 mg PO DAILY [facility] Last Admin: 08/14/17 09:13 Dose: 10 mg Aspirin (Halfprin) 81 mg PO DAILY [facility] Last Admin: 08/14/17 09:12 Dose: 81 mg Bisacodyl (Dulcolax) 5 mg PO DAILY PRN PRN Reason: Constipation Last Admin: 08/13/17 18:24 Dose: 5 mg Bupropion HCl (Wellbutrin Xl) 150 mg PO DAILY [facility] Last Admin: 08/14/17 09:12 Dose: 150 mg Dextrose/Water (Dextrose 50% In Water) 50 ml IVPUSH ASDIRECTED PRN PRN Reason: Hypoglycemia Digoxin (Lanoxin) 125 mcg PO DAILY [facility] Last Admin: 08/14/17 09:11 Dose: 125 mcg Docusate Sodium (Colace) 100 mg PO BID PRN PRN Reason: Constipation Last Admin: 08/09/17 17:53 Dose: 100 mg Donepezil HCl (Aricept) 5 mg PO BEDTIME [facility] Last Admin: 08/14/17 22:11 Dose: 5 mg Enoxaparin Sodium (Lovenox) 30 mg SUBCUT DAILY [facility] Last Admin: 08/14/17 09:09 Dose: 30 mg Finasteride (Proscar) 5 mg PO DAILY [facility] Last Admin: 08/14/17 09:13 Dose: 5 mg Folic Acid (Folic Acid) 1 mg PO DAILY [facility] Last Admin: 08/14/17 09:12 Dose: 1 mg Hydralazine HCl (Apresoline) 10 mg IVPUSH Q6H PRN PRN Reason: Hypertension Micafungin Sodium 100 mg/ (Sodium Chloride) 100 mls @ 100 mls/hr IV DAILY [facility] Last Admin: 08/14/17 09:03 Dose: 100 mls/hr Insulin Aspart (Novolog) 0 unit SUBCUT QIDACANDBED [facility] PRN Reason: Protocol Last Admin: 08/15/17 06:20 Dose: Not Given Insulin Detemir (Levemir) 7 unit SUBCUT BEDTIME [facility] Last Admin: 08/14/17 22:17 Dose: 7 units Insulin Detemir (Levemir) 10 unit SUBCUT DAILY [facility] Last Admin: 08/14/17 09:10 Dose: 10 units Magnesium Sulfate (Pharmacy To Dose - Magnesium Replacement) 0 dose .XX ASDIRECTED PRN PRN Reason: RX TO WATCH MAG LEVELS Metoprolol Tartrate (Lopressor) 5 mg IVPUSH Q4H PRN PRN Reason: Tachycardia Metoprolol Tartrate (Lopressor) 25 mg PO Q12HR [facility] Nitroglycerin (Nitrostat) 0.4 mg SL ASDIRECTED PRN PRN Reason: Chest Pain Ondansetron HCl (Zofran Odt) 4 mg PO Q6H PRN PRN Reason: nausea, able to take PO Ondansetron HCl (Zofran) 4 mg IV Q6H PRN PRN Reason: Nausea/Vomiting Pantoprazole Sodium (Protonix) 40 mg PO DAILY@0700 [facility] Last Admin: 08/14/17 06:44 Dose: 40 mg Polyethylene Glycol (Miralax) 17 gm PO DAILY PRN PRN Reason: Constipation Potassium Chloride (Pharmacy To Dose - Potassium Replacement) 0 dose .XX ASDIRECTED PRN PRN Reason: RX TO WATCH K LEVELS Rosuvastatin Calcium (Crestor) 20 mg PO BEDTIME [facility] Last Admin: 08/14/17 22:08 Dose: 20 mg Saccharomyces Boulardii (Florastor) 250 mg PO BID [facility] Last Admin: 08/14/17 22:13 Dose: 250 mg Senna/Docusate Sodium (Senna Plus) 1 tab PO BID PRN PRN Reason: Constipation Sodium Chloride (Saline Flush) 10 ml FLUSH ASDIRECTED PRN PRN Reason: Keep Vein Open Last Admin: 08/07/17 14:55 Dose: 10 ml Tamsulosin HCl (Flomax) 0.8 mg PO DAILY [facility] Last Admin: 08/14/17 09:10 Dose: 0.8 mg Discontinued Medications Aspirin (Aspirin) 324 mg PO ONETIME ONE Stop: 08/07/17 16:26 Last Admin: 08/07/17 17:43 Dose: 324 mg Fluconazole (Diflucan) 200 mg PO ONETIME ONE Stop: 08/07/17 16:23 Last Admin: 08/07/17 17:50 Dose: 200 mg Fluconazole (Diflucan) 100 mg PO DAILY@1600 [facility] Stop: 08/20/17 16:01 Last Admin: 08/11/17 16:19 Dose: 100 mg Ceftriaxone Sodium 2 gm/ (Sodium Chloride) 100 mls @ 200 mls/hr IV ONETIME ONE Stop: 08/07/17 16:50 Sodium Chloride (Normal Saline) 1,000 mls @ 100 mls/hr IV ONETIME ONE Stop: 08/08/17 02:22 Last Admin: 08/07/17 17:41 Dose: 100 mls/hr Ceftriaxone Sodium 1 gm/ (Sodium Chloride) 100 mls @ 200 mls/hr IV ONETIME ONE Stop: 08/07/17 18:04 Last Admin: 08/07/17 17:42 Dose: 200 mls/hr Ceftriaxone Sodium 1 gm/ (Sodium Chloride) 100 mls @ 200 mls/hr IV ONETIME ONE Stop: 08/07/17 18:04 Last Admin: 08/07/17 18:23 Dose: 200 mls/hr Ceftriaxone Sodium 2 gm/ (Dextrose/Water) 100 mls @ 200 mls/hr IV Q24H [facility] Last Admin: 08/08/17 16:50 Dose: 200 mls/hr Magnesium Sulfate 2 gm/ Premix 50 mls @ 25 mls/hr IV ONETIME ONE Stop: 08/07/17 23:04 Last Admin: 08/07/17 22:34 Dose: 25 mls/hr Sodium Chloride (Normal Saline) 1,000 mls @ 75 mls/hr IV ASDIRECTED [facility] Stop: 08/08/17 11:49 Last Admin: 08/08/17 05:58 Dose: 75 mls/hr Influenza Virus Vaccine (Pharmacy To Dose - Influenza Vaccine) 1 each IM ONETIME ONE Stop: 08/07/17 20:39 Influenza Virus Vaccine (Fluzone High-Dose ) 180 mcg IM .ONCE ONE Stop: 08/07/17 21:46 Insulin Detemir (Levemir) 8 unit SUBCUT DAILY [facility] Last Admin: 08/12/17 08:57 Dose: 8 units Insulin Detemir (Levemir) 2 unit SUBCUT ONETIME ONE Stop: 08/12/17 09:43 Last Admin: 08/12/17 11:26 Dose: 2 units Lidocaine HCl (Xylocaine 2% Jelly) 10 ml MUCMEM ONETIME ONE Stop: 08/07/17 16:16 Last Admin: 08/07/17 16:25 Dose: 10 ml Magnesium Oxide (Magnesium Oxide) 400 mg PO ONETIME ONE Stop: 08/09/17 10:01 Last Admin: 08/09/17 10:46 Dose: 400 mg Magnesium Oxide (Magnesium Oxide) 400 mg PO ONETIME ONE Stop: 08/11/17 09:01 Last Admin: 08/11/17 09:01 Dose: 400 mg Metoprolol Tartrate (Lopressor) 50 mg PO BID [facility] Last Admin: 08/14/17 22:08 Dose: 50 mg Morphine Sulfate (Morphine) 0.2 mg IVPUSH Q2H PRN PRN Reason: Pain (severe 7-10) Stop: 08/08/17 20:47 Oseltamivir Phosphate (Tamiflu) 30 mg PO NOW STA Stop: 08/07/17 17:35 Last Admin: 08/07/17 17:50 Dose: 30 mg Oseltamivir Phosphate (Tamiflu) 30 mg PO DAILY@1730 [facility] Stop: 08/11/17 17:31 Last Admin: 08/11/17 17:39 Dose: 30 mg - Exam Quality Assessment: DVT Prophylaxis General: Alert, Cooperative, No Acute Distress HEENT: Pupils Equal, EOMI, Mucous Membr. Moist/[place] Neck: Supple Lungs: Clear to Auscultation, Normal Respiratory Effort, Decreased Breath Sounds (bases) Cardiovascular: Regular Rate, Regular Rhythm GI/Abdominal Exam: Normal Bowel Sounds, Soft, Non-Tender (Male) Exam: Deferred Back Exam: Normal Inspection Extremities: No Pedal Edema, Normal Capillary Refill Peripheral Pulses: 2+: Dorsalis Pedis (L), Dorsalis Pedis (R) Neurological: No New Focal Deficit, Other (pleasant; baseline dementia) Psy/Mental Status: Alert, Normal Affect, Normal Mood - Problem List & Annotations (1) Shae UTI SNOMED Code(s): 443867905 Code(s): B37.49 - OTHER UROGENITAL CANDIDIASIS Status: Acute Priority: High Current Visit: Yes (2) Elevated d-dimer SNOMED Code(s): 763845966 Code(s): R79.89 - OTHER SPECIFIED ABNORMAL FINDINGS OF BLOOD CHEMISTRY Status: Acute Priority: High Current Visit: Yes (3) Hypomagnesemia SNOMED Code(s): 436948036 Code(s): E83.42 - HYPOMAGNESEMIA Status: Resolved Priority: High Current Visit: Yes (4) Influenza A SNOMED Code(s): 902837033 Code(s): J10.1 - FLU DUE TO OTH IDENT INFLUENZA VIRUS W OTH RESP MANIFEST Status: Resolved Priority: High Current Visit: Yes (5) UTI (urinary tract infection) SNOMED Code(s): 13048379 Code(s): N39.0 - URINARY TRACT INFECTION, SITE NOT SPECIFIED Status: Resolved Priority: High Current Visit: Yes Qualifiers: Urinary tract infection type: acute cystitis Hematuria presence: with hematuria Qualified Code(s): N30.01 - Acute cystitis with hematuria (6) Anemia SNOMED Code(s): 133018510 Code(s): D64.9 - ANEMIA, UNSPECIFIED Status: Chronic Priority: Medium Current Visit: Yes Qualifiers: Anemia type: unspecified type Qualified Code(s): D64.9 - Anemia, unspecified (7) Renal insufficiency SNOMED Code(s): 798186758 Code(s): N28.9 - DISORDER OF KIDNEY AND URETER, UNSPECIFIED Status: Chronic Priority: High Current Visit: Yes (8) Type II diabetes mellitus SNOMED Code(s): 97770232 Code(s): E11.9 - TYPE 2 DIABETES MELLITUS WITHOUT COMPLICATIONS Status: Chronic Priority: Medium Current Visit: Yes Qualifiers: Diabetes mellitus complication status: with unspecified complications Diabetes mellitus rn long term care insulin use: with penitentiary use Qualified Code(s) : E11.8 - Type 2 diabetes mellitus with unspecified complications; Z79.4 - penitentiary (current) use of insulin; Z79.4 - penitentiary (current) use of insulin; Z79.4 - rn long term care (current) use of insulin; Z79.4 - penitentiary (current) use of insulin - Problem List Review Problem List Initiated/Reviewed/Updated: Yes - My Orders Last 24 Hours: My Active Orders 08/15/17 09:00 Metoprolol Tartrate [Lopressor] 25 mg PO Q12HR - Plan Plan:: I/P: Acute: UTI with Candidiasis, Continues to improve -Risk Factor: Neurogenic Bladder -Chronic indwelling catheter -WBC 6.21--> 4.19--> 3.49/CRP 16.0--> 15.9--> 10.2--> 6.8 -S/p Lactic acid 1.2 -Cloudy urine and green changed in ED -UA Cx shows Shae Glabata -Resistant to fluconazole. Recommend IV antifungal x 3 days, currently on day #3- last day. Megaloblastic Anemia with Folate Deficiency, 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 -Likely 2/2 Anemia of Chronic Disease (CKD) -Slightly worse than apparent baseline when reviewing old charts -Hgb 11.1--> 9.3--> 10.4/Hct 33.2--> 31.1; MCV 92.6--> 93.4 remains slightly elevated (meets criteria for Megaloblastic) -Iron panel: most parameters all low suggestive for chronic in nature -B12 is normal but Folic acid is 4.2--> low (8.6-58.9) -Continue Folic acid 1 mg po daily Recent Aspiration Pneumonia---doing well; VSS on RA, no cough or symptoms suggestive at this time. -Hospitalized in [place] -Hx/o CVA -Discharged on antibiotic, which he finished a few days ago ( unsure of which antibiotic) -Probiotic -Honey thickened liquids per -No straws per - is unsure of which diet he is on, lists foods he can and cannot have - mostly soft -[facility] COMMUNICATIONS to evaluate and set diet; Aspiration precautions -CXR in ED shows improving bilateral lower lobe densities when compared to CXR from 07/26/17 Severe Cognitive Impairment--stable -S/p SLUMS Exam -[facility] COMMUNICATION[facility] recommends 24/7 supervision for medications, finances, ADLs and pt should not drive at this time -SNF/NH placement has been activated per SW Generalized Weakness -2/2 Above -Continue PT/OT -SNF/Rehab placement Resolved: S/p Elevated D-Dimmer -Likely 2/2 CKD/Inflammation -Chest pain/SOB on ED arrival -Symptoms likely due to influenza -Very poor renal function -Unable to preform CTA -V/Q scan: Low probability for PE S/p Hypomagnesemia -Magnesium 1.6 in ED--> now 1.9 -Supplemented -Pharmacy to monitor and supplement as needed Renal insufficiency/CKD Stage 3---stable, creatinine 2.0-2.1 -Chronic no changes form his baseline GFR -BUN 23; Creatinine 2.5; eGFR 25 -Baseline creatinine appears to be around 2.0 and eGFR around 30 -Fluids as ordered -Caution due to hx/o heart failure S/p Influenza A -Tamiflu 30mg given in ED (renal dosing)-should complete his treatment today -Discussed risk vs benefits of Tamiflu with and patient - they would like to continue- day # 5 of treatment -Continue Supportive care and Droplet precautions Chronic: A-fib - home meds GERD BPH - home meds CVA Anxiety; chronic and stable - home meds Depression; chronic and stable - home meds Type II DM - Home insulin and sliding scale. Glucose checks QIDAC and bed. Sugars stable Plan: He is essentially the same as yesterday Continue current treatment Continue PT/OT Routine AM labs Aspiration/Fall Precautions CM/SW for discharge planning---Pending placement to SNF, today is last day for IV antifungal medication. Other orders as indicated above Code status: Full code PCP: Dr. Grant at [facility] here in [place]. LOS > 96 hrs due to pending SNF/NH placement, IV treatment of UTI/Shae infection.
[2017-08-15] MEDS: Finasteride 5 MG Tab PO SCH (08:56)
[2017-08-15] MEDS: Pantoprazole 40 MG Tab.CR PO SCH (08:56)
[2017-08-15] MEDS: amLODIPine 5 MG Tab PO SCH (08:56)
[2017-08-15] MEDS: Enoxaparin 30 MG/0.3 ML Syringe SUBCUT SCH (08:57)
[2017-08-15] MEDS: Tamsulosin 0.4 MG Cap.ER PO SCH (08:57)
[2017-08-15] MEDS: Insulin Detemir 100 Units/ML 3 ML Pen SUBCUT SCH ×2 (08:57→21:24)
[2017-08-15] MEDS: Micafungin 100 MG in Sodium Chloride 0.9% 100 ML IV SCH (08:57)
[2017-08-15] MEDS: ALPRAZolam 1 MG Tab PO SCH (08:57)
[2017-08-15] MEDS: Folic Acid 1 MG Tab PO SCH (08:57)
[2017-08-15] MEDS: Aspirin 81 MG Tab.EC PO SCH (08:57)
[2017-08-15] MEDS: buPROPion 150 MG Tab.ER PO SCH (08:57)
[2017-08-15] MEDS: Saccharomyces Boulardii (Probiotic) 250 MG Cap PO SCH ×2 (08:57→21:15)
[2017-08-15] MEDS: Metoprolol Tartrate 25 MG Tab PO SCH ×2 (08:58→21:18)
[2017-08-15] MEDS ORDERED: ALPRAZolam 1 MG Tab PO PRN (14:35)
[2017-08-15] MEDS: Donepezil 10 MG Tab PO SCH (21:15)
[2017-08-15] MEDS: Rosuvastatin 10 MG Tab PO SCH (21:15)
[2017-08-16] MEDS: Pantoprazole 40 MG Tab.CR PO SCH (06:04)
[2017-08-16] MEDS: Insulin Aspart 100 Units/ML 3 ML Pen SUBCUT SCH ×4 (06:05→22:00)
--- NOTE | 2017-08-16 06:33 | PCM.PN ---
- General Info Date of Service: 08/16/17 Admission Dx/Problem (Free Text): Admission Diagnosis/Problem Admission Diagnosis/Problem Influenza Flash is seen this morning, resting in bed. Denies c/o pain, discomfort or anything new this morning. HR's improved overnight to 50-60's on telemetry. Disposition is pending SNF placement. Functional Status: Reports: Pain Controlled, Tolerating Diet, Ambulating, Urinating (green cath) - Review of Systems General: Reports: Weakness, Fatigue HEENT: Reports: No Symptoms Pulmonary: Reports: No Symptoms, Cough (some coughing, specifically with eating - is working with CORONER FORENSIC TECHNICIAN). Denies: Shortness of Breath Cardiovascular: Reports: No Symptoms. Denies: Chest Pain, Palpitations, Lightheadedness Gastrointestinal: Reports: No Symptoms Neurological: Reports: Confusion Psychiatric: Reports: Confusion - Patient Data Vitals - Most Recent: Last Vital Signs Temp 99.0 F 08/16/17 04:13 Pulse 60 08/16/17 04:13 Resp 16 08/16/17 04:13 BP 129/49 L 08/16/17 04:13 Pulse Ox 94 L 08/16/17 04:13 Weight - Most Recent: 180 lb 4.8 oz I&O - Last 24 Hours: Intake & Output 08/15/17 08/15/17 08/16/17 14:59 22:59 06:59 Intake Total 330 1180 360 Output Total 425 550 Balance 330 755 -190 Lab Results Last 24 Hours: Laboratory Results - last 24 hr 08/15/17 08/15/17 08/15/17 Range/Units 05:48 05:48 11:30 WBC 4.27 (4.23-9.07) K/mm3 RBC 3.62 L (4.63-6.08) M/mm3 Hgb 10.7 L (13.7-17.5) gm/L Hct 33.2 L (40.1-51.0) % MCV 91.7 (79.0-92.2) fl MCH 29.6 (25.7-32.2) pg MCHC 32.2 (32.2-35.5) g/dl RDW Std Deviation 43.6 (35.1-43.9) fL Plt Count 191 (163-337) K/mm3 MPV 9.1 L (9.4-12.3) fl Neut % (Auto) 58.1 (34.0-67.9) % Lymph % (Auto) 31.9 (21.8-53.1) % [place] % (Auto) 4.9 L (5.3-12.2) % Eos % (Auto) 3.7 (0.8-7.0) Baso % (Auto) 0.5 (0.1-1.2) % Neut # (Auto) 2.48 (1.78-5.38) K/mm3 Lymph # (Auto) 1.36 (1.32-3.57) K/mm3 [place] # (Auto) 0.21 L (0.30-0.82) K/mm3 Eos # (Auto) 0.16 (0.04-0.54) K/mm3 Baso # (Auto) 0.02 (0.01-0.08) K/mm3 Sodium 142 (136-145) mEq/L Potassium 4.8 (3.5-5.1) mEq/L Chloride 105 (98-107) mEq/L Carbon Dioxide 30 (21-32) mEq/L Anion Gap 11.8 (5-15) BUN 23 H (7-18) mg/dL Creatinine 2.1 H (0.7-1.3) mg/dL Est Cr Clr Drug Dosing 34.35 mL/min Estimated GFR (MDRD) 31 (>60) mL/min BUN/Creatinine Ratio 11.0 L (14-18) Glucose 104 (83-115) mg/dL POC Glucose 258 H (83-110) mg/dL Calcium 8.8 (8.5-10.1) mg/dL C-Reactive Protein 6.0 H* (<1.0) mg/dL 08/15/17 08/15/17 08/16/17 Range/Units 15:03 21:22 06:03 WBC (4.23-9.07) K/mm3 RBC (4.63-6.08) M/mm3 Hgb (13.7-17.5) gm/L Hct (40.1-51.0) % MCV (79.0-92.2) fl MCH (25.7-32.2) pg MCHC (32.2-35.5) g/dl RDW Std Deviation (35.1-43.9) fL Plt Count (163-337) K/mm3 MPV (9.4-12.3) fl Neut % (Auto) (34.0-67.9) % Lymph % (Auto) (21.8-53.1) % [place] % (Auto) (5.3-12.2) % Eos % (Auto) (0.8-7.0) Baso % (Auto) (0.1-1.2) % Neut # (Auto) (1.78-5.38) K/mm3 Lymph # (Auto) (1.32-3.57) K/mm3 [place] # (Auto) (0.30-0.82) K/mm3 Eos # (Auto) (0.04-0.54) K/mm3 Baso # (Auto) (0.01-0.08) K/mm3 Sodium (136-145) mEq/L Potassium (3.5-5.1) mEq/L Chloride (98-107) mEq/L Carbon Dioxide (21-32) mEq/L Anion Gap (5-15) BUN (7-18) mg/dL Creatinine (0.7-1.3) mg/dL Est Cr Clr Drug Dosing mL/min Estimated GFR (MDRD) (>60) mL/min BUN/Creatinine Ratio (14-18) Glucose (83-115) mg/dL POC Glucose 218 H 270 H 128 H (83-110) mg/dL Calcium (8.5-10.1) mg/dL C-Reactive Protein (<1.0) mg/dL Med Orders - Current: Current Medications Acetaminophen (Tylenol) 650 mg PO Q4H PRN PRN Reason: Pain (Mild 1-3)/fever Last Admin: 08/08/17 20:38 Dose: 650 mg Hydrocodone Bitart/Acetaminophen ([place] 325-5 Mg) 1 tab PO Q4H PRN PRN Reason: Pain (moderate 4-6) Albuterol/Ipratropium (Duoneb 3.0-0.5 Mg/3 Ml) 3 ml NEB Q4H PRN PRN Reason: Shortness Of Breath/wheezing Last Admin: 08/09/17 10:26 Dose: 3 ml Alprazolam (Xanax) 1 mg PO TID PRN PRN Reason: Anxiety Amlodipine Besylate (Norvasc) 10 mg PO DAILY [facility] Last Admin: 08/15/17 08:56 Dose: 10 mg Aspirin (Halfprin) 81 mg PO DAILY [facility] Last Admin: 08/15/17 08:57 Dose: 81 mg Bisacodyl (Dulcolax) 5 mg PO DAILY PRN PRN Reason: Constipation Last Admin: 08/13/17 18:24 Dose: 5 mg Bupropion HCl (Wellbutrin Xl) 150 mg PO DAILY [facility] Last Admin: 08/15/17 08:57 Dose: 150 mg Dextrose/Water (Dextrose 50% In Water) 50 ml IVPUSH ASDIRECTED PRN PRN Reason: Hypoglycemia Digoxin (Lanoxin) 125 mcg PO DAILY [facility] Last Admin: 08/14/17 09:11 Dose: 125 mcg Docusate Sodium (Colace) 100 mg PO BID PRN PRN Reason: Constipation Last Admin: 08/09/17 17:53 Dose: 100 mg Donepezil HCl (Aricept) 5 mg PO BEDTIME [facility] Last Admin: 08/15/17 21:15 Dose: 5 mg Enoxaparin Sodium (Lovenox) 30 mg SUBCUT DAILY [facility] Last Admin: 08/15/17 08:57 Dose: 30 mg Finasteride (Proscar) 5 mg PO DAILY [facility] Last Admin: 08/15/17 08:56 Dose: 5 mg Folic Acid (Folic Acid) 1 mg PO DAILY [facility] Last Admin: 08/15/17 08:57 Dose: 1 mg Hydralazine HCl (Apresoline) 10 mg IVPUSH Q6H PRN PRN Reason: Hypertension Insulin Aspart (Novolog) 0 unit SUBCUT QIDACANDBED [facility] PRN Reason: Protocol Last Admin: 08/16/17 06:05 Dose: Not Given Insulin Detemir (Levemir) 7 unit SUBCUT BEDTIME [facility] Last Admin: 08/15/17 21:24 Dose: 7 units Insulin Detemir (Levemir) 10 unit SUBCUT DAILY [facility] Last Admin: 08/15/17 08:57 Dose: 10 units Magnesium Sulfate (Pharmacy To Dose - Magnesium Replacement) 0 dose .XX ASDIRECTED PRN PRN Reason: RX TO WATCH MAG LEVELS Metoprolol Tartrate (Lopressor) 5 mg IVPUSH Q4H PRN PRN Reason: Tachycardia Metoprolol Tartrate (Lopressor) 25 mg PO Q12HR [facility] Last Admin: 08/15/17 21:18 Dose: Not Given Nitroglycerin (Nitrostat) 0.4 mg SL ASDIRECTED PRN PRN Reason: Chest Pain Ondansetron HCl (Zofran Odt) 4 mg PO Q6H PRN PRN Reason: nausea, able to take PO Ondansetron HCl (Zofran) 4 mg IV Q6H PRN PRN Reason: Nausea/Vomiting Pantoprazole Sodium (Protonix) 40 mg PO DAILY@0700 [facility] Last Admin: 08/16/17 06:04 Dose: 40 mg Polyethylene Glycol (Miralax) 17 gm PO DAILY PRN PRN Reason: Constipation Potassium Chloride (Pharmacy To Dose - Potassium Replacement) 0 dose .XX ASDIRECTED PRN PRN Reason: RX TO WATCH K LEVELS Rosuvastatin Calcium (Crestor) 20 mg PO BEDTIME [facility] Last Admin: 08/15/17 21:15 Dose: 20 mg Saccharomyces Boulardii (Florastor) 250 mg PO BID [facility] Last Admin: 08/15/17 21:15 Dose: 250 mg Senna/Docusate Sodium (Senna Plus) 1 tab PO BID PRN PRN Reason: Constipation Last Admin: 08/15/17 21:15 Dose: 1 tab Sodium Chloride (Saline Flush) 10 ml FLUSH ASDIRECTED PRN PRN Reason: Keep Vein Open Last Admin: 08/07/17 14:55 Dose: 10 ml Tamsulosin HCl (Flomax) 0.8 mg PO DAILY [facility] Last Admin: 08/15/17 08:57 Dose: 0.8 mg Discontinued Medications Alprazolam (Xanax) 1 mg PO TID [facility] Last Admin: 08/15/17 08:57 Dose: 1 mg Aspirin (Aspirin) 324 mg PO ONETIME ONE Stop: 08/07/17 16:26 Last Admin: 08/07/17 17:43 Dose: 324 mg Fluconazole (Diflucan) 200 mg PO ONETIME ONE Stop: 08/07/17 16:23 Last Admin: 08/07/17 17:50 Dose: 200 mg Fluconazole (Diflucan) 100 mg PO DAILY@1600 [facility] Stop: 08/20/17 16:01 Last Admin: 08/11/17 16:19 Dose: 100 mg Ceftriaxone Sodium 2 gm/ (Sodium Chloride) 100 mls @ 200 mls/hr IV ONETIME ONE Stop: 08/07/17 16:50 Sodium Chloride (Normal Saline) 1,000 mls @ 100 mls/hr IV ONETIME ONE Stop: 08/08/17 02:22 Last Admin: 08/07/17 17:41 Dose: 100 mls/hr Ceftriaxone Sodium 1 gm/ (Sodium Chloride) 100 mls @ 200 mls/hr IV ONETIME ONE Stop: 08/07/17 18:04 Last Admin: 08/07/17 17:42 Dose: 200 mls/hr Ceftriaxone Sodium 1 gm/ (Sodium Chloride) 100 mls @ 200 mls/hr IV ONETIME ONE Stop: 08/07/17 18:04 Last Admin: 08/07/17 18:23 Dose: 200 mls/hr Ceftriaxone Sodium 2 gm/ (Dextrose/Water) 100 mls @ 200 mls/hr IV Q24H [facility] Last Admin: 08/08/17 16:50 Dose: 200 mls/hr Magnesium Sulfate 2 gm/ Premix 50 mls @ 25 mls/hr IV ONETIME ONE Stop: 08/07/17 23:04 Last Admin: 08/07/17 22:34 Dose: 25 mls/hr Sodium Chloride (Normal Saline) 1,000 mls @ 75 mls/hr IV ASDIRECTED [facility] Stop: 08/08/17 11:49 Last Admin: 08/08/17 05:58 Dose: 75 mls/hr Micafungin Sodium 100 mg/ (Sodium Chloride) 100 mls @ 100 mls/hr IV DAILY [facility] Last Admin: 08/15/17 08:57 Dose: 100 mls/hr Influenza Virus Vaccine (Pharmacy To Dose - Influenza Vaccine) 1 each IM ONETIME ONE Stop: 08/07/17 20:39 Influenza Virus Vaccine (Fluzone High-Dose 2016-18) 180 mcg IM .ONCE ONE Stop: 08/07/17 21:46 Insulin Detemir (Levemir) 8 unit SUBCUT DAILY [facility] Last Admin: 08/12/17 08:57 Dose: 8 units Insulin Detemir (Levemir) 2 unit SUBCUT ONETIME ONE Stop: 08/12/17 09:43 Last Admin: 08/12/17 11:26 Dose: 2 units Lidocaine HCl (Xylocaine 2% Jelly) 10 ml MUCMEM ONETIME ONE Stop: 08/07/17 16:16 Last Admin: 08/07/17 16:25 Dose: 10 ml Magnesium Oxide (Magnesium Oxide) 400 mg PO ONETIME ONE Stop: 08/09/17 10:01 Last Admin: 08/09/17 10:46 Dose: 400 mg Magnesium Oxide (Magnesium Oxide) 400 mg PO ONETIME ONE Stop: 08/11/17 09:01 Last Admin: 08/11/17 09:01 Dose: 400 mg Metoprolol Tartrate (Lopressor) 50 mg PO BID [facility] Last Admin: 08/14/17 22:08 Dose: 50 mg Morphine Sulfate (Morphine) 0.2 mg IVPUSH Q2H PRN PRN Reason: Pain (severe 7-10) Stop: 08/08/17 20:47 Oseltamivir Phosphate (Tamiflu) 30 mg PO NOW STA Stop: 08/07/17 17:35 Last Admin: 08/07/17 17:50 Dose: 30 mg Oseltamivir Phosphate (Tamiflu) 30 mg PO DAILY@1730 [facility] Stop: 08/11/17 17:31 Last Admin: 08/11/17 17:39 Dose: 30 mg - Exam Quality Assessment: DVT Prophylaxis General: Alert, Cooperative, No Acute Distress HEENT: Pupils Equal, EOMI, Mucous Membr. Moist/[place] Neck: Supple Lungs: Normal Respiratory Effort, Decreased Breath Sounds (bases), Rales (faint , expiratory to bases bilat) Cardiovascular: Regular Rate, Regular Rhythm, Bradycardia GI/Abdominal Exam: Normal Bowel Sounds, Soft, Non-Tender (Male) Exam: Deferred Extremities: No Pedal Edema, Normal Capillary Refill Neurological: No New Focal Deficit, Other (baseline dementia- answers yes/no ?' s appropriately) Psy/Mental Status: Alert, Normal Affect, Normal Mood - Problem List & Annotations (1) Shae UTI SNOMED Code(s): 080103740 Code(s): B37.49 - OTHER UROGENITAL CANDIDIASIS Status: Acute Priority: High Current Visit: Yes (2) Elevated d-dimer SNOMED Code(s): 423224009 Code(s): R79.89 - OTHER SPECIFIED ABNORMAL FINDINGS OF BLOOD CHEMISTRY Status: Acute Priority: High Current Visit: Yes (3) Hypomagnesemia SNOMED Code(s): 661349981 Code(s): E83.42 - HYPOMAGNESEMIA Status: Resolved Priority: High Current Visit: Yes (4) Influenza A SNOMED Code(s): 106464818 Code(s): J10.1 - FLU DUE TO OTH IDENT INFLUENZA VIRUS W OTH RESP MANIFEST Status: Resolved Priority: High Current Visit: Yes (5) UTI (urinary tract infection) SNOMED Code(s): 09642042 Code(s): N39.0 - URINARY TRACT INFECTION, SITE NOT SPECIFIED Status: Resolved Priority: High Current Visit: Yes Qualifiers: Urinary tract infection type: acute cystitis Hematuria presence: with hematuria Qualified Code(s): N30.01 - Acute cystitis with hematuria (6) Anemia SNOMED Code(s): 196556537 Code(s): D64.9 - ANEMIA, UNSPECIFIED Status: Chronic Priority: Medium Current Visit: Yes Qualifiers: Anemia type: unspecified type Qualified Code(s): D64.9 - Anemia, unspecified (7) Renal insufficiency SNOMED Code(s): 016396665 Code(s): N28.9 - DISORDER OF KIDNEY AND URETER, UNSPECIFIED Status: Chronic Priority: High Current Visit: Yes (8) Type II diabetes mellitus SNOMED Code(s): 21385992 Code(s): E11.9 - TYPE 2 DIABETES MELLITUS WITHOUT COMPLICATIONS Status: Chronic Priority: Medium Current Visit: Yes Qualifiers: Diabetes mellitus complication status: with unspecified complications Diabetes mellitus correction insulin use: with watermelon harvesting supervisor use Qualified Code(s) : E11.8 - Type 2 diabetes mellitus with unspecified complications; Z79.4 - intermediate (current) use of insulin; Z79.4 - intermediate (current) use of insulin; Z79.4 - intermediate (current) use of insulin; Z79.4 - watermelon harvesting supervisor (current) use of insulin - Problem List Review Problem List Initiated/Reviewed/Updated: Yes - My Orders Last 24 Hours: My Active Orders 08/15/17 09:00 Metoprolol Tartrate [Lopressor] 25 mg PO Q12HR 08/15/17 14:35 ALPRAZolam [Xanax] 1 mg PO TID PRN - Plan Plan:: I/P: Acute: UTI with Candidiasis, Continues to improve----resolved; treatment completed -Risk Factor: Neurogenic Bladder -Chronic indwelling catheter -WBC 6.21--> 4.19--> 3.49/CRP 16.0--> 15.9--> 10.2--> 6.8 -S/p Lactic acid 1.2 -Cloudy urine and green changed in ED -UA Cx shows Shae [place] -Resistant to fluconazole. 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 -Hospitalized in [place] --Hx/o CVA --Discharged on antibiotic, which he finished a few days ago ( unsure of which antibiotic) -Probiotic -Honey thickened liquids per --No straws per - is unsure of which diet he is on, lists foods he can and cannot have - mostly soft -CORONER FORENSIC TECHNICIAN to evaluate and set diet; Aspiration precautions -CXR in ED shows improving bilateral lower lobe densities when compared to CXR from 07/26/17 -Cough and Deep breath every 2 hrs Severe Cognitive Impairment--stable -S/p SLUMS Exam -CORONER FORENSIC TECHNICIAN recommends 24/7 supervision for medications, finances, ADLs and pt should not drive at this time -SNF/NH placement has been activated per SW Generalized Weakness -2/2 Above -Continue PT/OT -SNF/Rehab placement Resolved: S/p Elevated D-Dimmer -Likely 2/2 CKD/Inflammation -Chest pain/SOB on ED arrival -Symptoms likely due to influenza -Very poor renal function -Unable to preform CTA -V/Q scan: Low probability for PE S/p Hypomagnesemia -Magnesium 1.6 in ED--> now 1.9 -Supplemented -Pharmacy to monitor and supplement as needed Renal insufficiency/CKD Stage 3---stable, creatinine 2.0-2.1 -Chronic no changes form his baseline GFR -BUN 23; Creatinine 2.5; eGFR 25 -Baseline creatinine appears to be around 2.0 and eGFR around 30 -Fluids as ordered -Caution due to hx/o heart failure S/p Influenza A -Tamiflu 30mg given in ED (renal dosing)-should complete his treatment today -Discussed risk vs benefits of Tamiflu with and patient - they would like to continue- day # 5 of treatment -Continue Supportive care and Droplet precautions Chronic: A-fib - home meds GERD BPH - home meds CVA Anxiety; chronic and stable - home meds Depression; chronic and stable - home meds Type II DM - Home insulin and sliding scale. Glucose checks QIDAC and bed. Sugars stable Plan: He is essentially the same as yesterday Continue current treatment Continue PT/OT Routine AM labs Aspiration/Fall Precautions CM/SW for discharge planning---Pending placement to SNF, patient is medically stable and ready for DC. Other orders as indicated above Code status: Full code PCP: Dr. Grant at [facility] here in [place]. LOS > 96 hrs due to pending SNF/NH placement
[2017-08-16] MEDS: Tamsulosin 0.4 MG Cap.ER PO SCH (08:44)
[2017-08-16] MEDS: Aspirin 81 MG Tab.EC PO SCH (08:46)
[2017-08-16] MEDS: Digoxin 125 MCG Tab PO SCH (08:48)
[2017-08-16] MEDS: Metoprolol Tartrate 25 MG Tab PO SCH ×2 (08:51→21:55)
[2017-08-16] MEDS: amLODIPine 5 MG Tab PO SCH (08:54)
[2017-08-16] MEDS: buPROPion 150 MG Tab.ER PO SCH (08:56)
[2017-08-16] MEDS: Finasteride 5 MG Tab PO SCH (08:56)
[2017-08-16] MEDS: Enoxaparin 30 MG/0.3 ML Syringe SUBCUT SCH (09:02)
[2017-08-16] MEDS: Folic Acid 1 MG Tab PO SCH (09:14)
[2017-08-16] MEDS: Saccharomyces Boulardii (Probiotic) 250 MG Cap PO SCH ×2 (09:14→21:56)
[2017-08-16] MEDS: Insulin Detemir 100 Units/ML 3 ML Pen SUBCUT SCH ×2 (10:13→21:59)
[2017-08-16] MEDS: Donepezil 10 MG Tab PO SCH (21:54)
[2017-08-16] MEDS: Rosuvastatin 10 MG Tab PO SCH (21:54)
[2017-08-17] MEDS: Pantoprazole 40 MG Tab.CR PO SCH (06:17)
[2017-08-17] MEDS: Insulin Aspart 100 Units/ML 3 ML Pen SUBCUT SCH (07:12)
[2017-08-17] MEDS: Saccharomyces Boulardii (Probiotic) 250 MG Cap PO SCH (08:40)
[2017-08-17] MEDS: Enoxaparin 30 MG/0.3 ML Syringe SUBCUT SCH (08:40)
[2017-08-17] MEDS: Folic Acid 1 MG Tab PO SCH (08:40)
[2017-08-17] MEDS: Tamsulosin 0.4 MG Cap.ER PO SCH (08:40)
[2017-08-17] MEDS: Aspirin 81 MG Tab.EC PO SCH (08:40)
[2017-08-17] MEDS: buPROPion 150 MG Tab.ER PO SCH (08:40)
[2017-08-17] MEDS: Insulin Detemir 100 Units/ML 3 ML Pen SUBCUT SCH (08:41)
[2017-08-17] MEDS: Digoxin 125 MCG Tab PO SCH (08:45)
[2017-08-17] MEDS: amLODIPine 5 MG Tab PO SCH (08:46)
[2017-08-17] MEDS: Finasteride 5 MG Tab PO SCH (08:46)
[2017-08-17] MEDS: Metoprolol Tartrate 25 MG Tab PO SCH (08:46)
[2017-08-17 08:47] VITALS: BP 141/55
--- NOTE | 2017-08-17 08:53 | PCM.DCSUM1 ---
Discharge Summary - Hospital Course Free Text/Narrative:: Flash Kessler is a 76 yo male who presents to our ED today via EMS with chest pain, cough, and fever. Patient is a poor historian. He is alert and oriented to person and place but not time. EMS reported the patient was complaining of chest pain that started yesterday he is also had some diarrhea. He reportedly had an episode of diarrhea in route to the ER. His found to be hypoxic with oxygen sats in the low 90s. He was placed on 1 L of oxygen. He normally does not wear oxygen at home. He does have a nonproductive cough. In the ER he denies any chest pain, shortness breath, nausea, vomiting, abdominal pain. reports the patient had a fever today but did not check his temperature. She reports he was complaining of chest pain. He is somewhat confused however she reports this is his baseline. She does report that he has trouble with swallowing and aspiration. He was sent to [place] earlier this month for a stroke and aspiration pneumonia. He did have a swallow evaluation performed there although she is unsure of exactly what diet he is supposed to be on. She does have a list of foods he can and cannot have. He supposed be on honey thickened liquids. In the ED Was 37.2 Celsius. Pulse 86. Respirations 20. Blood pressure 122/ 48. Oxygen saturation were 91%. 12-lead was obtained and shows a night normal sinus rhythm at 84 bpm. A first-degree AV block noted. This is interpreted by the ED provider. Labs are obtained: W CBC is normal at 6.21. Hemoglobin low 11.1. Hematocrit low at 33.2. He is normocytic. Platelets are low at 159, 000. Neutrophils are elevated at 90%. PT is 10.8. INR 0.99. APTT 36 seconds. Sodium was good at 138. Potassium 4.8. Chloride 105. Carbon dioxide 25. Anion gap 12.4. BUN is quite high at 23. Creatinine is very high at 2.5. EGFR is 25. Glucose is 78. Lactic acid 1.2. Calcium is slightly low at 8.3. Magnesium is low at 1.6. Total bilirubin 0.4. Liver enzymes looked good with AST at 18, ALT at 16, alkaline phosphatase and 90. CK-MB is negative at 0.8. Troponin is negative at less than 0.017. CRP is elevated at 16.0. Protein is good at 6.7. Albumin is low at 2.0. D-dimer was found to be high at 2.35. UA is positive with a pH of 8.5, 2+ protein, 2+ occult blood, 3+ leukocyte esterase, 5-10 and urine RBCs, 40-50 urine WBCs, moderate MV BC clumps , and few East. He was given 324 mg of aspirin. 200 mg of Diflucan, 2 g IV Rocephin, and Tamiflu 30 mg, which is renally dosed. He was positive for influenza A. Chest x-ray was reviewed by the ED provider's and O showed densities within the bilateral lung bases however they do look improved from prior x-ray on July 26. Because a d-dimer was elevated a CTA was considered , however the patient has very poor renal function. A V/Q scan may be considered tomorrow, however as the ED provider noted his hypoxia and chest pain are likely due to his influenza and pneumonia. He carries a history of: A. fib, shortness breath on exertion, gastritis, GERD, BPH, CVA with deficit, anxiety, depression, type II DM, psoriasis, CABG. He is a former smoker. The full code. His PCP is Dr. Grant at [facility] in [place]. - Discharge Data Discharge Date: 08/17/17 (admit date 08/07/17) Discharge Disposition: DC/Tfer to [facility] 03 Condition: Fair - Discharge Diagnosis/Problem(s) (1) Shae UTI SNOMED Code(s): 990502177 ICD Code: B37.49 - OTHER UROGENITAL CANDIDIASIS Status: Resolved Priority : High Current Visit: Yes (2) Elevated d-dimer SNOMED Code(s): 750033176 ICD Code: R79.89 - OTHER SPECIFIED ABNORMAL FINDINGS OF BLOOD CHEMISTRY Status: Resolved Priority: High Current Visit: Yes (3) Hypomagnesemia SNOMED Code(s): 564612611 ICD Code: E83.42 - HYPOMAGNESEMIA Status: Resolved Priority: High Current Visit: Yes (4) Influenza A SNOMED Code(s): 095395756 ICD Code: J10.1 - FLU DUE TO OTH IDENT INFLUENZA VIRUS W OTH RESP MANIFEST Status: Resolved Priority: High Current Visit: Yes (5) UTI (urinary tract infection) SNOMED Code(s): 34856880 ICD Code: N39.0 - URINARY TRACT INFECTION, SITE NOT SPECIFIED Status: Resolved Priority: High Current Visit: Yes Qualifiers: Urinary tract infection type: acute cystitis Hematuria presence: with hematuria Qualified Code(s): N30.01 - Acute cystitis with hematuria (6) Anemia SNOMED Code(s): 746440906 ICD Code: D64.9 - ANEMIA, UNSPECIFIED Status: Chronic Priority: Medium Current Visit: Yes Qualifiers: Anemia type: unspecified type Qualified Code(s): D64.9 - Anemia, unspecified (7) Renal insufficiency SNOMED Code(s): 341413191 ICD Code: N28.9 - DISORDER OF KIDNEY AND URETER, UNSPECIFIED Status: Chronic Priority: High Current Visit: Yes (8) Type II diabetes mellitus SNOMED Code(s): 79047093 ICD Code: E11.9 - TYPE 2 DIABETES MELLITUS WITHOUT COMPLICATIONS Status: Chronic Priority: Medium Current Visit: Yes Qualifiers: Diabetes mellitus complication status: with unspecified complications Diabetes mellitus senior care insulin use: with terminal clerk use Qualified Code(s) : E11.8 - Type 2 diabetes mellitus with unspecified complications; Z79.4 - terminal manager (current) use of insulin; Z79.4 - skilled nursing (current) use of insulin; Z79.4 - terminal manager (current) use of insulin; Z79.4 - terminal manager (current) use of insulin (9) Cognitive impairment SNOMED Code(s): 411597562 ICD Code: R41.89 - OTH SYMPTOMS AND SIGNS W COGNITIVE FUNCTIONS AND AWARENESS Status: Chronic Priority: High Current Visit: Yes - Patient Summary/Data Operative Procedure(s) Performed: None Complications: None Consults: Consultations 08/07/17 20:42 Consult to Case Management [CONS] Routine OT Evaluation and Treatment [CONS] Routine PT Evaluation and Treatment [CONS] Routine Respiratory Care Assess and Treatment [CONS] Routine MACHINE SHOP SPECIALIST Evaluation and Treatment [CONS] Routine 08/09/17 19:55 Consult to Speech Language Pathology [MACHINE SHOP SPECIALIST Evaluation and Treatment] [CONS] Routine Labs Pending at D/C: None Recommended Follow-up Testing/Procedures: Patient DC instructions: Physical, Speech and Occupational therapy to treat and evaluate 02 to keep sats greater than 92% ST:. Recommend oral intake of HONEY thick liquids and NDD3 (advanced/chopped); medications whole with puree/pudding. Patient should incorporate slow rate, small bites/sips, alternating consistencies, upright 90 degrees, during and remain upright 90 degrees at least 30 minutes after all Oral intake to minimize risk of aspiration. Recommend daily oral care. Recommend 24/7 supervision for medications, finances, ADLs and patient should not drive at this time. Follow up with PCP, Dr. Grant within one week of discharge Planned Operative Procedure(s) after DC: None Hospital Course: I/P: Acute: UTI with Candidiasis, Continues to improve----resolved; treatment completed -Risk Factor: Neurogenic Bladder with Chronic indwelling catheter -WBC 6.21--> 4.19--> 3.49/CRP 16.0--> 15.9--> 10.2--> 6.8 -S/p Lactic acid 1.2 -Cloudy urine and green changed in ED -UA Cx shows Shae Glabata -Resistant to fluconazole. Recommend IV antifungal x 3 days--course completed yesterday Megaloblastic Anemia with Folate Deficiency, 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 -Likely 2/2 Anemia of Chronic Disease (CKD) in addition to folic acid def- cont folic acid PO daily -Hgb 11.1--> 9.3--> 10.4/Hct 33.2--> 31.1; MCV 92.6--> 93.4 remains slightly elevated (meets criteria for Megaloblastic) -Iron panel: most parameters all low suggestive for chronic in nature -B12 is normal but Folic acid is 4.2--> low (8.6-58.9), as above Continue Folic acid 1 mg po daily Recent Aspiration Pneumonia---doing well; VSS on RA, MACHINE SHOP SPECIALIST continues to work with patient on swallowing. -Hospitalized in [place] --Hx/o CVA --Discharged on antibiotic, which he finished a few days CASTINGS TRIMMER ( unsure of which antibiotic) -Probiotic -Honey thickened liquids per --No straws per ; is unsure of which diet he is on, lists foods he can and cannot have - mostly soft -MACHINE SHOP SPECIALIST to evaluate and set diet; Aspiration precautions -CXR in ED shows improving bilateral lower lobe densities when compared to CXR from 1/18/18 -Cough and Deep breath every 2 hrs Severe Cognitive Impairment--stable -S/p SLUMS Exam -MACHINE SHOP SPECIALIST recommends / supervision for medications, finances, ADLs and pt should not drive at this time -SNF/NH placement has been activated per SW---plans DC to SNF today Hypomagnesemia -Magnesium 1.6 in ED--> now 1.9-->1.6 today -Supplemented; will be dc'd on 400mg PO QD of Mag Ox Renal insufficiency/CKD Stage 3---stable, creatinine 2.0-2.1 -Chronic no changes from his baseline GFR -BUN 23; Creatinine 2.5; eGFR 25 on admission; Baseline creatinine appears to be around 2.0 and eGFR around 30 -Fluids as ordered initially during stay- DC'd -Caution due to hx/o heart failure Generalized Weakness -2/2 Above -TFT WNL -Continue PT/OT -SNF/Rehab placement Resolved: S/p Elevated D-Dimmer -Likely 2/2 CKD/Inflammation -Chest pain/SOB on ED arrival -Symptoms likely due to influenza -Very poor renal function -Unable to preform CTA -V/Q scan: Low probability for PE S/p Influenza A -Tamiflu 30mg given in ED (renal dosing)-should complete his treatment today -Discussed risk vs benefits of Tamiflu with and patient - they would like to continue- day # 5 of treatment -Continue Supportive care and Droplet precautions Chronic: A-fib - home meds; rate controlled---actually had bradycardic episodes( asymptomatic) during his stay, metoprolol dose was decreased from 50mg BID to 25mg BID with resolution/improvements in HR. GERD- cont PPI BPH - home meds CVA Anxiety; chronic and stable - home meds Depression; chronic and stable - home meds Type II DM - Home insulin and sliding scale. Glucose checks QIDAC and bed. Sugars stable Plan: Aspiration/Fall Precautions CM/SW for discharge planning---Pending placement to SNF, patient is medically stable and ready for DC. Will be DC'd to SNF today. Other orders as indicated above Code status: Full code PCP: Dr. Grant at [facility] here in [place]. LOS > 96 hrs due to pending SNF/NH placement - Patient Instructions Diet: Heart Healthy Diet, Drink 8-10+ Glasses/Day, Diabetic Diet Activity: As Tolerated Driving: Do Not Drive Showering/Bathing: May Shower Notify Provider of: Fever, Increased Pain, Nausea and/or Vomiting - Discharge Plan Prescriptions/Med Rec: Metoprolol Tartrate [Lopressor] 25 mg PO Q12HR #60 tablet Albuterol/Ipratropium [DuoNeb 3.0-0.5 MG/3 ML] 3 ml NEB Q4H PRN #1 box PRN Reason: Shortness Of Breath/wheezing Folic Acid 1 mg PO DAILY #30 tablet Insulin Aspart [NovoLOG] 0 unit SUBCUT QIDACANDBED #1 pen Magnesium Oxide 400 mg PO DAILY #30 tablet Home Medications: Home Meds Finasteride [Proscar] 5 mg PO DAILY 01/07/14 [History] Insulin Glargine,Hum.Rec.Anlog [Lantus Solostar] 15 unit SQ BEDTIME 01/07/14 [ History] Nitroglycerin [Nitrostat] 0.4 mg SL ASDIRECTED PRN 01/07/14 [History] Tamsulosin [Flomax] 0.8 mg PO DAILY 01/07/14 [History] atorvaSTATin [Lipitor] 80 mg PO BEDTIME 01/07/14 [History] Aspirin [Ecotrin] 81 mg PO DAILY 04/04/16 [History] Omeprazole 20 mg PO DAILY 04/04/16 [History] Digoxin [Lanoxin] 125 mcg PO DAILY 12/08/16 [History] Donepezil [Aricept] 5 mg PO BEDTIME 05/27/17 [History] amLODIPine [Norvasc] 10 mg PO DAILY 07/26/17 [History] buPROPion [Wellbutrin XL] 150 mg PO DAILY 07/26/17 [History] ALPRAZolam [Xanax] 1 mg PO TID PRN #40 08/17/17 [Rx] Acetaminophen [Tylenol] 650 mg PO Q4H PRN tablet 08/17/17 [Rx] Albuterol/Ipratropium [DuoNeb 3.0-0.5 MG/3 ML] 3 ml NEB Q4H PRN #1 box 08/17/17 [Rx] Bisacodyl [Dulcolax] 5 mg PO DAILY PRN tablet 08/17/17 [Rx] Docusate Sodium [Colace] 100 mg PO BID PRN cap 08/17/17 [Rx] Folic Acid 1 mg PO DAILY #30 tablet 08/17/17 [Rx] Insulin Aspart [NovoLOG] 0 unit SUBCUT QIDACANDBED #1 pen 08/17/17 [Rx] Magnesium Oxide 400 mg PO DAILY #30 tablet 08/17/17 [Rx] Metoprolol Tartrate [Lopressor] 25 mg PO Q12HR #60 tablet 08/17/17 [Rx] Patient Handouts: Type 2 Diabetes Mellitus, Adult, Influenza, Adult, Hypomagnesemia, Dementia, Failure to Thrive, Adult, [id number] Forms: ED Department Discharge Referrals: Nicole Hardy MD [Primary Care Provider] - - Discharge Summary/Plan Comment DC Time >30 min.: Yes (45 min) - General Info Date of Service: 08/17/17 Admission Dx/Problem (Free Text: Admission Diagnosis/Problem Admission Diagnosis/Problem Influenza Flash is seen this morning, resting in bed. Denies c/o pain, discomfort or anything new this morning. Only answers yes or no questions, cannot carry conversation. MACHINE SHOP SPECIALIST in working with him at breakfast. Plans for DC to SNF today. Functional Status: Reports: Pain Controlled, Tolerating Diet, Ambulating, Urinating (green cath) - Review of Systems General: Reports: Weakness, Fatigue HEENT: Reports: No Symptoms Pulmonary: Reports: No Symptoms, Cough (occasional with eating). Denies: Shortness of Breath Cardiovascular: Reports: No Symptoms Gastrointestinal: Reports: No Symptoms. Denies: Diarrhea, Nausea, Vomiting Neurological: Reports: Confusion Psychiatric: Reports: Confusion - Patient Data Vitals - Most Recent: Last Vital Signs Temp 98.1 F 08/17/17 08:45 Pulse 82 08/17/17 08:46 Resp 18 08/17/17 08:45 BP 141/55 H 08/17/17 08:46 Pulse Ox 92 L 08/17/17 08:45 Weight - Most Recent: 180 lb 14.4 oz I&O - Last 24 hours: Intake & Output 08/16/17 08/17/17 08/17/17 22:59 06:59 14:59 Intake Total 1580 240 Output Total 800 900 Balance 780 -660 Lab Results - Last 24 hrs: Laboratory Results - last 24 hr 08/16/17 08/16/17 08/16/17 Range/Units 11:19 16:11 21:59 WBC (4.23-9.07) K/mm3 RBC (4.63-6.08) M/mm3 Hgb (13.7-17.5) gm/L Hct (40.1-51.0) % MCV (79.0-92.2) fl MCH (25.7-32.2) pg MCHC (32.2-35.5) g/dl RDW Std Deviation (35.1-43.9) fL Plt Count (163-337) K/mm3 MPV (9.4-12.3) fl Neut % (Auto) (34.0-67.9) % Lymph % (Auto) (21.8-53.1) % Avery % (Auto) (5.3-12.2) % Eos % (Auto) (0.8-7.0) Baso % (Auto) (0.1-1.2) % Neut # (Auto) (1.78-5.38) K/mm3 Lymph # (Auto) (1.32-3.57) K/mm3 Avery # (Auto) (0.30-0.82) K/mm3 Eos # (Auto) (0.04-0.54) K/mm3 Baso # (Auto) (0.01-0.08) K/mm3 Sodium (136-145) mEq/L Potassium (3.5-5.1) mEq/L Chloride (98-107) mEq/L Carbon Dioxide (21-32) mEq/L Anion Gap (5-15) BUN (7-18) mg/dL Creatinine (0.7-1.3) mg/dL Est Cr Clr Drug Dosing mL/min Estimated GFR (MDRD) (>60) mL/min BUN/Creatinine Ratio (14-18) Glucose (83-115) mg/dL POC Glucose 279 H 234 H 204 H (83-110) mg/dL Calcium (8.5-10.1) mg/dL Magnesium (1.8-2.4) mg/dl 08/17/17 08/17/17 08/17/17 Range/Units 05:38 05:38 06:15 WBC 6.50 (4.23-9.07) K/mm3 RBC 3.60 L (4.63-6.08) M/mm3 Hgb 10.7 L (13.7-17.5) gm/L Hct 32.9 L (40.1-51.0) % MCV 91.4 (79.0-92.2) fl MCH 29.7 (25.7-32.2) pg MCHC 32.5 (32.2-35.5) g/dl RDW Std Deviation 44.1 H (35.1-43.9) fL Plt Count 199 (163-337) K/mm3 MPV 9.2 L (9.4-12.3) fl Neut % (Auto) 71.6 H (34.0-67.9) % Lymph % (Auto) 22.0 (21.8-53.1) % Avery % (Auto) 4.0 L (5.3-12.2) % Eos % (Auto) 1.4 (0.8-7.0) Baso % (Auto) 0.5 (0.1-1.2) % Neut # (Auto) 4.66 (1.78-5.38) K/mm3 Lymph # (Auto) 1.43 (1.32-3.57) K/mm3 Avery # (Auto) 0.26 L (0.30-0.82) K/mm3 Eos # (Auto) 0.09 (0.04-0.54) K/mm3 Baso # (Auto) 0.03 (0.01-0.08) K/mm3 Sodium 140 (136-145) mEq/L Potassium 5.0 (3.5-5.1) mEq/L Chloride 104 (98-107) mEq/L Carbon Dioxide 28 (21-32) mEq/L Anion Gap 13.0 (5-15) BUN 33 H (7-18) mg/dL Creatinine 2.3 H (0.7-1.3) mg/dL Est Cr Clr Drug Dosing 31.36 mL/min Estimated GFR (MDRD) 28 (>60) mL/min BUN/Creatinine Ratio 14.3 (14-18) Glucose 129 H (83-115) mg/dL POC Glucose 145 H (83-110) mg/dL Calcium 8.9 (8.5-10.1) mg/dL Magnesium 1.6 L (1.8-2.4) mg/dl Med Orders - Current: Current Medications Acetaminophen (Tylenol) 650 mg PO Q4H PRN PRN Reason: Pain (Mild 1-3)/fever Last Admin: 08/08/17 20:38 Dose: 650 mg Hydrocodone Bitart/Acetaminophen ([place] 325-5 Mg) 1 tab PO Q4H PRN PRN Reason: Pain (moderate 4-6) Albuterol/Ipratropium (Duoneb 3.0-0.5 Mg/3 Ml) 3 ml NEB Q4H PRN PRN Reason: Shortness Of Breath/wheezing Last Admin: 08/09/17 10:26 Dose: 3 ml Alprazolam (Xanax) 1 mg PO TID PRN PRN Reason: Anxiety Amlodipine Besylate (Norvasc) 10 mg PO DAILY [facility] Last Admin: 08/17/17 08:46 Dose: 10 mg Aspirin (Halfprin) 81 mg PO DAILY [facility] Last Admin: 08/17/17 08:40 Dose: 81 mg Bisacodyl (Dulcolax) 5 mg PO DAILY PRN PRN Reason: Constipation Last Admin: 08/13/17 18:24 Dose: 5 mg Bupropion HCl (Wellbutrin Xl) 150 mg PO DAILY [facility] Last Admin: 08/17/17 08:40 Dose: 150 mg Dextrose/Water (Dextrose 50% In Water) 50 ml IVPUSH ASDIRECTED PRN PRN Reason: Hypoglycemia Digoxin (Lanoxin) 125 mcg PO DAILY [facility] Last Admin: 08/17/17 08:45 Dose: 125 mcg Docusate Sodium (Colace) 100 mg PO BID PRN PRN Reason: Constipation Last Admin: 08/09/17 17:53 Dose: 100 mg Donepezil HCl (Aricept) 5 mg PO BEDTIME [facility] Last Admin: 08/16/17 21:54 Dose: 5 mg Enoxaparin Sodium (Lovenox) 30 mg SUBCUT DAILY [facility] Last Admin: 08/17/17 08:40 Dose: 30 mg Finasteride (Proscar) 5 mg PO DAILY [facility] Last Admin: 08/17/17 08:46 Dose: 5 mg Folic Acid (Folic Acid) 1 mg PO DAILY [facility] Last Admin: 08/17/17 08:40 Dose: 1 mg Hydralazine HCl (Apresoline) 10 mg IVPUSH Q6H PRN PRN Reason: Hypertension Insulin Aspart (Novolog) 0 unit SUBCUT QIDACANDBED [facility] PRN Reason: Protocol Last Admin: 08/17/17 07:12 Dose: Not Given Insulin Detemir (Levemir) 7 unit SUBCUT BEDTIME [facility] Last Admin: 08/16/17 21:59 Dose: 7 units Insulin Detemir (Levemir) 10 unit SUBCUT DAILY [facility] Last Admin: 08/17/17 08:41 Dose: 10 units Magnesium Oxide (Magnesium Oxide) 400 mg PO DAILY [facility] Metoprolol Tartrate (Lopressor) 5 mg IVPUSH Q4H PRN PRN Reason: Tachycardia Metoprolol Tartrate (Lopressor) 25 mg PO Q12HR [facility] Last Admin: 08/17/17 08:46 Dose: 25 mg Nitroglycerin (Nitrostat) 0.4 mg SL ASDIRECTED PRN PRN Reason: Chest Pain Ondansetron HCl (Zofran Odt) 4 mg PO Q6H PRN PRN Reason: nausea, able to take PO Ondansetron HCl (Zofran) 4 mg IV Q6H PRN PRN Reason: Nausea/Vomiting Pantoprazole Sodium (Protonix) 40 mg PO DAILY@0700 [facility] Last Admin: 08/17/17 06:17 Dose: 40 mg Polyethylene Glycol (Miralax) 17 gm PO DAILY PRN PRN Reason: Constipation Rosuvastatin Calcium (Crestor) 20 mg PO BEDTIME [facility] Last Admin: 08/16/17 21:54 Dose: 20 mg Saccharomyces Boulardii (Florastor) 250 mg PO BID [facility] Last Admin: 08/17/17 08:40 Dose: 250 mg Senna/Docusate Sodium (Senna Plus) 1 tab PO BID PRN PRN Reason: Constipation Last Admin: 08/15/17 21:15 Dose: 1 tab Sodium Chloride (Saline Flush) 10 ml FLUSH ASDIRECTED PRN PRN Reason: Keep Vein Open Last Admin: 08/07/17 14:55 Dose: 10 ml Tamsulosin HCl (Flomax) 0.8 mg PO DAILY [facility] Last Admin: 08/17/17 08:40 Dose: 0.8 mg Discontinued Medications Alprazolam (Xanax) 1 mg PO TID [facility] Last Admin: 08/15/17 08:57 Dose: 1 mg Aspirin (Aspirin) 324 mg PO ONETIME ONE Stop: 08/07/17 16:26 Last Admin: 08/07/17 17:43 Dose: 324 mg Fluconazole (Diflucan) 200 mg PO ONETIME ONE Stop: 08/07/17 16:23 Last Admin: 08/07/17 17:50 Dose: 200 mg Fluconazole (Diflucan) 100 mg PO DAILY@1600 [facility] Stop: 08/20/17 16:01 Last Admin: 08/11/17 16:19 Dose: 100 mg Ceftriaxone Sodium 2 gm/ (Sodium Chloride) 100 mls @ 200 mls/hr IV ONETIME ONE Stop: 08/07/17 16:50 Sodium Chloride (Normal Saline) 1,000 mls @ 100 mls/hr IV ONETIME ONE Stop: 08/08/17 02:22 Last Admin: 08/07/17 17:41 Dose: 100 mls/hr Ceftriaxone Sodium 1 gm/ (Sodium Chloride) 100 mls @ 200 mls/hr IV ONETIME ONE Stop: 08/07/17 18:04 Last Admin: 08/07/17 17:42 Dose: 200 mls/hr Ceftriaxone Sodium 1 gm/ (Sodium Chloride) 100 mls @ 200 mls/hr IV ONETIME ONE Stop: 08/07/17 18:04 Last Admin: 08/07/17 18:23 Dose: 200 mls/hr Ceftriaxone Sodium 2 gm/ (Dextrose/Water) 100 mls @ 200 mls/hr IV Q24H [facility] Last Admin: 08/08/17 16:50 Dose: 200 mls/hr Magnesium Sulfate 2 gm/ Premix 50 mls @ 25 mls/hr IV ONETIME ONE Stop: 08/07/17 23:04 Last Admin: 08/07/17 22:34 Dose: 25 mls/hr Sodium Chloride (Normal Saline) 1,000 mls @ 75 mls/hr IV ASDIRECTED [facility] Stop: 08/08/17 11:49 Last Admin: 08/08/17 05:58 Dose: 75 mls/hr Micafungin Sodium 100 mg/ (Sodium Chloride) 100 mls @ 100 mls/hr IV DAILY [facility] Last Admin: 08/15/17 08:57 Dose: 100 mls/hr Influenza Virus Vaccine (Pharmacy To Dose - Influenza Vaccine) 1 each IM ONETIME ONE Stop: 08/07/17 20:39 Influenza Virus Vaccine (Fluzone High-Dose 2017-18) 180 mcg IM .ONCE ONE Stop: 08/07/17 21:46 Insulin Detemir (Levemir) 8 unit SUBCUT DAILY [facility] Last Admin: 08/12/17 08:57 Dose: 8 units Insulin Detemir (Levemir) 2 unit SUBCUT ONETIME ONE Stop: 08/12/17 09:43 Last Admin: 08/12/17 11:26 Dose: 2 units Lidocaine HCl (Xylocaine 2% Jelly) 10 ml MUCMEM ONETIME ONE Stop: 08/07/17 16:16 Last Admin: 08/07/17 16:25 Dose: 10 ml Magnesium Oxide (Magnesium Oxide) 400 mg PO ONETIME ONE Stop: 08/09/17 10:01 Last Admin: 08/09/17 10:46 Dose: 400 mg Magnesium Oxide (Magnesium Oxide) 400 mg PO ONETIME ONE Stop: 08/11/17 09:01 Last Admin: 08/11/17 09:01 Dose: 400 mg Magnesium Sulfate (Pharmacy To Dose - Magnesium Replacement) 0 dose .XX ASDIRECTED PRN PRN Reason: RX TO WATCH MAG LEVELS Metoprolol Tartrate (Lopressor) 50 mg PO BID [facility] Last Admin: 08/14/17 22:08 Dose: 50 mg Morphine Sulfate (Morphine) 0.2 mg IVPUSH Q2H PRN PRN Reason: Pain (severe 7-10) Stop: 08/08/17 20:47 Oseltamivir Phosphate (Tamiflu) 30 mg PO NOW [facility] Stop: 08/07/17 17:35 Last Admin: 08/07/17 17:50 Dose: 30 mg Oseltamivir Phosphate (Tamiflu) 30 mg PO DAILY@1730 [facility] Stop: 08/11/17 17:31 Last Admin: 08/11/17 17:39 Dose: 30 mg Potassium Chloride (Pharmacy To Dose - Potassium Replacement) 0 dose .XX ASDIRECTED PRN PRN Reason: RX TO WATCH K LEVELS - Exam Quality Assessment: Reports: Supplemental Oxygen, DVT Prophylaxis General: Reports: Alert, Cooperative, No Acute Distress. Denies: Oriented HEENT: Reports: Pupils Equal, EOMI, Mucous Membr. Moist/[employer] Neck: Reports: Supple Lungs: Reports: Normal Respiratory Effort, Decreased Breath Sounds (bases- poor inspiratory effort) Cardiovascular: Reports: Regular Rate, Regular Rhythm GI/Abdominal Exam: Normal Bowel Sounds, Soft, Non-Tender (Male) Exam: Deferred Rectal (Males) Exam: Deferred Extremities: Normal Inspection, No Pedal Edema, Normal Capillary Refill Neurological: Reports: Other (baseline cognitive impairment- dementia, moderate to severe) Psy/Mental Status: Reports: Alert *Q Meaningful Use (DIS) - VTE *Q VTE Criteria *Q: - Stroke *Q Stroke Criteria *Q: - AMI *Q AMI Criteria *Q:
[2017-08-17] MEDS ORDERED: Magnesium Oxide 400 MG Tab PO SCH (09:00)
== END 2017-08-17 11:40 | DRG 194 ==
LOC: JD.ED 14:43 → UNDOADMIN 18:11 → JD.MS 18:11 → UNDODISIN 08-17 11:40
PROVIDERS: ADMIT Internal Medicine; ATTEND Internal Medicine
DX: J10.1 Influenza due to other identified influenza virus with other respiratory manifestations (principal); N30.01 Acute cystitis with hematuria; B37.49 Other urogenital candidiasis; J21.9 Acute bronchiolitis, unspecified; K21.9 Gastro-esophageal reflux disease without esophagitis; T83.511A Infection and inflammatory reaction due to indwelling urethral catheter, initial encounter; R79.89 Other specified abnormal findings of blood chemistry; N18.3 Chronic kidney disease, stage 3 (moderate); L40.9 Psoriasis, unspecified; E83.42 Hypomagnesemia; I48.91 Unspecified atrial fibrillation; Z79.82 Long term (current) use of aspirin; Z79.4 Long term (current) use of insulin; Z79.899 Other long term (current) drug therapy; N40.0 Benign prostatic hyperplasia without lower urinary tract symptoms; Z86.73 Personal history of transient ischemic attack (TIA), and cerebral infarction without residual deficits; E11.9 Type 2 diabetes mellitus without complications; F32.9 Major depressive disorder, single episode, unspecified; F41.9 Anxiety disorder, unspecified; Z95.1 Presence of aortocoronary bypass graft; R19.7 Diarrhea, unspecified; Z87.01 Personal history of pneumonia (recurrent); R53.1 Weakness; F03.90 Unspecified dementia, unspecified severity, without behavioral disturbance, psychotic disturbance, mood disturbance, and anxiety; Z87.891 Personal history of nicotine dependence; R41.89 Other symptoms and signs involving cognitive functions and awareness; D63.1 Anemia in chronic kidney disease
CPT/HCPCS: 36415; 51702; 71046; 80053; 81001; 82553; 83605; 83735; 84484; 85025; 85379; 85610; 85730; 86140; 87040 ×2; 87086; 87804 ×2; 93005; 96360; 99285; A9270 ×3; J0696; J7030; J7040; J7050; 78582; 78582-26; 80048; 82607; 82746; 82962; 83540; 83880; 84466; 90471; 90662; 92526-GN; 92610-GN; 93010; 94640; 94760; 94761; 96125-GN; 96361; 97110-GO; 97110-GP; 97116-GP; 97162-GP; 97166-GO; 97530-GO; 97530-GP; 97535-GO; 99284; A9540; G0008; J1650; J1815-GY; J2248; J3475; J7060

== ENCOUNTER 2017-08-25 19:15 | Emergency (ER) | payer MEDICARE, BC, MEDICAID ==
[2017-08-25] MEDS ORDERED: Sodium Chloride 0.9% 10 ML Syringe FLUSH PRN (19:30)
[2017-08-25] MEDS ORDERED: Sodium Chloride 0.9% 1,000 ML IV SCH (19:45)
--- NOTE | 2017-08-25 19:46 | EDM.PDOC ---
ED HPI GENERAL MEDICAL PROBLEM - General Chief Complaint: Neurological Problem Stated Complaint: [facility] Time Seen by Provider: 08/25/17 19:15 Source of Information: Reports: Alf Records History Limitations: Reports: Altered Mental Status - History of Present Illness INITIAL COMMENTS - FREE TEXT/NARRATIVE: Patient is a 76-year-old male with a history of stroke right-sided who resides at a local [facility]. was present states while the patient was taking a bite of mashed potatoes stared off and is starting have a full grand mal seizure lasting approximately 1 minute. 911 was called and ambulance responded to find the patient with eyes open unresponsive. IV was established by a EMS transported to the ED. Upon admission to the ED patient eyes were open but patient was not responding. After transferring patient to hospital bed he had a grand mal seizure lasting approximately 30 seconds. He received 2 mg of Ativan. - Related Data Allergies Allergy/AdvReac Type Severity Reaction Status Date / Time No Known Allergies Allergy Verified 08/25/17 19:31 Home Meds: Home Meds Finasteride [Proscar] 5 mg PO DAILY 01/07/14 [History] Insulin Glargine,Hum.Rec.Anlog [Lantus Solostar] 15 unit SQ BEDTIME 01/07/14 [ History] Nitroglycerin [Nitrostat] 0.4 mg SL ASDIRECTED PRN 01/07/14 [History] Tamsulosin [Flomax] 0.8 mg PO DAILY 01/07/14 [History] Aspirin [Ecotrin] 81 mg PO DAILY 04/04/16 [History] Omeprazole 20 mg PO DAILY 04/04/16 [History] Digoxin [Lanoxin] 125 mcg PO DAILY 12/08/16 [History] Donepezil [Aricept] 5 mg PO BEDTIME 05/27/17 [History] buPROPion [Wellbutrin XL] 150 mg PO DAILY 07/26/17 [History] ALPRAZolam [Xanax] 1 mg PO TID PRN #40 08/17/17 [Rx] Acetaminophen [Tylenol] 650 mg PO Q4H PRN tablet 08/17/17 [Rx] Albuterol/Ipratropium [DuoNeb 3.0-0.5 MG/3 ML] 3 ml NEB Q4H PRN #1 box 08/17/17 [Rx] Folic Acid 1 mg PO DAILY #30 tablet 08/17/17 [Rx] Insulin Aspart [NovoLOG] 0 unit SUBCUT QIDACANDBED #1 pen 08/17/17 [Rx] Magnesium Oxide 400 mg PO DAILY #30 tablet 08/17/17 [Rx] Metoprolol Tartrate [Lopressor] 25 mg PO Q12HR #60 tablet 08/17/17 [Rx] amLODIPine Besylate [Amlodipine Besylate] 10 mg PO DAILY 08/25/17 [History] Past Medical History Cardiovascular History: Reports: Afib, SOB on Exertion Respiratory History: Reports: SOB Gastrointestinal History: Reports: Gastritis, GERD Genitourinary History: Reports: BPH Other Genitourinary History: Bladder cancer Musculoskeletal History: Reports: Arthritis Other Musculoskeletal History: ankle pain-history fracture Neurological History: Reports: CVA, Seizure Other Neuro History: CVA x2 with left sided weakness Psychiatric History: Reports: Anxiety, Depression Endocrine/Metabolic History: Reports: Diabetes, Type II Oncologic (Cancer) History: Reports: Bladder Dermatologic History: Reports: Psoriasis - Infectious Disease History Infectious Disease History: Reports: Influenza - Past Surgical History Cardiovascular Surgical History: Reports: Coronary Artery Bypass Respiratory Surgical History: Reports: None Musculoskeletal Surgical History: Reports: None Oncologic Surgical History: Reports: None Social & Family History - Family History Family Medical History: Noncontributory - Tobacco Use Smoking Status *Q: Never Smoker Years of Tobacco use: 30 Packs/Tins Daily: 0.2 Used Tobacco, but Quit: No Month Tobacco Last Used: november Second Hand Smoke Exposure: No - Caffeine Use Caffeine Use: Reports: Coffee - Alcohol Use Days Per Week of Alcohol Use: 0 - Recreational Drug Use Recreational Drug Use: No ED ROS GENERAL - Review of Systems Review Of Systems: Unable To Obtain ED EXAM, NEURO - Physical Exam Exam: See Below Exam Limited By: Altered Mental Status General Appearance: Obtunded, Other (Eyes open no response) Eye Exam: Bilateral Eye: Other (EOMs nonintact, pupils pinpoint nonreactive) Ears: Hearing Grossly Normal Nose: Normal Inspection Throat/Mouth: Other (Oral secretions to the posterior pharynx with audible rhonchi) Head Exam: Atraumatic, Normocephalic Neck: Normal Inspection, Supple Respiratory/Chest: Rhonchi (To the right lower lung mcguire with left lung mcguire course throughout.), Other (Tachypnea, large sternotomy scar from previous coronary bypass. Barrel chested.) Cardiovascular: Normal Peripheral Pulses, Tachycardia GI/Abdominal: Normal Bowel Sounds, Soft, Non-Tender, No Organomegaly (Male) Exam: Other (Garcia catheter in place. ) Neurological: Other (Eyes open, nonresponsive, withdraws from pain while blood work obtained.) Extremities: Normal Inspection Skin Exam: Other (Plan admission to the ED patient was pale in color after sustaining a seizure. After administration of O2 skin pinked up.) ED NEURO PROCEDURES - Endotracheal Intubation Time of Intubation: 22:41 ET Intubation Indication: Respiratory Failure Preparation: Suction, Balloon Tested, BVM Set Up, Difficult Airway Equip Airway Assessment: Profuse Secretions Pre-Oxygenation: Assisted with BVM, 100% FiO2 Anesthesia Meds: Propofol Placement: Orotracheal, Cuffed Cords Visualized: Yes, Grade 4 ETT Size In mm: 8.0 Number of Attempts: 1 Confirmed By: CO2 Indicator, Bilateral Breath Sounds, Chest Xray Tube Secured By: By RT Course - Vital Signs Last Recorded V/S: Last Vital Signs Temp 97.9 F 08/25/17 19:23 Pulse 65 08/25/17 23:34 Resp 14 08/25/17 23:34 BP 100/54 L 08/25/17 23:34 Pulse Ox 95 08/25/17 23:34 - Orders/Labs/Meds Labs: Laboratory Tests 08/25/17 08/25/17 08/25/17 Range/Units 19:42 19:42 19:42 WBC 10.97 H (4.23-9.07) K/mm3 RBC 3.77 L (4.63-6.08) M/mm3 Hgb 11.2 L (13.7-17.5) gm/L Hct 35.9 L (40.1-51.0) % MCV 95.2 H (79.0-92.2) fl MCH 29.7 (25.7-32.2) pg MCHC 31.2 L (32.2-35.5) g/dl RDW Std Deviation 45.3 H (35.1-43.9) fL Plt Count 253 (163-337) K/mm3 MPV 9.8 (9.4-12.3) fl Neut % (Auto) 78.6 H (34.0-67.9) % Lymph % (Auto) 14.8 L (21.8-53.1) % [place] % (Auto) 5.2 L (5.3-12.2) % Eos % (Auto) 0.5 L (0.8-7.0) Baso % (Auto) 0.5 (0.1-1.2) % Neut # (Auto) 8.63 H (1.78-5.38) K/mm3 Lymph # (Auto) 1.62 (1.32-3.57) K/mm3 [place] # (Auto) 0.57 (0.30-0.82) K/mm3 Eos # (Auto) 0.05 (0.04-0.54) K/mm3 Baso # (Auto) 0.06 (0.01-0.08) K/mm3 PT 11.3 (8.0-13.0) SECONDS INR 1.03 APTT (22-36) SECONDS Puncture Site ABG pH (7.35-7.45) ABG pCO2 (35.0-45.0) mmHg ABG pO2 (80.0-100.0) mmHg ABG HCO3 (22.0-26.0) meq/L ABG O2 Saturation (96.0-97.0) % ABG Base Excess (-2-2.0) A-a Gradient mmHg O2 Delivery Device Oxygen Flow Rate FiO2 (21.00-100.00) % Tidal Volume cc PEEP cmH20 Sodium 144 (136-145) mEq/L Potassium 3.8 (3.5-5.1) mEq/L Chloride 105 (98-107) mEq/L Carbon Dioxide 18 L (21-32) mEq/L Anion Gap 24.8 H (5-15) BUN 34 H (7-18) mg/dL Creatinine 3.0 H (0.7-1.3) mg/dL Est Cr Clr Drug Dosing 22.52 mL/min Estimated GFR (MDRD) 21 (>60) mL/min BUN/Creatinine Ratio 11.3 L (14-18) Glucose 188 H (83-115) mg/dL Lactic Acid (0.4-2.0) mmol/L Calcium 9.0 (8.5-10.1) mg/dL Total Bilirubin 0.3 (0.2-1.0) mg/dL AST 11 L (15-37) U/L ALT 13 L (16-63) U/L Alkaline Phosphatase 99 (46-116) U/L Troponin I (0.00-0.056) ng/mL Total Protein 8.0 (6.4-8.2) g/dl Albumin 2.5 L (3.4-5.0) g/dl Globulin 5.5 gm/dL Albumin/Globulin Ratio 0.5 L (1-2) Urine Color (Yellow) Urine Appearance (Clear) Urine pH (5.0-8.0) Ur Specific [place] (1.005-1.030) Urine Protein (Negative) Urine Glucose (UA) (Negative) Urine Ketones (Negative) Urine Occult Blood (Negative) Urine Nitrite (Negative) Urine Bilirubin (Negative) Urine Urobilinogen (0.2-1.0) Ur Leukocyte Esterase (Negative) Urine RBC (0-5) /hpf Urine WBC (0-5) /hpf Urine WBC Clumps (NOT SEEN) /hpf Ur Epithelial Cells (0-5) /hpf Ur Squamous Epith Cells (0-5) /hpf Ur Renal Epithelial Cell (0-5) /hpf Urine Bacteria (FEW) /hpf Urine Mucus (FEW) /hpf Urine Opiates Screen (NEGATIVE) Ur Buprenorphine Scrn (NEGATIVE) Ur Oxycodone Screen (NEGATIVE) Urine Methadone Screen (NEGATIVE) Ur Propoxyphene Screen (NEGATIVE) Ur Barbiturates Screen (NEGATIVE) Ur Tricyclics Screen (NEGATIVE) Ur Phencyclidine Scrn (NEGATIVE) Ur Amphetamine Screen (NEGATIVE) U Methamphetamines Scrn (NEGATIVE) U Benzodiazepines Scrn (NEGATIVE) U Cocaine Metab Screen (NEGATIVE) U Marijuana (THC) Screen (NEGATIVE) 08/25/17 08/25/17 08/25/17 Range/Units 19:42 19:42 19:50 WBC (4.23-9.07) K/mm3 RBC (4.63-6.08) M/mm3 Hgb (13.7-17.5) gm/L Hct (40.1-51.0) % MCV (79.0-92.2) fl MCH (25.7-32.2) pg MCHC (32.2-35.5) g/dl RDW Std Deviation (35.1-43.9) fL Plt Count (163-337) K/mm3 MPV (9.4-12.3) fl Neut % (Auto) (34.0-67.9) % Lymph % (Auto) (21.8-53.1) % [place] % (Auto) (5.3-12.2) % Eos % (Auto) (0.8-7.0) Baso % (Auto) (0.1-1.2) % Neut # (Auto) (1.78-5.38) K/mm3 Lymph # (Auto) (1.32-3.57) K/mm3 [place] # (Auto) (0.30-0.82) K/mm3 Eos # (Auto) (0.04-0.54) K/mm3 Baso # (Auto) (0.01-0.08) K/mm3 PT (8.0-13.0) SECONDS INR APTT 23 (22-36) SECONDS Puncture Site ABG pH (7.35-7.45) ABG pCO2 (35.0-45.0) mmHg ABG pO2 (80.0-100.0) mmHg ABG HCO3 (22.0-26.0) meq/L ABG O2 Saturation (96.0-97.0) % ABG Base Excess (-2-2.0) A-a Gradient mmHg O2 Delivery Device Oxygen Flow Rate FiO2 (21.00-100.00) % Tidal Volume cc PEEP cmH20 Sodium (136-145) mEq/L Potassium (3.5-5.1) mEq/L Chloride (98-107) mEq/L Carbon Dioxide (21-32) mEq/L Anion Gap (5-15) BUN (7-18) mg/dL Creatinine (0.7-1.3) mg/dL Est Cr Clr Drug Dosing mL/min Estimated GFR (MDRD) (>60) mL/min BUN/Creatinine Ratio (14-18) Glucose (83-115) mg/dL Lactic Acid (0.4-2.0) mmol/L Calcium (8.5-10.1) mg/dL Total Bilirubin (0.2-1.0) mg/dL AST (15-37) U/L ALT (16-63) U/L Alkaline Phosphatase (46-116) U/L Troponin I < 0.017 (0.00-0.056) ng/mL Total Protein (6.4-8.2) g/dl Albumin (3.4-5.0) g/dl Globulin gm/dL Albumin/Globulin Ratio (1-2) Urine Color Light yellow (Yellow) Urine Appearance Cloudy H (Clear) Urine pH 6.0 (5.0-8.0) Ur Specific [place] 1.020 (1.005-1.030) Urine Protein 2+ H (Negative) Urine Glucose (UA) Negative (Negative) Urine Ketones Negative (Negative) Urine Occult Blood 2+ H (Negative) Urine Nitrite Negative (Negative) Urine Bilirubin Negative (Negative) Urine Urobilinogen 0.2 (0.2-1.0) Ur Leukocyte Esterase 3+ H (Negative) Urine RBC 5-10 H (0-5) /hpf Urine WBC >100 H (0-5) /hpf Urine WBC Clumps Moderate (NOT SEEN) /hpf Ur Epithelial Cells 0-5 (0-5) /hpf Ur Squamous Epith Cells 0-5 (0-5) /hpf Ur Renal Epithelial Cell 0-5 (0-5) /hpf Urine Bacteria Moderate H (FEW) /hpf Urine Mucus Few (FEW) /hpf Urine Opiates Screen (NEGATIVE) Ur Buprenorphine Scrn (NEGATIVE) Ur Oxycodone Screen (NEGATIVE) Urine Methadone Screen (NEGATIVE) Ur Propoxyphene Screen (NEGATIVE) Ur Barbiturates Screen (NEGATIVE) Ur Tricyclics Screen (NEGATIVE) Ur Phencyclidine Scrn (NEGATIVE) Ur Amphetamine Screen (NEGATIVE) U Methamphetamines Scrn (NEGATIVE) U Benzodiazepines Scrn (NEGATIVE) U Cocaine Metab Screen (NEGATIVE) U Marijuana (THC) Screen (NEGATIVE) 08/25/17 08/25/17 08/25/17 Range/Units 19:50 20:00 21:36 WBC (4.23-9.07) K/mm3 RBC (4.63-6.08) M/mm3 Hgb (13.7-17.5) gm/L Hct (40.1-51.0) % MCV (79.0-92.2) fl MCH (25.7-32.2) pg MCHC (32.2-35.5) g/dl RDW Std Deviation (35.1-43.9) fL Plt Count (163-337) K/mm3 MPV (9.4-12.3) fl Neut % (Auto) (34.0-67.9) % Lymph % (Auto) (21.8-53.1) % [place] % (Auto) (5.3-12.2) % Eos % (Auto) (0.8-7.0) Baso % (Auto) (0.1-1.2) % Neut # (Auto) (1.78-5.38) K/mm3 Lymph # (Auto) (1.32-3.57) K/mm3 [place] # (Auto) (0.30-0.82) K/mm3 Eos # (Auto) (0.04-0.54) K/mm3 Baso # (Auto) (0.01-0.08) K/mm3 PT (8.0-13.0) SECONDS INR APTT (22-36) SECONDS Puncture Site Lt radial ABG pH 7.36 (7.35-7.45) ABG pCO2 40.6 (35.0-45.0) mmHg ABG pO2 83.0 (80.0-100.0) mmHg ABG HCO3 22.1 (22.0-26.0) meq/L ABG O2 Saturation 96.7 (96.0-97.0) % ABG Base Excess -2.6 L (-2-2.0) A-a Gradient 506 mmHg O2 Delivery Device Nrb mask Oxygen Flow Rate 13.0 FiO2 100.00 (21.00-100.00) % Tidal Volume cc PEEP cmH20 Sodium (136-145) mEq/L Potassium (3.5-5.1) mEq/L Chloride (98-107) mEq/L Carbon Dioxide (21-32) mEq/L Anion Gap (5-15) BUN (7-18) mg/dL Creatinine (0.7-1.3) mg/dL Est Cr Clr Drug Dosing mL/min Estimated GFR (MDRD) (>60) mL/min BUN/Creatinine Ratio (14-18) Glucose (83-115) mg/dL Lactic Acid 2.7 H (0.4-2.0) mmol/L Calcium (8.5-10.1) mg/dL Total Bilirubin (0.2-1.0) mg/dL AST (15-37) U/L ALT (16-63) U/L Alkaline Phosphatase (46-116) U/L Troponin I (0.00-0.056) ng/mL Total Protein (6.4-8.2) g/dl Albumin (3.4-5.0) g/dl Globulin gm/dL Albumin/Globulin Ratio (1-2) Urine Color (Yellow) Urine Appearance (Clear) Urine pH (5.0-8.0) Ur Specific [place] (1.005-1.030) Urine Protein (Negative) Urine Glucose (UA) (Negative) Urine Ketones (Negative) Urine Occult Blood (Negative) Urine Nitrite (Negative) Urine Bilirubin (Negative) Urine Urobilinogen (0.2-1.0) Ur Leukocyte Esterase (Negative) Urine RBC (0-5) /hpf Urine WBC (0-5) /hpf Urine WBC Clumps (NOT SEEN) /hpf Ur Epithelial Cells (0-5) /hpf Ur Squamous Epith Cells (0-5) /hpf Ur Renal Epithelial Cell (0-5) /hpf Urine Bacteria (FEW) /hpf Urine Mucus (FEW) /hpf Urine Opiates Screen Negative (NEGATIVE) Ur Buprenorphine Scrn Negative (NEGATIVE) Ur Oxycodone Screen Negative (NEGATIVE) Urine Methadone Screen Negative (NEGATIVE) Ur Propoxyphene Screen Negative (NEGATIVE) Ur Barbiturates Screen Negative (NEGATIVE) Ur Tricyclics Screen Negative (NEGATIVE) Ur Phencyclidine Scrn Negative (NEGATIVE) Ur Amphetamine Screen Negative (NEGATIVE) U Methamphetamines Scrn Negative (NEGATIVE) U Benzodiazepines Scrn Negative (NEGATIVE) U Cocaine Metab Screen Negative (NEGATIVE) U Marijuana (THC) Screen Negative (NEGATIVE) 08/25/17 08/26/17 Range/Units 23:10 00:15 WBC (4.23-9.07) K/mm3 RBC (4.63-6.08) M/mm3 Hgb (13.7-17.5) gm/L Hct (40.1-51.0) % MCV (79.0-92.2) fl MCH (25.7-32.2) pg MCHC (32.2-35.5) g/dl RDW Std Deviation (35.1-43.9) fL Plt Count (163-337) K/mm3 MPV (9.4-12.3) fl Neut % (Auto) (34.0-67.9) % Lymph % (Auto) (21.8-53.1) % [place] % (Auto) (5.3-12.2) % Eos % (Auto) (0.8-7.0) Baso % (Auto) (0.1-1.2) % Neut # (Auto) (1.78-5.38) K/mm3 Lymph # (Auto) (1.32-3.57) K/mm3 [place] # (Auto) (0.30-0.82) K/mm3 Eos # (Auto) (0.04-0.54) K/mm3 Baso # (Auto) (0.01-0.08) K/mm3 PT (8.0-13.0) SECONDS INR APTT (22-36) SECONDS Puncture Site Rt brachial Rt radial ABG pH 7.38 7.37 (7.35-7.45) ABG pCO2 46.5 H 48.6 H (35.0-45.0) mmHg ABG pO2 268.0 H* 62.0 L (80.0-100.0) mmHg ABG HCO3 27.2 H 27.2 H (22.0-26.0) meq/L ABG O2 Saturation 100.0 H 91.8 L (96.0-97.0) % ABG Base Excess 2.3 H 2.0 (-2-2.0) A-a Gradient 122 133 mmHg O2 Delivery Device Ventilator Ventilator Oxygen Flow Rate FiO2 70.00 40.00 (21.00-100.00) % Tidal Volume 450.0 450.0 cc PEEP 5.0 5.0 cmH20 Sodium (136-145) mEq/L Potassium (3.5-5.1) mEq/L Chloride (98-107) mEq/L Carbon Dioxide (21-32) mEq/L Anion Gap (5-15) BUN (7-18) mg/dL Creatinine (0.7-1.3) mg/dL Est Cr Clr Drug Dosing mL/min Estimated GFR (MDRD) (>60) mL/min BUN/Creatinine Ratio (14-18) Glucose (83-115) mg/dL Lactic Acid (0.4-2.0) mmol/L Calcium (8.5-10.1) mg/dL Total Bilirubin (0.2-1.0) mg/dL AST (15-37) U/L ALT (16-63) U/L Alkaline Phosphatase (46-116) U/L Troponin I (0.00-0.056) ng/mL Total Protein (6.4-8.2) g/dl Albumin (3.4-5.0) g/dl Globulin gm/dL Albumin/Globulin Ratio (1-2) Urine Color (Yellow) Urine Appearance (Clear) Urine pH (5.0-8.0) Ur Specific [place] (1.005-1.030) Urine Protein (Negative) Urine Glucose (UA) (Negative) Urine Ketones (Negative) Urine Occult Blood (Negative) Urine Nitrite (Negative) Urine Bilirubin (Negative) Urine Urobilinogen (0.2-1.0) Ur Leukocyte Esterase (Negative) Urine RBC (0-5) /hpf Urine WBC (0-5) /hpf Urine WBC Clumps (NOT SEEN) /hpf Ur Epithelial Cells (0-5) /hpf Ur Squamous Epith Cells (0-5) /hpf Ur Renal Epithelial Cell (0-5) /hpf Urine Bacteria (FEW) /hpf Urine Mucus (FEW) /hpf Urine Opiates Screen (NEGATIVE) Ur Buprenorphine Scrn (NEGATIVE) Ur Oxycodone Screen (NEGATIVE) Urine Methadone Screen (NEGATIVE) Ur Propoxyphene Screen (NEGATIVE) Ur Barbiturates Screen (NEGATIVE) Ur Tricyclics Screen (NEGATIVE) Ur Phencyclidine Scrn (NEGATIVE) Ur Amphetamine Screen (NEGATIVE) U Methamphetamines Scrn (NEGATIVE) U Benzodiazepines Scrn (NEGATIVE) U Cocaine Metab Screen (NEGATIVE) U Marijuana (THC) Screen (NEGATIVE) Meds: Medications Discontinued Medications Generic Name Dose Route Start Last Admin Trade Name Jaylon PRN Reason Stop Dose Admin Sodium Chloride 1,000 mls @ 150 mls/hr 08/25/17 19:45 08/25/17 19:39 Normal Saline IV 75 mls/hr ASDIRECTED JOHAN Administration Levetiracetam 1,000 mg/ Sodium 110 mls @ 400 mls/hr 08/25/17 20:20 08/25/17 20:28 Chloride IV 08/25/17 20:34 400 mls/hr ONETIME ONE Administration Clindamycin Phosphate 900 mg/ 106 mls @ 100 mls/hr 08/25/17 20:27 08/25/17 20 :33 Sodium Chloride IV 08/25/17 21:30 100 mls/hr ONETIME ONE Administration Levofloxacin/Dextrose 750 mg/ 150 mls @ 100 mls/hr 08/25/17 21:44 08/25/17 23 :00 Premix IV 08/25/17 23:13 100 mls/hr ONETIME ONE Administration Propofol Confirm 08/25/17 22:31 08/25/17 23:05 Diprivan 100 Ml Administered 08/25/17 22:32 Not Given Dose 100 mls @ as directed .ROUTE .STK-MED ONE Propofol 100 mls @ 33.679 mls/hr 08/25/17 22:45 08/25/17 23:01 Diprivan 100 Ml IV 75 mcg/kg/min TITRATE JOHAN 33.679 mls/hr Protocol Administration 75 MCG/KG/MIN Propofol Confirm 08/26/17 00:54 Diprivan 100 Ml Administered 08/26/17 00:55 Dose 200 mls @ as directed .ROUTE .STK-MED ONE Lorazepam 2 mg 08/25/17 20:11 08/25/17 19:23 Ativan IVPUSH 08/25/17 20:12 2 mg STAT STA Administration Propofol 40 mg 08/25/17 22:40 08/25/17 23:00 Diprivan 20 Ml IVPUSH 08/25/17 22:41 40 mg ONETIME ONE Administration Propofol 40 mg 08/25/17 22:42 08/25/17 23:01 Diprivan 20 Ml IVPUSH 08/25/17 22:43 40 mg ONETIME ONE Administration Propofol 30 mg 08/25/17 22:48 08/25/17 23:01 Diprivan 20 Ml IVPUSH 08/25/17 22:49 30 mg ONETIME ONE Administration Propofol 40 mg 08/25/17 22:53 08/25/17 23:01 Diprivan 20 Ml IVPUSH 08/25/17 22:54 40 mg ONETIME ONE Administration Sodium Chloride 10 ml 08/25/17 19:30 08/25/17 19:37 Saline Flush FLUSH 10 ml ASDIRECTED PRN Administration Keep Vein Open - Re-Assessments/Exams Free Text/Narrative Re-Assessment/Exam: IV established by EMS crew. Upon admission to the ED patient had a full grand mal seizure. Received 2 mg of Ativan IV. Seizure only lasted for a approx. 30 seconds. O2 placed per nursing staff via nasal cannula. Posterior pharynx suctioned out with minimal secretions. Lungs sounds rhonchi present right lower. Left lung mcguire course. Initial labs and studies include CBC, chem 14, coag studies, troponin, UA, chest x-ray one view, CT of the head without contrast, and EKG. Patients O2 decreased to NC 3lpm. O2 sats to 86%. O2 via NRB placed 13 lpm. EKG sinus tachycardia first degree AV block with a rate of 101 HI interval 235 and also QTC of 436. 08/25/17 20:14 Spoke with and daughter. states patient did have 2 spoonfuls a mashed potatoes and nectar thickened apple juice. Patient is on no anti-seizure medications. Ordered Keppra thousand milligrams IV. Patient is full CODE STATUS. They're wishing to have everything done including intubation. Labs reviewed: White blood cell count 10.97, hemoglobin 11.2, platelet count 253 , neutrophil percentage is 78.6, neutrophil number is 8.63 2000 ABGS obtained. Results: pH is 7.36, PCO2 of 40.6, PO2 83.0, HCO3 22.1, O2 sats 96.7 on 13 L via nonrebreather, FiO2 100%. 08/25/17 20:34 Chemistry results are finally in. I ordered Keppra thousand milligrams prior to knowing. Creatinine is 3.0 which is slightly above his normal baseline with estimated creatine clearance of 22. Thus Keppra dosage should be decreased to 500 mg. Half of the medication is already in thus will discontinued at this time. In addition ordered clindamycin 900 mg IV to cover any anaerobes that may be present with aspiration. No renal adjustments required. Chest x-ray did reveal findings concerning for aspiration pneumonia. Thus CT of the chest was ordered. CT of the chest and head are is pending. UA grossly positive for infection. There is an indwelling catheter present. Thus urine culture will be obtained. Spoke with Dr. Huang does not believe we should treat for UTI with out urine culture results. Head CT impression: No acute intracranial process. Cystic changes of the brain are present. No significant interval change when compared to the CT of the head without contrast dated July 26, 2017. Chest CT Impression: Bronchopneumonia, possible aspiration. [address] Huang. She'll see the patient in the ED. 08/25/17 21:35 Dr. Huang has arrive to the ED and has evaluated patient. She will speak with family about CODE STATUS. MCG completed he does meet inpatient criteria. Dr. Huang wishes for the patient to be admitted to the ICU. Request starting Levaquin [address] Huang spoke with patients and daughter. Discussed change in code status and they are not willing to do so. They are wishing for patient to have everything required done including intubation. They are requesting transfer to [facility]. 08/25/17 22:[address] Art Dress Draper at [facility]. He has accepted the patient. Attempted to decrease O2 to 6 lpm. Patient desaturated. Thus discussed with Dr. Huang will intubate. Requests Propofol. 2031 Patient moved to trauma 2 to prepare for intubation. 2240 . Patient prepped for intubation. All appropriate equipment staged. Propofol bolus x2 of 40mg utilized to adequately sedate patient. Patient intubated successfully with a size 8.0 tube measuring 21 cm at the lip. Tube secured. ETCO2 40 with good waveform. With bagging patient had equal chest rise with no epigastric sounds. OG placed. . ET tube suctioned with thick secretions removed. Vent setting determined by Dr. Huang. ABGs ordered to be obtained in 30 minutes. 2248 Patient bucking tube ordered additional bolus of 30 mg of propofol. 2252 Patient became agitated and moving all extremities. Another 40 mg bolus of propofol given. Propofol drip increased to 95 mcgs/kilogram/min. Propofol drip titrated to adequately sedate patient 95mcqs/kg/min. Blood pressure dropped 82/s. 500 ml IVF bolus with NS initiated. Titrated Propofol to 90mcq/kg/min. BP trending upward. 2299 EMS paged VSS: Heart rate 70, BP 107/57, respiratory rate 14, SPO2 100%. 2320 ABG: PH 7.38, PCO2 46.5, PO2 268, sO2 100%, FO2hb 98.1, MICHELLE Hb 0.7 Patient tolerated decrease in FiO2 to 40% with a SPO2 of 93%. . 0031 ABG: PH 7.37, PCO2 48.6, PO2 62, sO2 91.8, FO2hb 89.9, MICHELLE Hb 1.4% Dr. Huang reviewed ABGs and states current settings is appropriate. We had difficulties arranging transport. [facility] does not have extra crewmember to facilitate transport. [facility] was notified and has accepted transport. It was brought to my attention [facility] does not have any vents. Thus patient will require BVM ventilations. It is snowing currently outside. Thus eliminating chance for rotor aircraft transport. In addition another patient in the ED was requiring transport via fixed wing. We continued with plan to transport via ground ambulance. Departure - Departure Time of Disposition: 21:33 Disposition: DC/Tfer to [facility] 02 Condition: Critical Clinical Impression: Hypoxia, Seizure Renal failure (ARF), acute on chronic Qualifiers: Acute renal failure type: unspecified Chronic kidney disease stage: stage 4 ( severe) Qualified Code(s): N17.9 - Acute kidney failure, unspecified Stroke Qualifiers: CVA mechanism: unspecified Qualified Code(s): I63.9 - Cerebral infarction, unspecified Aspiration pneumonia Qualifiers: Aspiration pneumonia type: unspecified Laterality: bilateral Lung location: lower lobe of lung Qualified Code(s): J69.0 - Pneumonitis due to inhalation of food and vomit - Discharge Information Referrals: PCP,Unknown [Primary Care Provider] - Forms: ED Department Discharge Critical Care Note - Critical Care Note Total Time (mins): 60
[2017-08-25] MEDS ORDERED: LORazepam 2 MG/ML MDV IVPUSH STA (20:11)
[2017-08-25] MEDS ORDERED: levETIRAcetam 1,000 MG in Sodium Chloride 0.9% 100 ML IV ONE (20:20)
[2017-08-25] MEDS ORDERED: Clindamycin Phosphate 900 MG in Sodium Chloride 0.9% 100 ML IV ONE (20:27)
[2017-08-25] MEDS ORDERED: Levofloxacin/Dextrose 5%-Water 750 MG in Premix Bag 1 BAG IV ONE (21:44)
[2017-08-25] MEDS ORDERED: Propofol 200 MG/20 ML SDV ONE (22:22)
[2017-08-25] MEDS ORDERED: Propofol 200 MG/20 ML SDV IVPUSH ONE ×4 (22:40→22:53)
[2017-08-25 23:35] VITALS: BP 100/54
--- NOTE | 2017-08-26 10:30 | CT ---
Head CT Technique: Multiple axial sections through the brain were obtained. Intravenous contrast was not utilized. Comparison: Prior head CT study of 07/26/17. Findings: Ventricles along with basal cisterns and sulci over convexities are prominent in size which appears stable from previous exam. Mild diminished density is noted within portions of the periventricular and subcortical white matter which is compatible with small vessel ischemic demyelination change. Low-density suggested within the destiny and right middle cerebral peduncle and right cerebellum which may represent fairly acute infarct. Atherosclerotic calcification is noted within the basal ganglia. Atherosclerotic calcification is noted within the vertebral vessels and within the carotid siphon. Bone window settings were reviewed which shows the visualized sinuses to appear clear. No acute calvarial abnormality is identified. Impression: 1. Equivocal finding within the right middle cerebral peduncle extending into the right cerebellum and destiny. Difficult to exclude a fairly acute infarct although findings may also be caused by artifact. MRI would be needed to further evaluate this finding if clinically needed. 2. Other senescent change as noted above which is stable. Diagnostic code #3 Agree with preliminary report issued by [facility], with additional but questionable finding as noted above ([facility] preliminary report dictated on 08/25/17, 9:57 PM Central Time)
--- NOTE | 2017-08-26 13:01 | CR ---
Chest: Portable supine view of the chest was obtained. Comparison: Prior chest CT performed earlier on the same day (8:18 PM) and chest x-ray performed on the same day (7:52 PM). Endotracheal tube has been placed. Tip lies slightly above the clavicles. Nasogastric tube is seen lying within the stomach. Parenchymal densities within both lung bases remain stable. Upper lungs are clear. Heart size and mediastinum are normal. Bony structures are grossly intact. Impression: 1. Tip of endotracheal tube above the clavicle. 2. Position of nasogastric tube within the stomach. 3. Stable parenchymal densities within both lung bases. Diagnostic code #3
--- NOTE | 2017-08-26 13:02 | CT ---
CT chest Technique: Multiple axial sections were obtained from above the lung apices inferiorly through the lung bases. Intravenous contrast was not utilized. Comparison: Prior chest x-ray of 08/07/17, no prior chest CT. Findings: Increased density identified within both lung bases. When comparing to prior chest x-ray most of this appears to be chronic and likely representing change of chronic aspiration. Difficult to exclude superimposed acute change without previous chest CT for comparison. Lungs otherwise are clear. Small portion of the visualized upper abdominal structures shows vascular calcification within both kidneys. Atherosclerotic change is noted within the thoracic aorta. Coronary artery calcification is seen. Mediastinum and hilar regions show no adenopathy or mass. Scattered degenerative spurring is noted within the spine. Impression: 1. Patchy increased density within both lung bases. When comparing to previous chest x-ray most of these findings are felt to represent chronic change likely from chronic aspiration. Difficult without previous chest CT to exclude superimposed acute infection. 2. Other incidental findings. Diagnostic code #3 Agree with preliminary report issued by [employer] ([facility] preliminary report dictated on 08/25/17, 10:01 PM Central Time)
--- NOTE | 2017-08-26 13:02 | CR ---
Chest: Portable view of the chest was obtained. Comparison: Prior chest x-ray of 08/07/17. Lung markings within both bases are increased. Findings are fairly stable from previous exam. No definite acute parenchymal densities are seen. Heart size is normal. Tortuous thoracic aorta is seen with atherosclerotic calcification. Sternotomy wires are present. Previous surgery within the base of the neck is noted. Bony structures are grossly intact. Impression: 1. Nothing acute is definitely appreciated. Stable findings as noted above. Diagnostic code #2
== END 2017-08-26 01:00 ==
LOC: JD.ED 19:15
DX: G40.409 Other generalized epilepsy and epileptic syndromes, not intractable, without status epilepticus (principal); R09.02 Hypoxemia; N17.9 Acute kidney failure, unspecified; N18.4 Chronic kidney disease, stage 4 (severe); I63.9 Cerebral infarction, unspecified; J69.0 Pneumonitis due to inhalation of food and vomit; E11.22 Type 2 diabetes mellitus with diabetic chronic kidney disease; I48.91 Unspecified atrial fibrillation; Z79.4 Long term (current) use of insulin; Z79.82 Long term (current) use of aspirin; Z79.899 Other long term (current) drug therapy; Z95.5 Presence of coronary angioplasty implant and graft; Z72.0 Tobacco use
CPT/HCPCS: 31500; 36415; 36600; 70450; 71045; 71250; 80053; 80306; 81001; 82803; 83605; 84484; 85025; 85610; 85730; 87086; 87088; 87186; 93005; 96361; 96365; 96366; 96367; 96368; 96375; 96376; 99291; J1953; J1956; J2060; J7030; J7040; J7050; J2704; J3490